=== PATIENT | male | born 1980 | race Caucasian/White ===

== ENCOUNTER 2018-12-10 11:42 | Inpatient (IN) | payer BC ==
--- NOTE | 2018-12-10 12:47 | EDM.PDOC ---
ED HPI GENERAL MEDICAL PROBLEM - General Chief Complaint: Respiratory Problem Stated Complaint: LOW OXYGEN LEVELS SENT BY HUNTER Time Seen by Provider: 12/10/18 12:10 Source of Information: Reports: Patient, RN Notes Reviewed, Other (long term care provider) History Limitations: Reports: No Limitations - History of Present Illness INITIAL COMMENTS - FREE TEXT/NARRATIVE: Patient is a 38-year-old male who presents to the ED with a inspector hairspring truing for the evaluation of low oxygen levels. The patient does reside in a long term, and does have assisted care living at that facility. This inspector hairspring truing states that when she went to go see the patient at around 7 AM this morning, he felt hot to touch, and she was told by other staff that his lips were blue. She did get a thermometer and check his temperature was found to be 101.5. She did give 500 mg of Tylenol, and his fever did decrease to 99.5F the patient's O2 level at roughly 8:30, was found to be 65% on room air, they did take him to the walk-in clinic for evaluation, but they started him on oxygen and sent him to the ED for evaluation. The inspector hairspring truing notes that the patient does have a CPAP at home, for which they can run oxygen in. The patient states that he has had a mild cough recently, but the staff state that the patient has not been complaining of much, although he is not much of a complainer at all. The patient does have a history of a broken finger, for which he did not complain about pain, which resulted in a pin in his finger for management. The patient's oxygen level on 2 L at time of initial evaluation was 94%. The patient appears to be in good spirits and is talkative at this time. Treatments DOOR TRIMMER: Reports: Other (see below) Other Treatments DOOR TRIMMER: tylenol and oxygen - Related Data Allergies Allergy/AdvReac Type Severity Reaction Status Date / Time dog dander Allergy Cannot Verified 12/10/18 12:05 Remember oats Allergy Cannot Verified 12/10/18 12:05 Remember risperidone [From Risperdal] Allergy Cannot Verified 12/10/18 12:05 Remember Home Meds: Home Meds ARIPiprazole [Abilify] 5 mg PO QID 12/10/18 [History] Allopurinol [Zyloprim] 300 mg PO BEDTIME 12/10/18 [History] Desmopressin 0.5 mg PO BEDTIME 12/10/18 [History] Divalproex Sodium [Depakote] 500 mg PO BID 12/10/18 [History] Levothyroxine 75 mcg PO SUSA 12/10/18 [History] Levothyroxine [Synthroid] 50 mg PO MOTUWETHFR 12/10/18 [History] Melatonin 10 mg PO BEDTIME 12/10/18 [History] Methylcellulose [Fiber] 625 mg PO BEDTIME 12/10/18 [History] PARoxetine HCl [Paxil] 30 mg PO DAILY 12/10/18 [History] cloNIDine [Catapres TTS-2] 0.2 mg TOP ASDIRECTED 12/10/18 [History] Past Medical History Musculoskeletal History: Reports: Other (See Below) Other Musculoskeletal History: scolosis Neurological History: Reports: Seizure Psychiatric History: 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, Anxiety, Depression Endocrine/Metabolic History: Reports: Hypothyroidism Social & Family History - Tobacco Use Smoking Status *Q: Never Smoker - Caffeine Use Caffeine Use: Reports: Soda - Recreational Drug Use Recreational Drug Use: No ED ROS GENERAL - Review of Systems Review Of Systems: See Below Constitutional: Reports: Fever HEENT: Reports: No Symptoms Respiratory: Reports: Cough Cardiovascular: Reports: No Symptoms Endocrine: Reports: No Symptoms GI/Abdominal: Reports: No Symptoms : Reports: No Symptoms Musculoskeletal: Reports: No Symptoms Skin: Reports: No Symptoms Neurological: Reports: No Symptoms Psychiatric: Reports: No Symptoms Hematologic/Lymphatic: Reports: No Symptoms Immunologic: Reports: No Symptoms ED EXAM, GENERAL - Physical Exam Exam: See Below Exam Limited By: No Limitations General Appearance: Alert, WD/WN, No Apparent Distress Eye Exam: Bilateral Eye: EOMI, Normal Inspection, PERRL Ears: Normal External Exam, Normal Canal, Hearing Grossly Normal, Normal TMs Nose: Normal Inspection, Normal Mucosa Throat/Mouth: Normal Inspection, Normal Lips, Normal Teeth, Normal Gums, Normal Oropharynx, Normal Voice, No Airway Compromise Head: Atraumatic, Normocephalic Neck: Normal Inspection Respiratory/Chest: No Respiratory Distress, Lungs Clear, No Accessory Muscle Use , Chest Non-Tender, Decreased Breath Sounds (diffuse bilaterally) Cardiovascular: Normal Peripheral Pulses, Regular Rate, Rhythm, No Edema, No Murmur GI/Abdominal: Normal Bowel Sounds, Soft, Non-Tender, No Distention, No Mass Extremities: Normal Inspection, Normal Capillary Refill Neurological: Alert, Oriented, Normal Cognition, No Motor/Sensory Deficits Psychiatric: Normal Affect, Normal Mood Skin Exam: Warm, Dry, Intact, Normal Color, No Rash Course - Vital Signs Last Recorded V/S: Last Vital Signs Temp 97.3 F 12/10/18 11:57 Pulse 85 12/10/18 11:57 Resp 19 12/10/18 11:57 BP 119/88 12/10/18 11:57 Pulse Ox 81 L 12/10/18 11:57 - Orders/Labs/Meds Orders: Active Orders 24 hr Category Date Time Status Admission Status [Patient Status] [ADT] Routine ADT 12/10/18 15:05 Ordered Oxygen Therapy Adult [Oxygen Therapy, ED] [RC] Care 12/10/18 12:35 Ordered ASDIRECTED Peripheral IV Care [RC] . DIRECTED Care 12/10/18 14:21 Ordered Chest 2V [CR] Stat Exams 12/10/18 12:35 Ordered LACTATE SEPSIS W/ REFLEX [CHEM] Stat Lab 12/10/18 15:02 Ordered Lactated Ringers [Ringers, Lactated] 1,000 ml Med 12/10/18 15:01 Ordered IV .BOLUS Sodium Chloride 0.9% [Saline Flush] Med 12/10/18 14:21 Ordered 10 ml FLUSH ASDIRECTED PRN Peripheral IV Insertion Adult [OM.PC] Routine Oth 12/10/18 14:20 Ordered Medication Orders Lactated Ringer's (Ringers, Lactated) 1,000 mls @ 999 mls/hr IV .BOLUS ONE Stop: 12/10/18 16:01 Sodium Chloride (Saline Flush) 10 ml FLUSH ASDIRECTED PRN PRN Reason: Keep Vein Open Last Admin: 12/10/18 14:49 Dose: 10 ml Labs: Laboratory Tests 12/10/18 12/10/18 Range/Units 13:15 13:15 WBC 15.82 H (4.23-9.07) K/mm3 RBC 6.07 (4.63-6.08) M/mm3 Hgb 14.9 (13.7-17.5) gm/L Hct 50.0 (40.1-51.0) % MCV 82.4 (79.0-92.2) fl MCH 24.5 L (25.7-32.2) pg MCHC 29.8 L (32.2-35.5) g/dl RDW Std Deviation 61.8 H (35.1-43.9) fL Plt Count 221 (163-337) K/mm3 Neutrophils % (Manual) 65 H (40-60) % Band Neutrophils % 8 (0-10) % Lymphocytes % (Manual) 13 L (20-40) % Atypical Lymphs % 0 % Monocytes % (Manual) 13 H (2-10) % Eosinophils % (Manual) 1 (0.8-7.0) % Basophils % (Manual) 0 L (0.2-1.2) Platelet Estimate Adequate Plt Morphology Comment See note Hypochromasia 2+ moderate Anisocytosis 3+ marked Microcytosis 2+ moderate Macrocytosis 2+ moderate RBC Morph Comment Not Reportable Sodium 139 (136-145) mEq/L Potassium 5.1 (3.5-5.1) mEq/L Chloride 103 (98-107) mEq/L Carbon Dioxide 34 H (21-32) mEq/L Anion Gap 7.1 (5-15) BUN 19 H (7-18) mg/dL Creatinine 1.0 (0.7-1.3) mg/dL Est Cr Clr Drug Dosing 103.82 mL/min Estimated GFR (MDRD) > 60 (>60) mL/min BUN/Creatinine Ratio 19.0 H (14-18) Glucose 89 (74-106) mg/dL Calcium 9.1 (8.5-10.1) mg/dL Total Bilirubin 0.6 (0.2-1.0) mg/dL AST 20 (15-37) U/L ALT 23 (16-63) U/L Alkaline Phosphatase 81 (46-116) U/L Total Protein 6.6 (6.4-8.2) g/dl Albumin 2.9 L (3.4-5.0) g/dl Globulin 3.7 gm/dL Albumin/Globulin Ratio 0.8 L (1-2) Meds: Medications Generic Name Dose Route Start Last Admin Trade Name Freq PRN Reason Stop Dose Admin Lactated Ringer's 1,000 mls @ 999 mls/hr 12/10/18 15:01 Ringers, Lactated IV 12/10/18 16:01 .BOLUS ONE Sodium Chloride 10 ml 12/10/18 14:21 12/10/18 14:49 Saline Flush FLUSH 10 ml ASDIRECTED PRN Administration Keep Vein Open Discontinued Medications Generic Name Dose Route Start Last Admin Trade Name Freq PRN Reason Stop Dose Admin Aripiprazole 5 mg 12/10/18 14:57 Abilify PO 12/10/18 14:58 ONETIME ONE Ceftriaxone Sodium 2 gm/ 100 mls @ 200 mls/hr 12/10/18 14:24 12/10/18 14:50 Sodium Chloride IV 12/10/18 14:53 200 mls/hr ONETIME ONE Administration Paroxetine HCl 30 mg 12/10/18 14:57 Paxil PO 12/10/18 14:58 ONETIME ONE - Re-Assessments/Exams Free Text/Narrative Re-Assessment/Exam: 12/10/18 12:46 Patient presents to the ED for the evaluation of low O2 sats. His oxygen level at time of triage was in the mid 80s, oxygen at 2 L was applied and he has been roughly 94-95 on the 2 L. I have ordered a chest x-ray, CBC, CMP for initial management. 12/10/18 13:38 Patient's chest x-ray is done, and reviewed by myself and Dr. Eldridge, there is scoliosis present, and there are 2 areas suspicious for pneumonia one of the right lung and one in the left lung. The patient has a left elevated hemidiaphragm. The patient's white blood cell count is back at over 15,000 as well. 12/10/18 14:08 Patient's differential is done, and does demonstrate 8% bands. This is more suggestive for pneumonia at this time. Departure - Departure Time of Disposition: 15:11 Disposition: Admitted As Inpatient 67 Condition: Fair Clinical Impression: Hypoxemia Pneumonia Qualifiers: Pneumonia type: due to unspecified organism Laterality: unspecified laterality Lung location: unspecified part of lung Qualified Code(s): J18.9 - Pneumonia, unspecified organism - Discharge Information *PRESCRIPTION DRUG MONITORING PROGRAM REVIEWED*: No *COPY OF PRESCRIPTION DRUG MONITORING REPORT IN PATIENT HUMBERTO: No Referrals: Michaela Sanchez NP [Primary Care Provider] - Forms: ED Department Discharge - My Orders Last 24 Hours: My Active Orders 12/10/18 12:35 Oxygen Therapy Adult [Oxygen Therapy, ED] [RC] ASDIRECTED Chest 2V [CR] Stat 12/10/18 14:20 Peripheral IV Insertion Adult [OM.PC] Routine 12/10/18 14:21 Peripheral IV Care [RC] . DIRECTED Sodium Chloride 0.9% [Saline Flush] 10 ml FLUSH ASDIRECTED PRN 12/10/18 15:01 Lactated Ringers [Ringers, Lactated] 1,000 ml IV .BOLUS 12/10/18 15:02 LACTATE SEPSIS W/ REFLEX [CHEM] Stat 12/10/18 15:05 Admission Status [Patient Status] [ADT] Routine - Assessment/Plan Last 24 Hours: My Active Orders 12/10/18 12:35 Oxygen Therapy Adult [Oxygen Therapy, ED] [RC] ASDIRECTED Chest 2V [CR] Stat 12/10/18 14:20 Peripheral IV Insertion Adult [OM.PC] Routine 12/10/18 14:21 Peripheral IV Care [RC] . DIRECTED Sodium Chloride 0.9% [Saline Flush] 10 ml FLUSH ASDIRECTED PRN 12/10/18 15:01 Lactated Ringers [Ringers, Lactated] 1,000 ml IV .BOLUS 12/10/18 15:02 LACTATE SEPSIS W/ REFLEX [CHEM] Stat 12/10/18 15:05 Admission Status [Patient Status] [ADT] Routine
[2018-12-10] MEDS ORDERED: Sodium Chloride 0.9% 10 ML Syringe FLUSH PRN ×2 (14:21→17:16)
[2018-12-10] MEDS ORDERED: cefTRIAXone 2 GM in Sodium Chloride 0.9% 100 ML IV ONE (14:24)
[2018-12-10] MEDS ORDERED: PARoxetine 20 MG Tab PO ONE (14:57)
[2018-12-10] MEDS ORDERED: Lactated Ringers 1,000 ML IV ONE (15:01)
--- NOTE | 2018-12-10 15:11 | CR ---
Chest: PA and lateral views of the chest were obtained. Comparison: No previous chest x-ray. Hiatal hernia is noted. Heart size appears within normal limits. Tortuous thoracic aorta is seen. Mild increased central lung markings are seen. Lungs otherwise are clear. Severe scoliosis is noted within the spine. Impression: 1. Possible bronchitis. 2. Other incidental findings. Diagnostic code #3
[2018-12-10] MEDS ORDERED: ARIPiprazole 10 MG Tab PO ONE (15:15)
[2018-12-10] MEDS ORDERED: Azithromycin 500 MG in Sodium Chloride 0.9% 250 ML IV ONE (16:03)
[2018-12-10] MEDS ORDERED: Acetaminophen 325 MG Tab PO PRN (17:16)
--- NOTE | 2018-12-10 17:43 | PCM.HP ---
H&P History of Present Illness - General Date of Service: 12/10/18 Admit Problem/Dx: Admission Diagnosis/Problem Admission Diagnosis/Problem Hypoxemia - History of Present Illness Initial Comments - Free Text/Narative: This 38-year-old male is admitted through the emergency room after being found to have low oxygen levels at his senior care. Patient was found to be irritable last couple of days and when he woke up this morning he was sweaty. He also started trazodone last night in his mother is not sure if that is not part of the reason he woke up sweaty. His temperature was found to be honored and 1.5 and reportedly his lips were blue. He was given Tylenol and his O2 around 8:30 was found to be 65% on room air. Patient was brought to the walk-in clinic and sent to the emergency room for evaluation. Patient uses a BiPAP at home, but often takes it off. He does have oxygen for his BiPAP. She also states that he often has a chronically low O2 that on a good day it is around 89%. Patient has severe scoliosis which apparently causes some restrictive lung disease. His BiPAP settings are 12/7. He has had these worsening conditions over the last 12 years. Also of note he has lower extremity swelling. This is also been going on for years with no workup performed. Patient is a poor historian secondary to his mental disability. In the emergency room patient was placed on oxygen and 2 L nasal cannula increase his oxygen level approximately to 94-95%. Chest x-ray showed changes consistent with bronchitis. White count was elevated at over 15,000. There were 8% bands on differential. - Related Data Allergies/Adverse Reactions: Allergies Allergy/AdvReac Type Severity Reaction Status Date / Time dog dander Allergy Cannot Verified 12/10/18 12:05 Remember risperidone [From Risperdal] Allergy Cannot Verified 12/10/18 12:05 Remember Home Medications: Home Meds ARIPiprazole [Abilify] 5 mg PO QID 12/10/18 [History] Allopurinol [Zyloprim] 300 mg PO BEDTIME 12/10/18 [History] Desmopressin 0.5 mg PO BEDTIME 12/10/18 [History] Divalproex Sodium [Depakote] 500 mg PO BID 12/10/18 [History] Levothyroxine 75 mcg PO SUSA 12/10/18 [History] Levothyroxine [Synthroid] 50 mg PO MOTUWETHFR 12/10/18 [History] Melatonin 10 mg PO BEDTIME 12/10/18 [History] Methylcellulose [Fiber] 625 mg PO BEDTIME 12/10/18 [History] PARoxetine HCl [Paxil] 30 mg PO DAILY 12/10/18 [History] cloNIDine [Catapres TTS-2] 0.2 mg TOP ASDIRECTED 12/10/18 [History] Past Medical History Respiratory History: Reports: Asthma, Sleep Apnea Other Respiratory History: wears bipap at night-1L O2--not always compliant. 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 General: Reports: Fever, Chills, Malaise Exam - Exam Exam: See Below - Vital Signs Vital Signs: Last Vital Signs Temp 97.3 F 12/10/18 11:57 Pulse 85 12/10/18 11:57 Resp 19 12/10/18 11:57 BP 119/88 12/10/18 11:57 Pulse Ox 81 L 12/10/18 11:57 Weight: 163 lb 8 oz - Exam Quality Assessment: Supplemental Oxygen General: Alert HEENT: Conjunctiva Clear, Mucosa Moist & [place], Posterior Pharynx Clear Neck: Supple, Trachea Midline Lungs: Clear to Auscultation, Normal Respiratory Effort Cardiovascular: Regular Rate, Regular Rhythm GI/Abdominal Exam: Normal Bowel Sounds, Soft, No Distention Extremities: Normal Inspection, Normal Range of Motion, Normal Capillary Refill , Pedal Edema Skin: Warm, Dry, Intact Neuro Extensive - Mental Status: Alert, Normal Mood/Affect Psychiatric: Alert, Normal Affect, Normal Mood - Patient Data Lab Results Last 24 hrs: Laboratory Results - last 24 hr 12/10/18 12/10/18 12/10/18 Range/Units 13:15 13:15 15:34 WBC 15.82 H (4.23-9.07) K/mm3 RBC 6.07 (4.63-6.08) M/mm3 Hgb 14.9 (13.7-17.5) gm/L Hct 50.0 (40.1-51.0) % MCV 82.4 (79.0-92.2) fl MCH 24.5 L (25.7-32.2) pg MCHC 29.8 L (32.2-35.5) g/dl RDW Std Deviation 61.8 H (35.1-43.9) fL Plt Count 221 (163-337) K/mm3 Neutrophils % (Manual) 65 H (40-60) % Band Neutrophils % 8 (0-10) % Lymphocytes % (Manual) 13 L (20-40) % Atypical Lymphs % 0 % Monocytes % (Manual) 13 H (2-10) % Eosinophils % (Manual) 1 (0.8-7.0) % Basophils % (Manual) 0 L (0.2-1.2) Platelet Estimate Adequate Plt Morphology Comment See note Hypochromasia 2+ moderate Anisocytosis 3+ marked Microcytosis 2+ moderate Macrocytosis 2+ moderate RBC Morph Comment Not Reportable Sodium 139 (136-145) mEq/L Potassium 5.1 (3.5-5.1) mEq/L Chloride 103 (98-107) mEq/L Carbon Dioxide 34 H (21-32) mEq/L Anion Gap 7.1 (5-15) BUN 19 H (7-18) mg/dL Creatinine 1.0 (0.7-1.3) mg/dL Est Cr Clr Drug Dosing 103.82 mL/min Estimated GFR (MDRD) > 60 (>60) mL/min BUN/Creatinine Ratio 19.0 H (14-18) Glucose 89 (74-106) mg/dL Lactic Acid 1.9 (0.4-2.0) mmol/L Calcium 9.1 (8.5-10.1) mg/dL Total Bilirubin 0.6 (0.2-1.0) mg/dL AST 20 (15-37) U/L ALT 23 (16-63) U/L Alkaline Phosphatase 81 (46-116) U/L Total Protein 6.6 (6.4-8.2) g/dl Albumin 2.9 L (3.4-5.0) g/dl Globulin 3.7 gm/dL Albumin/Globulin Ratio 0.8 L (1-2) Result Diagrams: 12/10/18 13:15 12/10/18 13:15 - Problem List (1) Central sleep apnea Status: Acute Current Visit: Yes (2) Hypoxemia SNOMED Code(s): 072260974 ICD Code: R09.02 - HYPOXEMIA Status: Acute Current Visit: Yes (3) Pneumonia SNOMED Code(s): 712337934 ICD Code: J18.9 - PNEUMONIA, UNSPECIFIED ORGANISM Status: Acute Current Visit: Yes Qualifiers: Pneumonia type: due to unspecified organism Laterality: unspecified laterality Lung location: unspecified part of lung Qualified Code(s): J18.9 - Pneumonia, unspecified organism Problem List Initiated/Reviewed/Updated: Yes Orders Last 24hrs: Active Orders 24 hr Category Date Time Status Admission Status [Patient Status] [ADT] Routine ADT 12/10/18 15:05 Active Antiembolic Devices [RC] PER UNIT ROUTINE Care 12/10/18 17:18 Active Oxygen Therapy [RC] PRN Care 12/10/18 17:16 Active Peripheral IV Care [RC] Q2HR Care 12/10/18 14:21 Active Up ad Madonna [RC] ASDIRECTED Care 12/10/18 17:16 Active VTE/DVT Education [RC] PER UNIT ROUTINE Care 12/10/18 17:16 Active Vital Signs [RC] Q4H Care 12/10/18 17:16 Active Respiratory Care Assess and Treatment [CONS] Routine Cons 12/10/18 17:16 Active Regular Diet [DIET] Diet 12/10/18 Dinner Active Chest 1V Frontal [CR] AM Exams 12/11/18 05:11 Ordered Echo Comp wo Cont [US] Routine Exams 12/10/18 17:19 Ordered C-REACTIVE PROTEIN [CHEM] AM Lab 12/11/18 05:11 Ordered CBC WITH AUTO DIFF [HEME] AM Lab 12/11/18 05:11 Ordered CMP [COMPREHENSIVE METABOLIC PN,CMP] [CHEM] AM Lab 12/11/18 05:11 Ordered INFLUENZA A+B AG SCREEN [RM] Stat Lab 12/10/18 16:02 Ordered LEGIONELLA ANTIGEN [MREF] Routine Lab 12/10/18 16:01 Ordered MAGNESIUM [CHEM] AM Lab 12/11/18 05:11 Ordered RESPIRATORY PANEL Routine Lab 12/10/18 16:01 Ordered STREP PNEUMONIAE ANTIGEN [MREF] Routine Lab 12/10/18 16:01 Ordered ARIPiprazole Med 12/10/18 21:00 Ordered 5 mg PO QID Acetaminophen [Tylenol] Med 12/10/18 17:16 Active 650 mg PO Q4H PRN Allopurinol [Zyloprim] Med 12/10/18 21:00 Ordered 300 mg PO BEDTIME Azithromycin [Zithromax] 250 mg Med 12/11/18 16:15 Active Sodium Chloride 0.9% [Normal Saline] 250 ml IV Q24H Desmopressin Med 12/10/18 21:00 Ordered 0.5 mg PO BEDTIME Divalproex Sodium [Depakote] Med 12/10/18 21:00 Ordered 500 mg PO BID Levothyroxine Med 12/13/18 17:35 Ordered 75 mcg PO SUSA Levothyroxine [Synthroid] Med 12/10/18 17:45 Ordered 50,000 mcg PO MOTUWETHFR PARoxetine HCl [Paxil] Med 12/11/18 09:00 Ordered 30 mg PO DAILY Sodium Chloride 0.9% [Saline Flush] Med 12/10/18 14:21 Active 10 ml FLUSH ASDIRECTED PRN Sodium Chloride 0.9% [Saline Flush] Med 12/10/18 17:16 Active 10 ml FLUSH ASDIRECTED PRN cefTRIAXone [Rocephin] 2 gm Med 12/11/18 15:00 Active Sodium Chloride 0.9% [Normal Saline] 100 ml IV Q24H cloNIDine [Catapres TTS-2] Med 12/10/18 17:45 Ordered 0.2 mg TOP ASDIRECTED Antiembolic Hose [OM.PC] Per Unit Routine Oth 12/10/18 17:16 Ordered Peripheral IV Insertion Adult [OM.PC] Routine Oth 12/10/18 14:20 Ordered Saline Lock Insert [OM.PC] Routine Oth 12/10/18 17:16 Ordered Resuscitation Status Routine Resus Stat 12/10/18 16:53 Ordered Medication Orders Acetaminophen (Tylenol) 650 mg PO Q4H PRN PRN Reason: Pain (Mild 1-3)/fever Allopurinol (Zyloprim) 300 mg PO BEDTIME [place] Clonidine HCl (Catapres Tts-2) 0.2 mg TOP ASDIRECTED [place] Desmopressin Acetate (Desmopressin) 0.5 mg PO BEDTIME [place] Divalproex Sodium (Depakote) 500 mg PO BID [place] Azithromycin 250 mg/ Sodium (Chloride) 250 mls @ 250 mls/hr IV Q24H [place] Stop: 12/14/18 17:14 Ceftriaxone Sodium 2 gm/ (Sodium Chloride) 100 mls @ 200 mls/hr IV Q24H [place] Levothyroxine Sodium (Levothyroxine) 75 mcg PO SUSA [place] Levothyroxine Sodium (Synthroid) 50,000 mcg PO MOTUWETHFR [facility] Non-Formulary Medication (Aripiprazole) 5 mg PO QID [facility] Non-Formulary Medication (Paroxetine Hcl [Paxil]) 30 mg PO DAILY [facility] Sodium Chloride (Saline Flush) 10 ml FLUSH ASDIRECTED PRN PRN Reason: Keep Vein Open Last Admin: 12/10/18 14:49 Dose: 10 ml Sodium Chloride (Saline Flush) 10 ml FLUSH ASDIRECTED PRN PRN Reason: Keep Vein Open Assessment/Plan Comment:: Pneumonia with hypoxemia * Rocephin and azithromycin * CBC in the morning with CMP and C-reactive protein * O2 to keep pulse ox above 92%. * Duonebs every 4 hours when necessary as needed Central sleep apnea * Patient's mother will bring his home BiPAP unit. Extremity edema * TSH and echocardiogram ordered CODE STATUS: Full code Anticipated length of stay 2 days
[2018-12-10] MEDS ORDERED: cloNIDine 0.2 MG/Day Transdermal Patch TOP SCH (17:45)
[2018-12-10] MEDS ORDERED: cloNIDine 0.2 MG/Day Transdermal Patch TRDERM SCH ×2 (18:30→22:00)
[2018-12-10] MEDS ORDERED: Desmopressin 0.2 MG Tab PO SCH (21:00)
[2018-12-10] MEDS: Divalproex Sodium Delayed-Release 500 MG Tab.CR PO SCH (21:39)
[2018-12-10] MEDS: Allopurinol 300 MG Tab PO SCH (21:39)
[2018-12-10] MEDS: ARIPiprazole 10 MG Tab PO SCH (21:39)
--- NOTE | 2018-12-11 07:27 | PCM.PN ---
- General Info Date of Service: 12/11/18 Admission Dx/Problem (Free Text): Admission Diagnosis/Problem Admission Diagnosis/Problem Hypoxemia Subjective Update: 12/11/18: In to see Yaakov. His mother is at bedside. We discussed progress so far and possible need for oxygen at discharge. Mother reports he will likely not be able to return to his [place] [facility] if he needs oxygen therapy on discharge but she is willing to bring him home if needed. Will extend vital signs to Q6Hr. Added acapella as he will not be able to participate in IS. Will add a BNP due to leg swelling. Echo has been obtained and is pending. He is not coughing and does not sound congested so no need for Robitussin DM. This will also not produce a sputum culture. He remains on 2L O2. Mother would like to see pulmonology at discharge as she did not have a good experience last time but reports he has not been compliant with wearing his BiPAP. She is hopeful they will have a better idea of options for him. She reports his scoliosis is worsening and we discussed how this will likely lead to worsening respiratory symptoms and difficulty clearing infections. His labs today are improved and his mother reports significant improvement with symptoms. Functional Status: Reports: Pain Controlled, Tolerating Diet, Ambulating, Urinating, Other (acapella ). Denies: New Symptoms - Review of Systems General: Reports: No Symptoms. Denies: Fever, Weakness, Chills HEENT: Reports: No Symptoms. Denies: Headaches Pulmonary: Reports: No Symptoms. Denies: Shortness of Breath, Cough, Sputum, Wheezing Cardiovascular: Reports: Dyspnea on Exertion, Edema (improved ). Denies: Chest Pain Gastrointestinal: Reports: No Symptoms. Denies: Abdominal Pain, Constipation, Diarrhea, Vomiting Genitourinary: Reports: No Symptoms. Denies: Pain Musculoskeletal: Reports: No Symptoms Skin: Reports: No Symptoms. Denies: Cyanosis Neurological: Reports: No Symptoms. Denies: Confusion, Tremors, Trouble Speaking, Difficulty Walking, Change in Speech, Gait Disturbance Psychiatric: Reports: No Symptoms Systems Review Comment:: Patient has developmental delays. ROS obtained from patient and his mother. - Patient Data Vitals - Most Recent: Last Vital Signs Temp 98.1 F 12/11/18 00:11 Pulse 66 12/11/18 00:11 Resp 18 12/11/18 00:11 BP 122/92 H 12/11/18 00:11 Pulse Ox 91 L 12/11/18 00:11 Weight - Most Recent: 163 lb 8 oz I&O - Last 24 Hours: Intake & Output 12/10/18 12/11/18 12/11/18 22:59 06:59 14:59 Intake Total 240 450 Output Total 600 650 Balance -360 -200 Lab Results Last 24 Hours: Laboratory Results - last 24 hr 12/10/18 12/10/18 12/10/18 Range/Units 13:15 13:15 15:34 WBC 15.82 H (4.23-9.07) K/mm3 RBC 6.07 (4.63-6.08) M/mm3 Hgb 14.9 (13.7-17.5) gm/L Hct 50.0 (40.1-51.0) % MCV 82.4 (79.0-92.2) fl MCH 24.5 L (25.7-32.2) pg MCHC 29.8 L (32.2-35.5) g/dl RDW Std Deviation 61.8 H (35.1-43.9) fL Plt Count 221 (163-337) K/mm3 Neut % (Auto) (34.0-67.9) % Lymph % (Auto) (21.8-53.1) % [place] % (Auto) (5.3-12.2) % Eos % (Auto) (0.8-7.0) Baso % (Auto) (0.1-1.2) % Neut # (Auto) (1.78-5.38) K/mm3 Lymph # (Auto) (1.32-3.57) K/mm3 [place] # (Auto) (0.30-0.82) K/mm3 Eos # (Auto) (0.04-0.54) K/mm3 Baso # (Auto) (0.01-0.08) K/mm3 Neutrophils % (Manual) 65 H (40-60) % Band Neutrophils % 8 (0-10) % Lymphocytes % (Manual) 13 L (20-40) % Atypical Lymphs % 0 % Monocytes % (Manual) 13 H (2-10) % Eosinophils % (Manual) 1 (0.8-7.0) % Basophils % (Manual) 0 L (0.2-1.2) Manual Slide Review Platelet Estimate Adequate Plt Morphology Comment See note Hypochromasia 2+ moderate Anisocytosis 3+ marked Microcytosis 2+ moderate Macrocytosis 2+ moderate RBC Morph Comment Not Reportable Sodium 139 (136-145) mEq/L Potassium 5.1 (3.5-5.1) mEq/L Chloride 103 (98-107) mEq/L Carbon Dioxide 34 H (21-32) mEq/L Anion Gap 7.1 (5-15) BUN 19 H (7-18) mg/dL Creatinine 1.0 (0.7-1.3) mg/dL Est Cr Clr Drug Dosing 103.82 mL/min Estimated GFR (MDRD) > 60 (>60) mL/min BUN/Creatinine Ratio 19.0 H (14-18) Glucose 89 (74-106) mg/dL Lactic Acid 1.9 (0.4-2.0) mmol/L Calcium 9.1 (8.5-10.1) mg/dL Magnesium (1.8-2.4) mg/dl Total Bilirubin 0.6 (0.2-1.0) mg/dL AST 20 (15-37) U/L ALT 23 (16-63) U/L Alkaline Phosphatase 81 (46-116) U/L C-Reactive Protein (<1.0) mg/dL Total Protein 6.6 (6.4-8.2) g/dl Albumin 2.9 L (3.4-5.0) g/dl Globulin 3.7 gm/dL Albumin/Globulin Ratio 0.8 L (1-2) TSH 3rd Generation (0.358-3.74) uIU/mL MRSA (PCR) 12/10/18 12/11/18 12/11/18 Range/Units 19:30 05:17 05:17 WBC 13.18 H (4.23-9.07) K/mm3 RBC 5.40 (4.63-6.08) M/mm3 Hgb 13.6 L (13.7-17.5) gm/L Hct 45.3 (40.1-51.0) % MCV 83.9 (79.0-92.2) fl MCH 25.2 L (25.7-32.2) pg MCHC 30.0 L (32.2-35.5) g/dl RDW Std Deviation 61.9 H (35.1-43.9) fL Plt Count 177 (163-337) K/mm3 Neut % (Auto) 64.3 (34.0-67.9) % Lymph % (Auto) 22.2 (21.8-53.1) % [place] % (Auto) 10.6 (5.3-12.2) % Eos % (Auto) 2.5 (0.8-7.0) Baso % (Auto) 0.2 (0.1-1.2) % Neut # (Auto) 8.47 H (1.78-5.38) K/mm3 Lymph # (Auto) 2.93 (1.32-3.57) K/mm3 [place] # (Auto) 1.40 H (0.30-0.82) K/mm3 Eos # (Auto) 0.33 (0.04-0.54) K/mm3 Baso # (Auto) 0.03 (0.01-0.08) K/mm3 Neutrophils % (Manual) (40-60) % Band Neutrophils % (0-10) % Lymphocytes % (Manual) (20-40) % Atypical Lymphs % % Monocytes % (Manual) (2-10) % Eosinophils % (Manual) (0.8-7.0) % Basophils % (Manual) (0.2-1.2) Manual Slide Review Abnormal smear Platelet Estimate Plt Morphology Comment Hypochromasia Anisocytosis Microcytosis Macrocytosis RBC Morph Comment Sodium 140 (136-145) mEq/L Potassium 4.7 (3.5-5.1) mEq/L Chloride 102 (98-107) mEq/L Carbon Dioxide 34 H (21-32) mEq/L Anion Gap 8.7 (5-15) BUN 17 (7-18) mg/dL Creatinine 0.8 (0.7-1.3) mg/dL Est Cr Clr Drug Dosing 130.54 mL/min Estimated GFR (MDRD) > 60 (>60) mL/min BUN/Creatinine Ratio 21.3 H (14-18) Glucose 92 (74-106) mg/dL Lactic Acid (0.4-2.0) mmol/L Calcium 8.9 (8.5-10.1) mg/dL Magnesium 1.8 (1.8-2.4) mg/dl Total Bilirubin 0.4 (0.2-1.0) mg/dL AST 17 (15-37) U/L ALT 18 (16-63) U/L Alkaline Phosphatase 72 (46-116) U/L C-Reactive Protein 4.2 H* (<1.0) mg/dL Total Protein 6.1 L (6.4-8.2) g/dl Albumin 2.6 L (3.4-5.0) g/dl Globulin 3.5 gm/dL Albumin/Globulin Ratio 0.7 L (1-2) TSH 3rd Generation 0.380 (0.358-3.74) uIU/mL MRSA (PCR) Negative Solomon Results Last 24 Hours: Microbiology 12/10/18 18:30 Influenza Type A Antigen Screen - Final Nasopharyngeal Swab NEGATIVE INFLUENZA A VIRUS AG REFERENCE RANGE: NEGATIVE Influenza Type B Antigen Screen - Final NEGATIVE INFLUENZA B VIRUS AG REFERENCE RANGE: NEGATIVE Med Orders - Current: Current Medications Acetaminophen (Tylenol) 650 mg PO Q4H PRN PRN Reason: Pain (Mild 1-3)/fever Allopurinol (Zyloprim) 300 mg PO BEDTIME [facility] Last Admin: 12/10/18 21:39 Dose: 300 mg Aripiprazole (Abilify) 5 mg PO QID [facility] Last Admin: 12/10/18 21:39 Dose: 5 mg Aripiprazole (Abilify) 2 mg PO BID PRN PRN Reason: Agitation Clonidine HCl (Catapres Tts-2) 0.2 mg TRDERM Q3D [facility] Last Admin: 12/10/18 22:08 Dose: 0.2 mg Desmopressin Acetate (Desmopressin) 0.5 mg PO BEDTIME [facility] Last Admin: 12/10/18 22:37 Dose: 0.5 mg Divalproex Sodium (Depakote) 500 mg PO BID [facility] Last Admin: 12/10/18 21:39 Dose: 500 mg Azithromycin 250 mg/ Sodium (Chloride) 250 mls @ 250 mls/hr IV Q24H [facility] Stop: 12/14/18 17:14 Ceftriaxone Sodium 2 gm/ (Sodium Chloride) 100 mls @ 200 mls/hr IV Q24H [facility] Levothyroxine Sodium (Levothyroxine) 75 mcg PO SuSa@0600 [facility] Levothyroxine Sodium (Synthroid) 50 mcg PO MoTuWeThFr@0600 [facility] Miscellaneous Information (Remove Patch) 1 ea TRDERM Q3D [place] Paroxetine HCl (Paxil) 30 mg PO DAILY [place] Sodium Chloride (Saline Flush) 10 ml FLUSH ASDIRECTED PRN PRN Reason: Keep Vein Open Last Admin: 12/10/18 14:49 Dose: 10 ml Sodium Chloride (Saline Flush) 10 ml FLUSH ASDIRECTED PRN PRN Reason: Keep Vein Open Discontinued Medications Aripiprazole (Abilify) 5 mg PO ONETIME ONE Stop: 12/10/18 14:58 Last Admin: 12/10/18 15:20 Dose: Not Given Aripiprazole (Abilify) 5 mg PO ONETIME ONE Stop: 12/10/18 15:16 Last Admin: 12/10/18 15:23 Dose: 5 mg Clonidine HCl (Catapres Tts-2) 0.2 mg TOP ASDIRECTED [place] Clonidine HCl (Catapres Tts-2) 0.2 mg TRDERM Q3D [place] Last Admin: 12/10/18 21:47 Dose: Not Given Ceftriaxone Sodium 2 gm/ (Sodium Chloride) 100 mls @ 200 mls/hr IV ONETIME ONE Stop: 12/10/18 14:53 Last Admin: 12/10/18 14:50 Dose: 200 mls/hr Lactated Ringer's (Ringers, Lactated) 1,000 mls @ 999 mls/hr IV .BOLUS ONE Stop: 12/10/18 16:01 Last Admin: 12/10/18 18:02 Dose: Not Given Azithromycin 500 mg/ Sodium (Chloride) 250 mls @ 250 mls/hr IV ONETIME ONE Stop: 12/10/18 17:02 Last Admin: 12/10/18 18:19 Dose: 250 mls/hr Miscellaneous Information (Remove Patch) 1 ea TRDERM Q3D [place] Paroxetine HCl (Paxil) 30 mg PO ONETIME ONE Stop: 12/10/18 14:58 Last Admin: 12/10/18 15:24 Dose: 30 mg - Exam Quality Assessment: DVT Prophylaxis General: Alert, Oriented, Cooperative, No Acute Distress HEENT: Pupils Equal, Pupils Reactive, EOMI, Mucous Membr. Moist/[place] Neck: Supple, Trachea Midline, No JVD Lungs: Normal Respiratory Effort, Decreased Breath Sounds. No: Rhonchi, Wheezing Cardiovascular: Regular Rate, Regular Rhythm GI/Abdominal Exam: Normal Bowel Sounds, Soft, Non-Tender, No Organomegaly, No Distention (Male) Exam: Deferred Back Exam: Normal Inspection, Full Range of Motion Extremities: Normal Inspection, Normal Range of Motion, Non-Tender, Pedal Edema (trace to resolved ) Peripheral Pulses: 2+: Radial (L), Radial (R), Dorsalis Pedis (L), Dorsalis Pedis (R) Skin: Warm, Dry, Intact Neurological: No New Focal Deficit Psy/Mental Status: Alert - Problem List & Annotations (1) Hypoxemia SNOMED Code(s): 737273065 Code(s): R09.02 - HYPOXEMIA Status: Acute Priority: High Current Visit : Yes (2) Central sleep apnea Status: Acute Priority: High Current Visit: Yes (3) Pneumonia SNOMED Code(s): 798165182 Code(s): J18.9 - PNEUMONIA, UNSPECIFIED ORGANISM Status: Acute Priority: High Current Visit: Yes Qualifiers: Pneumonia type: due to unspecified organism Laterality: unspecified laterality Lung location: unspecified part of lung Qualified Code(s): J18.9 - Pneumonia, unspecified organism (4) Scoliosis SNOMED Code(s): 450393846 Code(s): M41.9 - SCOLIOSIS, UNSPECIFIED Status: Chronic Priority: High Current Visit: Yes Qualifiers: Scoliosis type: unspecified scoliosis Spinal region: unspecified Qualified Code(s): M41.9 - Scoliosis, unspecified - Problem List Review Problem List Initiated/Reviewed/Updated: Yes - Plan Plan:: Pneumonia with hypoxemia * Rocephin and azithromycin * O2 as needed to keep pulse ox above 92%. * Duonebs every 4 hours when necessary as needed * WBC 15.82-->13.18 * CRP 4.2 * Consult RT * Legionella, Strep pneumo, VRP all pending * Negative influenza * No cough so unable to produce sputum culture * Significant scoliosis * Ambulate * Droplet precautions Central sleep apnea * Patient's mother brought home BiPAP unit. * Mother reports poor compliance with BiPAP * Mother would like referral to pulmonology after discharge Extremity edema * TSH 0.380 (WNL) * Echocardiogram obtained and pending * BNP pending * ALESSIA Joel Chronic: Significant scoliosis Seizures Aggressive/Hostile behaviors - mother reports this is secondary to attempt to apply BiPAP Anxiety Depression Hypothyroidism Plan: Admit to medical floor Other orders as above Home medications as ordered Routine AM labs He is ambulatory so will hold off PT/OT for now DVT prophylaxis: ALESSIA Joel CODE STATUS: Full code; PCP: Michaela Sanchez NP Anticipated length of stay 2-3 days total
[2018-12-11] MEDS: Levothyroxine 50 MCG Tab PO SCH (08:03)
[2018-12-11] MEDS: PARoxetine 20 MG Tab PO SCH (08:48)
[2018-12-11] MEDS: Divalproex Sodium Delayed-Release 500 MG Tab.CR PO SCH ×2 (08:49→20:26)
[2018-12-11] MEDS: ARIPiprazole 10 MG Tab PO SCH ×3 (08:49→20:26)
--- NOTE | 2018-12-11 09:43 | CR ---
Chest: Portable view of the chest was obtained. Comparison: Previous chest x-ray of 12/10/18. Increasing lung markings are noted on the right side from prior study. Some of this may be accentuated due to layer out plate glass technique but difficult to exclude worsening bronchitis. Heart size is stable. Tortuous thoracic aorta is noted. Scoliosis is noted within the spine. Impression: 1. Increasing right-sided lung markings on prior study as described above. 2. Other stable findings. Diagnostic code #3
[2018-12-11] MEDS ORDERED: Albuterol/Ipratropium 3.0-0.5 MG/3 ML Neb Soln NEB PRN (12:20)
[2018-12-11] MEDS: cefTRIAXone 2 GM in Sodium Chloride 0.9% 100 ML IV SCH (15:31)
[2018-12-11] MEDS ORDERED: Azithromycin 250 MG in Sodium Chloride 0.9% 250 ML IV SCH (16:15)
[2018-12-11] MEDS: Calcium Polycarbophil 625 MG Tab PO SCH (20:27)
[2018-12-11] MEDS: Allopurinol 300 MG Tab PO SCH (20:27)
[2018-12-11] MEDS ORDERED: DESMOPRESSIN 0.1 MG PO SCH (21:00)
[2018-12-12] MEDS: ARIPiprazole 10 MG Tab PO SCH ×4 (02:10→20:41)
[2018-12-12] MEDS: Levothyroxine 50 MCG Tab PO SCH (05:27)
--- NOTE | 2018-12-12 08:48 | PCM.PN ---
- General Info Date of Service: 12/12/18 Admission Dx/Problem (Free Text): Admission Diagnosis/Problem Admission Diagnosis/Problem Hypoxemia Subjective Update: In to see Yaakov. His mother is at bedside. He is sitting up in bed watching TV. He reports he feels very good. He has been weaned off of oxygen. No nursing concerns. Will change azithromycin to PO today and switch from IV rocephin to PO Cefdinir tomorrow. Pending continued improvement we are hopeful for discharge tomorrow. Mother was updated on abnormalities found on echo. He will likely need cardiology follow-up. Labs continue to improve. He continues to work with PT/OT and is showing improvement. Functional Status: Reports: Pain Controlled, Tolerating Diet, Ambulating, Urinating, Other (acapella ). Denies: New Symptoms - Review of Systems General: Reports: No Symptoms. Denies: Fever, Weakness, Fatigue, Malaise HEENT: Reports: No Symptoms. Denies: Headaches, Sore Throat Pulmonary: Reports: No Symptoms. Denies: Shortness of Breath, Cough, Sputum, Wheezing Cardiovascular: Reports: No Symptoms. Denies: Chest Pain, Edema Gastrointestinal: Reports: No Symptoms. Denies: Abdominal Pain, Constipation, Diarrhea, Nausea, Vomiting Genitourinary: Reports: No Symptoms Musculoskeletal: Reports: No Symptoms Skin: Reports: No Symptoms Neurological: Reports: No Symptoms Psychiatric: Reports: No Symptoms - Patient Data Vitals - Most Recent: Last Vital Signs Temp 97.9 F 12/11/18 19:30 Pulse 83 12/12/18 02:13 Resp 16 12/12/18 02:13 BP 123/81 12/12/18 02:13 Pulse Ox 92 L 12/12/18 02:13 Weight - Most Recent: 161 lb 1.6 oz I&O - Last 24 Hours: Intake & Output 12/11/18 12/12/18 12/12/18 22:59 06:59 14:59 Intake Total 588 400 Output Total 450 500 Balance 138 -100 Lab Results Last 24 Hours: Laboratory Results - last 24 hr 12/10/18 12/11/18 12/12/18 Range/Units 18:30 12:40 04:55 WBC 9.64 H (4.23-9.07) K/mm3 RBC 5.56 (4.63-6.08) M/mm3 Hgb 14.1 (13.7-17.5) gm/L Hct 46.7 (40.1-51.0) % MCV 84.0 (79.0-92.2) fl MCH 25.4 L (25.7-32.2) pg MCHC 30.2 L (32.2-35.5) g/dl RDW Std Deviation 61.4 H (35.1-43.9) fL Plt Count 187 (163-337) K/mm3 Neut % (Auto) 47.5 (34.0-67.9) % Lymph % (Auto) 38.8 (21.8-53.1) % [place] % (Auto) 8.9 (5.3-12.2) % Eos % (Auto) 4.4 (0.8-7.0) Baso % (Auto) 0.3 (0.1-1.2) % Neut # (Auto) 4.58 (1.78-5.38) K/mm3 Lymph # (Auto) 3.74 H (1.32-3.57) K/mm3 [place] # (Auto) 0.86 H (0.30-0.82) K/mm3 Eos # (Auto) 0.42 (0.04-0.54) K/mm3 Baso # (Auto) 0.03 (0.01-0.08) K/mm3 Manual Slide Review Abnormal smear Sodium (136-145) mEq/L Potassium (3.5-5.1) mEq/L Chloride (98-107) mEq/L Carbon Dioxide (21-32) mEq/L Anion Gap (5-15) BUN (7-18) mg/dL Creatinine (0.7-1.3) mg/dL Est Cr Clr Drug Dosing mL/min Estimated GFR (MDRD) (>60) mL/min BUN/Creatinine Ratio (14-18) Glucose (74-106) mg/dL Calcium (8.5-10.1) mg/dL Magnesium (1.8-2.4) mg/dl NT-Pro-B Natriuret Pep 153 H (0-125) pg/mL Adenovirus (PCR) Not detected (Not Detected) B. pertussis DNA (PCR) Not detected (Not Detected) B.parapertussis DNA PCR Not detected (Not Detected) C. pneumoniae DNA (PCR) Not detected (Not Detected) Coronavirus (PCR) Not detected (Not Detected) Human Metapneumovir PCR Not detected (Not Detected) Influenza A (RT-PCR) Not detected (Not Detected) Influenza B (RT-PCR) Not detected (Not Detected) M. pneumoniae (PCR) Not detected (Not Detected) Parainfluen 1,2,3,4 PCR Not detected (Not Detected) RSV (PCR) Not detected (Not Detected) Entero/Rhino (PCR) Not detected (Not Detected) 12/12/18 Range/Units 04:55 WBC (4.23-9.07) K/mm3 RBC (4.63-6.08) M/mm3 Hgb (13.7-17.5) gm/L Hct (40.1-51.0) % MCV (79.0-92.2) fl MCH (25.7-32.2) pg MCHC (32.2-35.5) g/dl RDW Std Deviation (35.1-43.9) fL Plt Count (163-337) K/mm3 Neut % (Auto) (34.0-67.9) % Lymph % (Auto) (21.8-53.1) % [place] % (Auto) (5.3-12.2) % Eos % (Auto) (0.8-7.0) Baso % (Auto) (0.1-1.2) % Neut # (Auto) (1.78-5.38) K/mm3 Lymph # (Auto) (1.32-3.57) K/mm3 [place] # (Auto) (0.30-0.82) K/mm3 Eos # (Auto) (0.04-0.54) K/mm3 Baso # (Auto) (0.01-0.08) K/mm3 Manual Slide Review Sodium 135 L (136-145) mEq/L Potassium 4.3 (3.5-5.1) mEq/L Chloride 97 L (98-107) mEq/L Carbon Dioxide 32 (21-32) mEq/L Anion Gap 10.3 (5-15) BUN 19 H (7-18) mg/dL Creatinine 0.9 (0.7-1.3) mg/dL Est Cr Clr Drug Dosing 116.03 mL/min Estimated GFR (MDRD) > 60 (>60) mL/min BUN/Creatinine Ratio 21.1 H (14-18) Glucose 117 H (74-106) mg/dL Calcium 9.3 (8.5-10.1) mg/dL Magnesium 1.7 L (1.8-2.4) mg/dl NT-Pro-B Natriuret Pep (0-125) pg/mL Adenovirus (PCR) (Not Detected) B. pertussis DNA (PCR) (Not Detected) B.parapertussis DNA PCR (Not Detected) C. pneumoniae DNA (PCR) (Not Detected) Coronavirus (PCR) (Not Detected) Human Metapneumovir PCR (Not Detected) Influenza A (RT-PCR) (Not Detected) Influenza B (RT-PCR) (Not Detected) M. pneumoniae (PCR) (Not Detected) Parainfluen 1,2,3,4 PCR (Not Detected) RSV (PCR) (Not Detected) Entero/Rhino (PCR) (Not Detected) Solomon Results Last 24 Hours: Microbiology 12/10/18 19:25 Legionella Urinary Antigen - Final Urine Med Orders - Current: Current Medications Acetaminophen (Tylenol) 650 mg PO Q4H PRN PRN Reason: Pain (Mild 1-3)/fever Albuterol/Ipratropium (Duoneb 3.0-0.5 Mg/3 Ml) 3 ml NEB QIDRT PRN PRN Reason: wheezing/SOB/cough Allopurinol (Zyloprim) 300 mg PO BEDTIME [facility] Last Admin: 12/11/18 20:27 Dose: 300 mg Aripiprazole (Abilify) 2 mg PO BID PRN PRN Reason: Agitation Aripiprazole (Abilify) 5 mg PO Q6H [facility] Last Admin: 12/12/18 02:10 Dose: 5 mg Calcium Polycarbophil (Fibercon) 625 mg PO BEDTIME [facility] Last Admin: 12/11/18 20:27 Dose: 625 mg Clonidine HCl (Catapres Tts-2) 0.2 mg TRDERM Q3D [facility] Last Admin: 12/10/18 22:08 Dose: 0.2 mg Divalproex Sodium (Depakote) 500 mg PO BID [facility] Last Admin: 12/11/18 20:26 Dose: 500 mg Azithromycin 250 mg/ Sodium (Chloride) 250 mls @ 250 mls/hr IV Q24H [facility] Stop: 12/14/18 17:14 Last Admin: 12/11/18 16:02 Dose: 250 mls/hr Ceftriaxone Sodium 2 gm/ (Sodium Chloride) 100 mls @ 200 mls/hr IV Q24H [facility] Last Admin: 12/11/18 15:31 Dose: 200 mls/hr Levothyroxine Sodium (Levothyroxine) 75 mcg PO SuSa@0600 [place] Levothyroxine Sodium (Synthroid) 50 mcg PO MoTuWeThFr@0600 [facility] Last Admin: 12/12/18 05:27 Dose: 50 mcg Miscellaneous Information (Remove Patch) 1 ea TRDERM Q3D [facility] Paroxetine HCl (Paxil) 30 mg PO DAILY [facility] Last Admin: 12/11/18 08:48 Dose: 30 mg Desmopressin 0.1 Mg (Tab Ptom) 0 each PO BEDTIME [facility] Last Admin: 12/11/18 22:20 Dose: Not Given Sodium Chloride (Saline Flush) 10 ml FLUSH ASDIRECTED PRN PRN Reason: Keep Vein Open Discontinued Medications Aripiprazole (Abilify) 5 mg PO ONETIME ONE Stop: 12/10/18 14:58 Last Admin: 12/10/18 15:20 Dose: Not Given Aripiprazole (Abilify) 5 mg PO ONETIME ONE Stop: 12/10/18 15:16 Last Admin: 12/10/18 15:23 Dose: 5 mg Aripiprazole (Abilify) 5 mg PO QID [facility] Last Admin: 12/11/18 13:00 Dose: 5 mg Clonidine HCl (Catapres Tts-2) 0.2 mg TOP ASDIRECTED [place] Clonidine HCl (Catapres Tts-2) 0.2 mg TRDERM Q3D [facility] Last Admin: 12/10/18 21:47 Dose: Not Given Desmopressin Acetate (Desmopressin) 0.5 mg PO BEDTIME [facility] Last Admin: 12/10/18 22:37 Dose: 0.5 mg Ceftriaxone Sodium 2 gm/ (Sodium Chloride) 100 mls @ 200 mls/hr IV ONETIME ONE Stop: 12/10/18 14:53 Last Admin: 12/10/18 14:50 Dose: 200 mls/hr Lactated Ringer's (Ringers, Lactated) 1,000 mls @ 999 mls/hr IV .BOLUS ONE Stop: 12/10/18 16:01 Last Admin: 12/10/18 18:02 Dose: Not Given Azithromycin 500 mg/ Sodium (Chloride) 250 mls @ 250 mls/hr IV ONETIME ONE Stop: 12/10/18 17:02 Last Admin: 12/10/18 18:19 Dose: 250 mls/hr Miscellaneous Information (Remove Patch) 1 ea TRDERM Q3D [place] Paroxetine HCl (Paxil) 30 mg PO ONETIME ONE Stop: 12/10/18 14:58 Last Admin: 12/10/18 15:24 Dose: 30 mg Sodium Chloride (Saline Flush) 10 ml FLUSH ASDIRECTED PRN PRN Reason: Keep Vein Open Last Admin: 12/10/18 14:49 Dose: 10 ml - Exam Quality Assessment: DVT Prophylaxis. No: Supplemental Oxygen General: Alert, Cooperative HEENT: Pupils Equal, Pupils Reactive, EOMI, Mucous Membr. Moist/[place] Neck: Supple, Trachea Midline Lungs: Clear to Auscultation, Normal Respiratory Effort Cardiovascular: Regular Rate, Regular Rhythm GI/Abdominal Exam: Normal Bowel Sounds, Soft, Non-Tender, No Distention, No Abnormal Bruit, Pelvis Stable (Male) Exam: Deferred Back Exam: Decreased Range of Motion, Other Extremities: Normal Inspection, Normal Range of Motion, Non-Tender, No Pedal Edema, Normal Capillary Refill, Redness (severe scoliosis) Peripheral Pulses: 2+: Radial (L), Radial (R), Dorsalis Pedis (L), Dorsalis Pedis (R) Skin: Warm, Dry, Intact Neurological: No New Focal Deficit Psy/Mental Status: Alert - Problem List & Annotations (1) Hypoxemia SNOMED Code(s): 306247107 Code(s): R09.02 - HYPOXEMIA Status: Acute Priority: High Current Visit : Yes (2) Central sleep apnea Status: Acute Priority: High Current Visit: Yes (3) Pneumonia SNOMED Code(s): 550033961 Code(s): J18.9 - PNEUMONIA, UNSPECIFIED ORGANISM Status: Acute Priority: High Current Visit: Yes Qualifiers: Pneumonia type: due to unspecified organism Laterality: unspecified laterality Lung location: unspecified part of lung Qualified Code(s): J18.9 - Pneumonia, unspecified organism (4) Scoliosis SNOMED Code(s): 221743864 Code(s): M41.9 - SCOLIOSIS, UNSPECIFIED Status: Chronic Priority: High Current Visit: Yes Qualifiers: Scoliosis type: unspecified scoliosis Spinal region: unspecified Qualified Code(s): M41.9 - Scoliosis, unspecified - Problem List Review Problem List Initiated/Reviewed/Updated: Yes - My Orders Last 24 Hours: My Active Orders 12/11/18 10:56 Acapella [RT Chest Physiotherapy] [RC] ASDIRECTED 12/11/18 12:20 RT Aerosol Therapy [RC] ASDIRECTED Turn, Cough, Deep Breathe [RC] ASDIRECTED Albuterol/Ipratropium [DuoNeb 3.0-0.5 MG/3 ML] 3 ml NEB QIDRT PRN 12/11/18 12:22 Ambulate [RC] ASDIRECTED 12/11/18 12:29 BIPAP Noctural Home [RT BiPAP/CPAP] [RC] ASDIRECTED 12/11/18 13:58 Consult to Physical Therapy [PT Evaluation and Treatment] [CONS] Routine OT Evaluation and Treatment [CONS] Routine 12/11/18 14:10 Communication Order [RC] ASDIRECTED 12/11/18 20:00 ARIPiprazole [Abilify] 5 mg PO Q6H 12/13/18 05:11 BASIC METABOLIC PANEL,BMP [CHEM] AM CBC WITH AUTO DIFF [HEME] AM MAGNESIUM [CHEM] AM 12/13/18 08:00 CXR [Chest 2V] [CR] Routine 12/14/18 05:11 BASIC METABOLIC PANEL,BMP [CHEM] AM CBC WITH AUTO DIFF [HEME] AM MAGNESIUM [CHEM] AM 12/15/18 05:11 BASIC METABOLIC PANEL,BMP [CHEM] AM CBC WITH AUTO DIFF [HEME] AM MAGNESIUM [CHEM] AM - Plan Plan:: Pneumonia with hypoxemia * Rocephin and azithromycin * O2 as needed to keep pulse ox above 92%. * Duonebs every 4 hours when necessary as needed * WBC 15.82-->13.18-->9.64 * CRP 4.2 * Consult RT * Legionella, Strep pneumo, VRP all negative * Negative influenza * No cough so unable to produce sputum culture * Significant scoliosis * Ambulate * Droplet precautions Central sleep apnea * Patient's mother brought home BiPAP unit. * Mother reports poor compliance with BiPAP * Mother would like referral to pulmonology after discharge Extremity edema * TSH 0.380 (WNL) * Echocardiogram obtained 12/11/18 (image quality noted to suboptimal and non- diagnostic) * 1. LVEF, by visual estimation, is 60-65% * 2. Moderate to severe hypokinesis of the septal left ventricular almazan. * 3. Impaired relaxation (Grade 1) pattern of LV diastolic filling. * 4. Right ventricular size is mildly enlarged * 5. Mildly dilated right atrium. * 6. The tricuspid valve is not well-visualized and Doppler assessment of the tricuspid valve is technically limited. * BNP 153 * ALESSIA Joel Chronic: Significant scoliosis Seizures Aggressive/Hostile behaviors - mother reports this is secondary to attempt to apply BiPAP Anxiety Depression Hypothyroidism Plan: Admit to medical floor Other orders as above Home medications as ordered Routine AM labs He is ambulatory so will hold off PT/OT for now DVT prophylaxis: ALESSIA Joel CODE STATUS: Full code; PCP: Michaela Sanchez NP
[2018-12-12] MEDS: Divalproex Sodium Delayed-Release 500 MG Tab.CR PO SCH ×2 (08:57→20:42)
[2018-12-12] MEDS: PARoxetine 20 MG Tab PO SCH (08:58)
[2018-12-12] MEDS ORDERED: Desmopressin 0.2 MG Tab PO SCH ×2 (09:08→21:00)
[2018-12-12] MEDS ORDERED: Potassium Chloride 20 MEQ Tab.ER PO ONE (12:05)
[2018-12-12] MEDS ORDERED: Magnesium Sulfate/Water 2 GM in Premix Bag 1 BAG IV ONE (14:07)
[2018-12-12] MEDS: cefTRIAXone 2 GM in Sodium Chloride 0.9% 100 ML IV SCH (15:13)
[2018-12-12] MEDS ORDERED: Azithromycin 250 MG Tab PO SCH (16:00)
[2018-12-12] MEDS: Allopurinol 300 MG Tab PO SCH (20:42)
[2018-12-12] MEDS: Calcium Polycarbophil 625 MG Tab PO SCH (20:42)
[2018-12-13] MEDS: ARIPiprazole 10 MG Tab PO SCH ×2 (02:41→09:20)
[2018-12-13] MEDS ORDERED: Levothyroxine 75 MCG Tab PO SCH (06:00)
[2018-12-13] MEDS: Divalproex Sodium Delayed-Release 500 MG Tab.CR PO SCH (09:19)
[2018-12-13] MEDS: PARoxetine 20 MG Tab PO SCH (09:20)
--- NOTE | 2018-12-13 09:49 | PCM.DCSUM1 ---
Discharge Summary - Hospital Course HPI Initial Comments: This 38-year-old male is admitted through the emergency room after being found to have low oxygen levels at his [facility]. Patient was found to be irritable last couple of days and when he woke up this morning he was sweaty. He also started trazodone last night in his mother is not sure if that is not part of the reason he woke up sweaty. His temperature was found to be honored and 1.5 and reportedly his lips were blue. He was given Tylenol and his O2 around 8:30 was found to be 65% on room air. Patient was brought to the walk-in clinic and sent to the emergency room for evaluation. Patient uses a BiPAP at home, but often takes it off. He does have oxygen for his BiPAP. She also states that he often has a chronically low O2 that on a good day it is around 89%. Patient has severe scoliosis which apparently causes some restrictive lung disease. His BiPAP settings are 12/7. He has had these worsening conditions over the last 12 years. Also of note he has lower extremity swelling. This is also been going on for years with no workup performed. Patient is a poor historian secondary to his mental disability. In the emergency room patient was placed on oxygen and 2 L nasal cannula increase his oxygen level approximately to 94-95%. Chest x-ray showed changes consistent with bronchitis. White count was elevated at over 15,000. There were 8% bands on differential. Diagnosis: Stroke: No - Discharge Data Discharge Date: 12/13/18 Discharge Disposition: Home, Self-Care 01 Condition: Good - Discharge Diagnosis/Problem(s) (1) Central sleep apnea Status: Acute Priority: High Current Visit: Yes (2) Hypoxemia SNOMED Code(s): 601562035 ICD Code: R09.02 - HYPOXEMIA Status: Acute Priority: High Current Visit : Yes (3) Pneumonia SNOMED Code(s): 083151400 ICD Code: J18.9 - PNEUMONIA, UNSPECIFIED ORGANISM Status: Acute Priority : High Current Visit: Yes Qualifiers: Pneumonia type: due to unspecified organism Laterality: unspecified laterality Lung location: unspecified part of lung Qualified Code(s): J18.9 - Pneumonia, unspecified organism - Patient Summary/Data Consults: Consultations 12/10/18 17:16 Respiratory Care Assess and Treatment [CONS] Routine 12/11/18 13:58 Consult to Physical Therapy [PT Evaluation and Treatment] [CONS] Routine OT Evaluation and Treatment [CONS] Routine - Patient Instructions Diet: Regular Diet as Tolerated Activity: As Tolerated Driving: Do Not Drive Showering/Bathing: May Shower - Discharge Plan *PRESCRIPTION DRUG MONITORING PROGRAM REVIEWED*: No *COPY OF PRESCRIPTION DRUG MONITORING REPORT IN PATIENT HUMBERTO: No Prescriptions/Med Rec: Azithromycin [Zithromax] 250 mg PO Q24H #2 tablet Cefdinir [Omnicef] 300 mg PO Q12H #8 cap Home Medications: Home Meds ARIPiprazole [Abilify] 2 mg PO BID PRN 12/10/18 [History] ARIPiprazole [Abilify] 5 mg PO QID 12/10/18 [History] Acetaminophen 650 mg PO Q4HR PRN 12/10/18 [History] Allopurinol [Zyloprim] 300 mg PO BEDTIME 12/10/18 [History] Desmopressin 0.05 mg PO BEDTIME 12/10/18 [History] Divalproex Sodium [Depakote] 500 mg PO BID 12/10/18 [History] Fexofenadine [Gris] 1 tab PO DAILY PRN 12/10/18 [History] Levothyroxine 75 mcg PO ASDIRECTED 12/10/18 [History] Levothyroxine [Synthroid] 50 mcg PO ASDIRECTED 12/10/18 [History] Loperamide [Imodium] 2 mg PO ASDIRECTED PRN 12/10/18 [History] Melatonin 10 mg PO BEDTIME 12/10/18 [History] Methylcellulose [Fiber] 625 mg PO BEDTIME 12/10/18 [History] PARoxetine HCl [Paxil] 30 mg PO BID 12/10/18 [History] cloNIDine [Catapres TTS-2] 0.2 mg TOP ASDIRECTED 12/10/18 [History] traZODone HCl [Trazodone HCl] 25 mg PO BEDTIME PRN 12/10/18 [History] Calcium Polycarbophil [Fibercon] 625 mg PO BEDTIME 12/11/18 [History] Azithromycin [Zithromax] 250 mg PO Q24H #2 tablet 12/13/18 [Rx] Cefdinir [Omnicef] 300 mg PO Q12H #8 cap 12/13/18 [Rx] Oxygen Therapy Mode: Room Air Patient Handouts: Acute Bronchitis, Adult Referrals: Michaela Sanchez, [employer] [Primary Care Provider] - (Please call clinic on Saturday to schedule an appointment with Primary care provider within the next week. ) - Discharge Summary/Plan Comment DC Time >30 min.: Yes Discharge Summary/Plan Comment: Pneumonia with hypoxemia * Discharge on Cefdinir and azithromycin * Legionella, Strep pneumo, VRP all negative * Negative influenza * No cough so unable to produce sputum culture * Significant scoliosis Central sleep apnea * Patient's mother brought home BiPAP unit. * Mother reports poor compliance with BiPAP * Needs referral to pulmonology as outpatient Extremity edema * TSH 0.380 (WNL) * Echocardiogram obtained 12/11/18 (image quality noted to suboptimal and non- diagnostic) * 1. LVEF, by visual estimation, is 60-65% * 2. Moderate to severe hypokinesis of the septal left ventricular almazan. * 3. Impaired relaxation (Grade 1) pattern of LV diastolic filling. * 4. Right ventricular size is mildly enlarged * 5. Mildly dilated right atrium. * 6. The tricuspid valve is not well-visualized and Doppler assessment of the tricuspid valve is technically limited. * BNP 153 * ALESSIA Joel - General Info Date of Service: 12/13/18 Admission Dx/Problem (Free Text: Admission Diagnosis/Problem Admission Diagnosis/Problem Hypoxemia Subjective Update: December 12, 2018 In to see Yaakov. His mother is at bedside. He is sitting up in bed watching TV. He reports he feels very good. He has been weaned off of oxygen. No nursing concerns. Will change azithromycin to PO today and switch from IV rocephin to PO Cefdinir tomorrow. Pending continued improvement we are hopeful for discharge tomorrow. Mother was updated on abnormalities found on echo. He will likely need cardiology follow-up. Labs continue to improve. He continues to work with PT/OT and is showing improvement. December 13, 2018 Patient continues to do well. He is off of his O2 and his white count is now normal. He had a good evening and is ready for discharge. Functional Status: Reports: Pain Controlled - Review of Systems General: Reports: No Symptoms. Denies: Fever HEENT: Reports: No Symptoms Pulmonary: Reports: No Symptoms. Denies: Shortness of Breath, Cough Cardiovascular: Reports: No Symptoms. Denies: Chest Pain, Dyspnea on Exertion Gastrointestinal: Reports: No Symptoms Genitourinary: Reports: No Symptoms Musculoskeletal: Reports: No Symptoms - Patient Data Vitals - Most Recent: Last Vital Signs Temp 98.1 F 12/13/18 07:49 Pulse 80 12/13/18 07:49 Resp 20 12/13/18 07:49 BP 134/85 12/13/18 07:49 Pulse Ox 98 12/13/18 07:49 Weight - Most Recent: 158 lb 4.8 oz I&O - Last 24 hours: Intake & Output 12/12/18 12/13/18 12/13/18 22:59 06:59 14:59 Intake Total 1270 1200 Output Total 1000 900 Balance 270 300 Lab Results - Last 24 hrs: Laboratory Results - last 24 hr 12/13/18 12/13/18 Range/Units 06:02 06:02 WBC 8.88 (4.23-9.07) K/mm3 RBC 6.03 (4.63-6.08) M/mm3 Hgb 15.0 (13.7-17.5) gm/L Hct 50.2 (40.1-51.0) % MCV 83.3 (79.0-92.2) fl MCH 24.9 L (25.7-32.2) pg MCHC 29.9 L (32.2-35.5) g/dl RDW Std Deviation 61.9 H (35.1-43.9) fL Plt Count 192 (163-337) K/mm3 Neut % (Auto) 50.1 (34.0-67.9) % Lymph % (Auto) 36.1 (21.8-53.1) % [place] % (Auto) 10.0 (5.3-12.2) % Eos % (Auto) 3.5 (0.8-7.0) Baso % (Auto) 0.2 (0.1-1.2) % Neut # (Auto) 4.44 (1.78-5.38) K/mm3 Lymph # (Auto) 3.21 (1.32-3.57) K/mm3 [place] # (Auto) 0.89 H (0.30-0.82) K/mm3 Eos # (Auto) 0.31 (0.04-0.54) K/mm3 Baso # (Auto) 0.02 (0.01-0.08) K/mm3 Manual Slide Review Abnormal smear Sodium 136 (136-145) mEq/L Potassium 4.3 (3.5-5.1) mEq/L Chloride 97 L (98-107) mEq/L Carbon Dioxide 36 H (21-32) mEq/L Anion Gap 7.3 (5-15) BUN 25 H (7-18) mg/dL Creatinine 0.8 (0.7-1.3) mg/dL Est Cr Clr Drug Dosing 128.40 mL/min Estimated GFR (MDRD) > 60 (>60) mL/min BUN/Creatinine Ratio 31.3 H (14-18) Glucose 80 (74-106) mg/dL Calcium 9.2 (8.5-10.1) mg/dL Magnesium 2.1 (1.8-2.4) mg/dl C-Reactive Protein 1.2 H* (<1.0) mg/dL KELVIN Results - Last 24 hrs: Microbiology 12/10/18 19:25 Streptococcus pneumoniae Antigen (M - Final Urine Med Orders - Current: Current Medications Acetaminophen (Tylenol) 650 mg PO Q4H PRN PRN Reason: Pain (Mild 1-3)/fever Albuterol/Ipratropium (Duoneb 3.0-0.5 Mg/3 Ml) 3 ml NEB QIDRT PRN PRN Reason: wheezing/SOB/cough Allopurinol (Zyloprim) 300 mg PO BEDTIME [facility] Last Admin: 12/12/18 20:42 Dose: 300 mg Aripiprazole (Abilify) 2 mg PO BID PRN PRN Reason: Agitation Aripiprazole (Abilify) 5 mg PO Q6H [facility] Last Admin: 12/13/18 09:20 Dose: 5 mg Azithromycin (Zithromax) 250 mg PO Q24H [facility] Last Admin: 12/12/18 15:12 Dose: 250 mg Calcium Polycarbophil (Fibercon) 625 mg PO BEDTIME [facility] Last Admin: 12/12/18 20:42 Dose: 625 mg Cefdinir (Omnicef) 300 mg PO Q12H [facility] Clonidine HCl (Catapres Tts-2) 0.2 mg TRDERM Q3D [facility] Last Admin: 12/10/18 22:08 Dose: 0.2 mg Desmopressin Acetate (Desmopressin) 0 mg PO BEDTIME [facility] Last Admin: 12/12/18 20:43 Dose: 0.2 mg Divalproex Sodium (Depakote) 500 mg PO BID [facility] Last Admin: 12/13/18 09:19 Dose: 500 mg Levothyroxine Sodium (Levothyroxine) 75 mcg PO SuSa@0600 [facility] Last Admin: 12/13/18 06:16 Dose: 75 mcg Levothyroxine Sodium (Synthroid) 50 mcg PO MoTuWeThFr@0600 [facility] Last Admin: 12/12/18 05:27 Dose: 50 mcg Miscellaneous Information (Remove Patch) 1 ea TRDERM Q3D [facility] Paroxetine HCl (Paxil) 30 mg PO DAILY [facility] Last Admin: 12/13/18 09:20 Dose: 30 mg Sodium Chloride (Saline Flush) 10 ml FLUSH ASDIRECTED PRN PRN Reason: Keep Vein Open Discontinued Medications Aripiprazole (Abilify) 5 mg PO ONETIME ONE Stop: 12/10/18 14:58 Last Admin: 12/10/18 15:20 Dose: Not Given Aripiprazole (Abilify) 5 mg PO ONETIME ONE Stop: 12/10/18 15:16 Last Admin: 12/10/18 15:23 Dose: 5 mg Aripiprazole (Abilify) 5 mg PO QID [facility] Last Admin: 12/11/18 13:00 Dose: 5 mg Clonidine HCl (Catapres Tts-2) 0.2 mg TOP ASDIRECTED [place] Clonidine HCl (Catapres Tts-2) 0.2 mg TRDERM Q3D [facility] Last Admin: 12/10/18 21:47 Dose: Not Given Desmopressin Acetate (Desmopressin) 0.5 mg PO BEDTIME [facility] Last Admin: 12/10/18 22:37 Dose: 0.5 mg Ceftriaxone Sodium 2 gm/ (Sodium Chloride) 100 mls @ 200 mls/hr IV ONETIME ONE Stop: 12/10/18 14:53 Last Admin: 12/10/18 14:50 Dose: 200 mls/hr Lactated Ringer's (Ringers, Lactated) 1,000 mls @ 999 mls/hr IV .BOLUS ONE Stop: 12/10/18 16:01 Last Admin: 12/10/18 18:02 Dose: Not Given Azithromycin 500 mg/ Sodium (Chloride) 250 mls @ 250 mls/hr IV ONETIME ONE Stop: 12/10/18 17:02 Last Admin: 12/10/18 18:19 Dose: 250 mls/hr Azithromycin 250 mg/ Sodium (Chloride) 250 mls @ 250 mls/hr IV Q24H [facility] Stop: 12/14/18 17:14 Last Admin: 12/11/18 16:02 Dose: 250 mls/hr Ceftriaxone Sodium 2 gm/ (Sodium Chloride) 100 mls @ 200 mls/hr IV Q24H [facility] Stop: 12/12/18 18:00 Last Admin: 12/12/18 15:13 Dose: 200 mls/hr Magnesium Sulfate 2 gm/ Premix 50 mls @ 25 mls/hr IV ONETIME ONE Stop: 12/12/18 16:06 Last Admin: 12/12/18 15:50 Dose: 25 mls/hr Miscellaneous Information (Remove Patch) 1 ea TRDERM Q3D [facility] Paroxetine HCl (Paxil) 30 mg PO ONETIME ONE Stop: 12/10/18 14:58 Last Admin: 12/10/18 15:24 Dose: 30 mg Desmopressin 0.1 Mg (Tab Ptom) 0 each PO BEDTIME [facility] Last Admin: 12/11/18 22:20 Dose: Not Given Potassium Chloride (Klor-Con M20) 20 meq PO ONETIME ONE Stop: 12/12/18 12:06 Last Admin: 12/12/18 12:28 Dose: Not Given Sodium Chloride (Saline Flush) 10 ml FLUSH ASDIRECTED PRN PRN Reason: Keep Vein Open Last Admin: 12/10/18 14:49 Dose: 10 ml - Exam Quality Assessment: Denies: Supplemental Oxygen General: Reports: Alert, Oriented HEENT: Reports: Pupils Equal Neck: Reports: Supple Lungs: Reports: Clear to Auscultation, Normal Respiratory Effort Cardiovascular: Reports: Regular Rate, Regular Rhythm Back Exam: Reports: Normal Inspection, Full Range of Motion Extremities: Normal Inspection, Non-Tender, Pedal Edema Skin: Reports: Warm, Dry, Intact Neurological: Reports: No New Focal Deficit Psy/Mental Status: Reports: Alert
[2018-12-13] MEDS ORDERED: Cefdinir 300 MG Cap PO SCH (18:00)
--- NOTE | 2018-12-16 08:09 | CR ---
Chest: Two views of the chest were obtained. Comparison: Prior chest x-ray of 12/11/18. Increasing density noted within the left base from prior exam. Slight perihilar change is noted on both sides which appears stable. Hiatal hernia is noted. Heart size grossly unremarkable. Scoliosis is noted within the spine. Impression: 1. Findings suspicious for left lower lobe pneumonia. This is an interval change from prior exam. 2. Other findings within the chest are stable. Diagnostic code #3 Mostly agree with preliminary report from [facility], with additional note of new area of parenchymal density within the left base presumably due to pneumonia, finalized on 12/13/18, 10:16 AM Central Time, code #2
== END 2018-12-13 10:00 | disposition home or self-care (01) | DRG 139 ==
LOC: JD.ED 11:42 → JD.MS 15:05
PROVIDERS: ADMIT Family Medicine; ATTEND Family Medicine
DX: J18.9 Pneumonia, unspecified organism (principal); R09.02 Hypoxemia; G47.31 Primary central sleep apnea; R32 Unspecified urinary incontinence; G40.909 Epilepsy, unspecified, not intractable, without status epilepticus; M41.9 Scoliosis, unspecified; E03.9 Hypothyroidism, unspecified; R62.50 Unspecified lack of expected normal physiological development in childhood; F32.9 Major depressive disorder, single episode, unspecified; F41.9 Anxiety disorder, unspecified; Z79.890 Hormone replacement therapy; Z79.899 Other long term (current) drug therapy; Z91.048 Other nonmedicinal substance allergy status; Z88.8 Allergy status to other drugs, medicaments and biological substances
CPT/HCPCS: 36415; 71045; 71045-26; 71046; 71046-26; 80048; 80053; 83605; 83735; 83880; 84443; 85007; 85025; 85027; 86140; 87486; 87581; 87632; 87641; 87798; 87804; 87899; 93306; 94667; 94760; 94761; 96365; 97110-GO; 97110-GP; 97116-GP; 97162-GP; 97166-GO; 97530-GO; 99284; 99285-25; A9270-GY; J0456; J0696; J3475; J7030; J7050

== ENCOUNTER 2019-03-10 03:28 | Inpatient (IN) | payer BC ==
--- NOTE | 2019-03-10 03:57 | EDM.PDOC ---
ED HPI GENERAL MEDICAL PROBLEM - General Chief Complaint: Fever Stated Complaint: FEVER Time Seen by Provider: 03/10/19 03:45 Source of Information: Reports: Patient, Other (Staff member at the patient's home) History Limitations: Reports: Physical Impairment - History of Present Illness INITIAL COMMENTS - FREE TEXT/NARRATIVE: According to a staff member who works at the patient's home, the patient had a temperature of 103, as measured by an electronic ear thermometer around 02:30 this morning. She states that he has been clammy, and he complained of a stomachache and nausea. She states that he developed a wet sounding cough last night, 03/09/2019. The patient has had similar symptoms in the past, including around November of this year, when he was diagnosed with pneumonia. Here in the ED, the patient is found to be afebrile but tachycardic, with an oxygen saturation of 90% on room air. He coughs frequently. The patient's PCP is Michaela Sanchez NP. 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 - Related Data Allergies Allergy/AdvReac Type Severity Reaction Status Date / Time dog dander Allergy Cannot Verified 03/10/19 03:46 Remember risperidone [From Risperdal] Allergy Cannot Verified 03/10/19 03:46 Remember Home Meds: Home Meds ARIPiprazole [Abilify] 2 mg PO BID PRN 12/10/18 [History] ARIPiprazole [Abilify] 5 mg PO QID 12/10/18 [History] Acetaminophen 650 mg PO Q4HR PRN 12/10/18 [History] Allopurinol [Zyloprim] 300 mg PO BEDTIME 12/10/18 [History] Desmopressin 0.05 mg PO BEDTIME 12/10/18 [History] Divalproex Sodium [Depakote] 500 mg PO BID 12/10/18 [History] Fexofenadine [Gris] 1 tab PO DAILY PRN 12/10/18 [History] Levothyroxine 75 mcg PO ASDIRECTED 12/10/18 [History] Levothyroxine [Synthroid] 50 mcg PO ASDIRECTED 12/10/18 [History] Loperamide [Imodium] 2 mg PO ASDIRECTED PRN 12/10/18 [History] Melatonin 10 mg PO BEDTIME 12/10/18 [History] Methylcellulose [Fiber] 625 mg PO BEDTIME 12/10/18 [History] PARoxetine HCl [Paxil] 30 mg PO BID 12/10/18 [History] cloNIDine [Catapres TTS-2] 0.2 mg TOP ASDIRECTED 12/10/18 [History] traZODone HCl [Trazodone HCl] 25 mg PO BEDTIME PRN 12/10/18 [History] Calcium Polycarbophil [Fibercon] 625 mg PO BEDTIME 12/11/18 [History] Azithromycin [Zithromax] 250 mg PO Q24H #2 tablet 12/13/18 [Rx] Cefdinir [Omnicef] 300 mg PO Q12H #8 cap 12/13/18 [Rx] Past Medical History Respiratory History: Reports: Asthma (as a child), Sleep Apnea (partially compliant with BiPAP and O2 1L) Genitourinary History: Reports: Urinary Incontinence Musculoskeletal History: Reports: Other (See Below) (Scoliosis) Neurological History: Reports: Seizure, Other (See Below) (Developmentally delayed) Psychiatric History: 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, Anxiety, Depression , OCD Endocrine/Metabolic History: Reports: Hypothyroidism - Past Surgical History Musculoskeletal Surgical History: Reports: Other (See Below) (Finger surgery) Social & Family History - Family History Family Medical History: Noncontributory - Tobacco Use Smoking Status *Q: Never Smoker Second Hand Smoke Exposure: No - Caffeine Use Caffeine Use: Reports: Soda - Alcohol Use Alcohol Use History: No - Recreational Drug Use Recreational Drug Use: No - Living Situation & Occupation Living situation: Reports: Single, with Family (Sister) Occupation: Disabled ED ROS GENERAL - Review of Systems Review Of Systems: ROS reveals no pertinent complaints other than HPI. ED EXAM, GENERAL - Physical Exam Exam: See Below Exam Limited By: No Limitations General Appearance: Alert, No Apparent Distress, Other (Coughs frequently) Eye Exam: Bilateral Eye: EOMI, Normal Inspection Ears: Normal External Exam, Hearing Grossly Normal Nose: Normal Inspection Throat/Mouth: Normal Inspection, Normal Lips, Normal Voice, No Airway Compromise Head: Atraumatic, Normocephalic Neck: Normal Inspection, Full Range of Motion Respiratory/Chest: No Respiratory Distress, No Accessory Muscle Use, Rhonchi ( both lungfields). No: Decreased Breath Sounds, Wheezing, Prolonged Expiration Cardiovascular: Normal Peripheral Pulses, No Gallop, No JVD, No Murmur, No Rub, Tachycardia (regular) Peripheral Pulses: 4+: Radial (L), Radial (R) GI/Abdominal: Normal Bowel Sounds, Soft, Non-Tender, No Organomegaly, No Distention, No Abnormal Bruit, No Mass (Male) Exam: Deferred Rectal (Males) Exam: Deferred Extremities: Normal Inspection, Normal Range of Motion, No Pedal Edema, Normal Capillary Refill Neurological: Alert, No Motor/Sensory Deficits Psychiatric: Normal Affect Skin Exam: Warm, Dry, Intact, Normal Color, No Rash Course - Vital Signs Last Recorded V/S: Last Vital Signs Temp 37.4 C 03/10/19 03:42 Pulse 115 H 03/10/19 03:42 Resp 20 03/10/19 03:42 BP 122/73 03/10/19 03:42 Pulse Ox 90 L 03/10/19 03:42 - Orders/Labs/Meds Orders: Active Orders 24 hr Category Date Time Status Chest 2V [CR] Stat Exams 03/10/19 03:55 Taken CULTURE BLOOD [BC] Stat Lab 03/10/19 04:15 Received CULTURE BLOOD [BC] Stat Lab 03/10/19 04:30 Received Azithromycin [Zithromax] 500 mg Med 03/10/19 05:04 Active Sodium Chloride 0.9% [Normal Saline] 250 ml IV ONETIME Sodium Chloride 0.9% [Normal Saline] 1,000 ml Med 03/10/19 05:45 Active IV ASDIRECTED cefTRIAXone [Rocephin] 2 gm Med 03/10/19 05:32 Active Sodium Chloride 0.9% [Normal Saline] 100 ml IV ONETIME Blood Culture x2 Reflex Set [OM.PC] Stat Oth 03/10/19 03:55 Ordered Medication Orders Azithromycin 500 mg/ Sodium (Chloride) 250 mls @ 250 mls/hr IV ONETIME STA Stop: 03/10/19 06:03 Ceftriaxone Sodium 2 gm/ (Sodium Chloride) 100 mls @ 200 mls/hr IV ONETIME ONE Stop: 03/10/19 06:01 Sodium Chloride (Normal Saline) 1,000 mls @ 250 mls/hr IV ASDIRECTED [facility] Labs: Laboratory Tests 03/10/19 03/10/1919 Range/Units 04:15 04:15 04:15 WBC 18.67 H (4.23-9.07) K/mm3 RBC 5.98 (4.63-6.08) M/mm3 Hgb 14.8 (13.7-17.5) gm/L Hct 50.0 (40.1-51.0) % MCV 83.6 (79.0-92.2) fl MCH 24.7 L (25.7-32.2) pg MCHC 29.6 L (32.2-35.5) g/dl RDW Std Deviation 65.5 H (35.1-43.9) fL Plt Count 228 (163-337) K/mm3 Neutrophils % (Manual) 67 H (40-60) % Band Neutrophils % 11 H (0-10) % Lymphocytes % (Manual) 12 L (20-40) % Atypical Lymphs % 0 % Monocytes % (Manual) 10 (2-10) % Eosinophils % (Manual) 0 L (0.8-7.0) % Basophils % (Manual) 0 L (0.2-1.2) Platelet Estimate Adequate Plt Morphology Comment See note Hypochromasia 2+ moderate Anisocytosis 2+ moderate Target Cells 1+ slight Ovalocytes 2+ moderate RBC Morph Comment Not Reportable Sodium 141 (136-145) mEq/L Potassium 4.8 (3.5-5.1) mEq/L Chloride 102 (98-107) mEq/L Carbon Dioxide 33 H (21-32) mEq/L Anion Gap 10.8 (5-15) BUN 30 H (7-18) mg/dL Creatinine 1.1 (0.7-1.3) mg/dL Est Cr Clr Drug Dosing TNP Estimated GFR (MDRD) > 60 (>60) mL/min BUN/Creatinine Ratio 27.3 H (14-18) Glucose 102 (74-106) mg/dL Lactic Acid 1.3 (0.4-2.0) mmol/L Calcium 8.7 (8.5-10.1) mg/dL Total Bilirubin 0.5 (0.2-1.0) mg/dL AST 18 (15-37) U/L ALT 14 L (16-63) U/L Alkaline Phosphatase 70 (46-116) U/L Total Protein 6.9 (6.4-8.2) g/dl Albumin 3.0 L (3.4-5.0) g/dl Globulin 3.9 gm/dL Albumin/Globulin Ratio 0.8 L (1-2) Meds: Medications Generic Name Dose Route Start Last Admin Trade Name Freq PRN Reason Stop Dose Admin Azithromycin 500 mg/ Sodium 250 mls @ 250 mls/hr 03/10/19 05:04 Chloride IV 03/10/19 06:03 ONETIME STA Ceftriaxone Sodium 2 gm/ 100 mls @ 200 mls/hr 03/10/19 05:32 Sodium Chloride IV 03/10/19 06:01 ONETIME ONE Sodium Chloride 1,000 mls @ 250 mls/hr 03/10/19 05:45 Normal Saline IV ASDIRECTED [place] Discontinued Medications Generic Name Dose Route Start Last Admin Trade Name Freq PRN Reason Stop Dose Admin Ceftriaxone Sodium 2 gm/ 100 mls @ 200 mls/hr 03/10/19 05:03 Sodium Chloride IV 03/10/19 05:32 ONETIME STA - Re-Assessments/Exams Free Text/Narrative Re-Assessment/Exam: 03/10/19 03:56 While the patient is afebrile here, he likely does have pneumonia. He had a fever at home, is coughing, is rhonchorous to auscultation, and his oxygen saturation is 90% on room air. I have ordered a chest x-ray, bloodwork, and 2 sets of blood cultures. 03/10/19 05:00 2-view chest radiograph reviewed. The cardiac silhouette is within normal limits. No pulmonary vascular congestion. No pleural effusions seen. There is likely a right lower lobe infiltrate, and a left lower lobe infiltrate cannot be excluded. No pneumothorax. Hiatal hernia noted. Severe thoracolumbar scoliosis noted. Formal read per the Radiologist pending. The patient's WBC count is elevated at 18.67. I do not have the manual differentiation yet, but based on these findings, a diagnosis of pneumonia can be made. I will start the patient on IV Rocephin and IV azithromycin. 03/10/19 05:32 The patient's CBC is remarkable for a WBC count elevated at 18.67, with 11% bandemia. The remainder of his CBC is unremarkable. His CMP is remarkable for a bicarbonate elevated at 33, and a BUN elevated at 30. The remainder of his CMP is unremarkable. His lactic acid level is within normal limits at 1.3. As above, the patient's WBC count is elevated with a left shift, consistent with a bacterial infection. Additionally, his CMP indicates intravascular depletion with a metabolic alkalosis.i'm going to recommend admission to the hospital for IV antibiotics and IV hydration. I will start him on NS at 250 ml/ hr. The above test results and my recommendation for admission were discussed with the patient's staff member, who agreed. 03/10/19 05:[address] Vee at 05:37. He agreed to admit the patient. Departure - Departure Time of Disposition: 05:39 Disposition: Admitted As Inpatient 67 Condition: Fair Clinical Impression: CAP (community acquired pneumonia), Intravascular volume depletion - Discharge Information *PRESCRIPTION DRUG MONITORING PROGRAM REVIEWED*: Not Applicable *COPY OF PRESCRIPTION DRUG MONITORING REPORT IN PATIENT HUMBERTO: Not Applicable Referrals: Michaela Sanchez, [employer] [Primary Care Provider] - - My Orders Last 24 Hours: My Active Orders 03/10/19 03:55 Chest 2V [CR] Stat Blood Culture x2 Reflex Set [OM.PC] Stat 03/10/19 04:15 CULTURE BLOOD [BC] Stat 03/10/19 04:30 CULTURE BLOOD [BC] Stat 03/10/19 05:04 Azithromycin [Zithromax] 500 mg Sodium Chloride 0.9% [Normal Saline] 250 ml IV ONETIME 03/10/19 05:32 cefTRIAXone [Rocephin] 2 gm Sodium Chloride 0.9% [Normal Saline] 100 ml IV ONETIME 03/10/19 05:45 Sodium Chloride 0.9% [Normal Saline] 1,000 ml IV ASDIRECTED - Assessment/Plan Last 24 Hours: My Active Orders 03/10/19 03:55 Chest 2V [CR] Stat Blood Culture x2 Reflex Set [OM.PC] Stat 03/10/19 04:15 CULTURE BLOOD [BC] Stat 03/10/19 04:30 CULTURE BLOOD [BC] Stat 03/10/19 05:04 Azithromycin [Zithromax] 500 mg Sodium Chloride 0.9% [Normal Saline] 250 ml IV ONETIME 03/10/19 05:32 cefTRIAXone [Rocephin] 2 gm Sodium Chloride 0.9% [Normal Saline] 100 ml IV ONETIME 03/10/19 05:45 Sodium Chloride 0.9% [Normal Saline] 1,000 ml IV ASDIRECTED
[2019-03-10] MEDS ORDERED: cefTRIAXone 2 GM in Sodium Chloride 0.9% 100 ML IV STA (05:03)
[2019-03-10] MEDS ORDERED: Azithromycin 500 MG in Sodium Chloride 0.9% 250 ML IV STA (05:04)
[2019-03-10] MEDS ORDERED: cefTRIAXone 2 GM in Sodium Chloride 0.9% 100 ML IV ONE (05:32)
[2019-03-10] MEDS ORDERED: Sodium Chloride 0.9% 1,000 ML IV SCH (05:45)
--- NOTE | 2019-03-10 06:38 | PCM.HP.2 ---
H&P History of Present Illness - General Date of Service: 03/10/19 Admit Problem/Dx: Admission Diagnosis/Problem Admission Diagnosis/Problem Community acquired pneumonia Source of Information: Patient, Old Records, Provider, RN, RN Notes Reviewed History Limitations: Reports: No Limitations - History of Present Illness Initial Comments - Free Text/Narative: Yaakov Mattsno is a 38 jean who presents to our ED with a fever. Family reports patient had a temperature of 103 around 0 2:30 this morning. He reportedly been clammy and complained of stomachache and nausea. He also had abrupt onset of a wet sounding cough which started on 03/09/2019. He was hospitalized this past November with pneumonia. In the ED he is tachycardic with a heart rate of 1:15 but is afebrile. Oxygen saturations are noted be 90% and he does cough frequently. He does see neurology and pulmonology in [place]. Per the patient's mother he had just had a pulmonology appointment recently. The utility pipe layer did not have any suggestions however he said that the patient's lungs are likely still healing from the prior pneumonia and he would like to see them back in 6 months. They had reportedly been talking about obtaining another sleep study as the patient's home BiPAP is quite old. Family reports he looked quite sick before they brought him in. in the ED temperature 37.4 Celsius. Pulse 1:15. Respirations 20. Blood pressure 122/73. Pulse ox 90%. Labs are obtained: WBC is elevated at 18.67. Hemoglobin 14.8. Hematocrit 50.0. He is normocytic. Pulses are good at 228, 000. Neutrophils are elevated at 67%. There is 11% bandemia. Sodium is 141. Potassium 4.8. Chloride 102. Carbon dioxide 33. Anion gap 10.8. Creatinine is 1.1. EGFR greater than 60. Glucose 102. Lactic acid is 1.3. Calcium 8.7. Bilirubin 0.5. AST is 18, ALT 14, alkaline phosphatase 70. Protein is 6.9. Albumin is low at 3.0. He started on 500 mg azithromycin and 2 g Rocephin along with an acid 250 mils an hour. Blood cultures are obtained. 2 view chest x-rays obtained and interpreted by Dr. Campo as "1. Increasing densities within the right upper and right lower lung, differential includes atelectasis, pneumonia, as well as change from aspiration." He carries a history of: asthma as a child, sleep apnea which she is partially compliant with his BiPAP and oxygen at 1 L, urinary incontinence, seizures, developmental delay, aggressive/hostile behaviors, anxiety, depression, OCD, hypothyroidism. His mother does provide care along with a service called "[employer]." he is subsequently admitted to the medical floor for treatment of his pneumonia. He is a full code. His PCP is Michaela Sanchez NP. - Related Data Allergies/Adverse Reactions: Allergies Allergy/AdvReac Type Severity Reaction Status Date / Time dog dander Allergy Cannot Verified 03/10/19 08:37 Remember oats Allergy Cannot Verified 03/10/19 08:37 Remember risperidone [From Risperdal] Allergy Cannot Verified 03/10/19 08:37 Remember Home Medications: Home Meds ARIPiprazole [Abilify] 2 mg PO BID PRN 12/10/18 [History] ARIPiprazole [Abilify] 5 mg PO TID 12/10/18 [History] Acetaminophen 650 mg PO Q4HR PRN 12/10/18 [History] Allopurinol [Zyloprim] 300 mg PO BEDTIME 12/10/18 [History] Divalproex Sodium [Depakote] 500 mg PO BID 12/10/18 [History] Levothyroxine 75 mcg PO MOTUWETHFR 12/10/18 [History] Levothyroxine [Synthroid] 50 mcg PO SUSA 12/10/18 [History] Loperamide [Imodium] 2 mg PO ASDIRECTED PRN 12/10/18 [History] Melatonin 10 mg PO BEDTIME 12/10/18 [History] PARoxetine HCl [Paxil] 30 mg PO BID 12/10/18 [History] cloNIDine [Catapres TTS-2] 0.2 mg TOP ASDIRECTED 12/10/18 [History] traZODone HCl [Trazodone HCl] 25 mg PO BEDTIME PRN 12/10/18 [History] Anti-Acid 2 - 4 tsp PO Q4H PRN 03/10/19 [History] Calcium Polycarbophil [Fiber Tabs] 625 mg PO BEDTIME 03/10/19 [History] Desmopressin 0.05 mg PO BEDTIME 03/10/19 [History] Desmopressin 0.05 mg PO BEDTIME PRN 03/10/19 [History] Fexofenadine/Pseudoephedrine [Gris-D 24 Hour Tablet] 1 tab PO DAILY PRN 03/10 [History] Past Medical History Respiratory History: Reports: Asthma (as a child), Sleep Apnea (partially compliant with BiPAP and O2 1L) Other Respiratory History: wears bipap at night-1L O2--not always compliant. mom states "outgrew asthma" Gastrointestinal History: Reports: Chronic Diarrhea Genitourinary History: Reports: Urinary Incontinence Musculoskeletal History: Reports: Other (See Below) (Scoliosis) Other Musculoskeletal History: scoliosis Neurological History: Reports: Seizure, Other (See Below) (Developmentally delayed) Other Neuro History: patient is developmentally delayed Psychiatric History: 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, Anxiety, Depression , OCD Endocrine/Metabolic History: Reports: Hypothyroidism - Past Surgical History Musculoskeletal Surgical History: Reports: Other (See Below) (Finger surgery) Social & Family History - Family History Family Medical History: Noncontributory - Tobacco Use Smoking Status *Q: Never Smoker Second Hand Smoke Exposure: No - Caffeine Use Caffeine Use: Reports: Soda - Recreational Drug Use Recreational Drug Use: No - Living Situation & Occupation Living situation: Reports: Single, with Family (Sister) Occupation: Disabled H&P Review of Systems - Review of Systems: Review Of Systems: See Below General: Reports: No Symptoms. Denies: Fever (Had fever at home but none in ED or on floor ), Chills, Malaise, Weakness, Fatigue HEENT: Reports: No Symptoms. Denies: Headaches, Sore Throat Pulmonary: Reports: No Symptoms, Shortness of Breath, Cough. Denies: Wheezing, Pleuritic Chest Pain, Sputum Cardiovascular: Reports: No Symptoms. Denies: Chest Pain, Palpitations, Edema Gastrointestinal: Reports: No Symptoms. Denies: Abdominal Pain, Constipation, Diarrhea, Nausea, Vomiting Genitourinary: Reports: Incontinence (Chronic baseline ). Denies: Frequency, Pain Musculoskeletal: Reports: No Symptoms Skin: Reports: No Symptoms. Denies: Cyanosis Psychiatric: Reports: No Symptoms. Denies: Confusion Neurological: Reports: No Symptoms Hematologic/Lymphatic: Reports: No Symptoms Immunologic: Reports: No Symptoms Exam - Exam Exam: See Below - Vital Signs Vital Signs: Last Vital Signs Temp 99.4 F 03/10/19 03:42 Pulse 115 H 03/10/19 03:42 Resp 20 03/10/19 03:42 BP 122/73 03/10/19 03:42 Pulse Ox 90 L 03/10/19 03:42 Weight: 166 lb 14.4 oz - Exam Quality Assessment: Supplemental Oxygen (2L) General: Alert, Cooperative. No: Mild Distress HEENT: Conjunctiva Clear, EACs Clear, EOMI, Hearing Intact, Mucosa Moist & [place] , Posterior Pharynx Clear, PERRLA Neck: Supple, Trachea Midline Lungs: Normal Respiratory Effort, Rhonchi (Bilateral). No: Wheezing Cardiovascular: Regular Rate, Regular Rhythm. No: Tachycardia (HR 115 in ED but normal on floor ) GI/Abdominal Exam: Normal Bowel Sounds, Soft, Non-Tender, No Organomegaly (Male) Exam: Deferred Rectal (Males) Exam: Deferred Back Exam: Full Range of Motion, Other (Significant scoliosis ) Extremities: Normal Inspection, Normal Range of Motion, Non-Tender, No Pedal Edema, Normal Capillary Refill Peripheral Pulses: 4+: Radial (L), Radial (R), Dorsalis Pedis (L), Dorsalis Pedis (R) Skin: Warm, Dry, Intact Neurological: Cranial Nerves Intact (Grossly ) Neuro Extensive - Mental Status: Alert, Normal Mood/Affect - Patient Data Lab Results Last 24 hrs: Laboratory Results - last 24 hr 03/10/19 03/10/19 03/10/19 Range/Units 04:15 04:15 04:15 WBC 18.67 H (4.23-9.07) K/mm3 RBC 5.98 (4.63-6.08) M/mm3 Hgb 14.8 (13.7-17.5) gm/L Hct 50.0 (40.1-51.0) % MCV 83.6 (79.0-92.2) fl MCH 24.7 L (25.7-32.2) pg MCHC 29.6 L (32.2-35.5) g/dl RDW Std Deviation 65.5 H (35.1-43.9) fL Plt Count 228 (163-337) K/mm3 Neutrophils % (Manual) 67 H (40-60) % Band Neutrophils % 11 H (0-10) % Lymphocytes % (Manual) 12 L (20-40) % Atypical Lymphs % 0 % Monocytes % (Manual) 10 (2-10) % Eosinophils % (Manual) 0 L (0.8-7.0) % Basophils % (Manual) 0 L (0.2-1.2) Platelet Estimate Adequate Plt Morphology Comment See note Hypochromasia 2+ moderate Anisocytosis 2+ moderate Target Cells 1+ slight Ovalocytes 2+ moderate RBC Morph Comment Not Reportable Sodium 141 (136-145) mEq/L Potassium 4.8 (3.5-5.1) mEq/L Chloride 102 (98-107) mEq/L Carbon Dioxide 33 H (21-32) mEq/L Anion Gap 10.8 (5-15) BUN 30 H (7-18) mg/dL Creatinine 1.1 (0.7-1.3) mg/dL Est Cr Clr Drug Dosing TNP Estimated GFR (MDRD) > 60 (>60) mL/min BUN/Creatinine Ratio 27.3 H (14-18) Glucose 102 (74-106) mg/dL Lactic Acid 1.3 (0.4-2.0) mmol/L Calcium 8.7 (8.5-10.1) mg/dL Total Bilirubin 0.5 (0.2-1.0) mg/dL AST 18 (15-37) U/L ALT 14 L (16-63) U/L Alkaline Phosphatase 70 (46-116) U/L Total Protein 6.9 (6.4-8.2) g/dl Albumin 3.0 L (3.4-5.0) g/dl Globulin 3.9 gm/dL Albumin/Globulin Ratio 0.8 L (1-2) Result Diagrams: 03/10/19 04:15 03/10/19 04:15 - Problem List (1) Central sleep apnea Status: Chronic Priority: Medium Current Visit: Yes (2) Pneumonia SNOMED Code(s): 783661699 ICD Code: J18.9 - PNEUMONIA, UNSPECIFIED ORGANISM Status: Acute Priority : High Current Visit: Yes Qualifiers: Pneumonia type: due to unspecified organism Laterality: unspecified laterality Lung location: unspecified part of lung Qualified Code(s): J18.9 - Pneumonia, unspecified organism (3) Scoliosis SNOMED Code(s): 399033057 ICD Code: M41.9 - SCOLIOSIS, UNSPECIFIED Status: Chronic Priority: Medium Current Visit: No Qualifiers: Scoliosis type: unspecified scoliosis Spinal region: unspecified Qualified Code(s): M41.9 - Scoliosis, unspecified Problem List Initiated/Reviewed/Updated: Yes Orders Last 24hrs: Active Orders 24 hr Category Date Time Status Admission Status [Patient Status] [ADT] Routine ADT 03/10/19 06:02 Active Chest 2V [CR] Stat Exams 03/10/19 03:55 Taken CULTURE BLOOD [BC] Stat Lab 03/10/19 04:15 Received CULTURE BLOOD [BC] Stat Lab 03/10/19 04:30 Received Sodium Chloride 0.9% [Normal Saline] 1,000 ml Med 03/10/19 05:45 Active IV ASDIRECTED Blood Culture x2 Reflex Set [OM.PC] Stat Oth 03/10/19 03:55 Ordered Medication Orders Sodium Chloride (Normal Saline) 1,000 mls @ 250 mls/hr IV ASDIRECTED [place] Assessment/Plan Comment:: I/P: Acute PNA -Family reports 103 fever, non- productive cough, SOB, starting Saturday () night -Hospitalized November of this year for PNA -Recently saw Pulmonology in [place] - recommending repeat sleep study -CXR in ED: Increasing densities within right upper and right lower lung. Differential includes atelectasis, PNA, as well as change from aspiration -Risk factor: Significant scoliosis -WBC 18.67 -Lactic acid 1.3 -CRP 0.5 -Meets sepsis criteria -Tachycardia, Fever at home, Leukocytosis of 18K, Suspected PNA on CXR, -Rocephin and Azithromycin started in ED - stop -Dr. Vee requests Zosyn and Levaquin 750mg -Normotensive so will hold off aggressive fluid hydration -Telemetry -IV fluids as ordered -Acapella/IS/RT -Duonebs as ordered -Repeat CXR in 24-48 hours -Ambulate -Robitussin DM for caugh -Sputum culture if cough becomes productive -Home BiPAP at night -Tylenol for fever -Strep pneumo, VRP pending -Negative Mycoplasma, MRSA screen -Blood cultures pending -Procalcitonin pending Chronic: asthma as a child sleep apnea which she is partially compliant with his BiPAP and oxygen at 1 L urinary incontinence seizures developmental delay aggressive/hostile behaviors anxiety depression OCD hypothyroidism Plan: Admit to medical floor with telemetry Routine AM labs Home medications as ordered CM/SW for discharge planning PT/OT Obtain UA DVT Prophylaxis: ALESSIA busby; ambulate Code status: Full Code; PCP: Michaela Sanchez NP
[2019-03-10] MEDS ORDERED: Docusate Sodium 100 MG Cap PO PRN (06:42)
[2019-03-10] MEDS ORDERED: Acetaminophen 325 MG Tab PO PRN (06:42)
[2019-03-10] MEDS ORDERED: Ondansetron 4 MG/2 ML SDV IV PRN (06:42)
[2019-03-10] MEDS ORDERED: Bisacodyl 5 MG Tab PO PRN (06:42)
[2019-03-10] MEDS ORDERED: Ondansetron 4 MG Tab.DIS PO PRN (06:42)
[2019-03-10] MEDS ORDERED: Albuterol/Ipratropium 3.0-0.5 MG/3 ML Neb Soln NEB PRN (06:42)
--- NOTE | 2019-03-10 07:00 | CR ---
Chest: Two views of the chest were obtained. Comparison: Prior chest x-ray of 12/13/18. Severe scoliosis is noted. Heart size is slightly enlarged. Hiatal hernia is noted. Increased density is noted within the right upper and right lower lung as an interval change from prior exam. Left lung shows slight increased lung markings which appears stable. Bony structures are otherwise unremarkable without acute findings. Impression: 1. Increasing densities within the right upper and right lower lung, differential includes atelectasis, pneumonia as well as change from aspiration. Diagnostic code #3
[2019-03-10] MEDS: Sodium Chloride 0.9% 1,000 ML IV SCH ×2 (08:47→16:05)
[2019-03-10] MEDS: Piperacillin/Tazobactam 4.5 GM in Sodium Chloride 0.9% 100 ML IV SCH ×3 (08:51→22:44)
[2019-03-10] MEDS ORDERED: FEXOFENADINE PO PRN (09:05)
[2019-03-10] MEDS ORDERED: ANTI ACID PO PRN (09:05)
[2019-03-10] MEDS ORDERED: PSEUDOEPHEDRINE PO PRN (09:05)
[2019-03-10] MEDS ORDERED: traZODone 50 MG Tab PO PRN (09:05)
[2019-03-10] MEDS ORDERED: DESMOPRESSIN PO PRN ×2 (09:05→17:30)
[2019-03-10] MEDS ORDERED: Levothyroxine 75 MCG Tab PO SCH (09:15)
[2019-03-10] MEDS ORDERED: Divalproex Sodium Delayed-Release 500 MG Tab.CR PO SCH (09:15)
[2019-03-10] MEDS: Levofloxacin/Dextrose 5%-Water 750 MG in Premix Bag 1 BAG IV SCH (10:17)
[2019-03-10] MEDS ORDERED: guaiFENesin/Dextromethorphan 100-10 MG/5 ML Soln 5 ML Cup PO PRN (14:00)
[2019-03-10] MEDS ORDERED: PARoxetine 20 MG Tab PO SCH (14:00)
[2019-03-10] MEDS ORDERED: ARIPiprazole 5 MG Tab PO SCH (15:00)
[2019-03-10] MEDS ORDERED: Melatonin [Melatonin] 10 MG PO SCH (20:00)
[2019-03-10] MEDS ORDERED: cloNIDine 0.2 MG/Day Transdermal Patch TOP SCH (20:15)
[2019-03-10] MEDS: Allopurinol 300 MG Tab PO SCH (20:59)
[2019-03-10] MEDS: Calcium Polycarbophil 625 MG Tab PO SCH (20:59)
[2019-03-10] MEDS: ARIPiprazole 5 MG Tab PO SCH (20:59)
[2019-03-10] MEDS: Divalproex Sodium Delayed-Release 500 MG Tab.CR PO SCH (20:59)
[2019-03-10] MEDS: Melatonin 3 MG Tab PO SCH (22:15)
[2019-03-10] MEDS: DESMOPRESSIN 0.1 MG PO SCH (22:17)
[2019-03-11] MEDS: Sodium Chloride 0.9% 1,000 ML IV SCH ×2 (01:02→09:22)
[2019-03-11] MEDS: Piperacillin/Tazobactam 4.5 GM in Sodium Chloride 0.9% 100 ML IV SCH (06:57)
--- NOTE | 2019-03-11 08:01 | PCM.PN ---
- General Info Date of Service: 03/11/19 Admission Dx/Problem (Free Text): Admission Diagnosis/Problem Admission Diagnosis/Problem Community acquired pneumonia Subjective Update: In to see Yaakov. His mother is at bedside. She reports he is much more back to baseline. He has been much more active and reports he feels good. He has not been coughing. Lung sounds have resolved. We will stop zosyn today and discontinue IV fluids. He has been eating well. He has been utilizing his IS and acapella sporadically. No nursing concerns. His WBC is trending down. Functional Status: Reports: Pain Controlled, Tolerating Diet, Ambulating, Urinating, Incentive Spirometry, Other (Acapella ). Denies: New Symptoms - Review of Systems General: Reports: No Symptoms. Denies: Fever, Weakness, Fatigue, Malaise, Chills HEENT: Reports: No Symptoms. Denies: Headaches Pulmonary: Reports: No Symptoms. Denies: Shortness of Breath, Pleuritic Chest Pain, Cough, Sputum, Wheezing Cardiovascular: Reports: Edema (chronic ). Denies: Chest Pain Gastrointestinal: Reports: No Symptoms. Denies: Abdominal Pain, Constipation, Diarrhea, Nausea, Vomiting Genitourinary: Reports: No Symptoms Musculoskeletal: Reports: No Symptoms Skin: Reports: No Symptoms. Denies: Cyanosis Neurological: Reports: No Symptoms. Denies: Confusion Psychiatric: Reports: No Symptoms - Patient Data Vitals - Most Recent: Last Vital Signs Temp 97.3 F 03/11/19 07:00 Pulse 67 03/11/19 07:00 Resp 16 03/11/19 07:00 BP 108/72 03/11/19 07:00 Pulse Ox 95 03/11/19 07:00 Weight - Most Recent: 170 lb 8 oz I&O - Last 24 Hours: Intake & Output 03/10/19 03/11/19 03/11/19 22:59 06:59 14:59 Intake Total 1800 2400 Output Total 1150 Balance 1800 1250 Lab Results Last 24 Hours: Laboratory Results - last 24 hr 03/10/19 03/10/19 03/10/19 Range/Units 04:30 07:00 07:06 WBC (4.23-9.07) K/mm3 RBC (4.63-6.08) M/mm3 Hgb (13.7-17.5) gm/L Hct (40.1-51.0) % MCV (79.0-92.2) fl MCH (25.7-32.2) pg MCHC (32.2-35.5) g/dl RDW Std Deviation (35.1-43.9) fL Plt Count (163-337) K/mm3 Neut % (Auto) (34.0-67.9) % Lymph % (Auto) (21.8-53.1) % B[place] % (Auto) (5.3-12.2) % Eos % (Auto) (0.8-7.0) Baso % (Auto) (0.1-1.2) % Neut # (Auto) (1.78-5.38) K/mm3 Lymph # (Auto) (1.32-3.57) K/mm3 [place]e # (Auto) (0.30-0.82) K/mm3 Eos # (Auto) (0.04-0.54) K/mm3 Baso # (Auto) (0.01-0.08) K/mm3 Sodium (136-145) mEq/L Potassium (3.5-5.1) mEq/L Chloride (98-107) mEq/L Carbon Dioxide (21-32) mEq/L Anion Gap (5-15) BUN (7-18) mg/dL Creatinine (0.7-1.3) mg/dL Est Cr Clr Drug Dosing mL/min Estimated GFR (MDRD) (>60) mL/min BUN/Creatinine Ratio (14-18) Glucose (74-106) mg/dL Lactic Acid (0.4-2.0) mmol/L Calcium (8.5-10.1) mg/dL Magnesium (1.8-2.4) mg/dl C-Reactive Protein (<1.0) mg/dL Procalcitonin 0.19 H (<0.10) ng/mL Urine Color (Yellow) Urine Appearance (Clear) Urine pH (5.0-8.0) Ur Specific [place] (1.005-1.030) Urine Protein (Negative) Urine Glucose (UA) (Negative) Urine Ketones (Negative) Urine Occult Blood (Negative) Urine Nitrite (Negative) Urine Bilirubin (Negative) Urine Urobilinogen (0.2-1.0) Ur Leukocyte Esterase (Negative) Urine RBC (0-5) /hpf Urine WBC (0-5) /hpf Ur Squamous Epith Cells (0-5) /hpf Urine Bacteria (FEW) /hpf Urine Mucus (FEW) /hpf Mycoplasma pneumon IgM Negative (NEGATIVE) MRSA (PCR) Negative 03/10/19 03/11/19 03/11/19 Range/Units 20:49 06:58 06:58 WBC 10.61 H (4.23-9.07) K/mm3 RBC 5.31 (4.63-6.08) M/mm3 Hgb 13.1 L D (13.7-17.5) gm/L Hct 44.7 (40.1-51.0) % MCV 84.2 (79.0-92.2) fl MCH 24.7 L (25.7-32.2) pg MCHC 29.3 L (32.2-35.5) g/dl RDW Std Deviation 66.1 H (35.1-43.9) fL Plt Count 236 (163-337) K/mm3 Neut % (Auto) 59.6 (34.0-67.9) % Lymph % (Auto) 26.1 (21.8-53.1) % Bledsoe % (Auto) 11.0 (5.3-12.2) % Eos % (Auto) 2.5 (0.8-7.0) Baso % (Auto) 0.4 (0.1-1.2) % Neut # (Auto) 6.32 H (1.78-5.38) K/mm3 Lymph # (Auto) 2.77 (1.32-3.57) K/mm3 [place] # (Auto) 1.17 H (0.30-0.82) K/mm3 Eos # (Auto) 0.27 (0.04-0.54) K/mm3 Baso # (Auto) 0.04 (0.01-0.08) K/mm3 Sodium 146 H (136-145) mEq/L Potassium 4.3 (3.5-5.1) mEq/L Chloride 107 (98-107) mEq/L Carbon Dioxide 36 H (21-32) mEq/L Anion Gap 7.3 (5-15) BUN 20 H (7-18) mg/dL Creatinine 1.0 (0.7-1.3) mg/dL Est Cr Clr Drug Dosing 110.64 mL/min Estimated GFR (MDRD) > 60 (>60) mL/min BUN/Creatinine Ratio 20.0 H (14-18) Glucose 86 (74-106) mg/dL Lactic Acid (0.4-2.0) mmol/L Calcium 8.0 L (8.5-10.1) mg/dL Magnesium 1.9 (1.8-2.4) mg/dl C-Reactive Protein 5.3 H* (<1.0) mg/dL Procalcitonin (<0.10) ng/mL Urine Color Yellow (Yellow) Urine Appearance Clear (Clear) Urine pH 6.0 (5.0-8.0) Ur Specific [place] 1.020 (1.005-1.030) Urine Protein Negative (Negative) Urine Glucose (UA) Negative (Negative) Urine Ketones Negative (Negative) Urine Occult Blood Negative (Negative) Urine Nitrite Negative (Negative) Urine Bilirubin Negative (Negative) Urine Urobilinogen 0.2 (0.2-1.0) Ur Leukocyte Esterase Negative (Negative) Urine RBC 0-5 (0-5) /hpf Urine WBC 0-5 (0-5) /hpf Ur Squamous Epith Cells 0-5 (0-5) /hpf Urine Bacteria Few (FEW) /hpf Urine Mucus Few (FEW) /hpf Mycoplasma pneumon IgM (NEGATIVE) MRSA (PCR) 03/11/19 Range/Units 06:58 WBC (4.23-9.07) K/mm3 RBC (4.63-6.08) M/mm3 Hgb (13.7-17.5) gm/L Hct (40.1-51.0) % MCV (79.0-92.2) fl MCH (25.7-32.2) pg MCHC (32.2-35.5) g/dl RDW Std Deviation (35.1-43.9) fL Plt Count (163-337) K/mm3 Neut % (Auto) (34.0-67.9) % Lymph % (Auto) (21.8-53.1) % [place] % (Auto) (5.3-12.2) % Eos % (Auto) (0.8-7.0) Baso % (Auto) (0.1-1.2) % Neut # (Auto) (1.78-5.38) K/mm3 Lymph # (Auto) (1.32-3.57) K/mm3 [place] # (Auto) (0.30-0.82) K/mm3 Eos # (Auto) (0.04-0.54) K/mm3 Baso # (Auto) (0.01-0.08) K/mm3 Sodium (136-145) mEq/L Potassium (3.5-5.1) mEq/L Chloride (98-107) mEq/L Carbon Dioxide (21-32) mEq/L Anion Gap (5-15) BUN (7-18) mg/dL Creatinine (0.7-1.3) mg/dL Est Cr Clr Drug Dosing mL/min Estimated GFR (MDRD) (>60) mL/min BUN/Creatinine Ratio (14-18) Glucose (74-106) mg/dL Lactic Acid 0.5 (0.4-2.0) mmol/L Calcium (8.5-10.1) mg/dL Magnesium (1.8-2.4) mg/dl C-Reactive Protein (<1.0) mg/dL Procalcitonin (<0.10) ng/mL Urine Color (Yellow) Urine Appearance (Clear) Urine pH (5.0-8.0) Ur Specific [place] (1.005-1.030) Urine Protein (Negative) Urine Glucose (UA) (Negative) Urine Ketones (Negative) Urine Occult Blood (Negative) Urine Nitrite (Negative) Urine Bilirubin (Negative) Urine Urobilinogen (0.2-1.0) Ur Leukocyte Esterase (Negative) Urine RBC (0-5) /hpf Urine WBC (0-5) /hpf Ur Squamous Epith Cells (0-5) /hpf Urine Bacteria (FEW) /hpf Urine Mucus (FEW) /hpf Mycoplasma pneumon IgM (NEGATIVE) MRSA (PCR) Solomon Results Last 24 Hours: Microbiology 03/10/19 04:15 Aerobic Blood Culture - Preliminary Blood - Venous - Lab Draw NO GROWTH AFTER 1 DAY Anaerobic Blood Culture - Preliminary NO GROWTH AFTER 1 DAY 03/10/19 04:30 Aerobic Blood Culture - Preliminary Blood - Venous NO GROWTH AFTER 1 DAY Anaerobic Blood Culture - Preliminary NO GROWTH AFTER 1 DAY Med Orders - Current: Current Medications Acetaminophen (Tylenol) 650 mg PO Q4H PRN PRN Reason: Pain (Mild 1-3)/fever Albuterol/Ipratropium (Duoneb 3.0-0.5 Mg/3 Ml) 3 ml NEB Q4H PRN PRN Reason: Shortness Of Breath/wheezing Allopurinol (Zyloprim) 300 mg PO DAILY@1999 [facility] Last Admin: 03/10/19 20:59 Dose: 300 mg Aripiprazole (Abilify) 2 mg PO BID PRN PRN Reason: Agitation Last Admin: 03/10/19 09:59 Dose: 2 mg Aripiprazole (Abilify) 5 mg PO TID@0800,1400,1999 [facility] Last Admin: 03/10/19 20:59 Dose: 5 mg Bisacodyl (Dulcolax) 5 mg PO DAILY PRN PRN Reason: Constipation Calcium Polycarbophil (Fibercon) 625 mg PO DAILY@1999 [facility] Last Admin: 03/10/19 20:59 Dose: 625 mg Clonidine HCl (Catapres Tts-2) 0.2 mg TOP Q3D [facility] Last Admin: 03/10/19 20:59 Dose: 0.2 mg Divalproex Sodium (Depakote) 500 mg PO BID@0800,1999 [facility] Last Admin: 03/10/19 20:59 Dose: 500 mg Docusate Sodium (Colace) 100 mg PO BID PRN PRN Reason: Constipation Guaifenesin/Phenylephrine HCl (Robitussin Dm) 10 ml PO TID@0700,1400,2100 PRN PRN Reason: Cough Piperacillin Sod/Tazobactam (Sod 4.5 gm/ Sodium Chloride) 100 mls @ 25 mls/hr IV Q8H [facility] Last Admin: 03/11/19 06:57 Dose: 25 mls/hr Levofloxacin/Dextrose 750 mg/ (Premix) 150 mls @ 100 mls/hr IV Q24H [facility] Last Admin: 03/10/19 10:17 Dose: 100 mls/hr Sodium Chloride (Normal Saline) 1,000 mls @ 125 mls/hr IV ASDIRECTED [facility] Last Admin: 03/11/19 01:02 Dose: 125 mls/hr Levothyroxine Sodium (Synthroid) 50 mcg PO SuSa@0800 [facility] Levothyroxine Sodium (Levothyroxine) 75 mcg PO MoTuWeThFr@0800 [facility] Melatonin (Melatonin) 9 mg PO DAILY@1999 [facility] Last Admin: 03/10/19 22:15 Dose: 9 mg Miscellaneous Information (Remove Patch) 1 ea TRDERM Q72H [facility] Ondansetron HCl (Zofran Odt) 4 mg PO Q6H PRN PRN Reason: nausea, able to take PO Ondansetron HCl (Zofran) 4 mg IV Q6H PRN PRN Reason: Nausea/Vomiting Paroxetine HCl (Paxil) 30 mg PO BID@0800,1400 [facility] Anti-Acid 0 Tsp 0 each PO Q4H PRN PRN Reason: upset stomach Desmopressin 0.05 Mg 0 each PO DAILY@1999 [facility] Last Admin: 03/10/19 22:17 Dose: Not Given Fexofenadine/Pseudoephedrine [ Gris-D 24 Hour Tablet] 1 0 each PO DAILY PRN PRN Reason: runny nose Desmopressin 0.05 Mg 0 each PO DAILY@1999 PRN PRN Reason: bladder control Senna/Docusate Sodium (Senna Plus) 1 tab PO BID PRN PRN Reason: Constipation Trazodone HCl (Trazodone) 25 mg PO BEDTIME PRN PRN Reason: Sleep Last Admin: 03/11/19 00:28 Dose: 25 mg Discontinued Medications Aripiprazole (Abilify) 5 mg PO TID [facility] Last Admin: 03/10/19 16:04 Dose: 5 mg Divalproex Sodium (Depakote) 500 mg PO BID [facility] Last Admin: 03/10/19 09:59 Dose: 500 mg Azithromycin 500 mg/ Sodium (Chloride) 250 mls @ 250 mls/hr IV ONETIME STA Stop: 03/10/19 06:03 Last Admin: 03/10/19 06:19 Dose: 250 mls/hr Ceftriaxone Sodium 2 gm/ (Sodium Chloride) 100 mls @ 200 mls/hr IV ONETIME STA Stop: 03/10/19 05:32 Last Admin: 03/10/19 05:43 Dose: Not Given Ceftriaxone Sodium 2 gm/ (Sodium Chloride) 100 mls @ 200 mls/hr IV ONETIME ONE Stop: 03/10/19 06:01 Last Admin: 03/10/19 05:42 Dose: 200 mls/hr Sodium Chloride (Normal Saline) 1,000 mls @ 250 mls/hr IV ASDIRECTED [facility] Levothyroxine Sodium (Levothyroxine) 75 mcg PO MOTUWETHFR [facility] Last Admin: 03/10/19 10:02 Dose: 75 mcg Paroxetine HCl (Paxil) 30 mg PO 0600,1400 [facility] Last Admin: 03/10/19 16:04 Dose: 30 mg Desmopressin 0.05 Mg 0 each PO BEDTIME PRN PRN Reason: bladder control Melatonin [Melatonin (] 10 Mg) 10 each PO DAILY@1999 [facility] Last Admin: 03/10/19 22:22 Dose: Not Given - Exam Quality Assessment: DVT Prophylaxis General: Alert, Cooperative, No Acute Distress HEENT: Pupils Equal, Pupils Reactive, EOMI, Mucous Membr. Moist/[place] Neck: Supple, Trachea Midline, No JVD Lungs: Normal Respiratory Effort, Decreased Breath Sounds. No: Rhonchi, Wheezing Cardiovascular: Regular Rate, Regular Rhythm GI/Abdominal Exam: Normal Bowel Sounds, Soft, Non-Tender, No Organomegaly, No Distention (Male) Exam: Deferred Back Exam: Full Range of Motion, Other (Sclerosis ) Extremities: Normal Inspection, Normal Range of Motion, Non-Tender, Normal Capillary Refill, Pedal Edema (trace ) Peripheral Pulses: 2+: Radial (L), Radial (R), Dorsalis Pedis (L), Dorsalis Pedis (R) Skin: Warm, Dry, Intact Neurological: No New Focal Deficit Psy/Mental Status: Alert, Normal Affect, Normal Mood - Problem List & Annotations (1) Central sleep apnea Status: Chronic Priority: Medium Current Visit: Yes (2) Pneumonia SNOMED Code(s): 652466137 Code(s): J18.9 - PNEUMONIA, UNSPECIFIED ORGANISM Status: Acute Priority: High Current Visit: Yes Qualifiers: Pneumonia type: due to unspecified organism Laterality: unspecified laterality Lung location: unspecified part of lung Qualified Code(s): J18.9 - Pneumonia, unspecified organism (3) Scoliosis SNOMED Code(s): 747438456 Code(s): M41.9 - SCOLIOSIS, UNSPECIFIED Status: Chronic Priority: Medium Current Visit: No Qualifiers: Scoliosis type: unspecified scoliosis Spinal region: unspecified Qualified Code(s): M41.9 - Scoliosis, unspecified - Problem List Review Problem List Initiated/Reviewed/Updated: Yes - My Orders Last 24 Hours: My Active Orders 03/10/19 07:02 Isolation [COMM] Routine 03/10/19 07:12 RT Chest Physiotherapy [RC] ASDIRECTED RT Incentive Spirometry [RC] Q1HWA 03/10/19 07:45 Piperacillin/Tazobactam [Piperacil-Tazobact] 4.5 gm Sodium Chloride 0.9% [ Normal Saline] 100 ml IV Q8H 03/10/19 08:37 CPAP Noctural Home [RT BiPAP/CPAP] [RC] ASDIRECTED 03/10/19 09:00 Levofloxacin/Dextrose 5%-Water [Levaquin in D5W 750 MG/150 ML] 750 mg Premix Bag 1 bag IV Q24H 03/10/19 09:05 ARIPiprazole [Abilify] 2 mg PO BID PRN Patient's Own Medication [Ptom] 0 each PO DAILY PRN Patient's Own Medication [Ptom] 0 each PO Q4H PRN traZODone 25 mg PO BEDTIME PRN 03/10/19 09:08 Antiembolic Devices [RC] BID ALESSIA Hose [Antiembolic Hose] [OM.PC] Routine 03/10/19 09:27 Aspiration Precautions [RC] ASDIRECTED 03/10/19 14:00 Dextromethorphan/guaiFENesin [Robitussin DM] 10 ml PO TID@0700,1400,2100 PRN 03/10/19 17:30 Patient's Own Medication [Ptom] 0 each PO DAILY@1999 PRN 03/10/19 18:10 RESPIRATORY PANEL Routine 03/10/19 20:00 ARIPiprazole [Abilify] 5 mg PO TID@0800,1400,1999 Allopurinol [Zyloprim] 300 mg PO DAILY@1999 Calcium Polycarbophil [Fibercon] 625 mg PO DAILY@1999 Divalproex Sodium [Depakote] 500 mg PO BID@00,1999 Patient's Own Medication [Ptom] 0 each PO DAILY@199903/10/19 20:15 cloNIDine [Catapres TTS-2] 0.2 mg TOP Q3D 03/10/19 20:49 STREP PNEUMONIAE ANTIGEN [MREF] Routine 03/11/19 06:58 CBC WITH AUTO DIFF [HEME] AM 03/11/19 08:00 Levothyroxine 75 mcg PO MoTuWeThFr@0800 PARoxetine [Paxil] 30 mg PO BID@0800,1400 03/12/19 05:11 BASIC METABOLIC PANEL,BMP [CHEM] AM CBC WITH AUTO DIFF [HEME] AM CRP [C-REACTIVE PROTEIN] [CHEM] AM MAGNESIUM [CHEM] AM 03/12/19 08:00 CXR [Chest 2V] [CR] Routine 03/13/19 05:11 BASIC METABOLIC PANEL,BMP [CHEM] AM CBC WITH AUTO DIFF [HEME] AM CRP [C-REACTIVE PROTEIN] [CHEM] AM MAGNESIUM [CHEM] AM 03/14/19 05:11 BASIC METABOLIC PANEL,BMP [CHEM] AM CBC WITH AUTO DIFF [HEME] AM CRP [C-REACTIVE PROTEIN] [CHEM] AM MAGNESIUM [CHEM] AM 03/14/19 08:00 Levothyroxine [Synthroid] 50 mcg PO SuSa@0800 - Plan Plan:: I/P: Acute PNA -Family reports 103 fever, non- productive cough, SOB, starting Saturday () night -Hospitalized November of this year for PNA -Recently saw Pulmonology in [place] - recommending repeat sleep study -CXR in ED: Increasing densities within right upper and right lower lung. Differential includes atelectasis, PNA, as well as change from aspiration -Risk factor: Significant scoliosis -WBC 18.67-->10.61 -Lactic acid 1.3-->0.5 -CRP 0.5-->5.3 -Meets sepsis criteria -Tachycardia, Fever at home, Leukocytosis of 18K, Suspected PNA on CXR, -Rocephin and Azithromycin started in ED - stop -Dr. Vee requests Zosyn and Levaquin 750mg -> discontinue zosyn -Normotensive so will hold off aggressive fluid hydration -Telemetry -IV fluids as ordered -> discontinue -Acapella/IS/RT -Duonebs as ordered -Repeat CXR in 24-48 hours -Ambulate -Robitussin DM for cough PRN -Home BiPAP at night -Tylenol for fever -Strep pneumo, VRP pending -Negative Mycoplasma, MRSA screen -Blood cultures negative -Procalcitonin 0.19 (sepsis should be considered) Chronic: asthma as a child sleep apnea which she is partially compliant with his BiPAP and oxygen at 1 L urinary incontinence seizures developmental delay aggressive/hostile behaviors anxiety depression OCD hypothyroidism Plan: Admit to medical floor with telemetry Routine AM labs Home medications as ordered CM/SW for discharge planning PT/OT Obtain UA DVT Prophylaxis: ALESSIA busby; ambulate Code status: Full Code; PCP: Michaela Sanchez NP
[2019-03-11] MEDS: Levothyroxine 75 MCG Tab PO SCH (08:26)
[2019-03-11] MEDS: ARIPiprazole 5 MG Tab PO SCH ×3 (08:26→20:53)
[2019-03-11] MEDS: PARoxetine 20 MG Tab PO SCH ×2 (08:27→13:59)
[2019-03-11] MEDS: Divalproex Sodium Delayed-Release 500 MG Tab.CR PO SCH ×2 (08:29→20:53)
[2019-03-11] MEDS: Levofloxacin/Dextrose 5%-Water 750 MG in Premix Bag 1 BAG IV SCH (08:30)
[2019-03-11] MEDS: Calcium Polycarbophil 625 MG Tab PO SCH (20:53)
[2019-03-11] MEDS: Allopurinol 300 MG Tab PO SCH (20:53)
[2019-03-11] MEDS: Melatonin 3 MG Tab PO SCH (20:54)
[2019-03-11] MEDS: DESMOPRESSIN 0.1 MG PO SCH (20:54)
[2019-03-12] MEDS: Levothyroxine 75 MCG Tab PO SCH (09:26)
[2019-03-12] MEDS: Divalproex Sodium Delayed-Release 500 MG Tab.CR PO SCH (09:26)
[2019-03-12] MEDS: PARoxetine 20 MG Tab PO SCH ×2 (09:27→14:13)
[2019-03-12] MEDS: ARIPiprazole 5 MG Tab PO SCH ×2 (09:27→14:13)
[2019-03-12] MEDS: Levofloxacin/Dextrose 5%-Water 750 MG in Premix Bag 1 BAG IV SCH (09:28)
--- NOTE | 2019-03-12 11:11 | CR ---
Chest: Two views of the chest were obtained. Comparison: Prior chest x-ray of 03/10/19. Increased density seen within the right mid lower lung which appears fairly stable from previous exam. Area of increased density is seen along the left heart margin within the left lung base. Severe scoliosis is noted. Heart size and mediastinum are stable. Impression: 1. Unchanged parenchymal density within the right mid and lower lung from prior chest x-ray. 2. New area of parenchymal density within the left lung base. Differential as noted previously on the right side of atelectasis, pneumonia and change from aspiration. Diagnostic code #3
--- NOTE | 2019-03-12 14:31 | PCM.DCSUM1 ---
Discharge Summary - Hospital Course Brief History: Yaakov Mattson is a 38 jean who presents to our ED with a fever. Family reports patient had a temperature of 103 around 0 2:30 this morning. He reportedly been clammy and complained of stomachache and nausea. He also had abrupt onset of a wet sounding cough which started on 03/09/2019. He was hospitalized this past November with pneumonia. In the ED he is tachycardic with a heart rate of 1:15 but is afebrile. Oxygen saturations are noted be 90% and he does cough frequently. He does see neurology and pulmonology in [place]. Per the patient's mother he had just had a pulmonology appointment recently. The global project manager did not have any suggestions however he said that the patient's lungs are likely still healing from the prior pneumonia and he would like to see them back in 6 months. They had reportedly been talking about obtaining another sleep study as the patient's home BiPAP is quite old. Family reports he looked quite sick before they brought him in. in the ED temperature 37.4 Celsius. Pulse 1:15. Respirations 20. Blood pressure 122/73. Pulse ox 90%. Labs are obtained: WBC is elevated at 18.67. Hemoglobin 14.8. Hematocrit 50.0. He is normocytic. Pulses are good at 228,000. Neutrophils are elevated at 67%. There is 11% bandemia. Sodium is 141. Potassium 4.8. Chloride 102. Carbon dioxide 33. Anion gap 10.8. Creatinine is 1.1. EGFR greater than 60. Glucose 102. Lactic acid is 1.3. Calcium 8.7. Bilirubin 0.5. AST is 18, ALT 14, alkaline phosphatase 70. Protein is 6.9. Albumin is low at 3.0. He started on 500 mg azithromycin and 2 g Rocephin along with an acid 250 mils an hour. Blood cultures are obtained. 2 view chest x-rays obtained and interpreted by Dr. Campo as "1. Increasing densities within the right upper and right lower lung, differential includes atelectasis, pneumonia, as well as change from aspiration.". He carries a history of: asthma as a child , sleep apnea which she is partially compliant with his BiPAP and oxygen at 1 L , urinary incontinence, seizures, developmental delay, aggressive/hostile behaviors, anxiety, depression, OCD, hypothyroidism. His mother does provide care along with a service called "[employer]." he is subsequently admitted to the medical floor for treatment of his pneumonia. He is a full code. His PCP is Michaela Sanchez NP. Diagnosis: Stroke: No Modified [place] Scale: No Symptoms at All Modified [place] Scale Score: 0 - Discharge Data Discharge Date: 03/12/19 Discharge Disposition: Home, Self-Care 01 Condition: Good - Discharge Diagnosis/Problem(s) (1) CAP (community acquired pneumonia) SNOMED Code(s): 150359689 ICD Code: J18.9 - PNEUMONIA, UNSPECIFIED ORGANISM Status: Acute (2) Hypoxemia SNOMED Code(s): 823533560 ICD Code: R09.02 - HYPOXEMIA Status: Acute Priority: High (3) Scoliosis SNOMED Code(s): 344270460 ICD Code: M41.9 - SCOLIOSIS, UNSPECIFIED Status: Chronic Priority: Medium Qualifiers: Scoliosis type: unspecified scoliosis Spinal region: unspecified Qualified Code(s): M41.9 - Scoliosis, unspecified - Patient Summary/Data Operative Procedure(s) Performed: None Complications: None Consults: Consultations 03/10/19 06:42 Consult to Case Management/Viscose Department Worker [CONS] Routine Consult to Spiritual Care [CONS] Routine OT Evaluation and Treatment [CONS] Routine PT Evaluation and Treatment [CONS] Routine Respiratory Care Assess and Treatment [CONS] Routine Labs Pending at D/C: None Recommended Follow-up Testing/Procedures: None Planned Operative Procedure(s) after DC: None Hospital Course: Patient was primarily admitted for treatment of community acquired pneumonia. His chest x-ray showed right sided pulmonary infiltrate. His blood cultures were negative but no sputum sample was collected for microbiology. However he received breathing treatments, bronchodilators, expectorant/decongestant as well as intravenous antibiotics. The patient slowly improved on this regimen. His hospital course was uncomplicated. Once clinically stable, he was then discharge back home with additional course of oral antibiotic to take. His mom was advised to follow up with his family doctor after discharge and was further advised to come back or seek immediate care should his symptoms persist or get worse. His mom expressed understanding and in agreement with the plans as discussed above. All questions or concerns answered. - Patient Instructions Diet: Usual Diet as Tolerated Activity: As Tolerated Driving: Do Not Drive Showering/Bathing: May Shower Notify Provider of: Fever, Increased Pain, Swelling and Redness, Drainage, Nausea and/or Vomiting Other/Special Instructions: - Please take all new medications as directed. - Resume routine home medications and activity as tolerated. - Continue Incentive Spirometry or Flutter Valve as directed. - Call or follow up with your doctor for any concerns or issues after discharge. - Follow up with your doctor in 1 week. - Come back or seek immediate care should your symptoms persist or get worse - Discharge Plan *PRESCRIPTION DRUG MONITORING PROGRAM REVIEWED*: Not Applicable *COPY OF PRESCRIPTION DRUG MONITORING REPORT IN PATIENT HUMBERTO: Not Applicable Prescriptions/Med Rec: Levofloxacin [Levaquin] 750 mg PO DAILY #5 tablet Saccharomyces Boulardii [Florastor] 250 mg PO DAILY #10 capsule Home Medications: Home Meds ARIPiprazole [Abilify] 2 mg PO BID PRN 12/10/18 [History] ARIPiprazole [Abilify] 5 mg PO TID 12/10/18 [History] Acetaminophen 650 mg PO Q4HR PRN 12/10/18 [History] Allopurinol [Zyloprim] 300 mg PO BEDTIME 12/10/18 [History] Divalproex Sodium [Depakote] 500 mg PO BID 12/10/18 [History] Levothyroxine 75 mcg PO MOTUWETHFR 12/10/18 [History] Levothyroxine [Synthroid] 50 mcg PO SUSA 12/10/18 [History] Loperamide [Imodium] 2 mg PO ASDIRECTED PRN 12/10/18 [History] Melatonin 10 mg PO BEDTIME 12/10/18 [History] PARoxetine HCl [Paxil] 30 mg PO BID 12/10/18 [History] cloNIDine [Catapres TTS-2] 0.2 mg TOP ASDIRECTED 12/10/18 [History] traZODone HCl [Trazodone HCl] 25 mg PO BEDTIME PRN 12/10/18 [History] Anti-Acid 2 - 4 tsp PO Q4H PRN 03/10/19 [History] Calcium Polycarbophil [Fiber Tabs] 625 mg PO BEDTIME 03/10/19 [History] Desmopressin 0.05 mg PO BEDTIME 03/10/19 [History] Desmopressin 0.05 mg PO BEDTIME PRN 03/10/19 [History] Fexofenadine/Pseudoephedrine [Gris-D 24 Hour Tablet] 1 tab PO DAILY PRN 03/10 [History] Levofloxacin [Levaquin] 750 mg PO DAILY #5 tablet 03/12/19 [Rx] Saccharomyces Boulardii [Florastor] 250 mg PO DAILY #10 capsule 03/12/19 [Rx] Oxygen Therapy Mode: Nasal Cannula Patient Handouts: Hypoxemia, Scoliosis, Community-Acquired Pneumonia, Adult, [id number] Referrals: Michaela Sanchez, RESIZER OPERATOR [Primary Care Provider] - 03/19/19 1:30 pm - Discharge Summary/Plan Comment DC Time >30 min.: No Discharge Summary/Plan Comment: Discharge to Home - General Info Date of Service: 03/12/19 Admission Dx/Problem (Free Text: Admission Diagnosis/Problem Admission Diagnosis/Problem Community acquired pneumonia Subjective Update: In to see Yaakov. His mother is at bedside. She reports he is much more back to baseline. He has been much more active and reports he feels good. He has not been coughing. Lung sounds have resolved. We will stop zosyn today and discontinue IV fluids. He has been eating well. He has been utilizing his IS and acapella sporadically. No nursing concerns. His WBC is trending down. Functional Status: Reports: Pain Controlled, Tolerating Diet, Ambulating, Urinating. Denies: New Symptoms - Review of Systems General: Denies: Fever, Chills HEENT: Reports: No Symptoms Pulmonary: Reports: Shortness of Breath Cardiovascular: Reports: Edema. Denies: Chest Pain, Dyspnea on Exertion, Lightheadedness Gastrointestinal: Denies: Abdominal Pain, Nausea, Vomiting Genitourinary: Reports: No Symptoms Musculoskeletal: Reports: No Symptoms Skin: Denies: Cyanosis Neurological: Reports: Difficulty Walking, Gait Disturbance. Denies: Confusion , Weakness Psychiatric: Denies: Depression, Anxiety, Agitation, Hallucinations - Patient Data Vitals - Most Recent: Last Vital Signs Temp 36.4 C 03/12/19 12:18 Pulse 57 L 03/12/19 12:18 Resp 20 03/12/19 12:18 BP 107/74 03/12/19 12:18 Pulse Ox 97 03/12/19 12:18 Weight - Most Recent: 78.018 kg I&O - Last 24 hours: Intake & Output 03/11/19 03/12/19 03/12/19 22:59 06:59 14:59 Intake Total 1464 550 120 Output Total 300 Balance 1164 550 120 Lab Results - Last 24 hrs: Laboratory Results - last 24 hr 03/10/19 03/12/19 03/12/19 Range/Units 18:10 06:05 06:05 WBC 8.35 (4.23-9.07) K/mm3 RBC 5.45 (4.63-6.08) M/mm3 Hgb 13.5 L (13.7-17.5) gm/L Hct 46.2 (40.1-51.0) % MCV 84.8 (79.0-92.2) fl MCH 24.8 L (25.7-32.2) pg MCHC 29.2 L (32.2-35.5) g/dl RDW Std Deviation 66.7 H (35.1-43.9) fL Plt Count 228 (163-337) K/mm3 Neut % (Auto) 52.3 (34.0-67.9) % Lymph % (Auto) 33.4 (21.8-53.1) % [place] % (Auto) 9.8 (5.3-12.2) % Eos % (Auto) 4.2 (0.8-7.0) Baso % (Auto) 0.2 (0.1-1.2) % Neut # (Auto) 4.36 (1.78-5.38) K/mm3 Lymph # (Auto) 2.79 (1.32-3.57) K/mm3 [place] # (Auto) 0.82 (0.30-0.82) K/mm3 Eos # (Auto) 0.35 (0.04-0.54) K/mm3 Baso # (Auto) 0.02 (0.01-0.08) K/mm3 Manual Slide Review Abnormal smear Sodium 142 (136-145) mEq/L Potassium 4.6 (3.5-5.1) mEq/L Chloride 104 (98-107) mEq/L Carbon Dioxide 32 (21-32) mEq/L Anion Gap 10.6 (5-15) BUN 19 H (7-18) mg/dL Creatinine 0.9 (0.7-1.3) mg/dL Est Cr Clr Drug Dosing 123.35 mL/min Estimated GFR (MDRD) > 60 (>60) mL/min BUN/Creatinine Ratio 21.1 H (14-18) Glucose 76 (74-106) mg/dL Calcium 9.1 (8.5-10.1) mg/dL Magnesium 2.0 (1.8-2.4) mg/dl C-Reactive Protein 3.0 H* (<1.0) mg/dL Adenovirus (PCR) Not detected (Not Detected) B. pertussis DNA (PCR) Not detected (Not Detected) B.parapertussis DNA PCR Not detected (Not Detected) C. pneumoniae DNA (PCR) Not detected (Not Detected) Coronavirus (PCR) Not detected (Not Detected) Human Metapneumovir PCR Not detected (Not Detected) Influenza A (RT-PCR) Not detected (Not Detected) Influenza B (RT-PCR) Not detected (Not Detected) M. pneumoniae (PCR) Not detected (Not Detected) Parainfluen 1,2,3,4 PCR Not detected (Not Detected) RSV (PCR) Not detected (Not Detected) Entero/Rhino (PCR) Not detected (Not Detected) KELVIN Results - Last 24 hrs: Microbiology 03/10/19 04:15 Aerobic Blood Culture - Preliminary Blood - Venous - Lab Draw NO GROWTH AFTER 2 DAYS Anaerobic Blood Culture - Preliminary NO GROWTH AFTER 2 DAYS 03/10/19 04:30 Aerobic Blood Culture - Preliminary Blood - Venous NO GROWTH AFTER 2 DAYS Anaerobic Blood Culture - Preliminary NO GROWTH AFTER 2 DAYS Med Orders - Current: Current Medications Acetaminophen (Tylenol) 650 mg PO Q4H PRN PRN Reason: Pain (Mild 1-3)/fever Albuterol/Ipratropium (Duoneb 3.0-0.5 Mg/3 Ml) 3 ml NEB Q4H PRN PRN Reason: Shortness Of Breath/wheezing Allopurinol (Zyloprim) 300 mg PO DAILY@1999 [facility] Last Admin: 03/11/19 20:53 Dose: 300 mg Aripiprazole (Abilify) 2 mg PO BID PRN PRN Reason: Agitation Last Admin: 03/10/19 09:59 Dose: 2 mg Aripiprazole (Abilify) 5 mg PO TID@0800,1400,1999 [facility] Last Admin: 03/12/19 14:13 Dose: 5 mg Bisacodyl (Dulcolax) 5 mg PO DAILY PRN PRN Reason: Constipation Calcium Polycarbophil (Fibercon) 625 mg PO DAILY@1999 [facility] Last Admin: 03/11/19 20:53 Dose: 625 mg Clonidine HCl (Catapres Tts-2) 0.2 mg TOP Q3D [facility] Last Admin: 03/10/19 20:59 Dose: 0.2 mg Divalproex Sodium (Depakote) 500 mg PO BID@ [facility] Last Admin: 03/12/19 09:26 Dose: 500 mg Docusate Sodium (Colace) 100 mg PO BID PRN PRN Reason: Constipation Guaifenesin/Phenylephrine HCl (Robitussin Dm) 10 ml PO TID@0700,1400,2100 PRN PRN Reason: Cough Levofloxacin/Dextrose 750 mg/ (Premix) 150 mls @ 100 mls/hr IV Q24H [facility] Last Admin: 03/12/19 09:28 Dose: 100 mls/hr Levothyroxine Sodium (Synthroid) 50 mcg PO SuSa@08 [facility] Levothyroxine Sodium (Levothyroxine) 75 mcg PO MoTuWeThFr@0800 [facility] Last Admin: 03/12/19 09:26 Dose: 75 mcg Melatonin (Melatonin) 9 mg PO DAILY@1999 [facility] Last Admin: 03/11/19 20:54 Dose: 9 mg Miscellaneous Information (Remove Patch) 1 ea TRDERM Q72H [facility] Ondansetron HCl (Zofran Odt) 4 mg PO Q6H PRN PRN Reason: nausea, able to take PO Ondansetron HCl (Zofran) 4 mg IV Q6H PRN PRN Reason: Nausea/Vomiting Paroxetine HCl (Paxil) 30 mg PO BID@0800,1400 [facility] Last Admin: 03/12/19 14:13 Dose: 30 mg Anti-Acid 0 Tsp 0 each PO Q4H PRN PRN Reason: upset stomach Desmopressin 0.1 Mg (Tabs Own Med) 0 each PO DAILY@1999 [facility] Last Admin: 03/11/19 20:54 Dose: 0.05 each Fexofenadine/Pseudoephedrine [ Gris-D 24 Hour Tablet] 1 0 each PO DAILY PRN PRN Reason: runny nose Desmopressin 0.05 Mg 0 each PO DAILY@1999 PRN PRN Reason: bladder control Senna/Docusate Sodium (Senna Plus) 1 tab PO BID PRN PRN Reason: Constipation Trazodone HCl (Trazodone) 25 mg PO BEDTIME PRN PRN Reason: Sleep Last Admin: 03/11/19 00:28 Dose: 25 mg Discontinued Medications Aripiprazole (Abilify) 5 mg PO TID [facility] Last Admin: 03/10/19 16:04 Dose: 5 mg Divalproex Sodium (Depakote) 500 mg PO BID [facility] Last Admin: 03/10/19 09:59 Dose: 500 mg Azithromycin 500 mg/ Sodium (Chloride) 250 mls @ 250 mls/hr IV ONETIME STA Stop: 03/10/19 06:03 Last Admin: 03/10/19 06:19 Dose: 250 mls/hr Ceftriaxone Sodium 2 gm/ (Sodium Chloride) 100 mls @ 200 mls/hr IV ONETIME STA Stop: 03/10/19 05:32 Last Admin: 03/10/19 05:43 Dose: Not Given Ceftriaxone Sodium 2 gm/ (Sodium Chloride) 100 mls @ 200 mls/hr IV ONETIME ONE Stop: 03/10/19 06:01 Last Admin: 03/10/19 05:42 Dose: 200 mls/hr Sodium Chloride (Normal Saline) 1,000 mls @ 250 mls/hr IV ASDIRECTED [facility] Piperacillin Sod/Tazobactam (Sod 4.5 gm/ Sodium Chloride) 100 mls @ 25 mls/hr IV Q8H [facility] Last Admin: 03/11/19 06:57 Dose: 25 mls/hr Sodium Chloride (Normal Saline) 1,000 mls @ 125 mls/hr IV ASDIRECTED [facility] Last Admin: 03/11/19 09:22 Dose: 125 mls/hr Levothyroxine Sodium (Levothyroxine) 75 mcg PO MOTUWETHFR [facility] Last Admin: 03/10/19 10:02 Dose: 75 mcg Paroxetine HCl (Paxil) 30 mg PO 0600,1400 [facility] Last Admin: 03/10/19 16:04 Dose: 30 mg Desmopressin 0.05 Mg 0 each PO BEDTIME PRN PRN Reason: bladder control Melatonin [Melatonin (] 10 Mg) 10 each PO DAILY@1999 [facility] Last Admin: 03/10/19 22:22 Dose: Not Given - Exam Quality Assessment: Reports: Supplemental Oxygen General: Reports: Alert, Cooperative, No Acute Distress HEENT: Reports: Pupils Equal, Pupils Reactive, Mucous Membr. Moist/[place] Neck: Reports: Supple Lungs: Reports: Decreased Breath Sounds, Crackles, Rhonchi Cardiovascular: Reports: Regular Rate, Regular Rhythm GI/Abdominal Exam: Normal Bowel Sounds, Soft, Non-Tender, No Organomegaly, No Distention, No Abnormal Bruit (Male) Exam: Deferred Rectal (Males) Exam: Deferred Back Exam: Reports: Normal Inspection, Decreased Range of Motion Extremities: Normal Inspection, Normal Range of Motion, Non-Tender, No Pedal Edema, Normal Capillary Refill Skin: Reports: Warm, Dry, Intact Neurological: Reports: No New Focal Deficit. Denies: Normal Gait Psy/Mental Status: Reports: Alert, Normal Affect, Normal Mood
[2019-03-14] MEDS ORDERED: Levothyroxine 50 MCG Tab PO SCH (08:00)
== END 2019-03-12 17:05 | disposition home or self-care (01) | DRG 720 ==
LOC: JD.ED 03:28 → JD.MS 06:02
PROVIDERS: ADMIT Internal Medicine; ATTEND Internal Medicine
DX: A41.9 Sepsis, unspecified organism (principal); J18.9 Pneumonia, unspecified organism; J45.909 Unspecified asthma, uncomplicated; F32.9 Major depressive disorder, single episode, unspecified; F41.9 Anxiety disorder, unspecified; E03.9 Hypothyroidism, unspecified; F42.9 Obsessive-compulsive disorder, unspecified; G47.31 Primary central sleep apnea; E87.3 Alkalosis; M41.9 Scoliosis, unspecified; R62.50 Unspecified lack of expected normal physiological development in childhood; K44.9 Diaphragmatic hernia without obstruction or gangrene; E86.9 Volume depletion, unspecified; Z88.8 Allergy status to other drugs, medicaments and biological substances; Z91.018 Allergy to other foods; Z79.899 Other long term (current) drug therapy; Z98.890 Other specified postprocedural states
CPT/HCPCS: 36415; 71046; 71046-26; 80048; 80053; 81001; 83605; 83735; 84145; 85007; 85025; 85027; 86140; 86738; 87040; 87486; 87581; 87632; 87641; 87798; 87899; 94760; 94761; 96365; 96375; 97110-GP; 97116-GP; 97162-GP; 97165-GO; 97530-GO; 99283; 99284-25; A9270-GY; J0456; J0696; J1956; J2543; J7030; J7040; J7050

== ENCOUNTER 2019-08-26 08:13 | Inpatient (IN) | payer BC ==
[2019-08-26] MEDS ORDERED: Sodium Chloride 0.9% 10 ML Syringe FLUSH PRN (08:58)
[2019-08-26] MEDS ORDERED: Albuterol/Ipratropium 3.0-0.5 MG/3 ML Neb Soln NEB ONE (09:08)
--- NOTE | 2019-08-26 09:09 | EDM.PDOC ---
ED HPI GENERAL MEDICAL PROBLEM - General Chief Complaint: Respiratory Problem Stated Complaint: FEVER/COUGH Time Seen by Provider: 08/26/19 08:51 Source of Information: Reports: Patient, Provider History Limitations: Reports: No Limitations - History of Present Illness INITIAL COMMENTS - FREE TEXT/NARRATIVE: The patient presents with low oxygen saturations and a cough. This all started about 1am. He has a history of asthma and sleep apnea. He is oxygen dependant. He was requiring more oxygen this morning and would not use his bipap. He is developmentally delayed and he is a resident of [facility]. Staff member is here and said he felt warm but their thermometer was not working. He has been here 3 other times for the same and he was admitted each time for pneumonia. He did vomit this morning. He has a seizure disorder and he was supposed to get a depakote level this morning. Onset: Gradual Duration: Hour(s): Severity: Moderate Improves with: Reports: None Worsens with: Reports: None Associated Symptoms: Reports: Cough, Fever/Chills, Shortness of Breath. Denies : Chest Pain, Headaches, Nausea/Vomiting - Related Data Allergies Allergy/AdvReac Type Severity Reaction Status Date / Time dog dander Allergy Cannot Verified 06/04/19 07:04 Remember grass pollen Allergy Difficulty Verified 06/04/19 15:53 Breathing risperidone [From Risperdal] Allergy Cannot Verified 06/04/19 07:04 Remember ziprasidone [From Geodon] Allergy Edema Verified 06/04/19 15:53 cats Allergy Difficulty Uncoded 06/04/19 15:53 Breathing Home Meds: Home Meds Acetaminophen 650 mg PO Q4HR PRN 12/10/18 [History] Divalproex Sodium [Depakote] 500 mg PO 12/10/18 [History] Levothyroxine 75 mcg PO MOTUWETHFR 12/10/18 [History] Levothyroxine [Synthroid] 50 mcg PO SUSA 12/10/18 [History] Loperamide [Imodium] 2 mg PO ASDIRECTED PRN 12/10/18 [History] Melatonin 10 mg PO 209912/10/18 [History] PARoxetine HCl [Paxil] 30 mg PO ,12/10/18 [History] allopurinoL [Zyloprim] 300 mg PO 209912/10/18 [History] cloNIDine [Catapres TTS-2] 0.2 mg TOP ASDIRECTED 12/10/18 [History] traZODone HCl [Trazodone HCl] 25 mg PO BEDTIME PRN 12/10/18 [History] Anti-Acid 2 - 4 tsp PO Q4H PRN 03/10/19 [History] Calcium Polycarbophil [Fiber Tabs] 625 mg PO 2100 03/10/19 [History] Desmopressin 0.05 mg PO 2100 03/10/19 [History] Desmopressin 0.05 mg PO BEDTIME PRN 03/10/19 [History] Fexofenadine/Pseudoephedrine [Gris-D 24 Hour Tablet] 1 tab PO DAILY PRN 03/10 [History] Divalproex Sodium [Depakote] 250 mg PO 1400 06/04/19 [History] ARIPiprazole [Aripiprazole] 2.5 mg PO TID PRN #30 tablet 06/08/19 [Rx] Albuterol/Ipratropium [DuoNeb 3.0-0.5 MG/3 ML] 3 ml INH TID PRN #9 neb 06/08/19 [Rx] ARIPiprazole [Abilify] 5 mg PO TID@0800,1400,199908/26/19 [History] Past Medical History HEENT History: Reports: Other (See Below) Other HEENT History: wears glasses Respiratory History: Reports: Asthma, Sleep Apnea Other Respiratory History: wears bipap at night-1L O2--not always compliant. mom states "outgrew asthma" Gastrointestinal History: Reports: Chronic Diarrhea Genitourinary History: Reports: Urinary Incontinence Musculoskeletal History: Reports: Other (See Below) Other Musculoskeletal History: scoliosis Neurological History: Reports: Seizure, Other (See Below) Other Neuro History: patient is developmentally delayed Psychiatric History: 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, Anxiety, Depression , OCD Other Psychiatric History: metal retardation Endocrine/Metabolic History: Reports: Hypothyroidism - Past Surgical History HEENT Surgical History: Reports: None Musculoskeletal Surgical History: Reports: Other (See Below) Social & Family History - Family History Family Medical History: Noncontributory - Tobacco Use Smoking Status *Q: Never Smoker - Caffeine Use Caffeine Use: Reports: None Caffeine Use Comment: Family tries to get him to drink noncaffinated soda - Recreational Drug Use Recreational Drug Use: No - Living Situation & Occupation Living situation: Reports: Single, with Family (Sister) Occupation: Disabled ED ROS GENERAL - Review of Systems Review Of Systems: See Below Constitutional: Reports: Fever HEENT: Reports: No Symptoms Respiratory: Reports: Shortness of Breath, Cough Cardiovascular: Reports: No Symptoms Endocrine: Reports: No Symptoms GI/Abdominal: Reports: Nausea, Vomiting. Denies: Abdominal Pain, Diarrhea : Reports: No Symptoms Musculoskeletal: Reports: No Symptoms ED EXAM, GENERAL - Physical Exam Exam: See Below Exam Limited By: No Limitations General Appearance: Alert, No Apparent Distress Ears: Normal External Exam Nose: Normal Inspection Head: Atraumatic, Normocephalic Neck: Normal Inspection, Supple, Non-Tender Respiratory/Chest: Decreased Breath Sounds, Rhonchi Cardiovascular: Regular Rate, Rhythm, No Edema, No Murmur GI/Abdominal: Soft, Non-Tender, No Organomegaly, No Mass Back Exam: Normal Inspection Extremities: Normal Inspection Course - Vital Signs Last Recorded V/S: Last Vital Signs Temp 99.6 F 08/26/19 08:43 Pulse 83 08/26/19 08:43 Resp 18 08/26/19 08:43 BP 129/67 08/26/19 08:43 Pulse Ox 88 L 08/26/19 09:41 - Orders/Labs/Meds Orders: Active Orders 24 hr Category Date Time Status Cardiac Monitoring [RC] . DIRECTED Care 08/26/19 08:59 Active Oxygen Therapy [RC] PRN Care 08/26/19 08:59 Active Peripheral IV Care [RC] . DIRECTED Care 08/26/19 08:59 Active RT Aerosol Therapy [RC] ASDIRECTED Care 08/26/19 09:09 Active CULTURE BLOOD [BC] Stat Lab 08/26/19 09:38 Received CULTURE BLOOD [BC] Stat Lab 08/26/19 09:45 Received Sodium Chloride 0.9% [Saline Flush] Med 08/26/19 08:58 Active 10 ml FLUSH ASDIRECTED PRN Vancomycin 1.5 gm Med 08/26/19 10:15 Active Sodium Chloride 0.9% [Normal Saline] 500 ml IV ONETIME Blood Culture x2 Reflex Set [OM.PC] Stat Oth 08/26/19 08:59 Ordered Peripheral IV Insertion Adult [OM.PC] Stat Oth 08/26/19 08:58 Ordered Medication Orders Vancomycin HCl 1.5 gm/ Sodium (Chloride) 500 mls @ 250 mls/hr IV ONETIME ONE Stop: 08/26/19 12:14 Last Admin: 08/26/19 10:43 Dose: 250 mls/hr Sodium Chloride (Saline Flush) 10 ml FLUSH ASDIRECTED PRN PRN Reason: Keep Vein Open Last Admin: 08/26/19 09:42 Dose: 10 ml Labs: Laboratory Tests 08/26/19 08/26/19 08/26/19 Range/Units 09:38 09:38 09:38 WBC 23.08 H (4.23-9.07) K/mm3 RBC 5.19 (4.63-6.08) M/mm3 Hgb 14.2 D (13.7-17.5) gm/dl Hct 46.7 (40.1-51.0) % MCV 90.0 D (79.0-92.2) fl MCH 27.4 (25.7-32.2) pg MCHC 30.4 L (32.2-35.5) g/dl RDW Std Deviation 62.2 H (35.1-43.9) fL Plt Count 237 (163-337) K/mm3 MPV TNP Neut % (Auto) 80.3 H (34.0-67.9) % Lymph % (Auto) 8.9 L (21.8-53.1) % [place] % (Auto) 9.4 (5.3-12.2) % Eos % (Auto) 1.0 (0.8-7.0) Baso % (Auto) 0.1 (0.1-1.2) % Neut # (Auto) 18.52 H (1.78-5.38) K/mm3 Lymph # (Auto) 2.06 (1.32-3.57) K/mm3 [place] # (Auto) 2.18 H (0.30-0.82) K/mm3 Eos # (Auto) 0.23 (0.04-0.54) K/mm3 Baso # (Auto) 0.03 (0.01-0.08) K/mm3 Manual Slide Review Abnormal smear Sodium 136 (136-145) mEq/L Potassium 4.7 (3.5-5.1) mEq/L Chloride 97 L (98-107) mEq/L Carbon Dioxide 34 H (21-32) mEq/L Anion Gap 9.7 (5-15) BUN 24 H (7-18) mg/dL Creatinine 1.0 (0.7-1.3) mg/dL Est Cr Clr Drug Dosing 87.98 mL/min Estimated GFR (MDRD) > 60 (>60) mL/min BUN/Creatinine Ratio 24.0 H (14-18) Glucose 90 (74-106) mg/dL Lactic Acid (0.4-2.0) mmol/L Calcium 9.1 (8.5-10.1) mg/dL Total Bilirubin 0.5 (0.2-1.0) mg/dL AST 12 L (15-37) U/L ALT 15 L (16-63) U/L Alkaline Phosphatase 67 (46-116) U/L C-Reactive Protein 0.8 (<1.0) mg/dL Total Protein 6.8 (6.4-8.2) g/dl Albumin 2.9 L (3.4-5.0) g/dl Globulin 3.9 gm/dL Albumin/Globulin Ratio 0.7 L (1-2) Valproic Acid 92.4 (50.0-100.0) ug/mL 08/26/19 Range/Units 09:45 WBC (4.23-9.07) K/mm3 RBC (4.63-6.08) M/mm3 Hgb (13.7-17.5) gm/dl Hct (40.1-51.0) % MCV (79.0-92.2) fl MCH (25.7-32.2) pg MCHC (32.2-35.5) g/dl RDW Std Deviation (35.1-43.9) fL Plt Count (163-337) K/mm3 MPV Neut % (Auto) (34.0-67.9) % Lymph % (Auto) (21.8-53.1) % [place] % (Auto) (5.3-12.2) % Eos % (Auto) (0.8-7.0) Baso % (Auto) (0.1-1.2) % Neut # (Auto) (1.78-5.38) K/mm3 Lymph # (Auto) (1.32-3.57) K/mm3 [place] # (Auto) (0.30-0.82) K/mm3 Eos # (Auto) (0.04-0.54) K/mm3 Baso # (Auto) (0.01-0.08) K/mm3 Manual Slide Review Sodium (136-145) mEq/L Potassium (3.5-5.1) mEq/L Chloride (98-107) mEq/L Carbon Dioxide (21-32) mEq/L Anion Gap (5-15) BUN (7-18) mg/dL Creatinine (0.7-1.3) mg/dL Est Cr Clr Drug Dosing mL/min Estimated GFR (MDRD) (>60) mL/min BUN/Creatinine Ratio (14-18) Glucose (74-106) mg/dL Lactic Acid 1.6 (0.4-2.0) mmol/L Calcium (8.5-10.1) mg/dL Total Bilirubin (0.2-1.0) mg/dL AST (15-37) U/L ALT (16-63) U/L Alkaline Phosphatase (46-116) U/L C-Reactive Protein (<1.0) mg/dL Total Protein (6.4-8.2) g/dl Albumin (3.4-5.0) g/dl Globulin gm/dL Albumin/Globulin Ratio (1-2) Valproic Acid (50.0-100.0) ug/mL Meds: Medications Generic Name Dose Route Start Last Admin Trade Name Freq PRN Reason Stop Dose Admin Vancomycin HCl 1.5 gm/ Sodium 500 mls @ 250 mls/hr 08/26/19 10:15 08/26/19 10 :43 Chloride IV 08/26/19 12:14 250 mls/hr ONETIME ONE Administration Sodium Chloride 10 ml 08/26/19 08:58 08/26/19 09:42 Saline Flush FLUSH 10 ml ASDIRECTED PRN Administration Keep Vein Open Discontinued Medications Generic Name Dose Route Start Last Admin Trade Name Freq PRN Reason Stop Dose Admin Albuterol/Ipratropium 3 ml 08/26/19 09:08 08/26/19 09:22 Duoneb 3.0-0.5 Mg/3 Ml NEB 08/26/19 09:09 3 ml ONETIME ONE Administration Vancomycin HCl 1.5 gm/ Sodium 250 mls @ 250 mls/hr 08/26/19 10:04 Chloride IV 08/26/19 11:03 ONETIME ONE Piperacillin Sod/Tazobactam 100 mls @ 200 mls/hr 08/26/19 10:07 Sod 4.5 gm/ Sodium Chloride IV 08/26/19 10:36 ONETIME ONE - Re-Assessments/Exams Free Text/Narrative Re-Assessment/Exam: 08/26/19 09:18 I ordered oxygen, IV saline lock, CXR, labs, blood cultures and a duoneb. 08/26/19 10:53 His WBC was elevated at 23.08. His lactic acid is normal at 1.6. His CMP looks good. His valproic acid was normal at 92.4. His x-ray shows increased density within the right and left lung bases are noted. These findings are improved from previous exam. Uncertain if current findings represent reappearance of parenchymal densities or represent residual change and incomplete resolution from prior study. I have ordered vancomycin and zosyn. I feel he needs to be admitted. I called Dr Pierre and she agreed to the admission. She wanted levaquin in addition to the vanco and zosyn. Departure - Departure Time of Disposition: 11:00 Disposition: Admitted As Inpatient 67 Clinical Impression: Pneumonia Qualifiers: Pneumonia type: due to unspecified organism Laterality: unspecified laterality Lung location: unspecified part of lung Qualified Code(s): J18.9 - Pneumonia, unspecified organism - Discharge Information Referrals: Michaela Sanchez NP [Primary Care Provider] - Forms: ED Department Discharge Sepsis Event Note - Evaluation Sepsis Screening Result: No Definite Risk - Focused Exam Vital Signs: Vital Signs Temp Pulse Resp BP Pulse Ox Pulse Ox 08/26/19 09:41 88 L 08/26/19 09:23 90 L 08/26/19 08:43 99.6 F 83 18 129/67 90 L Date Exam was Performed: 08/26/19 Time Exam was Performed: 10:53 - My Orders Last 24 Hours: My Active Orders 08/26/19 08:58 Sodium Chloride 0.9% [Saline Flush] 10 ml FLUSH ASDIRECTED PRN Peripheral IV Insertion Adult [OM.PC] Stat 08/26/19 08:59 Cardiac Monitoring [RC] . DIRECTED Oxygen Therapy [RC] PRN Peripheral IV Care [RC] . DIRECTED Blood Culture x2 Reflex Set [OM.PC] Stat 08/26/19 09:09 RT Aerosol Therapy [RC] ASDIRECTED 08/26/19 09:38 CULTURE BLOOD [BC] Stat 08/26/19 09:45 CULTURE BLOOD [BC] Stat 08/26/19 10:15 Vancomycin 1.5 gm Sodium Chloride 0.9% [Normal Saline] 500 ml IV ONETIME - Assessment/Plan Last 24 Hours: My Active Orders 08/26/19 08:58 Sodium Chloride 0.9% [Saline Flush] 10 ml FLUSH ASDIRECTED PRN Peripheral IV Insertion Adult [OM.PC] Stat 08/26/19 08:59 Cardiac Monitoring [RC] . DIRECTED Oxygen Therapy [RC] PRN Peripheral IV Care [RC] . DIRECTED Blood Culture x2 Reflex Set [OM.PC] Stat 08/26/19 09:09 RT Aerosol Therapy [RC] ASDIRECTED 08/26/19 09:38 CULTURE BLOOD [BC] Stat 08/26/19 09:45 CULTURE BLOOD [BC] Stat 08/26/19 10:15 Vancomycin 1.5 gm Sodium Chloride 0.9% [Normal Saline] 500 ml IV ONETIME
[2019-08-26] MEDS ORDERED: Piperacillin/Tazobactam 4.5 GM in Sodium Chloride 0.9% 100 ML IV ONE (10:07)
[2019-08-26] MEDS ORDERED: Vancomycin 1.5 GM in Sodium Chloride 0.9% 500 ML IV ONE (10:15)
--- NOTE | 2019-08-26 10:31 | CR ---
Chest: Portable view of the chest was obtained. Comparison: Prior chest CT of 06/04/19 and chest x-ray of 06/04/19. Elevated left hemidiaphragm which is stable. Increased density within the right and left lung bases are noted. These findings are improved from previous exam. Uncertain if current findings represent reappearance of parenchymal densities or represent residual change and incomplete resolution from prior study. Upper lungs are clear. Heart size and mediastinum are stable. Scoliosis is noted within the spine. Impression: 1. Findings as noted above. Diagnostic code #3 This report was dictated in [place] Standard Time
[2019-08-26] MEDS ORDERED: Levofloxacin/Dextrose 5%-Water 750 MG in Premix Bag 1 BAG IV ONE ×2 (10:57→14:00)
[2019-08-26] MEDS ORDERED: Acetaminophen 325 MG Tab PO PRN (11:52)
[2019-08-26] MEDS ORDERED: Ondansetron 4 MG/2 ML SDV IV PRN (11:52)
[2019-08-26] MEDS ORDERED: Ondansetron 4 MG Tab.DIS PO PRN (11:52)
--- NOTE | 2019-08-26 14:06 | PCM.HP.2 ---
H&P History of Present Illness - General Date of Service: 08/26/19 Admit Problem/Dx: Admission Diagnosis/Problem Admission Diagnosis/Problem Pneumonia - History of Present Illness Initial Comments - Free Text/Narative: This is a 38 year old male with extensive pulmonary past medical history including recurrent admissions for pneumonia in the past year who is brought to the ED by career orientation teacher. As per career orientation teacher around 1AM this morning patient started coughing accompanied with decreased in his O2 saturation down to 79%. Care give denies any fevers or any symptoms prior to this. - Related Data Allergies/Adverse Reactions: Allergies Allergy/AdvReac Type Severity Reaction Status Date / Time dog dander Allergy Cannot Verified 08/26/19 13:37 Remember grass pollen Allergy Difficulty Verified 08/26/19 13:37 Breathing risperidone [From Risperdal] Allergy Cannot Verified 08/26/19 13:37 Remember ziprasidone [From Geodon] Allergy Edema Verified 08/26/19 13:37 cats Allergy Difficulty Uncoded 06/04/19 15:53 Breathing Home Medications: Home Meds Acetaminophen 650 mg PO Q4HR PRN 12/10/18 [History] Divalproex Sodium [Depakote] 500 mg PO ,12/10/18 [History] Levothyroxine 75 mcg PO MOTUWETHFR 12/10/18 [History] Levothyroxine [Synthroid] 50 mcg PO SUSA 12/10/18 [History] Loperamide [Imodium] 2 mg PO ASDIRECTED PRN 12/10/18 [History] Melatonin 10 mg PO 209912/10/18 [History] PARoxetine HCl [Paxil] 30 mg PO ,12/10/18 [History] allopurinoL [Zyloprim] 300 mg PO 209912/10/18 [History] cloNIDine [Catapres TTS-2] 0.2 mg TOP ASDIRECTED 12/10/18 [History] traZODone HCl [Trazodone HCl] 25 mg PO BEDTIME PRN 12/10/18 [History] Anti-Acid 2 - 4 tsp PO Q4H PRN 03/10/19 [History] Calcium Polycarbophil [Fiber Tabs] 625 mg PO 209903/10/19 [History] Desmopressin 0.05 mg PO 209903/10/19 [History] Desmopressin 0.05 mg PO BEDTIME PRN 03/10/19 [History] Fexofenadine/Pseudoephedrine [Gris-D 24 Hour Tablet] 1 tab PO DAILY PRN 03/10 [History] Divalproex Sodium [Depakote] 250 mg PO 1400 06/04/19 [History] ARIPiprazole [Abilify] 5 mg PO TID@0800,1400,2000 08/26/19 [History] ARIPiprazole [Aripiprazole] 2 mg PO BID PRN 08/26/19 [History] Albuterol/Ipratropium [DuoNeb 3.0-0.5 MG/3 ML] 1 vial NEB TID PRN 08/26/19 [ History] Past Medical History HEENT History: Reports: Other (See Below) Other HEENT History: wears glasses Respiratory History: Reports: Asthma, Pneumonia, Recurrent, Sleep Apnea Other Respiratory History: wears bipap at night-3L O2--not always compliant. mom states "outgrew asthma" Gastrointestinal History: Reports: Chronic Diarrhea Genitourinary History: Reports: Urinary Incontinence Musculoskeletal History: Reports: Other (See Below) Other Musculoskeletal History: scoliosis Neurological History: Reports: Other (See Below) Other Neuro History: patient is developmentally delayed. mom states pt has behaviors Psychiatric History: 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, Anxiety, Depression , OCD Other Psychiatric History: developmentally delayed Endocrine/Metabolic History: Reports: Hypothyroidism - Past Surgical History HEENT Surgical History: Reports: None Musculoskeletal Surgical History: Reports: Other (See Below) Social & Family History - Family History Family Medical History: Noncontributory - Tobacco Use Smoking Status *Q: Never Smoker - Caffeine Use Caffeine Use: Reports: Soda Caffeine Use Comment: Family tries to get him to drink noncaffinated soda - Recreational Drug Use Recreational Drug Use: No - Living Situation & Occupation Living situation: Reports: Single, with Family (Sister) Occupation: Disabled H&P Review of Systems - Review of Systems: Review Of Systems: Unable To Obtain Reason Not Obtained: Due to patient's cognitive function Exam - Exam Exam: See Below - Vital Signs Vital Signs: Last Vital Signs Temp 99.6 F 08/26/19 08:43 Pulse 83 08/26/19 08:43 Resp 18 08/26/19 08:43 BP 129/67 08/26/19 08:43 Pulse Ox 88 L 08/26/19 09:41 Weight: 74.661 kg - Exam Quality Assessment: Supplemental Oxygen General: Alert, Cooperative. No: Mild Distress HEENT: Mucosa Moist & [place], Nares Patent Neck: Supple, Trachea Midline, +2 Carotid Pulse wo Bruit, Full Range of Motion. No: Lymphadenopathy Lungs: Decreased Breath Sounds. No: Crackles, Rales, Rhonchi, Wheezing Cardiovascular: Regular Rate, Regular Rhythm. No: Systolic Murmur, Diastolic Murmur, Rubs, Gallop/S3, Gallop/S4 GI/Abdominal Exam: Normal Bowel Sounds, Soft, Non-Tender, No Organomegaly, No Distention. No: Distended, Guarding, Rigid Extremities: Normal Inspection, Normal Range of Motion, Non-Tender, No Pedal Edema, Normal Capillary Refill Skin: Warm, Dry - Patient Data Result Diagrams: 08/26/19 09:38 08/26/19 09:38 Sepsis Event Note - Evaluation Sepsis Screening Result: No Definite Risk - Focused Exam Vital Signs: Vital Signs Temp Pulse Resp BP Pulse Ox Pulse Ox 08/26/19 09:41 88 L 08/26/19 09:23 90 L 08/26/19 08:43 99.6 F 83 18 129/67 90 L Date Exam was Performed: 08/26/19 Time Exam was Performed: 19:45 - Problem List (1) Acute on chronic respiratory failure with hypoxemia SNOMED Code(s): 11134494792275100 ICD Code: J96.21 - ACUTE AND CHRONIC RESPIRATORY FAILURE WITH HYPOXIA Status: Acute Current Visit: No (2) Agitation SNOMED Code(s): 480737671 ICD Code: R45.1 - RESTLESSNESS AND AGITATION Status: Acute Current Visit : No (3) Anxiety SNOMED Code(s): 26790698 ICD Code: F41.9 - ANXIETY DISORDER, UNSPECIFIED Status: Acute Current Visit: No (4) Chronic diarrhea SNOMED Code(s): 106525253 ICD Code: K52.9 - NONINFECTIVE GASTROENTERITIS AND COLITIS, UNSPECIFIED Status: Acute Current Visit: No (5) Circulation disorder of lower extremity SNOMED Code(s): 831341912 ICD Code: I99.9 - UNSPECIFIED DISORDER OF CIRCULATORY SYSTEM Status: Acute Current Visit: No (6) Depression SNOMED Code(s): 64471217 ICD Code: F32.9 - MAJOR DEPRESSIVE DISORDER, SINGLE EPISODE, UNSPECIFIED Status: Acute Current Visit: No (7) Diastolic dysfunction SNOMED Code(s): 9049335 ICD Code: I51.89 - OTHER ILL-DEFINED HEART DISEASES Status: Acute Current Visit: No (8) Healthcare associated bacterial pneumonia SNOMED Code(s): 296673213 ICD Code: J15.9 - UNSPECIFIED BACTERIAL PNEUMONIA Status: Acute Current Visit: No (9) Hypothyroidism SNOMED Code(s): 14956625 ICD Code: E03.9 - HYPOTHYROIDISM, UNSPECIFIED Status: Acute Current Visit : No (10) Hypoxemia SNOMED Code(s): 438202908 ICD Code: R09.02 - HYPOXEMIA Status: Acute Priority: High Current Visit : No (11) Leukocytosis SNOMED Code(s): 609125973, 485226573 ICD Code: D72.829 - ELEVATED WHITE BLOOD CELL COUNT, UNSPECIFIED Status: Acute Current Visit: No (12) OCD (obsessive compulsive disorder) SNOMED Code(s): 725080436 ICD Code: F42.9 - OBSESSIVE-COMPULSIVE DISORDER, UNSPECIFIED Status: Acute Current Visit: No (13) Obstructive sleep apnea SNOMED Code(s): 83908651 ICD Code: G47.33 - OBSTRUCTIVE SLEEP APNEA (ADULT) (PEDIATRIC) Status: Acute Current Visit: No (14) Pervasive developmental disorder, active SNOMED Code(s): 74391182 ICD Code: F84.9 - PERVASIVE DEVELOPMENTAL DISORDER, UNSPECIFIED Status: Acute Current Visit: No (15) Recurrent pneumonia SNOMED Code(s): 751395300 ICD Code: J18.9 - PNEUMONIA, UNSPECIFIED ORGANISM Status: Acute Current Visit: No (16) Restrictive lung disease due to kyphoscoliosis SNOMED Code(s): 053252301 ICD Code: J98.4 - OTHER DISORDERS OF LUNG; M41.9 - SCOLIOSIS, UNSPECIFIED Status: Acute Current Visit: No Problem List Initiated/Reviewed/Updated: Yes Assessment/Plan Comment:: Healthcare associated pneumonia with leukocytosis Recurrent pneumonia Acute on chronic respiratory failure with hypoxemia Restrictive lung disease due to kyphoscoliosis 4 admissions in the past year Worsening cough with low O2 saturation, 79% prior to admission CXR abnormal however infiltrate appears unchanged Baseline O2 NC is 3L, increased to 5L here PLAN - Induced sputum by nursing - DuoNebs PRN - Vancomycin, Zosyn and levaquin - Monitor for fever and panculture if febrile - Mycoplasma and strep. pneumonia antigen - Influenza screen - RSV panel - CPT Agitation Pervasive developmental disorder, active Anxiety Depression OCD (obsessive compulsive disorder) Multiple home medications valproic acid level is normal PLAN - Will reconcile once list available Obstructive sleep apnea Not compliant with home BiPAP As per mom he doesn't like it PLAN - Monitor respiratory status Diastolic dysfunction Unknown ejection fraction PLAN - Request previous records - If no recent echocardiogram available, will order new one Circulation disorder of lower extremity Venous insufficiency Home management with TEDs PLAN - Continue home TEDs Hypothyroidism No acute issues PLAN - Continue home levothyroxine once dose available PROPHYLAXIS: DVT-Lovenox GI- Not indicated CODE STATUS: FULL CODE DISPOSITION: Patient will be fully admitted to the medical floor, IV antibiotics and RT evaluation and treatment as well as monitorization of respiratory status. - Mortality Measure Prognosis:: Poor
[2019-08-26] MEDS: Albuterol 0.083% 2.5 MG/3 ML Neb Soln NEB PRN ×2 (14:09→20:44)
[2019-08-26] MEDS ORDERED: Lactated Ringers 500 ML IV ONE (16:25)
[2019-08-26] MEDS ORDERED: Lactated Ringers 1,000 ML ONE (16:28)
[2019-08-26] MEDS ORDERED: Lactated Ringers 1,000 ML IV ONE (17:15)
[2019-08-26] MEDS: Piperacillin/Tazobactam 4.5 GM in Sodium Chloride 0.9% 100 ML IV SCH (18:36)
[2019-08-26] MEDS ORDERED: Norepinephrine 4 MG in Dextrose 5% in Water 246 ML IV SCH ×2 (20:00)
[2019-08-26] MEDS: Lactated Ringers 1,000 ML IV SCH (20:17)
[2019-08-26] MEDS: guaiFENesin 600 MG Tab.ER PO SCH (20:56)
[2019-08-26] MEDS ORDERED: CLONIDINE TOP SCH (23:30)
[2019-08-26] MEDS ORDERED: ALLOPURINOL 300 MG PO SCH (23:30)
[2019-08-26] MEDS ORDERED: ARIPIPRAZOLE 5 MG PO SCH (23:30)
[2019-08-26] MEDS ORDERED: CALCIUM POLYCARBOPHIL 625 MG PO SCH (23:30)
[2019-08-26] MEDS: DESMOPRESSIN 0.1 MG PO SCH (23:34)
[2019-08-26] MEDS: DIVALPROEX SODIUM 500 MG PO SCH (23:34)
[2019-08-27] MEDS: Lactated Ringers 1,000 ML IV SCH ×4 (00:53→20:23)
[2019-08-27] MEDS: Piperacillin/Tazobactam 4.5 GM in Sodium Chloride 0.9% 100 ML IV SCH ×3 (03:17→19:48)
[2019-08-27] MEDS: Levothyroxine 75 MCG Tab PO SCH (05:53)
[2019-08-27] MEDS ORDERED: Magnesium Sulfate/Water 4 GM in Premix Bag 1 BAG IV ONE (07:34)
[2019-08-27] MEDS: DIVALPROEX SODIUM 500 MG PO SCH (07:35)
[2019-08-27] MEDS: ARIPiprazole 5 MG Tab PO SCH ×3 (07:51→20:25)
[2019-08-27] MEDS ORDERED: CLONIDINE TOP SCH (08:00)
[2019-08-27] MEDS: Albuterol 0.083% 2.5 MG/3 ML Neb Soln NEB PRN ×3 (09:07→20:47)
[2019-08-27] MEDS ORDERED: Magnesium Sulfate/Water 0 ML ONE (09:08)
[2019-08-27] MEDS: guaiFENesin 600 MG Tab.ER PO SCH ×2 (09:19→20:26)
[2019-08-27] MEDS: Lactated Ringers 2,500 ML IV ONE ×3 (12:31→14:42)
[2019-08-27] MEDS ORDERED: Levofloxacin/Dextrose 5%-Water 750 MG in Premix Bag 1 BAG IV SCH (14:00)
[2019-08-27] MEDS ORDERED: PARoxetine 20 MG Tab PO ONE (15:45)
[2019-08-27] MEDS ORDERED: Divalproex Sodium Delayed-Release 250 MG Tab.CR PO ONE (15:45)
--- NOTE | 2019-08-27 17:32 | PCM.SN ---
- Free Text/Narrative Note: Reassessment of Fluid Status after IVF Bolus After fluid bolus patient's BP : 97/60 and 95/63
--- NOTE | 2019-08-27 17:38 | PCM.PN ---
- General Info Date of Service: 08/27/19 Subjective Update: Slept ok Tolerating diet Shortness of breath improved No more coughing - Patient Data Vitals - Most Recent: Last Vital Signs Temp 97.6 F 08/27/19 08:00 Pulse 54 L 08/27/19 06:00 Resp 18 08/27/19 08:00 BP 83/55 L 08/27/19 08:00 Pulse Ox 96 08/27/19 14:55 Weight - Most Recent: 75.75 kg - Exam Quality Assessment: Supplemental Oxygen General: Alert, Cooperative, No Acute Distress HEENT: Pupils Equal, Pupils Reactive, Mucous Membr. Moist/[place] Neck: Supple, Trachea Midline, No JVD, No Thyromegaly. No: Lymphadenopathy Lungs: Decreased Breath Sounds, Crackles. No: Rales, Rhonchi, Rub, Stridor, Wheezing Cardiovascular: Regular Rate, Regular Rhythm. No: Murmurs, Gallops, Rubs GI/Abdominal Exam: Normal Bowel Sounds, Soft, Non-Tender, No Distention. No: Guarding, Rigid, Rebound Extremities: Pedal Edema, Slow Capillary Refill Sepsis Event Note - Evaluation Sepsis Screening Result: No Definite Risk - Focused Exam Vital Signs: Vital Signs Temp Pulse Resp BP Pulse Ox Pulse Ox 08/27/19 14:55 96 08/27/19 09:07 94 L 08/27/19 08:00 97.6 F 18 83/55 L 99 08/27/19 06:00 54 L 98 Date Exam was Performed: 08/27/19 Time Exam was Performed: 17:32 - Problem List & Annotations (1) Acute on chronic respiratory failure with hypoxemia SNOMED Code(s): 85842885093488776 Code(s): J96.21 - ACUTE AND CHRONIC RESPIRATORY FAILURE WITH HYPOXIA Status : Acute Current Visit: No (2) Agitation SNOMED Code(s): 994903758 Code(s): R45.1 - RESTLESSNESS AND AGITATION Status: Acute Current Visit: No (3) Anxiety SNOMED Code(s): 04838922 Code(s): F41.9 - ANXIETY DISORDER, UNSPECIFIED Status: Acute Current Visit: No (4) Chronic diarrhea SNOMED Code(s): 251199548 Code(s): K52.9 - NONINFECTIVE GASTROENTERITIS AND COLITIS, UNSPECIFIED Status: Acute Current Visit: No (5) Circulation disorder of lower extremity SNOMED Code(s): 716150190 Code(s): I99.9 - UNSPECIFIED DISORDER OF CIRCULATORY SYSTEM Status: Acute Current Visit: No (6) Depression SNOMED Code(s): 69663215 Code(s): F32.9 - MAJOR DEPRESSIVE DISORDER, SINGLE EPISODE, UNSPECIFIED Status: Acute Current Visit: No (7) Diastolic dysfunction SNOMED Code(s): 6371556 Code(s): I51.89 - OTHER ILL-DEFINED HEART DISEASES Status: Acute Current Visit: No (8) Healthcare associated bacterial pneumonia SNOMED Code(s): 316099619 Code(s): J15.9 - UNSPECIFIED BACTERIAL PNEUMONIA Status: Acute Current Visit: No (9) Hypothyroidism SNOMED Code(s): 19830070 Code(s): E03.9 - HYPOTHYROIDISM, UNSPECIFIED Status: Acute Current Visit : No (10) Hypoxemia SNOMED Code(s): 893224138 Code(s): R09.02 - HYPOXEMIA Status: Acute Priority: High Current Visit : No (11) Leukocytosis SNOMED Code(s): 042197814, 481565695 Code(s): D72.829 - ELEVATED WHITE BLOOD CELL COUNT, UNSPECIFIED Status: Acute Current Visit: No (12) OCD (obsessive compulsive disorder) SNOMED Code(s): 274871060 Code(s): F42.9 - OBSESSIVE-COMPULSIVE DISORDER, UNSPECIFIED Status: Acute Current Visit: No (13) Obstructive sleep apnea SNOMED Code(s): 78118469 Code(s): G47.33 - OBSTRUCTIVE SLEEP APNEA (ADULT) (PEDIATRIC) Status: Acute Current Visit: No (14) Pervasive developmental disorder, active SNOMED Code(s): 87688029 Code(s): F84.9 - PERVASIVE DEVELOPMENTAL DISORDER, UNSPECIFIED Status: Acute Current Visit: No (15) Recurrent pneumonia SNOMED Code(s): 237344334 Code(s): J18.9 - PNEUMONIA, UNSPECIFIED ORGANISM Status: Acute Current Visit: No (16) Restrictive lung disease due to kyphoscoliosis SNOMED Code(s): 904366374 Code(s): J98.4 - OTHER DISORDERS OF LUNG; M41.9 - SCOLIOSIS, UNSPECIFIED Status: Acute Current Visit: No - Problem List Review Problem List Initiated/Reviewed/Updated: Yes - Plan Plan:: Septic shock, improved Healthcare associated pneumonia with leukocytosis Recurrent pneumonia Acute on chronic respiratory failure with hypoxemia Restrictive lung disease due to kyphoscoliosis 4 admissions in the past year Worsening cough with low O2 saturation, 79% prior to admission CXR abnormal however infiltrate appears unchanged Baseline O2 NC is 3L, increased to 5L here--> tapered down today Yesterday on medical floor patient developed hypotension initially not responsive to fluids but responsive after a couple of hours Transferred to ICU PLAN - Induced sputum by nursing - [place] PRN - Vancomycin, Zosyn and levaquin - Monitor for fever and panculture if febrile - Mycoplasma and strep. pneumonia antigen, Respiratory panel, pending Agitation Pervasive developmental disorder, active Anxiety Depression OCD (obsessive compulsive disorder) Multiple home medications valproic acid level is normal PLAN - Continue home medications Obstructive sleep apnea Not compliant with home BiPAP As per mom he doesn't like it PLAN - Monitor respiratory status - BiPAP as tolerated Diastolic dysfunction Unknown ejection fraction PLAN - Request previous records Circulation disorder of lower extremity Venous insufficiency Home management with TEDs PLAN - Continue home TEDs Hypothyroidism No acute issues PLAN - Continue home levothyroxine once dose available PROPHYLAXIS: DVT-Lovenox GI- Not indicated CODE STATUS: FULL CODE DISPOSITION: Patient admitted to the medical floor, IV antibiotics and RT evaluation and treatment as well as monitorization of respiratory status. Transferred to ICU due to hypotension yesterday.
[2019-08-27] MEDS ORDERED: Multivitamins,Therapeutic Tab PO SCH (20:00)
[2019-08-27] MEDS: Divalproex Sodium Delayed-Release 500 MG Tab.CR PO SCH (20:26)
[2019-08-27] MEDS: DESMOPRESSIN 0.1 MG PO SCH (20:27)
[2019-08-27] MEDS ORDERED: Allopurinol 300 MG Tab PO SCH (21:00)
[2019-08-27] MEDS ORDERED: Calcium Polycarbophil 625 MG Tab PO SCH (21:00)
[2019-08-28] MEDS: Piperacillin/Tazobactam 4.5 GM in Sodium Chloride 0.9% 100 ML IV SCH (03:02)
[2019-08-28] MEDS: Levothyroxine 75 MCG Tab PO SCH (06:44)
[2019-08-28] MEDS: Divalproex Sodium Delayed-Release 500 MG Tab.CR PO SCH (06:44)
[2019-08-28] MEDS: Albuterol 0.083% 2.5 MG/3 ML Neb Soln NEB PRN ×2 (08:19→14:07)
[2019-08-28] MEDS: guaiFENesin 600 MG Tab.ER PO SCH (08:46)
[2019-08-28] MEDS: ARIPiprazole 5 MG Tab PO SCH ×2 (08:46→13:05)
--- NOTE | 2019-08-28 12:17 | PCM.DCSUM1 ---
Discharge Summary - Hospital Course HPI Initial Comments: This is a 38 year old male with extensive pulmonary past medical history including recurrent admissions for pneumonia in the past year who is brought to the ED by md do resident urgent care. As per md do resident urgent care around 1AM this morning patient started coughing accompanied with decreased in his O2 saturation down to 79%. Care give denies any fevers or any symptoms prior to this. Diagnosis: Stroke: No - Discharge Data Discharge Date: 08/28/19 Discharge Disposition: Home, Self-Care 01 Condition: Good - Referral to Home Health Primary Care Physician: Michaela Sanchez [employer] - Discharge Diagnosis/Problem(s) (1) Acute on chronic respiratory failure with hypoxemia SNOMED Code(s): 46072172222465907 ICD Code: J96.21 - ACUTE AND CHRONIC RESPIRATORY FAILURE WITH HYPOXIA Status: Acute (2) Agitation SNOMED Code(s): 617693813 ICD Code: R45.1 - RESTLESSNESS AND AGITATION Status: Acute (3) Anxiety SNOMED Code(s): 47509641 ICD Code: F41.9 - ANXIETY DISORDER, UNSPECIFIED Status: Acute (4) Chronic diarrhea SNOMED Code(s): 438363541 ICD Code: K52.9 - NONINFECTIVE GASTROENTERITIS AND COLITIS, UNSPECIFIED Status: Acute (5) Circulation disorder of lower extremity SNOMED Code(s): 035300403 ICD Code: I99.9 - UNSPECIFIED DISORDER OF CIRCULATORY SYSTEM Status: Acute (6) Depression SNOMED Code(s): 04444862 ICD Code: F32.9 - MAJOR DEPRESSIVE DISORDER, SINGLE EPISODE, UNSPECIFIED Status: Acute (7) Diastolic dysfunction SNOMED Code(s): 7517210 ICD Code: I51.89 - OTHER ILL-DEFINED HEART DISEASES Status: Acute (8) Healthcare associated bacterial pneumonia SNOMED Code(s): 822036026 ICD Code: J15.9 - UNSPECIFIED BACTERIAL PNEUMONIA Status: Acute (9) Hypothyroidism SNOMED Code(s): 68056710 ICD Code: E03.9 - HYPOTHYROIDISM, UNSPECIFIED Status: Acute (10) Hypoxemia SNOMED Code(s): 562352011 ICD Code: R09.02 - HYPOXEMIA Status: Acute Priority: High (11) Leukocytosis SNOMED Code(s): 140839225, 945738908 ICD Code: D72.829 - ELEVATED WHITE BLOOD CELL COUNT, UNSPECIFIED Status: Acute (12) OCD (obsessive compulsive disorder) SNOMED Code(s): 448506018 ICD Code: F42.9 - OBSESSIVE-COMPULSIVE DISORDER, UNSPECIFIED Status: Acute (13) Obstructive sleep apnea SNOMED Code(s): 79964356 ICD Code: G47.33 - OBSTRUCTIVE SLEEP APNEA (ADULT) (PEDIATRIC) Status: Acute (14) Pervasive developmental disorder, active SNOMED Code(s): 33586005 ICD Code: F84.9 - PERVASIVE DEVELOPMENTAL DISORDER, UNSPECIFIED Status: Acute (15) Recurrent pneumonia SNOMED Code(s): 568357711 ICD Code: J18.9 - PNEUMONIA, UNSPECIFIED ORGANISM Status: Acute (16) Restrictive lung disease due to kyphoscoliosis SNOMED Code(s): 635817103 ICD Code: J98.4 - OTHER DISORDERS OF LUNG; M41.9 - SCOLIOSIS, UNSPECIFIED Status: Acute - Patient Summary/Data Consults: Consultations 08/27/19 18:27 OT Evaluation and Treatment [CONS] Routine PT Evaluation and Treatment [CONS] Routine Hospital Course: Worsening cough with low O2 saturation, 79% prior to admission CXR abnormal however infiltrate appears unchanged Baseline O2 NC is 3L, increased to 5L here--> tapered down today Yesterday on medical floor patient developed hypotension initially not responsive to fluids but responsive after a couple of hours Transferred to ICU Admitted with treatment for CAP Discharged to complete 7 days of Levaquin once O2 requirements at baseline - Discharge Plan Prescriptions/Med Rec: Albuterol [Proventil Neb Soln] 2.5 mg NEB Q6H PRN #10 neb PRN Reason: Shortness Of Breath/wheezing guaiFENesin [Mucinex] 600 mg PO BID #10 tab.er levoFLOXacin [Levaquin] 750 mg PO Q24H #5 tablet Home Medications: Home Meds Acetaminophen 650 mg PO Q4HR PRN 12/10/18 [History] Divalproex Sodium [Depakote] 500 mg PO ,12/10/18 [History] Levothyroxine 75 mcg PO MOTUWETHFR 12/10/18 [History] Levothyroxine [Synthroid] 50 mcg PO SUSA 12/10/18 [History] Loperamide [Imodium] 2 mg PO ASDIRECTED PRN 12/10/18 [History] Melatonin 10 mg PO 2100 12/10/18 [History] PARoxetine HCl [Paxil] 30 mg PO 12/10/18 [History] allopurinoL [Zyloprim] 300 mg PO 209912/10/18 [History] cloNIDine [Catapres TTS-2] 0.2 mg TOP Q2D 12/10/18 [History] traZODone HCl [Trazodone HCl] 25 mg PO BEDTIME PRN 12/10/18 [History] Anti-Acid 2 - 4 tsp PO Q4H PRN 03/10/19 [History] Calcium Polycarbophil [Fiber Tabs] 625 mg PO 209903/10/19 [History] Desmopressin 0.05 mg PO 209903/10/19 [History] Desmopressin 0.05 mg PO BEDTIME PRN 03/10/19 [History] Fexofenadine/Pseudoephedrine [Gris-D 24 Hour Tablet] 1 tab PO DAILY PRN 03/10 [History] Divalproex Sodium [Depakote] 250 mg PO 139906/04/19 [History] ARIPiprazole [Abilify] 5 mg PO TID@0800,1400,199908/26/19 [History] ARIPiprazole [Aripiprazole] 2 mg PO BID PRN 08/26/19 [History] Albuterol/Ipratropium [DuoNeb 3.0-0.5 MG/3 ML] 1 vial NEB TID PRN 08/26/19 [ History] Ped Multivit 43/Iron Fumarate [Flintstones Complete Chew Tab] 1 tab PO QPM 08/27 [History] cloNIDine [Catapres TTS-2] 0.2 mg TOP Q3D 08/27/19 [History] Albuterol [Proventil Neb Soln] 2.5 mg NEB Q6H PRN #10 neb 08/28/19 [Rx] guaiFENesin [Mucinex] 600 mg PO BID #10 tab.er 08/28/19 [Rx] levoFLOXacin [Levaquin] 750 mg PO Q24H #5 tablet 08/28/19 [Rx] Patient Handouts: Sepsis, Adult Referrals: Michaela Sanchez NP [Primary Care Provider] - 09/07/19 1:30 pm (Please follow up with Michaela Sanchez NP on September 07 at 1:30. ) - Discharge Summary/Plan Comment DC Time >30 min.: Yes - General Info Date of Service: 08/28/19 Subjective Update: Slept ok Tolerating diet No new reports by nursing - Patient Data Vitals - Most Recent: Last Vital Signs Temp 96.1 F 08/28/19 10:00 Pulse 57 L 08/28/19 10:00 Resp 20 08/28/19 10:00 BP 116/71 08/28/19 10:00 Pulse Ox 98 08/28/19 10:00 Weight - Most Recent: 80.104 kg I&O - Last 24 hours: Intake & Output 08/27/19 08/28/19 08/28/19 22:59 06:59 14:59 Intake Total 3650 2016 0 Output Total 300 250 Balance 3350 1767 0 Lab Results - Last 24 hrs: Laboratory Results - last 24 hr 08/26/19 08/27/19 08/28/19 Range/Units 13:51 12:15 10:42 WBC (4.23-9.07) K/mm3 RBC (4.63-6.08) M/mm3 Hgb (13.7-17.5) gm/dl Hct (40.1-51.0) % MCV (79.0-92.2) fl MCH (25.7-32.2) pg MCHC (32.2-35.5) g/dl RDW Std Deviation (35.1-43.9) fL Plt Count (163-337) K/mm3 Sodium 137 (136-145) mEq/L Potassium 4.5 (3.5-5.1) mEq/L Chloride 101 (98-107) mEq/L Carbon Dioxide 35 H (21-32) mEq/L Anion Gap 5.5 (5-15) BUN 13 (7-18) mg/dL Creatinine 0.9 (0.7-1.3) mg/dL Est Cr Clr Drug Dosing 108.72 mL/min Estimated GFR (MDRD) > 60 (>60) mL/min BUN/Creatinine Ratio 14.4 (14-18) Glucose 113 H (74-106) mg/dL Lactic Acid 0.9 (0.4-2.0) mmol/L Calcium 8.6 (8.5-10.1) mg/dL Phosphorus 3.0 (2.6-4.7) mg/dL Magnesium 1.8 (1.8-2.4) mg/dl Procalcitonin 1.05 H (<0.10) ng/mL 08/28/19 Range/Units 10:42 WBC 10.47 H (4.23-9.07) K/mm3 RBC 4.53 L (4.63-6.08) M/mm3 Hgb 12.0 L (13.7-17.5) gm/dl Hct 41.3 (40.1-51.0) % MCV 91.2 (79.0-92.2) fl MCH 26.5 (25.7-32.2) pg MCHC 29.1 L (32.2-35.5) g/dl RDW Std Deviation 64.0 H (35.1-43.9) fL Plt Count 193 (163-337) K/mm3 Sodium (136-145) mEq/L Potassium (3.5-5.1) mEq/L Chloride (98-107) mEq/L Carbon Dioxide (21-32) mEq/L Anion Gap (5-15) BUN (7-18) mg/dL Creatinine (0.7-1.3) mg/dL Est Cr Clr Drug Dosing mL/min Estimated GFR (MDRD) (>60) mL/min BUN/Creatinine Ratio (14-18) Glucose (74-106) mg/dL Lactic Acid (0.4-2.0) mmol/L Calcium (8.5-10.1) mg/dL Phosphorus (2.6-4.7) mg/dL Magnesium (1.8-2.4) mg/dl Procalcitonin (<0.10) ng/mL [facility] Results - Last 24 hrs: Microbiology 08/26/19 09:45 Aerobic Blood Culture - Preliminary Blood - Venous - Lab Draw NO GROWTH AFTER 2 DAYS Anaerobic Blood Culture - Preliminary NO GROWTH AFTER 2 DAYS 08/26/19 09:38 Aerobic Blood Culture - Preliminary Blood - Venous NO GROWTH AFTER 2 DAYS Anaerobic Blood Culture - Preliminary NO GROWTH AFTER 2 DAYS 08/26/19 17:50 Streptococcus pneumoniae Antigen (M - Final Urine 08/26/19 12:55 Gram Stain - Final Sputum - Induced Sputum Culture - Preliminary Med Orders - Current: Current Medications Acetaminophen (Tylenol) 650 mg PO Q4H PRN PRN Reason: Pain (Mild 1-3)/fever Albuterol (Proventil Neb Soln) 2.5 mg NEB Q6H PRN PRN Reason: Shortness Of Breath/wheezing Last Admin: 08/28/19 08:19 Dose: 2.5 mg Allopurinol (Zyloprim) 300 mg PO BEDTIME [facility] Last Admin: 08/27/19 20:27 Dose: 300 mg Aripiprazole (Abilify) 5 mg PO TID@0800,1400,1999 [facility] Last Admin: 08/28/19 08:46 Dose: 5 mg Calcium Polycarbophil (Fibercon) 625 mg PO BEDTIME [facility] Last Admin: 08/27/19 20:58 Dose: 625 mg Clonidine HCl (Catapres Tts-2) 0.2 mg TOP Q72H [place] Clonidine HCl (Catapres Tts-2) 0.2 mg TOP Q48H [facility] Divalproex Sodium (Depakote) 500 mg PO BID@0700,2100 [facility] Last Admin: 08/28/19 06:44 Dose: 500 mg Guaifenesin (Mucinex) 600 mg PO BID [facility] Last Admin: 08/28/19 08:46 Dose: 600 mg Norepinephrine Bitartrate 4 mg (/ Dextrose/Water) 250 mls @ 7.5 mls/hr IV TITRATE [facility]; Protocol Levofloxacin (Levaquin) 750 mg PO Q24H [facility] Levothyroxine Sodium (Levothyroxine) 75 mcg PO MoTuWeThFr@0600 [facility] Last Admin: 08/28/19 06:44 Dose: 75 mcg Levothyroxine Sodium (Synthroid) 50 mcg PO SuSa@0600 [facility] Miscellaneous Information (Remove Patch) 1 ea TRDERM Q72H [facility] Miscellaneous Information (Remove Patch) 1 ea TRDERM Q48H [facility] Multivitamins (Thera) 1 each PO DAILY@1999 [facility] Last Admin: 08/27/19 20:26 Dose: 1 each Melatonin 5 Mg Tab (Own Med) 10 mg PO BEDTIME [facility] Last Admin: 08/27/19 20:27 Dose: 10 mg Desmopressin 0.1 Mg (TabOwn Med) 0.05 mg PO BEDTIME [facility] Last Admin: 08/27/19 20:27 Dose: 0.05 mg Ondansetron HCl (Zofran Odt) 4 mg PO Q6H PRN PRN Reason: nausea, able to take PO Ondansetron HCl (Zofran) 4 mg IV Q6H PRN PRN Reason: Nausea/Vomiting Sodium Chloride (Saline Flush) 10 ml FLUSH ASDIRECTED PRN PRN Reason: Keep Vein Open Last Admin: 08/26/19 09:42 Dose: 10 ml Discontinued Medications Albuterol/Ipratropium (Duoneb 3.0-0.5 Mg/3 Ml) 3 ml NEB ONETIME ONE Stop: 08/26/19 09:09 Last Admin: 08/26/19 09:22 Dose: 3 ml Allopurinol (Zyloprim) 300 mg PO BEDTIME [facility] Last Admin: 08/26/19 23:34 Dose: 300 mg Aripiprazole (Abilify) 5 mg PO TID@0800,1400,2000 [facility] Last Admin: 08/26/19 23:33 Dose: 5 mg Calcium Polycarbophil (Fibercon) 625 mg PO BEDTIME [facility] Last Admin: 08/26/19 23:34 Dose: 625 mg Clonidine HCl (Catapres Tts-2) 0.2 mg TOP Q48H [facility] Last Admin: 08/26/19 23:34 Dose: 0.2 mg Divalproex Sodium (Depakote) 500 mg PO BID@0700,2100 [facility] Last Admin: 08/27/19 07:35 Dose: 500 mg Divalproex Sodium (Divalproex Sodium) 250 mg PO ONETIME ONE Stop: 08/27/19 15:46 Last Admin: 08/27/19 16:06 Dose: 250 mg Vancomycin HCl 1.5 gm/ Sodium (Chloride) 250 mls @ 250 mls/hr IV ONETIME ONE Stop: 08/26/19 11:03 Last Admin: 08/26/19 11:39 Dose: Not Given Piperacillin Sod/Tazobactam (Sod 4.5 gm/ Sodium Chloride) 100 mls @ 200 mls/hr IV ONETIME ONE Stop: 08/26/19 10:36 Last Admin: 08/26/19 11:01 Dose: 200 mls/hr Vancomycin HCl 1.5 gm/ Sodium (Chloride) 500 mls @ 250 mls/hr IV ONETIME ONE Stop: 08/26/19 12:14 Last Admin: 08/26/19 10:43 Dose: 250 mls/hr Levofloxacin/Dextrose 750 mg/ (Premix) 150 mls @ 100 mls/hr IV ONETIME ONE Stop: 08/26/19 12:26 Last Admin: 08/26/19 14:27 Dose: Not Given Levofloxacin/Dextrose 750 mg/ (Premix) 150 mls @ 100 mls/hr IV Q24H [facility] Last Admin: 08/27/19 14:03 Dose: 100 mls/hr Piperacillin Sod/Tazobactam (Sod 4.5 gm/ Sodium Chloride) 100 mls @ 25 mls/hr IV Q8H [facility] Last Admin: 08/28/19 03:02 Dose: 25 mls/hr Vancomycin HCl 1 gm/ Sodium (Chloride) 250 mls @ 250 mls/hr IV Q12H [facility] Last Admin: 08/27/19 09:17 Dose: 250 mls/hr Levofloxacin/Dextrose 750 mg/ (Premix) 150 mls @ 100 mls/hr IV ONETIME ONE Stop: 08/26/19 15:29 Last Admin: 08/26/19 15:01 Dose: 100 mls/hr Lactated Ringer's (Ringers, Lactated) 500 mls @ 999 mls/hr IV .BOLUS ONE Stop: 08/26/19 16:55 Last Admin: 08/26/19 16:32 Dose: 999 mls/hr Lactated Ringer's (Ringers, Lactated) Confirm Administered Dose 1,000 mls @ as directed .ROUTE .STK-MED ONE Stop: 08/26/19 16:29 Last Admin: 08/26/19 17:49 Dose: Not Given Lactated Ringer's (Ringers, Lactated) 1,000 mls @ 999 mls/hr IV .BOLUS ONE Stop: 08/26/19 18:15 Last Admin: 08/26/19 17:48 Dose: 999 mls/hr Lactated Ringer's (Ringers, Lactated) 1,000 mls @ 250 mls/hr IV ASDIRECTED [facility] Last Admin: 08/27/19 04:57 Dose: 250 mls/hr Magnesium Sulfate 4 gm/ Premix 100 mls @ 25 mls/hr IV ONETIME ONE Stop: 08/27/19 07:35 Last Admin: 08/27/19 09:18 Dose: 25 mls/hr Lactated Ringer's (Ringers, Lactated) 1,000 mls @ 100 mls/hr IV ASDIRECTED [facility] Last Admin: 08/27/19 20:23 Dose: 100 mls/hr Magnesium Sulfate (Magnesium Sulfate In Water Premix) Confirm Administered Dose 100 mls @ as directed .ROUTE .STK-MED ONE Stop: 08/27/19 09:09 Last Admin: 08/27/19 09:18 Dose: Not Given Lactated Ringer's (Ringers, Lactated) 2,500 mls @ 2,497.225 mls/hr IV .BOLUS ONE Stop: 08/27/19 13:20 Last Admin: 08/27/19 14:42 Dose: 999 mls/hr Miscellaneous Information (Remove Patch) 1 ea TRDERM Q48H [facility] Miscellaneous Information (Remove Patch) 1 ea TRDERM Q48H [facility] Paroxetine HCl (Paxil) 30 mg PO ONETIME ONE Stop: 08/27/19 15:46 Last Admin: 08/27/19 16:06 Dose: 30 mg Vancomycin HCl (Pharmacy To Dose - Vancomycin) 0 dose .XX ASDIRECTED PRN PRN Reason: RX TO DOSE VANCOMYCIN - Exam Physical Findings Comments:: Quality Assessment: Supplemental Oxygen General: Alert, Cooperative, No Acute Distress HEENT: Pupils Equal, Pupils Reactive, Mucous Membr. Moist/[place] Neck: Supple, Trachea Midline, No JVD, No Thyromegaly. No: Lymphadenopathy Lungs: Decreased Breath Sounds, Crackles. No: Rales, Rhonchi, Rub, Stridor, Wheezing Cardiovascular: Regular Rate, Regular Rhythm. No: Murmurs, Gallops, Rubs GI/Abdominal Exam: Normal Bowel Sounds, Soft, Non-Tender, No Distention. No: Guarding, Rigid, Rebound Extremities: Pedal Edema, Slow Capillary Refill
[2019-08-28] MEDS ORDERED: Levofloxacin 750 MG Tab PO SCH (14:00)
[2019-08-28] MEDS ORDERED: cloNIDine 0.2 MG/Day Transdermal Patch TOP SCH ×2 (20:00→23:00)
[2019-08-29] MEDS ORDERED: Levothyroxine 50 MCG Tab PO SCH (06:00)
== END 2019-08-28 14:50 | disposition home or self-care (01) | DRG 139 ==
LOC: JD.ED 08:13 → JD.MS 11:09 → JD.ICU 19:44 → JD.MS 08-28 07:46
PROVIDERS: ADMIT Internal Medicine; ATTEND Internal Medicine
DX: J15.9 Unspecified bacterial pneumonia (principal); J96.21 Acute and chronic respiratory failure with hypoxia; R45.1 Restlessness and agitation; F41.9 Anxiety disorder, unspecified; K52.9 Noninfective gastroenteritis and colitis, unspecified; F32.9 Major depressive disorder, single episode, unspecified; E03.9 Hypothyroidism, unspecified; F42.9 Obsessive-compulsive disorder, unspecified; I87.2 Venous insufficiency (chronic) (peripheral); G47.33 Obstructive sleep apnea (adult) (pediatric); F84.9 Pervasive developmental disorder, unspecified; M41.9 Scoliosis, unspecified; J98.4 Other disorders of lung; Z88.8 Allergy status to other drugs, medicaments and biological substances; Z91.09 Other allergy status, other than to drugs and biological substances; Z79.890 Hormone replacement therapy; Z79.899 Other long term (current) drug therapy
CPT/HCPCS: 31720; 36415; 36600; 71045; 71045-26; 80048; 80053; 80164; 81003; 82803; 83605; 83735; 84100; 84145; 85007; 85025; 85027; 85610; 86140; 86738; 87040; 87070; 87205; 87486; 87581; 87632; 87641; 87798; 87804; 87899; 94640; 94667; 94668; 94761; 96365; 96375; 97161-GP; 97165-GO; 99284; 99285-25; A9270-GY; J1956; J2543; J3370; J3475; J7040; J7050; J7120; J7620-GY

== ENCOUNTER 2019-10-01 20:44 | Emergency (ER) | payer BC ==
[2019-10-01] MEDS ORDERED: Sodium Chloride 0.9% 10 ML Syringe FLUSH PRN (21:25)
--- NOTE | 2019-10-01 22:58 | EDM.PDOC ---
ED HPI GENERAL MEDICAL PROBLEM - General Chief Complaint: Respiratory Problem Stated Complaint: VOMITING Time Seen by Provider: 10/01/19 21:00 Source of Information: Reports: Family History Limitations: Reports: Other (developmentaly delayed) - History of Present Illness INITIAL COMMENTS - FREE TEXT/NARRATIVE: The patient presents with his mother from [facility]. The patient is developmentally delayed. He was given his medications tonight and allowed to lay down. Usually he has to be up after his meds. He vomited and his mother is worried he may have aspirated. This has happened in the past. He is on home oxygen. He has no cough at this time but this is usually how it starts. Onset: Sudden Duration: Hour(s): Severity: Moderate Improves with: Reports: None Worsens with: Reports: None Associated Symptoms: Reports: Nausea/Vomiting. Denies: Chest Pain, Cough, Fever /Chills, Headaches, Shortness of Breath - Related Data Allergies Allergy/AdvReac Type Severity Reaction Status Date / Time dog dander Allergy Cannot Verified 10/01/19 21:03 Remember grass pollen Allergy Difficulty Verified 10/01/19 21:03 Breathing risperidone [From Risperdal] Allergy Cannot Verified 10/01/19 21:03 Remember ziprasidone [From Geodon] Allergy Edema Verified 10/01/19 21:03 cats Allergy Difficulty Uncoded 06/04/19 15:53 Breathing Home Meds: Home Meds Acetaminophen 650 mg PO Q4HR PRN 12/10/18 [History] Divalproex Sodium [Depakote] 500 mg PO ,12/10/18 [History] Levothyroxine 75 mcg PO MOTUWETHFR 12/10/18 [History] Levothyroxine [Synthroid] 50 mcg PO SUSA 12/10/18 [History] Loperamide [Imodium] 2 mg PO ASDIRECTED PRN 12/10/18 [History] Melatonin 10 mg PO 209912/10/18 [History] PARoxetine HCl [Paxil] 30 mg PO ,12/10/18 [History] allopurinoL [Zyloprim] 300 mg PO 209912/10/18 [History] cloNIDine [Catapres TTS-2] 0.2 mg TOP Q2D 12/10/18 [History] traZODone HCl [Trazodone HCl] 25 mg PO BEDTIME PRN 12/10/18 [History] Anti-Acid 2 - 4 tsp PO Q4H PRN 03/10/19 [History] Calcium Polycarbophil [Fiber Tabs] 625 mg PO 209903/10/19 [History] Desmopressin 0.05 mg PO 209903/10/19 [History] Desmopressin 0.05 mg PO BEDTIME PRN 03/10/19 [History] Fexofenadine/Pseudoephedrine [Gris-D 24 Hour Tablet] 1 tab PO DAILY PRN 03/10 [History] Divalproex Sodium [Depakote] 250 mg PO 1400 06/04/19 [History] ARIPiprazole [Abilify] 5 mg PO TID@0800,1400,199908/26/19 [History] ARIPiprazole [Aripiprazole] 2 mg PO BID PRN 08/26/19 [History] Albuterol/Ipratropium [DuoNeb 3.0-0.5 MG/3 ML] 1 vial NEB TID PRN 08/26/19 [ History] Ped Multivit 43/Iron Fumarate [Flintstones Complete Chew Tab] 1 tab PO QPM 08/27 [History] cloNIDine [Catapres TTS-2] 0.2 mg TOP Q3D 08/27/19 [History] Albuterol [Proventil Neb Soln] 2.5 mg NEB Q6H PRN #10 neb 08/28/19 [Rx] guaiFENesin [Mucinex] 600 mg PO BID #10 tab.er 08/28/19 [Rx] levoFLOXacin [Levaquin] 750 mg PO Q24H #5 tablet 08/28/19 [Rx] Levofloxacin [Levaquin] 750 mg PO DAILY #7 tablet 10/01/19 [Rx] Past Medical History HEENT History: Reports: Other (See Below) Other HEENT History: wears glasses Respiratory History: Reports: Asthma, Pneumonia, Recurrent, Sleep Apnea Other Respiratory History: wears bipap at night-3L O2--not always compliant. mom states "outgrew asthma" Gastrointestinal History: Reports: Chronic Diarrhea Genitourinary History: Reports: Urinary Incontinence Musculoskeletal History: Reports: Other (See Below) Other Musculoskeletal History: scoliosis Neurological History: Reports: Other (See Below) Other Neuro History: patient is developmentally delayed. mom states pt has behaviors Psychiatric History: 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, Anxiety, Depression , OCD Other Psychiatric History: developmentally delayed Endocrine/Metabolic History: Reports: Hypothyroidism - Past Surgical History HEENT Surgical History: Reports: None Musculoskeletal Surgical History: Reports: Other (See Below) Social & Family History - Family History Family Medical History: Noncontributory - Tobacco Use Smoking Status *Q: Never Smoker - Caffeine Use Caffeine Use: Reports: None Caffeine Use Comment: Family tries to get him to drink noncaffinated soda - Recreational Drug Use Recreational Drug Use: No - Living Situation & Occupation Living situation: Reports: Single, with Family (Sister) Occupation: Disabled ED ROS GENERAL - Review of Systems Review Of Systems: See Below Constitutional: Reports: No Symptoms HEENT: Reports: No Symptoms Respiratory: Reports: No Symptoms Cardiovascular: Reports: No Symptoms Endocrine: Reports: No Symptoms GI/Abdominal: Reports: Nausea, Vomiting. Denies: Abdominal Pain ED EXAM, GENERAL - Physical Exam Exam: See Below Exam Limited By: Other (developmentally delayed) General Appearance: Alert, No Apparent Distress Ears: Normal External Exam Nose: Normal Inspection Head: Atraumatic, Normocephalic Neck: Normal Inspection Respiratory/Chest: No Respiratory Distress, Rhonchi Cardiovascular: Normal Peripheral Pulses, Regular Rate, Rhythm, No Edema GI/Abdominal: Soft, Non-Tender, No Organomegaly, No Mass Back Exam: Normal Inspection Extremities: Normal Inspection Course - Vital Signs Last Recorded V/S: Last Vital Signs Temp 98.4 F 10/01/19 20:58 Pulse 79 10/01/19 20:58 Resp 13 10/01/19 20:58 BP 144/96 H 10/01/19 20:58 Pulse Ox 95 10/01/19 20:58 - Orders/Labs/Meds Orders: Active Orders 24 hr Category Date Time Status Peripheral IV Care [RC] . DIRECTED Care 10/01/19 21:26 Active Chest wo Cont [CT] Stat Exams 10/01/19 21:27 Taken Sodium Chloride 0.9% [Saline Flush] Med 10/01/19 21:25 Active 10 ml FLUSH ASDIRECTED PRN Peripheral IV Insertion Adult [OM.PC] Stat Oth 10/01/19 21:25 Ordered Medication Orders Sodium Chloride (Saline Flush) 10 ml FLUSH ASDIRECTED PRN PRN Reason: Keep Vein Open Labs: Laboratory Tests 10/01/19 10/01/19 10/01/19 Range/Units 21:40 21:40 21:40 WBC 8.14 (4.23-9.07) K/mm3 RBC 4.69 (4.63-6.08) M/mm3 Hgb 12.7 L (13.7-17.5) gm/dl Hct 44.0 (40.1-51.0) % MCV 93.8 H (79.0-92.2) fl MCH 27.1 (25.7-32.2) pg MCHC 28.9 L (32.2-35.5) g/dl RDW Std Deviation 69.2 H (35.1-43.9) fL Plt Count 168 (163-337) K/mm3 Neut % (Auto) 59.2 (34.0-67.9) % Lymph % (Auto) 27.4 (21.8-53.1) % Assumption % (Auto) 9.3 (5.3-12.2) % Eos % (Auto) 3.8 (0.8-7.0) Baso % (Auto) 0.2 (0.1-1.2) % Neut # (Auto) 4.81 (1.78-5.38) K/mm3 Lymph # (Auto) 2.23 (1.32-3.57) K/mm3 Assumption # (Auto) 0.76 (0.30-0.82) K/mm3 Eos # (Auto) 0.31 (0.04-0.54) K/mm3 Baso # (Auto) 0.02 (0.01-0.08) K/mm3 Manual Slide Review Abnormal smear Sodium 144 (136-145) mEq/L Potassium 5.6 H (3.5-5.1) mEq/L Chloride 108 H (98-107) mEq/L Carbon Dioxide 38 H (21-32) mEq/L Anion Gap 3.6 L (5-15) BUN 27 H (7-18) mg/dL Creatinine 1.2 (0.7-1.3) mg/dL Est Cr Clr Drug Dosing 76.06 mL/min Estimated GFR (MDRD) > 60 (>60) mL/min BUN/Creatinine Ratio 22.5 H (14-18) Glucose 85 (74-106) mg/dL Lactic Acid 0.6 (0.4-2.0) mmol/L Calcium 8.9 (8.5-10.1) mg/dL Total Bilirubin 0.3 (0.2-1.0) mg/dL AST 10 L (15-37) U/L ALT 13 L (16-63) U/L Alkaline Phosphatase 67 (46-116) U/L C-Reactive Protein < 0.2 (<1.0) mg/dL Total Protein 6.1 L (6.4-8.2) g/dl Albumin 2.8 L (3.4-5.0) g/dl Globulin 3.3 gm/dL Albumin/Globulin Ratio 0.9 L (1-2) Meds: Medications Generic Name Dose Route Start Last Admin Trade Name Freq PRN Reason Stop Dose Admin Sodium Chloride 10 ml 10/01/19 21:25 Saline Flush FLUSH ASDIRECTED PRN Keep Vein Open - Re-Assessments/Exams Free Text/Narrative Re-Assessment/Exam: 10/01/19 22:55 I ordered oxygen, labs and a CT of his chest. His CBC looks good. His K was a little elevated at 5.6. His anion gap was low. His creatinine was normal at 1.2. His lactic acid was normal at 0.6. His CT shows segmental consolidation with air bronchograms left lower lobe. Patchy airspace disease consistent with infiltrates in the right upper lobe and left upper lobe. Some ground-glass type interstitial changes are noted. Sever dextroscoliosis. I will give him a shot of rocephin and get him on some levaquin. Departure - Departure Time of Disposition: 23:00 Disposition: Home, Self-Care 01 Condition: Good Clinical Impression: Aspiration pneumonia Qualifiers: Aspiration pneumonia type: unspecified Laterality: bilateral Lung location: upper lobe of lung Qualified Code(s): J69.0 - Pneumonitis due to inhalation of food and vomit - Discharge Information *PRESCRIPTION DRUG MONITORING PROGRAM REVIEWED*: Not Applicable *COPY OF PRESCRIPTION DRUG MONITORING REPORT IN PATIENT HUMBERTO: Not Applicable Prescriptions: Levofloxacin [Levaquin] 750 mg PO DAILY #7 tablet Referrals: Michaela Sanchez, [facility]ANT [Primary Care Provider] - 1 Week Additional Instructions: Continue Yaakov's medications. Take levquin daily for 7 days. Follow up with Michaela early next week. Please return if Yaakov is worse over the weekend. Sepsis Event Note - Evaluation Sepsis Screening Result: No Definite Risk - Focused Exam Vital Signs: Vital Signs Temp Pulse Resp BP Pulse Ox 10/01/19 20:58 98.4 F 79 13 144/96 H 95 Date Exam was Performed: 10/01/19 Time Exam was Performed: 22:52 - My Orders Last 24 Hours: My Active Orders 10/01/19 21:25 Sodium Chloride 0.9% [Saline Flush] 10 ml FLUSH ASDIRECTED PRN Peripheral IV Insertion Adult [OM.PC] Stat 10/01/19 21:26 Peripheral IV Care [RC] . DIRECTED 10/01/19 21:27 Chest wo Cont [CT] Stat - Assessment/Plan Last 24 Hours: My Active Orders 10/01/19 21:25 Sodium Chloride 0.9% [Saline Flush] 10 ml FLUSH ASDIRECTED PRN Peripheral IV Insertion Adult [OM.PC] Stat 10/01/19 21:26 Peripheral IV Care [RC] . DIRECTED 10/01/19 21:27 Chest wo Cont [CT] Stat
[2019-10-01] MEDS ORDERED: cefTRIAXone 1 GM, Lidocaine 1% 2.1 ML IM SCH ×2 (23:00)
--- NOTE | 2019-10-02 07:36 | CT ---
CT chest Technique: Multiple axial sections through the chest were obtained. Intravenous contrast was not utilized. Comparison: Prior CT chest of 06/04/19. Findings: Ground-glass and interstitial opacities are seen within both upper lungs. Consolidation is noted within the left lower lung with air bronchograms. Change seen previously within the right lower lung and right middle lobe have improved with mild persisting interstitial change. Left hemidiaphragm is elevated. Severe scoliosis is noted. Mediastinum and hilar region show no adenopathy. No pericardial thickening is seen. Visualized upper abdominal structures show no discrete abnormality. Impression: 1. Consolidation within the left lower lung. Air bronchograms are noted within this area of consolidation. This may be slightly increased in size from previous exam which could represent change from acute on chronic aspiration. 2. Improved parenchymal density within the right base and right middle lobe from prior chest CT with persisting interstitial change being seen. 3. Hazy interstitial change and ground-glass opacities within both upper lungs which is felt to be fairly stable. 4. Other findings believed to be incidental as noted above. Diagnostic code #3 This report was dictated in MDT I agree with preliminary report from jung, finalized on 10/01/19, at 11:21 PM Central Time
== END 2019-10-01 23:30 | disposition home or self-care (01) ==
LOC: JD.ED 20:44
DX: J69.0 Pneumonitis due to inhalation of food and vomit (principal); F32.9 Major depressive disorder, single episode, unspecified; E03.9 Hypothyroidism, unspecified; Z79.899 Other long term (current) drug therapy; Z88.8 Allergy status to other drugs, medicaments and biological substances
CPT/HCPCS: 36415; 71250; 80053; 83605; 85025; 86140; 99284; J0696; J2001; 99283

== ENCOUNTER 2020-04-06 11:09 | Observation (INO) | payer BC ==
[2020-04-06] MEDS ORDERED: Ondansetron 4 MG/2 ML SDV IVPUSH ONE (11:34)
--- NOTE | 2020-04-06 11:42 | EDM.PDOC ---
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 Per the staff members, patient is typically independent and walking. But today he needed to staff members to help him get out of bed. Patient was also complaining of having abdominal pain earlier, they found his temperature to be in the low 100s at home home. He was given Tylenol for this, and this seemed to help relieve some of the fever. His temperature at time of triage is 96.9 F. The staff states that he did vomit last night, but did not vomit today. They also note he has not gone to the bathroom, or voided for them today, which is abnormal for him. He is alert and oriented at this time. He was tested for COVID-19 yesterday, and this was negative. Of note the patient wears 4 L nasal cannula oxygen, and he does have O2 sats of 97%. Respiratory rate is mildly elevated at 20 to 22 breaths/min. He does complain of some mild right lower quadrant pain, he is guarding in this area when I examined his abdomen. I did also ask him about feeling short of breath, and he shook his head yes, and I asked him about having a cough, and he shook his head yes. He states he is not having any pain with urination. He also states that he was not having too bad of nausea at this time. He has not been known to have any diarrhea. [facility] staff does not think he has had any sort of abdomen surgeries. - Related Data Allergies Allergy/AdvReac Type Severity Reaction Status Date / Time ziprasidone [From Geodon] Allergy Severe Edema Verified 04/06/20 11:25 risperidone [From Risperdal] Allergy Mild Cannot Verified 04/06/20 15:18 Remember dog dander Allergy Cannot Verified 04/06/20 11:25 Remember grass pollen Allergy Difficulty Verified 04/06/20 11:25 Breathing cats Allergy Difficulty Uncoded 04/06/20 11:25 Breathing Home Meds: Home Meds Acetaminophen 650 mg PO Q4HR PRN 12/10/18 [History] Divalproex Sodium [Depakote] 500 mg PO ,12/10/18 [History] Levothyroxine 75 mcg PO MOTUWETHFR 12/10/18 [History] Levothyroxine [Synthroid] 50 mcg PO SUSA 12/10/18 [History] Loperamide [Imodium] 2 mg PO ASDIRECTED PRN 12/10/18 [History] Melatonin 10 mg PO 209912/10/18 [History] PARoxetine HCL [Paxil] 30 mg PO 12/10/18 [History] allopurinoL [Zyloprim] 300 mg PO 209912/10/18 [History] cloNIDine [Catapres TTS-2] 0.2 mg TOP Q2D 12/10/18 [History] traZODone HCl [Trazodone HCl] 25 mg PO BEDTIME PRN 12/10/18 [History] Anti-Acid 2 - 4 tsp PO Q4H PRN 03/10/19 [History] Desmopressin 0.05 mg PO 209903/10/19 [History] Desmopressin 0.05 mg PO BEDTIME PRN 03/10/19 [History] Fexofenadine/Pseudoephedrine [Gris-D 24 Hour Tablet] 1 tab PO DAILY PRN 03/10/19 [History] Divalproex Sodium [Depakote] 250 mg PO 1400 06/04/19 [History] ARIPiprazole [Abilify] 5 mg PO TID@0800,1400,199908/26/19 [History] ARIPiprazole [Aripiprazole] 2 mg PO BID PRN 08/26/19 [History] Albuterol/Ipratropium [DuoNeb 3.0-0.5 MG/3 ML] 1 vial NEB TID PRN 08/26/19 [History] Ped Multivit 43/Iron Fumarate [Flintstones Complete Chew Tab] 1 tab PO QPM 08/27/19 [History] cloNIDine [Catapres TTS-2] 0.2 mg TOP Q3D 08/27/19 [History] Acetaminophen/Dextromethorphan [Robitussin Cough-Sore Throat] 0 ml PO DAILY PRN 04/06/20 [History] Bacillus Coagulans [Digestive Advantage Probiotic] 1 each PO DAILY 04/06/20 [History] Inulin/Chromium Picolinate [Fiber Gummies] 1 each PO DAILY 04/06/20 [History] Neomycin/Bacitracin/Polymyxinb [Antibiotic Ointment] 1 applic TP TID PRN 04/06/20 [History] Past Medical History HEENT History: Reports: Other (See Below) Other HEENT History: wears glasses Respiratory History: Reports: Asthma, Pneumonia, Recurrent, Sleep Apnea Other Respiratory History: wears bipap at night-4L O2--not always compliant. CPT Vest. 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, Anxiety, Depression, OCD Other Psychiatric History: developmentally delayed Endocrine/Metabolic History: Reports: Hypothyroidism Social & Family History - Family History Family Medical History: Noncontributory - Tobacco Use Smoking Status *Q: Never Smoker - Caffeine Use Caffeine Use: Reports: None - Recreational Drug Use Recreational Drug Use: No - Living Situation & Occupation Living situation: Reports: Single, Assisted Living (at [facility]) Occupation: Disabled ED ROS GENERAL - Review of Systems Review Of Systems: Comprehensive ROS is negative, except as noted in HPI. ED EXAM, GI/ABD - Physical Exam Exam: See Below Exam Limited By: No Limitations General Appearance: Alert, WD/WN, No Apparent Distress Eyes: Bilateral: Normal Appearance Throat/Mouth: Normal Inspection, Normal Lips, Normal Teeth, Normal Gums, Normal Oropharynx, Normal Voice, No Airway Compromise Respiratory/Chest: No Respiratory Distress, Lungs Clear, Normal Breath Sounds, No Accessory Muscle Use, Chest Non-Tender Cardiovascular: Normal Peripheral Pulses, Regular Rate, Rhythm, No Murmur GI/Abdominal Exam: Normal Bowel Sounds, Soft, No Distention, No Mass, Guarding (RLQ, pt pushed my hand away twice while examining his abdomen), Tender (RLQ mainly) Extremities: Normal Inspection, Normal Capillary Refill Neurological: Alert, Oriented, Normal Cognition Psychiatric: Normal Affect, Normal Mood Skin Exam: Warm, Dry, Intact, Normal Color, No Rash EKG INTERPRETATION EKG Date: 04/06/20 Time: 14:56 Rhythm: NSR Rate (Beats/Min): 91 [place]: Normal P-Wave: Present QRS: Normal ST-T: Normal QT: Normal EKG Interpretation Comments: No obvious ischemia or acute ST changes noted, reviewed by myself and Dr. Brush Course - Vital Signs Last Recorded V/S: Last Vital Signs Temp 98.9 F 04/06/20 20:00 Pulse 91 04/06/20 22:16 Resp 20 04/06/20 20:00 BP 121/88 04/06/20 22:16 Pulse Ox 96 04/06/20 22:16 - Orders/Labs/Meds Orders: Active Orders 24 hr Category Date Time Status Patient Status [ADT] Stat ADT 04/06/20 15:11 Active EKG Documentation Completion [RC] STAT Care 04/06/20 14:33 Active Insert Lucero Catheter [Insert Urinary Catheter] [OM.PC] Care 04/06/20 14:00 Ordered Stat RT Aerosol Therapy [RC] ASDIRECTED Care 04/06/20 15:02 Active Urinary Catheter Assessment [RC] ,16,22,04 Care 04/06/20 14:00 Active Sodium Chloride 0.9% [Saline Flush] Med 04/06/20 12:35 Active 10 ml FLUSH ONETIME PRN Schedule Procedure [COMM] Stat Oth 04/06/20 15:12 Ordered Medication Orders Acetaminophen (Tylenol) 650 mg PO Q4HR PRN PRN Reason: Pain/Fever Albuterol/Ipratropium (Duoneb 3.0-0.5 Mg/3 Ml) 3 ml NEB Q4H PRN PRN Reason: Shortness Of Breath/wheezing Albuterol/Ipratropium (Duoneb 3.0-0.5 Mg/3 Ml) ml NEB TID PRN PRN Reason: Wheezing/SOB Allopurinol (Zyloprim) 300 mg PO 2100 [facility] Last Admin: 04/06/20 20:48 Dose: 300 mg Documented by: RACHID Aripiprazole (Abilify) 5 mg PO TID@0800,1400,2000 [facility] Last Admin: 04/06/20 20:48 Dose: 5 mg Documented by: RACHID Aripiprazole (Abilify) 2 mg PO BID PRN PRN Reason: Agitation Clonidine HCl (Catapres Tts-2) 0.2 mg TOP Q48H [facility] Last Admin: 04/06/20 20:46 Dose: 0.2 mg Documented by: RACHID Clonidine HCl (Catapres Tts-2) 0.2 mg TOP Q48H [facility] Divalproex Sodium (Divalproex Sodium) 250 mg PO 1400 [facility] Divalproex Sodium (Depakote) 500 mg PO 07,21 [facility] Last Admin: 04/06/20 20:47 Dose: 500 mg Documented by: RACHID Heparin Sodium (Porcine) (Heparin Sodium) 5,000 units SUBCUT Q8H [facility] Potassium Chloride/Dextrose/Sod Cl (D5 1/2 Ns W/ 20 Meq/L Kcl) 1,000 mls @ 100 mls/hr IV ASDIRECTED [facility] Last Admin: 04/06/20 20:49 Dose: 100 mls/hr Documented by: RACHID Piperacillin Sod/Tazobactam (Sod 4.5 gm/ Sodium Chloride) 100 mls @ 25 mls/hr IV Q8H [facility] Stop: 04/07/20 11:59 Levothyroxine Sodium (Levothyroxine) 75 mcg PO MoTuWeThFr@0630 [facility] Levothyroxine Sodium (Synthroid) 50 mcg PO SuSa@0630 [facility] Melatonin (Melatonin) 9 mg PO 2100 [facility] Last Admin: 04/06/20 20:53 Dose: Not Given Documented by: RACHID Miscellaneous Information (Remove Patch) 1 ea TRDERM Q48H [facility] Last Admin: 04/06/20 20:53 Dose: 1 ea Documented by: RACHID Miscellaneous Information (Remove Patch) 1 ea TRDERM Q48H [facility] Non-Formulary Medication (Desmopressin) 0.05 mg PO 2100 [facility] Non-Formulary Medication (Fexofenadine/Pseudoephedrine [Gris-D 24 Hour Tablet]) 1 tab PO DAILY PRN PRN Reason: runny nose Non-Formulary Medication (Inulin/Chromium Picolinate [Fiber Gummies]) 1 each PO DAILY [facility] Non-Formulary Medication (Ped Multivit 43/Iron Fumarate [Flintstones Complete Chew Tab]) 1 tab PO QPM [facility] Oxycodone HCl (Oxycodone) 5 mg PO Q4H PRN PRN Reason: Pain (moderate 4-6) Last Admin: 04/06/20 22:00 Dose: 5 mg Documented by: RACHID Paroxetine HCl (Paxil) 30 mg PO BID@0800,1400 [facility] Polyethylene Glycol (Miralax) 17 gm PO DAILY PRN PRN Reason: Constipation Saccharomyces Boulardii (Florastor) 250 mg PO DAILY [facility] Sodium Chloride (Saline Flush) 10 ml FLUSH ONETIME PRN PRN Reason: IV FLUSH Last Admin: 04/06/20 12:55 Dose: 10 ml Documented by: NOEMI Trazodone HCl (Trazodone) 25 mg PO BEDTIME PRN PRN Reason: Sleep Last Admin: 04/06/20 20:47 Dose: 25 mg Documented by: RACHID Labs: Laboratory Tests 04/06/20 04/06/20 04/06/20 Range/Units 14:00 14:00 14:00 WBC 24.58 H (4.23-9.07) K/mm3 RBC 5.38 (4.63-6.08) M/mm3 Hgb 15.3 D (13.7-17.5) gm/dl Hct 49.2 (40.1-51.0) % MCV 91.4 (79.0-92.2) fl MCH 28.4 (25.7-32.2) pg MCHC 31.1 L (32.2-35.5) g/dl RDW Std Deviation 59.5 H (35.1-43.9) fL Plt Count 206 (163-337) K/mm3 MPV 11.6 (9.4-12.3) fl Neutrophils % (Manual) 85 H (40-60) % Band Neutrophils % 0 (0-10) % Lymphocytes % (Manual) 11 L (20-40) % Atypical Lymphs % 0 % Monocytes % (Manual) 4 (2-10) % Eosinophils % (Manual) 0 L (0.8-7.0) % Basophils % (Manual) 0 L (0.2-1.2) Nucleated RBCs 1.0 % Platelet Estimate Adequate RBC Morph Comment Normal Sodium 135 L (136-145) mEq/L Potassium 4.3 (3.5-5.1) mEq/L Chloride 96 L D (98-107) mEq/L Carbon Dioxide 35 H (21-32) mEq/L Anion Gap 8.3 (5-15) BUN 15 (7-18) mg/dL Creatinine 0.9 (0.7-1.3) mg/dL Est Cr Clr Drug Dosing TNP Estimated GFR (MDRD) > 60 (>60) mL/min BUN/Creatinine Ratio 16.7 (14-18) Glucose 100 (74-106) mg/dL Calcium 8.7 (8.5-10.1) mg/dL Total Bilirubin 0.6 (0.2-1.0) mg/dL AST 12 L (15-37) U/L ALT 12 L (16-63) U/L Alkaline Phosphatase 60 (46-116) U/L C-Reactive Protein (<1.0) mg/dL Total Protein 6.9 (6.4-8.2) g/dl Albumin 2.5 L (3.4-5.0) g/dl Globulin 4.4 gm/dL Albumin/Globulin Ratio 0.6 L (1-2) Urine Color Yellow (Yellow) Urine Appearance Clear (Clear) Urine pH 7.0 (5.0-8.0) Ur Specific [place] 1.025 (1.005-1.030) Urine Protein 2+ H (Negative) Urine Glucose (UA) Negative (Negative) Urine Ketones Trace H (Negative) Urine Occult Blood Negative (Negative) Urine Nitrite Negative (Negative) Urine Bilirubin Negative (Negative) Urine Urobilinogen 2.0 H (0.2-1.0) Ur Leukocyte Esterase Negative (Negative) Urine RBC 0-5 (0-5) /hpf Urine WBC 0-5 (0-5) /hpf Ur Squamous Epith Cells 0-5 (0-5) /hpf Amorphous Sediment Few H (NOT SEEN) /hpf Urine Bacteria Moderate H (FEW) /hpf Urine Mucus Few (FEW) /hpf // Range/Units 14:00 WBC (4.23-9.07) K/mm3 RBC (4.63-6.08) M/mm3 Hgb (13.7-17.5) gm/dl Hct (40.1-51.0) % MCV (79.0-92.2) fl MCH (25.7-32.2) pg MCHC (32.2-35.5) g/dl RDW Std Deviation (35.1-43.9) fL Plt Count (163-337) K/mm3 MPV (9.4-12.3) fl Neutrophils % (Manual) (40-60) % Band Neutrophils % (0-10) % Lymphocytes % (Manual) (20-40) % Atypical Lymphs % % Monocytes % (Manual) (2-10) % Eosinophils % (Manual) (0.8-7.0) % Basophils % (Manual) (0.2-1.2) Nucleated RBCs % Platelet Estimate RBC Morph Comment Sodium (136-145) mEq/L Potassium (3.5-5.1) mEq/L Chloride (98-107) mEq/L Carbon Dioxide (21-32) mEq/L Anion Gap (5-15) BUN (7-18) mg/dL Creatinine (0.7-1.3) mg/dL Est Cr Clr Drug Dosing Estimated GFR (MDRD) (>60) mL/min BUN/Creatinine Ratio (14-18) Glucose (74-106) mg/dL Calcium (8.5-10.1) mg/dL Total Bilirubin (0.2-1.0) mg/dL AST (15-37) U/L ALT (16-63) U/L Alkaline Phosphatase (46-116) U/L C-Reactive Protein 26.3 H* (<1.0) mg/dL Total Protein (6.4-8.2) g/dl Albumin (3.4-5.0) g/dl Globulin gm/dL Albumin/Globulin Ratio (1-2) Urine Color (Yellow) Urine Appearance (Clear) Urine pH (5.0-8.0) Ur Specific [place] (1.005-1.030) Urine Protein (Negative) Urine Glucose (UA) (Negative) Urine Ketones (Negative) Urine Occult Blood (Negative) Urine Nitrite (Negative) Urine Bilirubin (Negative) Urine Urobilinogen (0.2-1.0) Ur Leukocyte Esterase (Negative) Urine RBC (0-5) /hpf Urine WBC (0-5) /hpf Ur Squamous Epith Cells (0-5) /hpf Amorphous Sediment (NOT SEEN) /hpf Urine Bacteria (FEW) /hpf Urine Mucus (FEW) /hpf Meds: Medications Generic Name Dose Route Start Last Admin Trade Name Freq PRN Reason Stop Dose Admin Acetaminophen 650 mg 04/06/20 17:36 Tylenol PO Q4HR PRN Pain/Fever Albuterol/Ipratropium 3 ml 04/06/20 17:32 Duoneb 3.0-0.5 Mg/3 Ml NEB Q4H PRN Shortness Of Breath/wheezing Albuterol/Ipratropium ml 04/06/20 17:36 Duoneb 3.0-0.5 Mg/3 Ml NEB TID PRN Wheezing/SOB Allopurinol 300 mg 04/06/20 21:00 04/06/20 20:48 Zyloprim PO 300 mg 2100 [facility] Administration Aripiprazole 5 mg 04/06/20 20:00 04/06/20 20:48 Abilify PO 5 mg TID@0800,1400,2000 [facility] Administration Aripiprazole 2 mg 04/06/20 17:36 Abilify PO BID PRN Agitation Clonidine HCl 0.2 mg 04/06/20 21:00 04/06/20 20:46 Catapres Tts-2 TOP 0.2 mg Q48H [facility] Administration Clonidine HCl 0.2 mg 04/07/20 21:00 Catapres Tts-2 TOP Q48H [facility] Divalproex Sodium 250 mg 04/07/20 14:00 Divalproex Sodium PO 1400 [facility] Divalproex Sodium 500 mg 04/06/20 21:00 04/06/20 20:47 Depakote PO 500 mg [facility] Administration Heparin Sodium (Porcine) 5,000 units 04/07/20 08:00 Heparin Sodium SUBCUT Q8H [facility] Potassium Chloride/Dextrose/Sod Cl 1,000 mls @ 100 mls/hr 04/06/20 17:45 04/06/20 20:49 D5 1/2 Ns W/ 20 Meq/L Kcl IV 100 mls/hr ASDIRECTED [facility] Administration Piperacillin Sod/Tazobactam 100 mls @ 25 mls/hr 04/07/20 00:00 Sod 4.5 gm/ Sodium Chloride IV 04/07/20 11:59 Q8H [facility] Levothyroxine Sodium 75 mcg 04/07/20 06:30 Levothyroxine PO MoTuWeThFr@0630 [facility] Levothyroxine Sodium 50 mcg 04/09/20 06:30 Synthroid PO SuSa@0630 [facility] Melatonin 9 mg 04/06/20 21:00 04/06/20 20:53 Melatonin PO Not Given 2100 [facility] Miscellaneous Information 1 ea 04/06/20 21:00 04/06/20 20:53 Remove Patch TRDERM 1 ea Q48H [facility] Administration Miscellaneous Information 1 ea 04/07/20 21:00 Remove Patch TRDERM Q48H [facility] Non-Formulary Medication 0.05 mg 04/06/20 21:00 Desmopressin PO 2100 [facility] Non-Formulary Medication 1 tab 04/06/20 17:36 Fexofenadine/Pseudoephedrine [Gris-D 24 Hour Tablet] PO DAILY PRN runny nose Non-Formulary Medication 1 each 04/07/20 09:00 Inulin/Chromium Picolinate [Fiber Gummies] PO DAILY [facility] Non-Formulary Medication 1 tab 04/06/20 18:00 Ped Multivit 43/Iron Fumarate [Flintstones Complete Chew Tab] PO QPM [facility] Oxycodone HCl 5 mg 04/06/20 17:32 04/06/20 22:00 Oxycodone PO 5 mg Q4H PRN Administration Pain (moderate 4-6) Paroxetine HCl 30 mg 04/07/20 08:00 Paxil PO BID@0800,1400 [facility] Polyethylene Glycol 17 gm 04/06/20 17:52 Miralax PO DAILY PRN Constipation Saccharomyces Boulardii 250 mg 04/07/20 09:00 Florastor PO DAILY [facility] Sodium Chloride 10 ml 04/06/20 12:35 04/06/20 12:55 Saline Flush FLUSH 10 ml ONETIME PRN Administration IV FLUSH Trazodone HCl 25 mg 04/06/20 17:36 04/06/20 20:47 Trazodone PO 25 mg BEDTIME PRN Administration Sleep Discontinued Medications Generic Name Dose Route Start Last Admin Trade Name Freq PRN Reason Stop Dose Admin Albuterol 2.5 mg 04/06/20 15:02 04/06/20 15:11 Proventil Neb Soln NEB 04/06/20 15:03 2.5 mg ONETIME ONE Administration Albuterol Confirm 04/06/20 15:05 04/06/20 18:40 Proventil Neb Soln Administered 04/06/20 15:06 Not Given Dose 2.5 mg .ROUTE .STK-MED ONE Bupivacaine HCl/Epinephrine Bitart Confirm 04/06/20 15:19 04/06/20 16:17 Marcaine 0.5%/Epinephrine 1:200,000 Administered 04/06/20 15:20 30 ml Dose Administration 50 ml .ROUTE .STK-MED ONE Diatrizoate Meglum/Diatrizoate Sod 120 ml 04/06/20 12:35 04/06/20 12:54 Gastrografin 37% PO 04/06/20 12:36 45 ml ONETIME ONE Administration Ephedrine Sulfate Confirm 04/06/20 16:15 Ephedrine 25 Mg/5 Ml Syringe Administered 04/06/20 16:16 Dose 25 mg IV .STK-MED ONE Fentanyl Confirm 04/06/20 15:16 Sublimaze Administered 04/06/20 15:17 Dose 250 mcg .ROUTE .STK-MED ONE Glycopyrrolate Confirm 04/06/20 17:18 Robinul Administered 04/06/20 17:19 Dose 0.8 mg .ROUTE .STK-MED ONE Sodium Chloride 1,000 mls @ 999 mls/hr 04/06/20 11:45 04/06/20 12:10 Normal Saline IV 999 mls/hr ASDIRECTED [facility] Administration Lactated Ringer's 1,000 mls @ 150 mls/hr 04/06/20 14:31 Ringers, Lactated IV ASDIRECTED [facility] Piperacillin Sod/Tazobactam 100 mls @ 200 mls/hr 04/06/20 15:15 04/06/20 15:26 Sod 4.5 gm/ Sodium Chloride IV 04/06/20 15:44 200 mls/hr ONETIME ONE Administration Sodium Chloride Confirm 04/06/20 16:59 Normal Saline Administered 04/06/20 17:00 Dose 1,000 mls @ as directed .ROUTE .STK-MED ONE Lactated Ringer's Confirm 04/06/20 17:03 Ringers, Lactated Administered 04/06/20 17:04 Dose 1,000 mls @ as directed .ROUTE .STK-MED ONE Iopamidol 100 ml 04/06/20 12:35 04/06/20 12:55 Isovue-300 (61%) IVPUSH 04/06/20 12:36 100 ml ONETIME ONE Administration Labetalol HCl Confirm 04/06/20 18:41 04/06/20 20:36 Normodyne Administered 04/06/20 18:42 Not Given Dose 100 mg .ROUTE .STK-MED ONE Lidocaine/Epinephrine Confirm 04/06/20 15:19 04/06/20 16:17 Xylocaine 1% With Epinephrine 1:100,000 Administered 04/06/20 15:20 30 ml Dose Administration 40 ml .ROUTE .STK-MED ONE Midazolam HCl Confirm 04/06/20 15:16 Versed 1 Mg/Ml Administered 04/06/20 15:17 Dose 2 mg .ROUTE .STK-MED ONE Miscellaneous Medication Confirm 04/06/20 16:14 Phenylephrine 1 Mg/10 Ml-Ns Administered 04/06/20 16:15 Dose 1 mg IV .STK-MED ONE Neostigmine Methylsulfate Confirm 04/06/20 17:18 Neostigmine Methylsulfate Administered 04/06/20 17:19 Dose 5 mg .ROUTE .STK-MED ONE Non-Formulary Medication 10 mg 04/06/20 21:00 Melatonin [Melatonin] PO 2100 [facility] Ondansetron HCl 4 mg 04/06/20 11:34 04/06/20 12:08 Zofran IVPUSH 04/06/20 11:35 4 mg ONETIME ONE Administration Ondansetron HCl Confirm 04/06/20 15:16 Zofran Administered 04/06/20 15:17 Dose 4 mg .ROUTE .STK-MED ONE Propofol Confirm 04/06/20 15:16 Diprivan 20 Ml Administered 04/06/20 15:17 Dose 200 mg .ROUTE .STK-MED ONE Rocuronium [place] Confirm 04/06/20 15:16 Zemuron Administered 04/06/20 15:17 Dose 50 mg .ROUTE .STK-MED ONE - Re-Assessments/Exams Free Text/Narrative Re-Assessment/Exam: 04/06/20 11:43 Patient presents to the ED for the evaluation of a fever, and lethargy. He was tested for COVID-19 yesterday and this was negative. Routine labs to be obtained along with chest x-ray and abdomen pelvis CT for further examination. As he is tender mostly in his right lower quadrant, I do somewhat suspect possible appendicitis versus other etiology at this time. 04/06/20 13:20 The patient's labs unfortunately have not been drawn yet, there was some miscommunication between nursing staff and lab. Lab will be in to draw these now. Patient's chest x-ray has been done, is difficult to interpret by myself, he does have severe scoliosis. 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 Difficult to follow, to know for sure or not if this is in the area of the appendix. But there is some possible inflammatory change in the right lower quadrant; there is also questionable inguinal hernia. He does also have a large amount of stool within his colon. Official radiology reads are still pending. 04/06/20 13:28 CT has been read, There is prominent inflammatory change around the cecum which extends into a right inguinal hernia. Findings most likely due to appendicitis although given the diffuse nature of this finding, could also relate to inflammatory change from the cecum. There is consolidation noted within both lung bases, worse on the left side; findings may be chronic and due to previous aspiration. Horseshoe kidney was appreciated with no hydronephrosis. 04/06/20 14:32 Patient course has been discussed with Dr. Chávez, our general surgeon primary education professor today. White count is markedly elevated at 24,000. Along with a CT results, consistent with acute appendicitis. She was worried as there does appear to be some consolidative processes. Still do not have the official chest x-ray read by radiology at this time. I have asked that they push her to the radiology for a stat read. I will give the patient IV Zosyn, and start IV LR for maintenance fluids. Patient was last known to have eaten yesterday. We will also order an EKG to further clear him for surgery. Departure - Departure Time of Disposition: 14:30 Disposition: DC/Tfer to [facility] Condition: Good Clinical Impression: Appendicitis Qualifiers: Appendicitis type: acute appendicitis Acute appendicitis type: with localized peritonitis Appendicitis gangrene presence: without gangrene Appendicitis perforation presence: without perforation Appendicitis abscess presence: without abscess Qualified Code(s): K35.30 - Acute appendicitis with localized peritonitis, without perforation or gangrene - Discharge Information *PRESCRIPTION DRUG MONITORING PROGRAM REVIEWED*: No *COPY OF PRESCRIPTION DRUG MONITORING REPORT IN PATIENT HUMBERTO: No Sepsis Event Note (ED) - Evaluation Sepsis Screening Result: No Definite Risk - Focused Exam Vital Signs: Vital Signs Temp Pulse Resp BP Pulse Ox Pulse Ox 04/06/20 15:30 98.7 F 90 18 114/79 94 L 04/06/20 15:11 96 04/06/20 13:00 98.0 F 99 20 159/89 H 94 L 04/06/20 11:21 96.9 F 88 20 152/109 H 97 - My Orders Last 24 Hours: My Active Orders 04/06/20 12:35 Sodium Chloride 0.9% [Saline Flush] 10 ml FLUSH ONETIME PRN 04/06/20 14:00 Insert Lucero Catheter [Insert Urinary Catheter] [OM.PC] Stat Urinary Catheter Assessment [RC] ,,,04/06/20 14:33 EKG Documentation Completion [RC] STAT - Assessment/Plan Last 24 Hours: My Active Orders 04/06/20 12:35 Sodium Chloride 0.9% [Saline Flush] 10 ml FLUSH ONETIME PRN 04/06/20 14:00 Insert Lucero Catheter [Insert Urinary Catheter] [OM.PC] Stat Urinary Catheter Assessment [RC] ,,,04/06/20 14:33 EKG Documentation Completion [RC] STAT
[2020-04-06] MEDS ORDERED: Sodium Chloride 0.9% 1,000 ML IV SCH (11:45)
[2020-04-06] MEDS ORDERED: Iopamidol 612 MG/ML 100 ML Bottle IVPUSH ONE (12:35)
[2020-04-06] MEDS ORDERED: Sodium Chloride 0.9% 10 ML Syringe FLUSH PRN (12:35)
[2020-04-06] MEDS ORDERED: Diatrizoate Meglumine/Diatrizoate Sodium 37% 120 ML Bottle PO ONE (12:35)
--- NOTE | 2020-04-06 13:19 | CT ---
CT abdomen and pelvis Technique: Multiple axial sections were obtained from above the dome of the diaphragm inferiorly through the pubic symphysis. Intravenous contrast was utilized. Oral contrast is seen which remains mostly within the stomach. Reconstructed coronal and sagittal images were obtained. Delayed images were also obtained from above the kidneys inferiorly through the pubic symphysis. Findings: Diffuse inflammatory change is seen surrounding the cecum. Inflammatory change extends into a right inguinal hernia. Findings are most suspicious for appendicitis. Inflammatory change arising from the cecum is also a possibility due to the diffuse nature of this finding. Consolidation is noted within both lung bases, worse on the left side. Elevated left hemidiaphragm is seen containing stomach. Liver and spleen shows no focal abnormality. Horseshoe kidney is noted with no hydronephrosis. Adrenal glands show no nodule. Pancreas shows no abnormality. Gallbladder contains no calcified gallstones. Aorta shows no aneurysm. No retroperitoneal adenopathy is seen. No pelvic mass is seen. Impression: 1. Prominent inflammatory change around the cecum which extends into a right inguinal hernia. Findings most likely due to appendicitis although given the diffuse nature of this finding this could also relate to inflammatory change from the cecum. 2. Consolidation within both lung bases. Findings may be chronic and due to previous aspiration. 3. Horseshoe kidney and other nonacute findings. Diagnostic code #5 This report was dictated in MDT
[2020-04-06] MEDS ORDERED: Piperacillin/Tazobactam 4.5 GM in Sodium Chloride 0.9% 100 ML IV ONE ×2 (14:30→15:15)
[2020-04-06] MEDS ORDERED: Lactated Ringers 1,000 ML IV SCH (14:31)
--- NOTE | 2020-04-06 14:53 | CR ---
Chest: AP and lateral views of the chest were obtained. Comparison: Prior chest x-ray of 06/04/19. Elevated left hemidiaphragm is seen with stomach underneath. Increased density is noted within the right lung base which is most likely chronic. Slight density within left lung base is seen most likely chronic. Upper lungs are clear. Scoliosis noted within the spine. Impression: 1. Findings as noted above most likely chronic. 2. Nothing acute is suspected within the chest. Diagnostic code #2 This report was dictated in MDT
[2020-04-06] MEDS ORDERED: Albuterol 0.021% 0.63 MG/3 ML Neb Soln NEB ONE (15:02)
[2020-04-06] MEDS ORDERED: Albuterol 0.083% 2.5 MG/3 ML Neb Soln ONE (15:05)
--- NOTE | 2020-04-06 15:06 | PCM.PREANE ---
Preanesthetic Assessment - Procedure Proposed Procedure: laparoscopic appendectomy - Anesthesia/Transfusion/Family Hx Anesthesia History: Prior Anesthesia Reaction Family History of Anesthesia Reaction: No Transfusion History: No Prior Transfusion(s) - Review of Systems General: Fatigue, Malaise Pulmonary: No Symptoms Cardiovascular: Dyspnea on Exertion Gastrointestinal: Abdominal Pain (RLQ), Nausea Other: Reports: Thyroid Problems (hypothyroid), Anxiety - Physical Assessment NPO Status Date: 04/06/20 NPO Status Time: 08:00 Vital Signs: Last Vital Signs Temp 36.7 C 04/06/20 13:00 Pulse 99 04/06/20 13:00 Resp 20 04/06/20 13:00 BP 159/89 H 04/06/20 13:00 Pulse Ox 94 L 04/06/20 13:00 Height: 1.83 m Weight: 73.936 kg ASA Class: 3 Mental Status: Alert & Oriented x3 Airway Class: Mallampati = 2 Dentition: Reports: Normal Dentition Thyro-Mental Finger Breadths: 2 Mouth Opening Finger Breadths: 2 ROM/Head Extension: Limited/Partial Lungs: Clear to Auscultation, Normal Respiratory Effort Cardiovascular: Regular Rate, Regular Rhythm - Lab Values: Laboratory Last Values WBC 24.58 K/mm3 (4.23-9.07) H 04/06/20 14:00 RBC 5.38 M/mm3 (4.63-6.08) 04/06/20 14:00 Hgb 15.3 gm/dl (13.7-17.5) D 04/06/20 14:00 Hct 49.2 % (40.1-51.0) 04/06/20 14:00 MCV 91.4 fl (79.0-92.2) 04/06/20 14:00 MCH 28.4 pg (25.7-32.2) 04/06/20 14:00 MCHC 31.1 g/dl (32.2-35.5) L 04/06/20 14:00 RDW Std Deviation 59.5 fL (35.1-43.9) H 04/06/20 14:00 Plt Count 206 K/mm3 (163-337) 04/06/20 14:00 MPV 11.6 fl (9.4-12.3) 04/06/20 14:00 Neutrophils % (Manual) 85 % (40-60) H 04/06/20 14:00 Band Neutrophils % 0 % (0-10) 04/06/20 14:00 Lymphocytes % (Manual) 11 % (20-40) L 04/06/20 14:00 Atypical Lymphs % 0 % 04/06/20 14:00 Monocytes % (Manual) 4 % (2-10) 04/06/20 14:00 Eosinophils % (Manual) 0 % (0.8-7.0) L 04/06/20 14:00 Basophils % (Manual) 0 (0.2-1.2) L 04/06/20 14:00 Nucleated RBCs 1.0 % 04/06/20 14:00 Platelet Estimate Adequate 04/06/20 14:00 RBC Morph Comment Normal 04/06/20 14:00 Sodium 135 mEq/L (136-145) L 04/06/20 14:00 Potassium 4.3 mEq/L (3.5-5.1) 04/06/20 14:00 Chloride 96 mEq/L (98-107) L D 04/06/20 14:00 Carbon Dioxide 35 mEq/L (21-32) H 04/06/20 14:00 Anion Gap 8.3 (5-15) 04/06/20 14:00 BUN 15 mg/dL (7-18) 04/06/20 14:00 Creatinine 0.9 mg/dL (0.7-1.3) 04/06/20 14:00 Est Cr Clr Drug Dosing TNP 04/06/20 14:00 Estimated GFR (MDRD) > 60 mL/min (>60) 04/06/20 14:00 BUN/Creatinine Ratio 16.7 (14-18) 04/06/20 14:00 Glucose 100 mg/dL (74-106) 04/06/20 14:00 Calcium 8.7 mg/dL (8.5-10.1) 04/06/20 14:00 Total Bilirubin 0.6 mg/dL (0.2-1.0) 04/06/20 14:00 AST 12 U/L (15-37) L 04/06/20 14:00 ALT 12 U/L (16-63) L 04/06/20 14:00 Alkaline Phosphatase 60 U/L (46-116) 04/06/20 14:00 Total Protein 6.9 g/dl (6.4-8.2) 04/06/20 14:00 Albumin 2.5 g/dl (3.4-5.0) L 04/06/20 14:00 Globulin 4.4 gm/dL 04/06/20 14:00 Albumin/Globulin Ratio 0.6 (1-2) L 04/06/20 14:00 - Imaging/EKG Impressions: EKG SR rate 91 - Allergies Allergies/Adverse Reactions: Allergies Allergy/AdvReac Type Severity Reaction Status Date / Time risperidone [From Risperdal] Allergy Severe Cannot Verified 04/06/20 11:25 Remember ziprasidone [From Geodon] Allergy Severe Edema Verified 04/06/20 11:25 dog dander Allergy Cannot Verified 04/06/20 11:25 Remember grass pollen Allergy Difficulty Verified 04/06/20 11:25 Breathing cats Allergy Difficulty Uncoded 04/06/20 11:25 Breathing - Blood Blood Available: No Product(s) Available: None - Anesthesia Plan Pre-Op Medication Ordered: None - Acknowledgements Anesthesia Type Planned: General Anesthesia Pt an Appropriate Candidate for the Planned Anesthesia: Yes Alternatives and Risks of Anesthesia Discussed w Pt/Guardian: Yes Pt/Guardian Understands and Agrees with Anesthesia Plan: Yes PreAnesthesia Questionnaire HEENT History: Reports: Other (See Below) Other HEENT History: wears glasses Cardiovascular History: Reports: None Respiratory History: Reports: Asthma, Pneumonia, Recurrent, Sleep Apnea Other Respiratory History: wears bipap at night-4L O2--not always compliant. CPT Vest. 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, Anxiety, Depression, OCD Other Psychiatric History: developmentally delayed Endocrine/Metabolic History: Reports: Hypothyroidism Hematologic History: Reports: None Immunologic History: Reports: None Oncologic (Cancer) History: Reports: None Dermatologic History: Reports: None - Infectious Disease History Infectious Disease History: Reports: None - Past Surgical History HEENT Surgical History: Reports: None - SUBSTANCE USE Smoking Status *Q: Never Smoker Tobacco Use Within Last Twelve Months: No Second Hand Smoke Exposure: No Days Per Week of Alcohol Use: 0 Number of Drinks Per Day: 0 Total Drinks Per Week: 0 Recreational Drug Use History: No - HOME MEDS Home Medications: Home Meds Acetaminophen 650 mg PO Q4HR PRN 12/10/18 [History] Divalproex Sodium [Depakote] 500 mg PO 12/10/18 [History] Levothyroxine 75 mcg PO MOTUWETHFR 12/10/18 [History] Levothyroxine [Synthroid] 50 mcg PO SUSA 12/10/18 [History] Loperamide [Imodium] 2 mg PO ASDIRECTED PRN 12/10/18 [History] Melatonin 10 mg PO 209912/10/18 [History] PARoxetine HCL [Paxil] 30 mg PO 12/10/18 [History] allopurinoL [Zyloprim] 300 mg PO 209912/10/18 [History] cloNIDine [Catapres TTS-2] 0.2 mg TOP Q2D 12/10/18 [History] traZODone HCl [Trazodone HCl] 25 mg PO BEDTIME PRN 12/10/18 [History] Anti-Acid 2 - 4 tsp PO Q4H PRN 03/10/19 [History] Desmopressin 0.05 mg PO 209903/10/19 [History] Desmopressin 0.05 mg PO BEDTIME PRN 03/10/19 [History] Fexofenadine/Pseudoephedrine [Gris-D 24 Hour Tablet] 1 tab PO DAILY PRN [History] Divalproex Sodium [Depakote] 250 mg PO 1400 06/04/19 [History] ARIPiprazole [Abilify] 5 mg PO TID@0800,1400,199908/26/19 [History] ARIPiprazole [Aripiprazole] 2 mg PO BID PRN 08/26/19 [History] Albuterol/Ipratropium [DuoNeb 3.0-0.5 MG/3 ML] 1 vial NEB TID PRN 08/26/19 [History] Ped Multivit 43/Iron Fumarate [Flintstones Complete Chew Tab] 1 tab PO QPM 08/27/19 [History] cloNIDine [Catapres TTS-2] 0.2 mg TOP Q3D 08/27/19 [History] Acetaminophen/Dextromethorphan [Robitussin Cough-Sore Throat] 0 ml PO DAILY PRN 04/06/20 [History] Bacillus Coagulans [Digestive Advantage] 1 each PO DAILY 04/06/20 [History] Inulin/Chromium Picolinate [Fiber Gummies] 1 each PO DAILY 04/06/20 [History] Neomycin/Bacitracin/Polymyxinb [Antibiotic Ointment] 1 applic TP TID PRN 04/06/20 [History] - CURRENT (IN HOUSE) MEDS Current Meds: Current Medications Sodium Chloride (Normal Saline) 1,000 mls @ 999 mls/hr IV ASDIRECTED [place] Last Admin: 04/06/20 12:10 Dose: 999 mls/hr Documented by: Lactated Ringer's (Ringers, Lactated) 1,000 mls @ 150 mls/hr IV ASDIRECTED [facility] Sodium Chloride (Saline Flush) 10 ml FLUSH ONETIME PRN PRN Reason: IV FLUSH Last Admin: 04/06/20 12:55 Dose: 10 ml Documented by: Discontinued Medications Diatrizoate Meglum/Diatrizoate Sod (Gastrografin 37%) 120 ml PO ONETIME ONE Stop: 04/06/20 12:36 Last Admin: 04/06/20 12:54 Dose: 45 ml Documented by: Piperacillin Sod/Tazobactam (Sod 4.5 gm/ Sodium Chloride) 100 mls @ 200 mls/hr IV ONETIME ONE Stop: 04/06/20 14:59 Iopamidol (Isovue-300 (61%)) 100 ml IVPUSH ONETIME ONE Stop: 04/06/20 12:36 Last Admin: 04/06/20 12:55 Dose: 100 ml Documented by: Ondansetron HCl (Zofran) 4 mg IVPUSH ONETIME ONE Stop: 04/06/20 11:35 Last Admin: 04/06/20 12:08 Dose: 4 mg Documented by:
[2020-04-06] MEDS ORDERED: Ondansetron 4 MG/2 ML SDV ONE (15:16)
[2020-04-06] MEDS ORDERED: Midazolam 1 MG/ML 2 ML SDV ONE (15:16)
[2020-04-06] MEDS ORDERED: fentaNYL 250 MCG/5 ML SDV ONE (15:16)
[2020-04-06] MEDS ORDERED: Rocuronium 50 MG/5 ML Vial ONE (15:16)
[2020-04-06] MEDS ORDERED: Propofol 200 MG/20 ML SDV ONE (15:16)
[2020-04-06] MEDS ORDERED: Bupivacaine 0.5%/EPINEPHrine 1:200,000 50 ML MDV ONE (15:19)
[2020-04-06] MEDS ORDERED: Lidocaine 1% with EPINEPHrine 1:100,000 20 ML MDV ONE (15:19)
[2020-04-06] MEDS ORDERED: ePHEDrine Sulfate/0.9% NaCl/Pf 25 MG/5 ML SYRINGE IV ONE (16:15)
[2020-04-06] MEDS ORDERED: Sodium Chloride 0.9% 1,000 ML ONE (16:59)
[2020-04-06] MEDS ORDERED: Lactated Ringers 1,000 ML ONE (17:03)
--- NOTE | 2020-04-06 17:20 | PCM.HP.2 ---
H&P History of Present Illness - General Date of Service: 04/06/20 Admit Problem/Dx: Admission Diagnosis/Problem Admission Diagnosis/Problem Appendicitis Source of Information: Family, Provider History Limitations: Reports: Other (learning disability) - History of Present Illness Initial Comments - Free Text/Narative: The shunt is a 39-year-old gentleman who presents from his long term. Per the staff from his home, he was complaining of abdominal pain 1 day ago. He had one episode of vomiting. He also had poor appetite and did not want to intake solids and only very minimal amount of fluid. He was tested for CO VID, which was negative. He developed fever to the low 100s. Patient is not prior able to provide much history. His mother states that they thought "he was just grumpy." - Related Data Allergies/Adverse Reactions: Allergies Allergy/AdvReac Type Severity Reaction Status Date / Time ziprasidone [From Geodon] Allergy Severe Edema Verified 04/06/20 11:25 risperidone [From Risperdal] Allergy Mild Cannot Verified 04/06/20 15:18 Remember dog dander Allergy Cannot Verified 04/06/20 11:25 Remember grass pollen Allergy Difficulty Verified 04/06/20 11:25 Breathing cats Allergy Difficulty Uncoded 04/06/20 11:25 Breathing Home Medications: Home Meds Acetaminophen 650 mg PO Q4HR PRN 12/10/18 [History] Divalproex Sodium [Depakote] 500 mg PO ,12/10/18 [History] Levothyroxine 75 mcg PO MOTUWETHFR 12/10/18 [History] Levothyroxine [Synthroid] 50 mcg PO SUSA 12/10/18 [History] Loperamide [Imodium] 2 mg PO ASDIRECTED PRN 12/10/18 [History] Melatonin 10 mg PO 209912/10/18 [History] PARoxetine HCL [Paxil] 30 mg PO ,12/10/18 [History] allopurinoL [Zyloprim] 300 mg PO 209912/10/18 [History] cloNIDine [Catapres TTS-2] 0.2 mg TOP Q2D 12/10/18 [History] traZODone HCl [Trazodone HCl] 25 mg PO BEDTIME PRN 12/10/18 [History] Anti-Acid 2 - 4 tsp PO Q4H PRN 03/10/19 [History] Desmopressin 0.05 mg PO 2100 03/10/19 [History] Desmopressin 0.05 mg PO BEDTIME PRN 03/10/19 [History] Fexofenadine/Pseudoephedrine [Gris-D 24 Hour Tablet] 1 tab PO DAILY PRN 03/10/19 [History] Divalproex Sodium [Depakote] 250 mg PO 1400 06/04/19 [History] ARIPiprazole [Abilify] 5 mg PO TID@0800,1400,199908/26/19 [History] ARIPiprazole [Aripiprazole] 2 mg PO BID PRN 08/26/19 [History] Albuterol/Ipratropium [DuoNeb 3.0-0.5 MG/3 ML] 1 vial NEB TID PRN 08/26/19 [History] Ped Multivit 43/Iron Fumarate [Flintstones Complete Chew Tab] 1 tab PO QPM 08/27/19 [History] cloNIDine [Catapres TTS-2] 0.2 mg TOP Q3D 08/27/19 [History] Acetaminophen/Dextromethorphan [Robitussin Cough-Sore Throat] 0 ml PO DAILY PRN 04/06/20 [History] Bacillus Coagulans [Digestive Advantage] 1 each PO DAILY 04/06/20 [History] Inulin/Chromium Picolinate [Fiber Gummies] 1 each PO DAILY 04/06/20 [History] Neomycin/Bacitracin/Polymyxinb [Antibiotic Ointment] 1 applic TP TID PRN [History] Past Medical History HEENT History: Reports: Other (See Below) Other HEENT History: wears glasses Cardiovascular History: Reports: None Respiratory History: Reports: Asthma, Pneumonia, Recurrent, Sleep Apnea Other Respiratory History: wears bipap at night-4L O2--not always compliant. CPT Vest. 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, Anxiety, Depression, OCD Other Psychiatric History: developmentally delayed Endocrine/Metabolic History: Reports: Hypothyroidism Hematologic History: Reports: None Immunologic History: Reports: None Oncologic (Cancer) History: Reports: None Dermatologic History: Reports: None - Infectious Disease History Infectious Disease History: Reports: None - Past Surgical History HEENT Surgical History: Reports: None Social & Family History - Family History Cardiac: Denies: Hypertension, MA Neurological: Denies: CVA Endocrine/Metabolic: Denies: Diabetes, type II - Tobacco Use Smoking Status *Q: Never Smoker Second Hand Smoke Exposure: No - Caffeine Use Caffeine Use: Reports: None - Alcohol Use Days Per Week of Alcohol Use: 0 Number of Drinks Per Day: 0 Total Drinks Per Week: 0 - Recreational Drug Use Recreational Drug Use: No - Living Situation & Occupation Living situation: Reports: Single, Assisted Living (at [facility]) Occupation: Disabled H&P Review of Systems - Review of Systems: Review Of Systems: Unable To Obtain Reason Not Obtained: pt is poor historian and does not answer questions General: Reports: Fever Exam - Exam Exam: See Below - Vital Signs Vital Signs: Last Vital Signs Temp 37.1 C 04/06/20 15:30 Pulse 90 04/06/20 15:30 Resp 18 04/06/20 15:30 BP 114/79 04/06/20 15:30 Pulse Ox 94 L 04/06/20 15:30 Weight: 73.936 kg - Exam Quality Assessment: Supplemental Oxygen General: Alert HEENT: EOMI Lungs: Normal Respiratory Effort Cardiovascular: Regular Rate, Regular Rhythm GI/Abdominal Exam: Soft, Guarding, Tender (in the right hemiabdomen) (Male) Exam: Hernia (right inguinal) Extremities: No Pedal Edema Peripheral Pulses: 1+: Dorsalis Pedis (L), Dorsalis Pedis (R) Skin: Warm, Dry, Intact Neuro Extensive - Mental Status: Alert - Patient Data Lab Results Last 24 hrs: Laboratory Results - last 24 hr 04/06/20 04/06/20 04/06/20 Range/Units 14:00 14:00 14:00 WBC 24.58 H (4.23-9.07) K/mm3 RBC 5.38 (4.63-6.08) M/mm3 Hgb 15.3 D (13.7-17.5) gm/dl Hct 49.2 (40.1-51.0) % MCV 91.4 (79.0-92.2) fl MCH 28.4 (25.7-32.2) pg MCHC 31.1 L (32.2-35.5) g/dl RDW Std Deviation 59.5 H (35.1-43.9) fL Plt Count 206 (163-337) K/mm3 MPV 11.6 (9.4-12.3) fl Neutrophils % (Manual) 85 H (40-60) % Band Neutrophils % 0 (0-10) % Lymphocytes % (Manual) 11 L (20-40) % Atypical Lymphs % 0 % Monocytes % (Manual) 4 (2-10) % Eosinophils % (Manual) 0 L (0.8-7.0) % Basophils % (Manual) 0 L (0.2-1.2) Nucleated RBCs 1.0 % Platelet Estimate Adequate RBC Morph Comment Normal Sodium 135 L (136-145) mEq/L Potassium 4.3 (3.5-5.1) mEq/L Chloride 96 L D (98-107) mEq/L Carbon Dioxide 35 H (21-32) mEq/L Anion Gap 8.3 (5-15) BUN 15 (7-18) mg/dL Creatinine 0.9 (0.7-1.3) mg/dL Est Cr Clr Drug Dosing TNP Estimated GFR (MDRD) > 60 (>60) mL/min BUN/Creatinine Ratio 16.7 (14-18) Glucose 100 (74-106) mg/dL Calcium 8.7 (8.5-10.1) mg/dL Total Bilirubin 0.6 (0.2-1.0) mg/dL AST 12 L (15-37) U/L ALT 12 L (16-63) U/L Alkaline Phosphatase 60 (46-116) U/L C-Reactive Protein (<1.0) mg/dL Total Protein 6.9 (6.4-8.2) g/dl Albumin 2.5 L (3.4-5.0) g/dl Globulin 4.4 gm/dL Albumin/Globulin Ratio 0.6 L (1-2) Urine Color Yellow (Yellow) Urine Appearance Clear (Clear) Urine pH 7.0 (5.0-8.0) Ur Specific [place] 1.025 (1.005-1.030) Urine Protein 2+ H (Negative) Urine Glucose (UA) Negative (Negative) Urine Ketones Trace H (Negative) Urine Occult Blood Negative (Negative) Urine Nitrite Negative (Negative) Urine Bilirubin Negative (Negative) Urine Urobilinogen 2.0 H (0.2-1.0) Ur Leukocyte Esterase Negative (Negative) Urine RBC 0-5 (0-5) /hpf Urine WBC 0-5 (0-5) /hpf Ur Squamous Epith Cells 0-5 (0-5) /hpf Amorphous Sediment Few H (NOT SEEN) /hpf Urine Bacteria Moderate H (FEW) /hpf Urine Mucus Few (FEW) /hpf 04/06/20 Range/Units 14:00 WBC (4.23-9.07) K/mm3 RBC (4.63-6.08) M/mm3 Hgb (13.7-17.5) gm/dl Hct (40.1-51.0) % MCV (79.0-92.2) fl MCH (25.7-32.2) pg MCHC (32.2-35.5) g/dl RDW Std Deviation (35.1-43.9) fL Plt Count (163-337) K/mm3 MPV (9.4-12.3) fl Neutrophils % (Manual) (40-60) % Band Neutrophils % (0-10) % Lymphocytes % (Manual) (20-40) % Atypical Lymphs % % Monocytes % (Manual) (2-10) % Eosinophils % (Manual) (0.8-7.0) % Basophils % (Manual) (0.2-1.2) Nucleated RBCs % Platelet Estimate RBC Morph Comment Sodium (136-145) mEq/L Potassium (3.5-5.1) mEq/L Chloride (98-107) mEq/L Carbon Dioxide (21-32) mEq/L Anion Gap (5-15) BUN (7-18) mg/dL Creatinine (0.7-1.3) mg/dL Est Cr Clr Drug Dosing Estimated GFR (MDRD) (>60) mL/min BUN/Creatinine Ratio (14-18) Glucose (74-106) mg/dL Calcium (8.5-10.1) mg/dL Total Bilirubin (0.2-1.0) mg/dL AST (15-37) U/L ALT (16-63) U/L Alkaline Phosphatase (46-116) U/L C-Reactive Protein 26.3 H* (<1.0) mg/dL Total Protein (6.4-8.2) g/dl Albumin (3.4-5.0) g/dl Globulin gm/dL Albumin/Globulin Ratio (1-2) Urine Color (Yellow) Urine Appearance (Clear) Urine pH (5.0-8.0) Ur Specific [place] (1.005-1.030) Urine Protein (Negative) Urine Glucose (UA) (Negative) Urine Ketones (Negative) Urine Occult Blood (Negative) Urine Nitrite (Negative) Urine Bilirubin (Negative) Urine Urobilinogen (0.2-1.0) Ur Leukocyte Esterase (Negative) Urine RBC (0-5) /hpf Urine WBC (0-5) /hpf Ur Squamous Epith Cells (0-5) /hpf Amorphous Sediment (NOT SEEN) /hpf Urine Bacteria (FEW) /hpf Urine Mucus (FEW) /hpf Result Diagrams: 04/06/20 14:00 04/06/20 14:00 Sepsis Event Note - Evaluation Sepsis Screening Result: No Definite Risk - Focused Exam Vital Signs: Vital Signs Temp Pulse Resp BP Pulse Ox Pulse Ox 04/06/20 15:30 37.1 C 90 18 114/79 94 L 04/06/20 15:11 96 04/06/20 13:00 36.7 C 99 20 159/89 H 94 L 04/06/20 11:21 36.1 C 88 20 152/109 H 97 *Q Meaningful Use (ADM) - VTE Risk Assess *Q Each Risk Factor Represents 1 Point: Minor Surgery Planned Total Score 1 Point Risk Factors: 1 Each Risk Factor Represents 2 Points: Patient confined to bed greater than 72 hours Total Score 2 Point Risk Factors: 2 - Problem List (1) Appendicitis SNOMED Code(s): 40937323 ICD Code: K37 - UNSPECIFIED APPENDICITIS Status: Acute Current Visit: No Qualifiers: Appendicitis type: acute appendicitis Acute appendicitis type: with localized peritonitis Appendicitis gangrene presence: without gangrene Appendicitis perforation presence: without perforation Appendicitis abscess presence: without abscess Qualified Code(s): K35.30 - Acute appendicitis with localized peritonitis, without perforation or gangrene Problem List Initiated/Reviewed/Updated: Yes Orders Last 24hrs: Active Orders 24 hr Category Date Time Status Patient Status [ADT] Stat ADT 04/06/20 15:11 Active EKG Documentation Completion [RC] STAT Care 04/06/20 14:33 Active Insert Lucero Catheter [Insert Urinary Catheter] [OM.PC] Care 04/06/20 14:00 Ordered Stat RT Aerosol Therapy [RC] ASDIRECTED Care 04/06/20 15:02 Active Urinary Catheter Assessment [RC] ASDIRECTED Care 04/06/20 14:00 Active Lactated Ringers [Ringers, Lactated] 1,000 ml Med 04/06/20 14:31 Active IV ASDIRECTED Sodium Chloride 0.9% [Normal Saline] 1,000 ml Med 04/06/20 11:45 Active IV ASDIRECTED Sodium Chloride 0.9% [Saline Flush] Med 04/06/20 12:35 Active 10 ml FLUSH ONETIME PRN Schedule Procedure [COMM] Stat Oth 04/06/20 15:12 Ordered Medication Orders Sodium Chloride (Normal Saline) 1,000 mls @ 999 mls/hr IV ASDIRECTED [place] Last Admin: 04/06/20 12:10 Dose: 999 mls/hr Documented by: CLARISSA Lactated Ringer's (Ringers, Lactated) 1,000 mls @ 150 mls/hr IV ASDIRECTED [facility] Sodium Chloride (Saline Flush) 10 ml FLUSH ONETIME PRN PRN Reason: IV FLUSH Last Admin: 04/06/20 12:55 Dose: 10 ml Documented by: NOEMI Assessment/Plan Comment:: 39 y/o gentleman with acute appendicitis - discussed with pt's mother need for appendectomy. Discussed laparoscopic appendectomy, possible conversion to open. Discussed risks of bleeding, infection, and bowel injury. Her written consent was obtained. - IV zosyn in ED - Nebulizer treatment prior to OR per anesthesia - will assess need for inpatient stay based on intraoperative findings. Carol Rizvi MD General surgery - Mortality Measure Prognosis:: Good
--- NOTE | 2020-04-06 17:22 | PCM.OPNOTE ---
- General Post-Op/Procedure Note Date of Surgery/Procedure: 04/06/20 Operative Procedure(s): laparoscopic appendectomy Findings: acute appendicitis with ruptured appendix and localized abscess Pre Op Diagnosis: acute appendicitis Post-Op Diagnosis: same Anesthesia Technique: General ET Tube Primary Surgeon: Carol Rizvi Anesthesia Provider: Alfonzo Dillard Pathology: appendix Fluid Replacement, Intraop: 1,000 Output, Urine Amount: 125 EBL in mLs: 0 Drain/Tube Comments:: murry catheter Complications: none apparent Condition: Good
--- NOTE | 2020-04-06 17:23 | PCM.PRNOTE ---
- Free Text/Narrative Note: Operative Report Date of surgery: April 06, 2020 Preoperative diagnosis: acute appendicitis. Postoperative diagnosis: same Procedure performed: laparoscopic appendectomy Surgeon: Dr. Carol Rizvi Anesthesia: General Veneer Redrier: Alfonzo Dillard CRNA Estimated blood loss: 5 mL IV fluids: 1000 mL Urine output: 125 mL Drains and lines: Lucero catheter Findings: acute appendicitis with ruptured appendix and localized abscess Pathology: Appendix Indications for procedure: The patient is a 39-year-old gentleman who was brought to the emergency department from his skilled nursing for findings of fever, abdominal pain and poor appetite. He had lab and CT evaluation which revealed a very elevated leukocytosis as well as findings of a markedly inflamed cecum and appendix. These findings were consistent with appendicitis. His family was consented for laparoscopic appendectomy with possible conversion to open after discussion of the risks of bleeding, infection, and injury to surrounding bowel. Written consent was obtained. Description of procedure: The patient was taken back to the operating room and placed in supine position on the operating table. SCD boots were in place and functional prior to the start of the procedure. Preoperative antibiotics were administered in the ED before the surgery. The patient had successful induction of general anesthesia and was intubated without difficulty. Pt was then prepped and draped in standard surgical fashion and a timeout was performed. A Lucero c atheter was placed with return of clear yellow urine. We began by making a 15 mm incision in the infraumbilical skin and deepened down to level of the fascia which was then grasped and incised sharply. We entered the peritoneum and then placed stay sutures of 0 Vicryl on the fascial edges. A 12 mm Contreras port was then placed into the umbilicus and the balloon was inflated. The abdomen was insufflated to 15 mmHg a 5 mm camera was inserted. There was no evidence of any injury created from entry into the abdomen. A TA P block was performed using mixed 1% lidocaine with epinephrine and 0.5% bupivacaine with epinephrine . We then proceeded to place a 5 mm port under direct visualization in the suprapubic midline and an additional 5mm port in the left lower quadrant. The patient was then positioned in Trendelenburg with right side elevated and we proceeded to mobilize the appendix. The omentum had created a phlegmon and sealed the right lower quadrant. The inflammatory adhesions were peeled away from the abdominal wall revealing an abscess. This had a feculent odor. This was suctioned. We then mobilized the omentum out of the patient's right inguinal hernia. We were then able to remove the inflamed and friable tissues away. There was evidence of perforation with stool matter present near the appendix. This was suctioned. We were then able to identify the appendix and the mesoappendix. he appendix was then grasped and with blunt dissection was brought into the surgical field. The mesoappendix dissected from the appendix. The appendix was then taken with a tissue staple load. The mesoappendix was then taken with a vascular staple load. The specimen was in place in the Endo Catch bag. We then inspected and suctioned up any blood in the area as well as the murky fluid from the pelvis. There was no active bleeding at the end of this case. The abdomen was then desufflated and the umbilical fascia closed with 0 Vicryl sutures and the stay sutures were tied, effectively closing the umbilical port site. The skin was then reapproximated at all port sites using a 4-0 Monocryl subcutaneous stitch and covered with Dermabond surgical glue. The patient tolerated the procedure. He was extubated and transported to the PACU in stable condition. All sponge and needle counts were correct. I was present and scrubbed for the entirety of the procedure. Carol Rizvi MD General Surgery
[2020-04-06] MEDS ORDERED: oxyCODONE 5 MG Tab PO PRN (17:32)
[2020-04-06] MEDS ORDERED: Polyethylene Glycol 3350 Powder 17 GM Packet PO PRN ×2 (17:32→17:52)
[2020-04-06] MEDS ORDERED: Albuterol/Ipratropium 3.0-0.5 MG/3 ML Neb Soln NEB PRN ×2 (17:32→17:36)
[2020-04-06] MEDS ORDERED: traZODone 50 MG Tab PO PRN (17:36)
[2020-04-06] MEDS ORDERED: Acetaminophen 325 MG Tab PO PRN (17:36)
[2020-04-06] MEDS ORDERED: Non-Formulary Medication 1 Each (Fexofenadine/Pseudoephedrine [Allegra-D 24 Hour Tablet] 1 PO PRN (17:36)
--- NOTE | 2020-04-06 18:27 | PCM.POSTAN ---
POST ANESTHESIA ASSESSMENT - MENTAL STATUS Mental Status: Alert, Oriented - VITAL SIGNS Vital Signs: Last Vital Signs Temp 37.1 C 04/06/20 15:30 Pulse 90 04/06/20 15:30 Resp 18 04/06/20 15:30 BP 114/79 04/06/20 15:30 Pulse Ox 94 L 04/06/20 15:30 - RESPIRATORY Respiratory Status: Respiratory Rate WNL, Airway Patent, O2 Saturation Stable, Supplemental Oxygen, Elevated Respiratory Rate - CARDIOVASCULAR CV Status: Pulse Rate WNL, Blood Pressure Stable - GASTROINTESTINAL GI Status: No Symptoms - PAIN Pain Score: 0 - POST OP HYDRATION Hydration Status: Adequate & Stable - OBSERVATIONS Free Text/Narrative:: no anesthesia complications noted
[2020-04-06] MEDS ORDERED: Labetalol 100 MG/20 ML MDV ONE (18:41)
[2020-04-06] MEDS: Divalproex Sodium Delayed-Release 500 MG Tab.CR PO SCH (20:47)
[2020-04-06] MEDS: ARIPiprazole 5 MG Tab PO SCH (20:48)
[2020-04-06] MEDS: D5 1/2 NS w/ 20 mEq/L KCl 1,000 ML IV SCH (20:49)
[2020-04-06] MEDS ORDERED: DESMOPRESSIN PO SCH (21:00)
[2020-04-06] MEDS ORDERED: REMOVE CLONIDINE TRDERM SCH (21:00)
[2020-04-06] MEDS ORDERED: Melatonin 3 MG Tab PO SCH (21:00)
[2020-04-06] MEDS ORDERED: Non-Formulary Medication 1 Each (Melatonin [Melatonin] 10 MG) PO SCH (21:00)
[2020-04-06] MEDS ORDERED: CLONIDINE TOP SCH (21:00)
[2020-04-06] MEDS ORDERED: Allopurinol 300 MG Tab PO SCH (21:00)
[2020-04-07] MEDS: Piperacillin/Tazobactam 4.5 GM in Sodium Chloride 0.9% 100 ML IV SCH ×2 (00:47→08:37)
[2020-04-07] MEDS: D5 1/2 NS w/ 20 mEq/L KCl 1,000 ML IV SCH (06:28)
[2020-04-07] MEDS: Divalproex Sodium Delayed-Release 500 MG Tab.CR PO SCH (06:28)
[2020-04-07] MEDS ORDERED: Levothyroxine 75 MCG Tab PO SCH (06:30)
[2020-04-07] MEDS ORDERED: Heparin Sodium 5,000 Units/ML Vial SUBCUT SCH (08:00)
[2020-04-07] MEDS: ARIPiprazole 5 MG Tab PO SCH ×2 (08:39→13:57)
[2020-04-07] MEDS: PARoxetine 20 MG Tab PO SCH ×2 (08:39→13:57)
[2020-04-07] MEDS ORDERED: INULIN PO SCH (09:00)
[2020-04-07] MEDS ORDERED: CHROMIUM PICOLINATE PO SCH (09:00)
[2020-04-07] MEDS ORDERED: Saccharomyces Boulardii (Probiotic) 250 MG Cap PO SCH (09:00)
--- NOTE | 2020-04-07 09:20 | PCM.SURGPN ---
- General Info Date of Service: 04/07/20 Admission Diagnosis/Problem: Acute appendicitis Functional Status: Reports: Pain Controlled, Other (respiratory status at baseline) - Patient Data Vitals - Most Recent: Last Vital Signs Temp 37.7 C 04/07/20 08:36 Pulse 89 04/07/20 08:36 Resp 16 04/07/20 08:36 BP 106/77 04/07/20 08:36 Pulse Ox 91 L 04/07/20 08:36 Weight - Most Recent: 77.564 kg I&O - Last 24 Hours: Intake & Output 04/06/20 04/07/20 04/07/20 22:59 06:59 14:59 Intake Total 1000 936 Output Total 250 350 Balance 750 586 Lab Results Last 24 Hrs: Laboratory Results - last 24 hr 04/06/20 04/06/20 04/06/20 Range/Units 14:00 14:00 14:00 WBC 24.58 H (4.23-9.07) K/mm3 RBC 5.38 (4.63-6.08) M/mm3 Hgb 15.3 D (13.7-17.5) gm/dl Hct 49.2 (40.1-51.0) % MCV 91.4 (79.0-92.2) fl MCH 28.4 (25.7-32.2) pg MCHC 31.1 L (32.2-35.5) g/dl RDW Std Deviation 59.5 H (35.1-43.9) fL Plt Count 206 (163-337) K/mm3 MPV 11.6 (9.4-12.3) fl Neutrophils % (Manual) 85 H (40-60) % Band Neutrophils % 0 (0-10) % Lymphocytes % (Manual) 11 L (20-40) % Atypical Lymphs % 0 % Monocytes % (Manual) 4 (2-10) % Eosinophils % (Manual) 0 L (0.8-7.0) % Basophils % (Manual) 0 L (0.2-1.2) Nucleated RBCs 1.0 % Platelet Estimate Adequate RBC Morph Comment Normal Sodium 135 L (136-145) mEq/L Potassium 4.3 (3.5-5.1) mEq/L Chloride 96 L D (98-107) mEq/L Carbon Dioxide 35 H (21-32) mEq/L Anion Gap 8.3 (5-15) BUN 15 (7-18) mg/dL Creatinine 0.9 (0.7-1.3) mg/dL Est Cr Clr Drug Dosing TNP Estimated GFR (MDRD) > 60 (>60) mL/min BUN/Creatinine Ratio 16.7 (14-18) Glucose 100 (74-106) mg/dL Calcium 8.7 (8.5-10.1) mg/dL Total Bilirubin 0.6 (0.2-1.0) mg/dL AST 12 L (15-37) U/L ALT 12 L (16-63) U/L Alkaline Phosphatase 60 (46-116) U/L C-Reactive Protein (<1.0) mg/dL Total Protein 6.9 (6.4-8.2) g/dl Albumin 2.5 L (3.4-5.0) g/dl Globulin 4.4 gm/dL Albumin/Globulin Ratio 0.6 L (1-2) Urine Color Yellow (Yellow) Urine Appearance Clear (Clear) Urine pH 7.0 (5.0-8.0) Ur Specific [place] 1.025 (1.005-1.030) Urine Protein 2+ H (Negative) Urine Glucose (UA) Negative (Negative) Urine Ketones Trace H (Negative) Urine Occult Blood Negative (Negative) Urine Nitrite Negative (Negative) Urine Bilirubin Negative (Negative) Urine Urobilinogen 2.0 H (0.2-1.0) Ur Leukocyte Esterase Negative (Negative) Urine RBC 0-5 (0-5) /hpf Urine WBC 0-5 (0-5) /hpf Ur Squamous Epith Cells 0-5 (0-5) /hpf Amorphous Sediment Few H (NOT SEEN) /hpf Urine Bacteria Moderate H (FEW) /hpf Urine Mucus Few (FEW) /hpf MRSA (PCR) 04/06/20 04/07/20 Range/Units 14:00 04:35 WBC (4.23-9.07) K/mm3 RBC (4.63-6.08) M/mm3 Hgb (13.7-17.5) gm/dl Hct (40.1-51.0) % MCV (79.0-92.2) fl MCH (25.7-32.2) pg MCHC (32.2-35.5) g/dl RDW Std Deviation (35.1-43.9) fL Plt Count (163-337) K/mm3 MPV (9.4-12.3) fl Neutrophils % (Manual) (40-60) % Band Neutrophils % (0-10) % Lymphocytes % (Manual) (20-40) % Atypical Lymphs % % Monocytes % (Manual) (2-10) % Eosinophils % (Manual) (0.8-7.0) % Basophils % (Manual) (0.2-1.2) Nucleated RBCs % Platelet Estimate RBC Morph Comment Sodium (136-145) mEq/L Potassium (3.5-5.1) mEq/L Chloride (98-107) mEq/L Carbon Dioxide (21-32) mEq/L Anion Gap (5-15) BUN (7-18) mg/dL Creatinine (0.7-1.3) mg/dL Est Cr Clr Drug Dosing Estimated GFR (MDRD) (>60) mL/min BUN/Creatinine Ratio (14-18) Glucose (74-106) mg/dL Calcium (8.5-10.1) mg/dL Total Bilirubin (0.2-1.0) mg/dL AST (15-37) U/L ALT (16-63) U/L Alkaline Phosphatase (46-116) U/L C-Reactive Protein 26.3 H* (<1.0) mg/dL Total Protein (6.4-8.2) g/dl Albumin (3.4-5.0) g/dl Globulin gm/dL Albumin/Globulin Ratio (1-2) Urine Color (Yellow) Urine Appearance (Clear) Urine pH (5.0-8.0) Ur Specific [place] (1.005-1.030) Urine Protein (Negative) Urine Glucose (UA) (Negative) Urine Ketones (Negative) Urine Occult Blood (Negative) Urine Nitrite (Negative) Urine Bilirubin (Negative) Urine Urobilinogen (0.2-1.0) Ur Leukocyte Esterase (Negative) Urine RBC (0-5) /hpf Urine WBC (0-5) /hpf Ur Squamous Epith Cells (0-5) /hpf Amorphous Sediment (NOT SEEN) /hpf Urine Bacteria (FEW) /hpf Urine Mucus (FEW) /hpf MRSA (PCR) Negative Med Orders - Current: Current Medications Acetaminophen (Tylenol) 650 mg PO Q4HR PRN PRN Reason: Pain/Fever Last Admin: 04/07/20 06:29 Dose: 650 mg Documented by: Albuterol/Ipratropium (Duoneb 3.0-0.5 Mg/3 Ml) 3 ml NEB Q4H PRN PRN Reason: Shortness Of Breath/wheezing Allopurinol (Zyloprim) 300 mg PO 2100 [facility] Last Admin: 04/06/20 20:48 Dose: 300 mg Documented by: Aripiprazole (Abilify) 5 mg PO TID@0800,1400,2000 [facility] Last Admin: 04/07/20 08:39 Dose: 5 mg Documented by: Aripiprazole (Abilify) 2 mg PO BID PRN PRN Reason: Agitation Clonidine HCl (Catapres Tts-2) 0.2 mg TOP Q48H [facility] Last Admin: 04/06/20 20:46 Dose: 0.2 mg Documented by: Clonidine HCl (Catapres Tts-2) 0.2 mg TOP Q48H [facility] Divalproex Sodium (Divalproex Sodium) 250 mg PO 1400 [facility] Divalproex Sodium (Depakote) 500 mg PO 07 [facility] Last Admin: 04/07/20 06:28 Dose: 500 mg Documented by: Heparin Sodium (Porcine) (Heparin Sodium) 5,000 units SUBCUT Q8H [facility] Last Admin: 04/07/20 08:41 Dose: 5,000 units Documented by: Potassium Chloride/Dextrose/Sod Cl (D5 1/2 Ns W/ 20 Meq/L Kcl) 1,000 mls @ 100 mls/hr IV ASDIRECTED [facility] Last Admin: 04/07/20 06:28 Dose: 100 mls/hr Documented by: Piperacillin Sod/Tazobactam (Sod 4.5 gm/ Sodium Chloride) 100 mls @ 25 mls/hr IV Q8H [facility] Stop: 04/07/20 11:59 Last Admin: 04/07/20 08:37 Dose: 25 mls/hr Documented by: Levothyroxine Sodium (Levothyroxine) 75 mcg PO MoTuWeThFr@30 [facility] Last Admin: 04/07/20 06:28 Dose: 75 mcg Documented by: Levothyroxine Sodium (Synthroid) 50 mcg PO SuSa@30 [facility] Melatonin (Melatonin) 9 mg PO 2100 [facility] Last Admin: 04/06/20 20:53 Dose: Not Given Documented by: Miscellaneous Information (Remove Patch) 1 ea TRDERM Q48H [facility] Last Admin: 04/06/20 20:53 Dose: 1 ea Documented by: Miscellaneous Information (Remove Patch) 1 ea TRDERM Q48H [facility] Non-Formulary Medication (Desmopressin) 0.05 mg PO 2100 [facility] Non-Formulary Medication (Fexofenadine/Pseudoephedrine [Gris-D 24 Hour Tablet]) 1 tab PO DAILY PRN PRN Reason: runny nose Non-Formulary Medication (Inulin/Chromium Picolinate [Fiber Gummies]) 1 each PO DAILY [facility] Non-Formulary Medication (Ped Multivit 43/Iron Fumarate [Flintstones Complete Chew Tab]) 1 tab PO QPM [facility] Oxycodone HCl (Oxycodone) 5 mg PO Q4H PRN PRN Reason: Pain (moderate 4-6) Last Admin: 04/06/20 22:00 Dose: 5 mg Documented by: Paroxetine HCl (Paxil) 30 mg PO BID@0800,1400 [facility] Last Admin: 04/07/20 08:39 Dose: 30 mg Documented by: Polyethylene Glycol (Miralax) 17 gm PO DAILY PRN PRN Reason: Constipation Saccharomyces Boulardii (Florastor) 250 mg PO DAILY [facility] Last Admin: 04/07/20 08:39 Dose: 250 mg Documented by: Sodium Chloride (Saline Flush) 10 ml FLUSH ONETIME PRN PRN Reason: IV FLUSH Last Admin: 04/06/20 12:55 Dose: 10 ml Documented by: Trazodone HCl (Trazodone) 25 mg PO BEDTIME PRN PRN Reason: Sleep Last Admin: 04/06/20 20:47 Dose: 25 mg Documented by: Discontinued Medications Albuterol (Proventil Neb Soln) 2.5 mg NEB ONETIME ONE Stop: 04/06/20 15:03 Last Admin: 04/06/20 15:11 Dose: 2.5 mg Documented by: Albuterol (Proventil Neb Soln) Confirm Administered Dose 2.5 mg .ROUTE .STK-MED ONE Stop: 04/06/20 15:06 Last Admin: 04/06/20 18:40 Dose: Not Given Documented by: Albuterol/Ipratropium (Duoneb 3.0-0.5 Mg/3 Ml) ml NEB TID PRN PRN Reason: Wheezing/SOB Bupivacaine HCl/Epinephrine Bitart (Marcaine 0.5%/Epinephrine 1:200,000) Confirm Administered Dose 50 ml .ROUTE .STK-MED ONE Stop: 04/06/20 15:20 Last Admin: 04/06/20 16:17 Dose: 30 ml Documented by: Diatrizoate Meglum/Diatrizoate Sod (Gastrografin 37%) 120 ml PO ONETIME ONE Stop: 04/06/20 12:36 Last Admin: 04/06/20 12:54 Dose: 45 ml Documented by: Ephedrine Sulfate (Ephedrine 25 Mg/5 Ml Syringe) Confirm Administered Dose 25 mg IV .STK-MED ONE Stop: 04/06/20 16:16 Fentanyl (Sublimaze) Confirm Administered Dose 250 mcg .ROUTE .STK-MED ONE Stop: 04/06/20 15:17 Glycopyrrolate (Robinul) Confirm Administered Dose 0.8 mg .ROUTE .STK-MED ONE Stop: 04/06/20 17:19 Sodium Chloride (Normal Saline) 1,000 mls @ 999 mls/hr IV ASDIRECTED [facility] Last Admin: 04/06/20 12:10 Dose: 999 mls/hr Documented by: Lactated Ringer's (Ringers, Lactated) 1,000 mls @ 150 mls/hr IV ASDIRECTED [facility] Piperacillin Sod/Tazobactam (Sod 4.5 gm/ Sodium Chloride) 100 mls @ 200 mls/hr IV ONETIME ONE Stop: 04/06/20 15:44 Last Admin: 04/06/20 15:26 Dose: 200 mls/hr Documented by: Sodium Chloride (Normal Saline) Confirm Administered Dose 1,000 mls @ as directed .ROUTE .STK-MED ONE Stop: 04/06/20 17:00 Lactated Ringer's (Ringers, Lactated) Confirm Administered Dose 1,000 mls @ as directed .ROUTE .STK-MED ONE Stop: 04/06/20 17:04 Iopamidol (Isovue-300 (61%)) 100 ml IVPUSH ONETIME ONE Stop: 04/06/20 12:36 Last Admin: 04/06/20 12:55 Dose: 100 ml Documented by: Labetalol HCl (Normodyne) Confirm Administered Dose 100 mg .ROUTE .STK-MED ONE Stop: 04/06/20 18:42 Last Admin: 04/06/20 20:36 Dose: Not Given Documented by: Lidocaine/Epinephrine (Xylocaine 1% With Epinephrine 1:100,000) Confirm Administered Dose 40 ml .ROUTE .STK-MED ONE Stop: 04/06/20 15:20 Last Admin: 04/06/20 16:17 Dose: 30 ml Documented by: Midazolam HCl (Versed 1 Mg/Ml) Confirm Administered Dose 2 mg .ROUTE .STK-MED ONE Stop: 04/06/20 15:17 Miscellaneous Medication (Phenylephrine 1 Mg/10 Ml-Ns) Confirm Administered Dose 1 mg IV .STK-MED ONE Stop: 04/06/20 16:15 Neostigmine Methylsulfate (Neostigmine Methylsulfate) Confirm Administered Dose 5 mg .ROUTE .STK-MED ONE Stop: 04/06/20 17:19 Non-Formulary Medication (Melatonin [Melatonin]) 10 mg PO 2100 [facility] Ondansetron HCl (Zofran) 4 mg IVPUSH ONETIME ONE Stop: 04/06/20 11:35 Last Admin: 04/06/20 12:08 Dose: 4 mg Documented by: Ondansetron HCl (Zofran) Confirm Administered Dose 4 mg .ROUTE .STK-MED ONE Stop: 04/06/20 15:17 Propofol (Diprivan 20 Ml) Confirm Administered Dose 200 mg .ROUTE .STK-MED ONE Stop: 04/06/20 15:17 Rocuronium [place] (Zemuron) Confirm Administered Dose 50 mg .ROUTE .STK-MED ONE Stop: 04/06/20 15:17 - Exam Wound/Incisions: Healing Well, No Drainage General: Alert, Cooperative Lungs: Normal Respiratory Effort GI/Abdominal Exam: Soft, No Distention, Tender (appropriate post surgical) Sepsis Event Note - Evaluation Sepsis Screening Result: No Definite Risk - Focused Exam Vital Signs: Vital Signs Temp Pulse Resp BP Pulse Ox Pulse Ox 04/07/20 08:36 37.7 C 89 16 106/77 91 L 04/07/20 03:58 37.1 C 88 20 105/71 97 04/07/20 00:31 93 110/83 96 04/07/20 00:16 94 110/81 95 04/07/20 00:01 94 120/83 95 04/06/20 23:46 93 116/87 96 04/06/20 23:31 93 116/90 96 04/06/20 23:16 93 127/85 96 04/06/20 23:01 93 135/92 H 96 04/06/20 22:46 91 120/85 95 04/06/20 22:31 94 123/86 96 04/06/20 22:16 91 121/88 96 04/06/20 22:12 95 04/06/20 22:01 95 131/101 H 95 04/06/20 21:49 95 04/06/20 21:46 97 133/94 H 95 04/06/20 21:31 94 129/96 H 96 04/06/20 21:18 93 134/90 95 - Problem List & Annotations (1) Appendicitis SNOMED Code(s): 46049691 Code(s): K37 - UNSPECIFIED APPENDICITIS Status: Acute Current Visit: No Qualifiers: Appendicitis type: acute appendicitis Acute appendicitis type: with localized peritonitis Appendicitis gangrene presence: without gangrene Appendicitis perforation presence: without perforation Appendicitis abscess presence: without abscess Qualified Code(s): K35.30 - Acute appendicitis with localized peritonitis, without perforation or gangrene - Problem List Review Problem List Initiated/Reviewed/Updated: Yes - My Orders Last 24 Hours: Active Orders 24 hr Category Date Time Status Patient Status [ADT] Routine ADT 04/06/20 17:32 Active Patient Status [ADT] Stat ADT 04/06/20 15:11 Active Antiembolic Devices [RC] BID Care 04/06/20 17:33 Active CPAP Adult [RT BiPAP/CPAP] [RC] ASDIRECTED Care 04/06/20 17:43 Active Incentive Spirometry [RT Incentive Spirometry] [RC] Care 04/06/20 17:43 Active Q1HWA Insert Murry Catheter [Insert Urinary Catheter] [OM.PC] Care 04/06/20 14:00 Ordered Stat Intake and Output [RC] 04,16 Care 04/06/20 17:33 Active Notify Provider [RC] ASDIRECTED Care 04/06/20 18:26 Active Oxygen Therapy [RC] PRN Care 04/06/20 17:32 Active Pulse Oximetry [RC] ASDIRECTED Care 04/06/20 18:26 Active RT Aerosol Therapy [RC] ASDIRECTED Care 04/06/20 15:02 Active RT Aerosol Therapy [RC] ASDIRECTED Care 04/06/20 17:35 Active Remove Murry Catheter [Urinary Catheter Removal] [] Care 04/07/20 08:17 Active PER UNIT ROUTINE Up With Assistance [RC] ASDIRECTED Care 04/06/20 17:32 Active Urinary Catheter Assessment [RC] 10,16,22,04 Care 04/06/20 14:00 Active VTE/DVT Education [] DAILY Care 04/06/20 17:32 Active Vital Signs [RC] Q4HR Care 04/06/20 17:32 Active Regular Diet [DIET] Diet 04/06/20 Dinner Active ARIPiprazole [Abilify] Med 04/06/20 17:36 Active 2 mg PO BID PRN ARIPiprazole [Abilify] Med 04/06/20 20:00 Active 5 mg PO TID@0800,1400,2000 Acetaminophen [TylenoL] Med 04/06/20 17:36 Active 650 mg PO Q4HR PRN Albuterol/Ipratropium [DuoNeb 3.0-0.5 MG/3 ML] Med 04/06/20 17:32 Active 3 ml NEB Q4H PRN D5 1/2 NS w/ 20 mEq/L KCl 1,000 ml Med 04/06/20 17:45 Active IV ASDIRECTED Desmopressin Med 04/06/20 21:00 Pending 0.05 mg PO 2100 Divalproex Sodium Med 04/07/20 14:00 Active 250 mg PO 1400 Divalproex Sodium [Depakote] Med 04/06/20 21:00 Active 500 mg PO 07,21 Fexofenadine/Pseudoephedrine [Gris-D 24 Hour Tablet] Med 04/06/20 17:36 Pending 1 tab PO DAILY PRN Heparin Sodium Med 04/07/20 08:00 Active 5,000 units SUBCUT Q8H Inulin/Chromium Picolinate [Fiber Gummies] Med 04/07/20 09:00 Pending 1 each PO DAILY Levothyroxine Med 04/07/20 06:30 Active 75 mcg PO MoTuWeThFr@0630 Levothyroxine [Synthroid] Med 04/09/20 06:30 Active 50 mcg PO SuSa@0630 Melatonin Med 04/06/20 21:00 Active 9 mg PO 2100 PARoxetine [Paxil] Med 04/07/20 08:00 Active 30 mg PO BID@0800,1400 Ped Multivit 43/Iron Fumarate [Flintstones Complete Med 04/06/20 18:00 Pending Chew Tab] 1 tab PO QPM Piperacillin/Tazobactam [Piperacil-Tazobact] 4.5 gm Med 04/07/20 00:00 Active Sodium Chloride 0.9% [Normal Saline] 100 ml IV Q8H Remove Patch Med 04/06/20 21:00 Active 1 ea TRDERM Q48H Remove Patch Med 04/07/20 21:00 Active 1 ea TRDERM Q48H Saccharomyces Boulardii [Florastor] Med 04/07/20 09:00 Active 250 mg PO DAILY Sodium Chloride 0.9% [Saline Flush] Med 04/06/20 12:35 Active 10 ml FLUSH ONETIME PRN allopurinoL [Zyloprim] Med 04/06/20 21:00 Active 300 mg PO 2100 cloNIDine [Catapres TTS-2] Med 04/06/20 21:00 Active 0.2 mg TOP Q48H cloNIDine [Catapres TTS-2] Med 04/07/20 21:00 Active 0.2 mg TOP Q48H oxyCODONE Med 04/06/20 17:32 Active 5 mg PO Q4H PRN polyethylene glycoL 3350 [MiraLAX] Med 04/06/20 17:52 Active 17 gm PO DAILY PRN traZODone Med 04/06/20 17:36 Active 25 mg PO BEDTIME PRN Schedule Procedure [COMM] Stat Oth 04/06/20 15:12 Ordered Sequential Compression Device [OM.PC] Per Unit Routine Oth 04/06/20 17:33 Ordered Resuscitation Status Routine Resus Stat 04/06/20 17:32 Ordered Medication Orders Acetaminophen (Tylenol) 650 mg PO Q4HR PRN PRN Reason: Pain/Fever Last Admin: 04/07/20 06:29 Dose: 650 mg Documented by: RACHID Albuterol/Ipratropium (Duoneb 3.0-0.5 Mg/3 Ml) 3 ml NEB Q4H PRN PRN Reason: Shortness Of Breath/wheezing Allopurinol (Zyloprim) 300 mg PO 2100 [facility] Last Admin: 04/06/20 20:48 Dose: 300 mg Documented by: RACHID Aripiprazole (Abilify) 5 mg PO TID@0800,1400,2000 [facility] Last Admin: 04/07/20 08:39 Dose: 5 mg Documented by: Admin: 04/06/20 20:48 Dose: 5 mg Documented by: RACHID Aripiprazole (Abilify) 2 mg PO BID PRN PRN Reason: Agitation Clonidine HCl (Catapres Tts-2) 0.2 mg TOP Q48H [facility] Last Admin: 04/06/20 20:46 Dose: 0.2 mg Documented by: RACHID Clonidine HCl (Catapres Tts-2) 0.2 mg TOP Q48H [facility] Divalproex Sodium (Divalproex Sodium) 250 mg PO 1400 [facility] Divalproex Sodium (Depakote) 500 mg PO 07,21 [facility] Last Admin: 04/07/20 06:28 Dose: 500 mg Documented by: Admin: 04/06/20 20:47 Dose: 500 mg Documented by: RACHID Heparin Sodium (Porcine) (Heparin Sodium) 5,000 units SUBCUT Q8H [facility] Last Admin: 04/07/20 08:41 Dose: 5,000 units Documented by: SIMON Potassium Chloride/Dextrose/Sod Cl (D5 1/2 Ns W/ 20 Meq/L Kcl) 1,000 mls @ 100 mls/hr IV ASDIRECTED [facility] Last Admin: 04/07/20 06:28 Dose: 100 mls/hr Documented by: Infusion: 04/07/20 06:28 Dose: 100 mls/hr Documented by: Admin: 04/06/20 20:49 Dose: 100 mls/hr Documented by: RACHID Piperacillin Sod/Tazobactam (Sod 4.5 gm/ Sodium Chloride) 100 mls @ 25 mls/hr IV Q8H [facility] Stop: 04/07/20 11:59 Last Admin: 04/07/20 08:37 Dose: 25 mls/hr Documented by: Infusion: 04/07/20 04:47 Dose: 25 mls/hr Documented by: Admin: 04/07/20 00:47 Dose: 25 mls/hr Documented by: RACHID Levothyroxine Sodium (Levothyroxine) 75 mcg PO MoTuWeThFr@0630 [facility] Last Admin: 04/07/20 06:28 Dose: 75 mcg Documented by: RACHID Levothyroxine Sodium (Synthroid) 50 mcg PO SuSa@0630 [facility] Melatonin (Melatonin) 9 mg PO 2100 [facility] Last Admin: 04/06/20 20:53 Dose: Not Given Documented by: RACHID Miscellaneous Information (Remove Patch) 1 ea TRDERM Q48H [facility] Last Admin: 04/06/20 20:53 Dose: 1 ea Documented by: RACHID Miscellaneous Information (Remove Patch) 1 ea TRDERM Q48H [facility] Non-Formulary Medication (Desmopressin) 0.05 mg PO 2100 [facility] Non-Formulary Medication (Fexofenadine/Pseudoephedrine [Gris-D 24 Hour Tablet]) 1 tab PO DAILY PRN PRN Reason: runny nose Non-Formulary Medication (Inulin/Chromium Picolinate [Fiber Gummies]) 1 each PO DAILY [facility] Non-Formulary Medication (Ped Multivit 43/Iron Fumarate [Flintstones Complete Chew Tab]) 1 tab PO QPM [facility] Oxycodone HCl (Oxycodone) 5 mg PO Q4H PRN PRN Reason: Pain (moderate 4-6) Last Admin: 04/06/20 22:00 Dose: 5 mg Documented by: RACHID Paroxetine HCl (Paxil) 30 mg PO BID@0800,1400 [facility] Last Admin: 04/07/20 08:39 Dose: 30 mg Documented by: SIMON Polyethylene Glycol (Miralax) 17 gm PO DAILY PRN PRN Reason: Constipation Saccharomyces Boulardii (Florastor) 250 mg PO DAILY [facility] Last Admin: 04/07/20 08:39 Dose: 250 mg Documented by: SIMON Sodium Chloride (Saline Flush) 10 ml FLUSH ONETIME PRN PRN Reason: IV FLUSH Last Admin: 04/06/20 12:55 Dose: 10 ml Documented by: NOEMI Trazodone HCl (Trazodone) 25 mg PO BEDTIME PRN PRN Reason: Sleep Last Admin: 04/06/20 20:47 Dose: 25 mg Documented by: RACHID - Assessment Assessment (Free Text/Narrative):: 39 y/o gentleman POD1 after laparoscopic appendectomy for ruptured appendicitis with abscess. Doing well - Plan Plan (Free Text/Narrative):: -pt is progressing appropriately - discontinue murry catheter. TOV after removal - pt to have one more dose of antibiotics for 3 total doses - regular diet - encourage PO fluid intake. Continue IVF up until the time of discharge - continue home medications D/C home today after completion of antibiotics Carol Rizvi MD General surgery
--- NOTE | 2020-04-07 09:27 | PCM.DCSUM1 ---
Discharge Summary - Hospital Course Free Text/Narrative:: Pt was brought to the ED for abdominal pain and fever. He was found to have acute appendicitis. COVID testing was done on the patient on the day prior to admission with a negative result, so this was not repeated. He had a successful laparoscopic appendectomy, and was admitted for observation and 24h of antibiotics. The patient was doing well on POD1 and was discharged home. Diagnosis: Stroke: No Modified Quique Scale: No Signif.Disability Despite Sympt.Able to Carry Out Usual Act./Duties Modified Quique Scale Score: 1 - Discharge Data Discharge Date: 04/07/20 Discharge Disposition: Home, Self-Care 01 Condition: Good - Referral to Home Health Primary Care Physician: Michaela Sanchez NP - Discharge Diagnosis/Problem(s) (1) Appendicitis SNOMED Code(s): 30474709 ICD Code: K37 - UNSPECIFIED APPENDICITIS Status: Acute Current Visit: No Qualifiers: Appendicitis type: acute appendicitis Acute appendicitis type: with localized peritonitis Appendicitis gangrene presence: without gangrene Appendicitis perforation presence: without perforation Appendicitis abscess presence: without abscess Qualified Code(s): K35.30 - Acute appendicitis with localized peritonitis, without perforation or gangrene - Patient Summary/Data Operative Procedure(s) Performed: laparoscopic appendectomy - Patient Instructions Diet: Usual Diet as Tolerated Activity: As Tolerated, No Lifting Over 20 Pounds (for 2 weeks) Showering/Bathing: May Shower, No Tub Bathing/Swimming (for 2 weeks) Wound/Incision Care: Keep Operative Site/Wound Site Clean and Dry Notify Provider of: Fever, Increased Pain, Swelling and Redness, Drainage, Nausea and/or Vomiting Other/Special Instructions: Please hold imodium and use Miralax as needed for constipation. If pt resumes his usual diarrhea/loose stools, may resume imodium. May use home Tylenol as needed for mild pain, and use Oxycodone as needed for moderate to severe pain. - Discharge Plan *PRESCRIPTION DRUG MONITORING PROGRAM REVIEWED*: Not Applicable *COPY OF PRESCRIPTION DRUG MONITORING REPORT IN PATIENT HUMBERTO: Not Applicable Prescriptions/Med Rec: polyethylene glycoL 3350 [MiraLAX] 17 gm PO DAILY PRN #30 packet PRN Reason: Constipation oxyCODONE 5 mg PO Q4H PRN 14 Days #20 tablet PRN Reason: Pain (Moderate 4-6) Home Medications: Home Meds Acetaminophen 650 mg PO Q4HR PRN 12/10/18 [History] Divalproex Sodium [Depakote] 500 mg PO ,12/10/18 [History] Levothyroxine 75 mcg PO MOTUWETHFR 12/10/18 [History] Levothyroxine [Synthroid] 50 mcg PO SUSA 12/10/18 [History] Loperamide [Imodium] 2 mg PO ASDIRECTED PRN 12/10/18 [History] Melatonin 10 mg PO 209912/10/18 [History] PARoxetine HCL [Paxil] 30 mg PO 12/10/18 [History] allopurinoL [Zyloprim] 300 mg PO 209912/10/18 [History] cloNIDine [Catapres TTS-2] 0.2 mg TOP Q2D 12/10/18 [History] traZODone HCl [Trazodone HCl] 25 mg PO BEDTIME PRN 12/10/18 [History] Anti-Acid 2 - 4 tsp PO Q4H PRN 03/10/19 [History] Desmopressin 0.05 mg PO 209903/10/19 [History] Desmopressin 0.05 mg PO BEDTIME PRN 03/10/19 [History] Fexofenadine/Pseudoephedrine [Gris-D 24 Hour Tablet] 1 tab PO DAILY PRN 03/10/19 [History] Divalproex Sodium [Depakote] 250 mg PO 1400 06/04/19 [History] ARIPiprazole [Abilify] 5 mg PO TID@0800,1400,199908/26/19 [History] ARIPiprazole [Aripiprazole] 2 mg PO BID PRN 08/26/19 [History] Albuterol/Ipratropium [DuoNeb 3.0-0.5 MG/3 ML] 1 vial NEB TID PRN 08/26/19 [History] Ped Multivit 43/Iron Fumarate [Flintstones Complete Chew Tab] 1 tab PO QPM 08/27/19 [History] cloNIDine [Catapres TTS-2] 0.2 mg TOP Q3D 08/27/19 [History] Acetaminophen/Dextromethorphan [Robitussin Cough-Sore Throat] 0 ml PO DAILY PRN 04/06/20 [History] Bacillus Coagulans [Digestive Advantage Probiotic] 1 each PO DAILY 04/06/20 [History] Inulin/Chromium Picolinate [Fiber Gummies] 1 each PO DAILY 04/06/20 [History] Neomycin/Bacitracin/Polymyxinb [Antibiotic Ointment] 1 applic TP TID PRN 04/06/20 [History] oxyCODONE 5 mg PO Q4H PRN 14 Days #20 tablet 04/07/20 [Rx] polyethylene glycoL 3350 [MiraLAX] 17 gm PO DAILY PRN #30 packet 04/07/20 [Rx] Forms: ED Department Discharge Referrals: Michaela Sanchez NP [Primary Care Provider] - Marie Burrell NP [Nurse Practitioner] - (follow up in 2 weeks) - Discharge Summary/Plan Comment DC Time >30 min.: No - Patient Data Vitals - Most Recent: Last Vital Signs Temp 37.7 C 04/07/20 08:36 Pulse 89 04/07/20 08:36 Resp 16 04/07/20 08:36 BP 106/77 04/07/20 08:36 Pulse Ox 91 L 04/07/20 08:36 Weight - Most Recent: 77.564 kg I&O - Last 24 hours: Intake & Output 04/06/20 04/07/20 04/07/20 22:59 06:59 14:59 Intake Total 1000 936 Output Total 250 350 Balance 750 586 Lab Results - Last 24 hrs: Laboratory Results - last 24 hr 04/06/20 04/06/20 04/06/20 Range/Units 14:00 14:00 14:00 WBC 24.58 H (4.23-9.07) K/mm3 RBC 5.38 (4.63-6.08) M/mm3 Hgb 15.3 D (13.7-17.5) gm/dl Hct 49.2 (40.1-51.0) % MCV 91.4 (79.0-92.2) fl MCH 28.4 (25.7-32.2) pg MCHC 31.1 L (32.2-35.5) g/dl RDW Std Deviation 59.5 H (35.1-43.9) fL Plt Count 206 (163-337) K/mm3 MPV 11.6 (9.4-12.3) fl Neutrophils % (Manual) 85 H (40-60) % Band Neutrophils % 0 (0-10) % Lymphocytes % (Manual) 11 L (20-40) % Atypical Lymphs % 0 % Monocytes % (Manual) 4 (2-10) % Eosinophils % (Manual) 0 L (0.8-7.0) % Basophils % (Manual) 0 L (0.2-1.2) Nucleated RBCs 1.0 % Platelet Estimate Adequate RBC Morph Comment Normal Sodium 135 L (136-145) mEq/L Potassium 4.3 (3.5-5.1) mEq/L Chloride 96 L D (98-107) mEq/L Carbon Dioxide 35 H (21-32) mEq/L Anion Gap 8.3 (5-15) BUN 15 (7-18) mg/dL Creatinine 0.9 (0.7-1.3) mg/dL Est Cr Clr Drug Dosing TNP Estimated GFR (MDRD) > 60 (>60) mL/min BUN/Creatinine Ratio 16.7 (14-18) Glucose 100 (74-106) mg/dL Calcium 8.7 (8.5-10.1) mg/dL Total Bilirubin 0.6 (0.2-1.0) mg/dL AST 12 L (15-37) U/L ALT 12 L (16-63) U/L Alkaline Phosphatase 60 (46-116) U/L C-Reactive Protein (<1.0) mg/dL Total Protein 6.9 (6.4-8.2) g/dl Albumin 2.5 L (3.4-5.0) g/dl Globulin 4.4 gm/dL Albumin/Globulin Ratio 0.6 L (1-2) Urine Color Yellow (Yellow) Urine Appearance Clear (Clear) Urine pH 7.0 (5.0-8.0) Ur Specific [place] 1.025 (1.005-1.030) Urine Protein 2+ H (Negative) Urine Glucose (UA) Negative (Negative) Urine Ketones Trace H (Negative) Urine Occult Blood Negative (Negative) Urine Nitrite Negative (Negative) Urine Bilirubin Negative (Negative) Urine Urobilinogen 2.0 H (0.2-1.0) Ur Leukocyte Esterase Negative (Negative) Urine RBC 0-5 (0-5) /hpf Urine WBC 0-5 (0-5) /hpf Ur Squamous Epith Cells 0-5 (0-5) /hpf Amorphous Sediment Few H (NOT SEEN) /hpf Urine Bacteria Moderate H (FEW) /hpf Urine Mucus Few (FEW) /hpf MRSA (PCR) 04/06/20 04/07/20 Range/Units 14:00 04:35 WBC (4.23-9.07) K/mm3 RBC (4.63-6.08) M/mm3 Hgb (13.7-17.5) gm/dl Hct (40.1-51.0) % MCV (79.0-92.2) fl MCH (25.7-32.2) pg MCHC (32.2-35.5) g/dl RDW Std Deviation (35.1-43.9) fL Plt Count (163-337) K/mm3 MPV (9.4-12.3) fl Neutrophils % (Manual) (40-60) % Band Neutrophils % (0-10) % Lymphocytes % (Manual) (20-40) % Atypical Lymphs % % Monocytes % (Manual) (2-10) % Eosinophils % (Manual) (0.8-7.0) % Basophils % (Manual) (0.2-1.2) Nucleated RBCs % Platelet Estimate RBC Morph Comment Sodium (136-145) mEq/L Potassium (3.5-5.1) mEq/L Chloride (98-107) mEq/L Carbon Dioxide (21-32) mEq/L Anion Gap (5-15) BUN (7-18) mg/dL Creatinine (0.7-1.3) mg/dL Est Cr Clr Drug Dosing Estimated GFR (MDRD) (>60) mL/min BUN/Creatinine Ratio (14-18) Glucose (74-106) mg/dL Calcium (8.5-10.1) mg/dL Total Bilirubin (0.2-1.0) mg/dL AST (15-37) U/L ALT (16-63) U/L Alkaline Phosphatase (46-116) U/L C-Reactive Protein 26.3 H* (<1.0) mg/dL Total Protein (6.4-8.2) g/dl Albumin (3.4-5.0) g/dl Globulin gm/dL Albumin/Globulin Ratio (1-2) Urine Color (Yellow) Urine Appearance (Clear) Urine pH (5.0-8.0) Ur Specific [place] (1.005-1.030) Urine Protein (Negative) Urine Glucose (UA) (Negative) Urine Ketones (Negative) Urine Occult Blood (Negative) Urine Nitrite (Negative) Urine Bilirubin (Negative) Urine Urobilinogen (0.2-1.0) Ur Leukocyte Esterase (Negative) Urine RBC (0-5) /hpf Urine WBC (0-5) /hpf Ur Squamous Epith Cells (0-5) /hpf Amorphous Sediment (NOT SEEN) /hpf Urine Bacteria (FEW) /hpf Urine Mucus (FEW) /hpf MRSA (PCR) Negative Med Orders - Current: Current Medications Acetaminophen (Tylenol) 650 mg PO Q4HR PRN PRN Reason: Pain/Fever Last Admin: 04/07/20 06:29 Dose: 650 mg Documented by: Albuterol/Ipratropium (Duoneb 3.0-0.5 Mg/3 Ml) 3 ml NEB Q4H PRN PRN Reason: Shortness Of Breath/wheezing Allopurinol (Zyloprim) 300 mg PO 2100 [facility] Last Admin: 04/06/20 20:48 Dose: 300 mg Documented by: Aripiprazole (Abilify) 5 mg PO TID@0800,1400,2000 [facility] Last Admin: 04/07/20 08:39 Dose: 5 mg Documented by: Aripiprazole (Abilify) 2 mg PO BID PRN PRN Reason: Agitation Clonidine HCl (Catapres Tts-2) 0.2 mg TOP Q48H [facility] Last Admin: 04/06/20 20:46 Dose: 0.2 mg Documented by: Clonidine HCl (Catapres Tts-2) 0.2 mg TOP Q48H [facility] Divalproex Sodium (Divalproex Sodium) 250 mg PO 1400 [facility] Divalproex Sodium (Depakote) 500 mg PO 07,21 [facility] Last Admin: 04/07/20 06:28 Dose: 500 mg Documented by: Heparin Sodium (Porcine) (Heparin Sodium) 5,000 units SUBCUT Q8H [facility] Last Admin: 04/07/20 08:41 Dose: 5,000 units Documented by: Potassium Chloride/Dextrose/Sod Cl (D5 1/2 Ns W/ 20 Meq/L Kcl) 1,000 mls @ 100 mls/hr IV ASDIRECTED [facility] Last Admin: 04/07/20 06:28 Dose: 100 mls/hr Documented by: Piperacillin Sod/Tazobactam (Sod 4.5 gm/ Sodium Chloride) 100 mls @ 25 mls/hr IV Q8H [facility] Stop: 04/07/20 11:59 Last Admin: 04/07/20 08:37 Dose: 25 mls/hr Documented by: Levothyroxine Sodium (Levothyroxine) 75 mcg PO MoTuWeThFr@0630 [facility] Last Admin: 04/07/20 06:28 Dose: 75 mcg Documented by: Levothyroxine Sodium (Synthroid) 50 mcg PO SuSa@0630 [facility] Melatonin (Melatonin) 9 mg PO 2100 [facility] Last Admin: 04/06/20 20:53 Dose: Not Given Documented by: Miscellaneous Information (Remove Patch) 1 ea TRDERM Q48H [facility] Last Admin: 04/06/20 20:53 Dose: 1 ea Documented by: Miscellaneous Information (Remove Patch) 1 ea TRDERM Q48H [facility] Non-Formulary Medication (Desmopressin) 0.05 mg PO 2100 [facility] Non-Formulary Medication (Fexofenadine/Pseudoephedrine [Gris-D 24 Hour Tablet]) 1 tab PO DAILY PRN PRN Reason: runny nose Non-Formulary Medication (Inulin/Chromium Picolinate [Fiber Gummies]) 1 each PO DAILY [facility] Non-Formulary Medication (Ped Multivit 43/Iron Fumarate [Flintstones Complete Chew Tab]) 1 tab PO QPM [facility] Oxycodone HCl (Oxycodone) 5 mg PO Q4H PRN PRN Reason: Pain (moderate 4-6) Last Admin: 04/06/20 22:00 Dose: 5 mg Documented by: Paroxetine HCl (Paxil) 30 mg PO BID@0800,1400 [facility] Last Admin: 04/07/20 08:39 Dose: 30 mg Documented by: Polyethylene Glycol (Miralax) 17 gm PO DAILY PRN PRN Reason: Constipation Saccharomyces Boulardii (Florastor) 250 mg PO DAILY [facility] Last Admin: 04/07/20 08:39 Dose: 250 mg Documented by: Sodium Chloride (Saline Flush) 10 ml FLUSH ONETIME PRN PRN Reason: IV FLUSH Last Admin: 04/06/20 12:55 Dose: 10 ml Documented by: Trazodone HCl (Trazodone) 25 mg PO BEDTIME PRN PRN Reason: Sleep Last Admin: 04/06/20 20:47 Dose: 25 mg Documented by: Discontinued Medications Albuterol (Proventil Neb Soln) 2.5 mg NEB ONETIME ONE Stop: 04/06/20 15:03 Last Admin: 04/06/20 15:11 Dose: 2.5 mg Documented by: Albuterol (Proventil Neb Soln) Confirm Administered Dose 2.5 mg .ROUTE .STK-MED ONE Stop: 04/06/20 15:06 Last Admin: 04/06/20 18:40 Dose: Not Given Documented by: Albuterol/Ipratropium (Duoneb 3.0-0.5 Mg/3 Ml) ml NEB TID PRN PRN Reason: Wheezing/SOB Bupivacaine HCl/Epinephrine Bitart (Marcaine 0.5%/Epinephrine 1:200,000) Confirm Administered Dose 50 ml .ROUTE .STK-MED ONE Stop: 04/06/20 15:20 Last Admin: 04/06/20 16:17 Dose: 30 ml Documented by: Diatrizoate Meglum/Diatrizoate Sod (Gastrografin 37%) 120 ml PO ONETIME ONE Stop: 04/06/20 12:36 Last Admin: 04/06/20 12:54 Dose: 45 ml Documented by: Ephedrine Sulfate (Ephedrine 25 Mg/5 Ml Syringe) Confirm Administered Dose 25 mg IV .STK-MED ONE Stop: 04/06/20 16:16 Fentanyl (Sublimaze) Confirm Administered Dose 250 mcg .ROUTE .STK-MED ONE Stop: 04/06/20 15:17 Glycopyrrolate (Robinul) Confirm Administered Dose 0.8 mg .ROUTE .STK-MED ONE Stop: 04/06/20 17:19 Sodium Chloride (Normal Saline) 1,000 mls @ 999 mls/hr IV ASDIRECTED [facility] Last Admin: 04/06/20 12:10 Dose: 999 mls/hr Documented by: Lactated Ringer's (Ringers, Lactated) 1,000 mls @ 150 mls/hr IV ASDIRECTED [facility] Piperacillin Sod/Tazobactam (Sod 4.5 gm/ Sodium Chloride) 100 mls @ 200 mls/hr IV ONETIME ONE Stop: 04/06/20 15:44 Last Admin: 04/06/20 15:26 Dose: 200 mls/hr Documented by: Sodium Chloride (Normal Saline) Confirm Administered Dose 1,000 mls @ as directed .ROUTE .STK-MED ONE Stop: 04/06/20 17:00 Lactated Ringer's (Ringers, Lactated) Confirm Administered Dose 1,000 mls @ as directed .ROUTE .STK-MED ONE Stop: 04/06/20 17:04 Iopamidol (Isovue-300 (61%)) 100 ml IVPUSH ONETIME ONE Stop: 04/06/20 12:36 Last Admin: 04/06/20 12:55 Dose: 100 ml Documented by: Labetalol HCl (Normodyne) Confirm Administered Dose 100 mg .ROUTE .STK-MED ONE Stop: 04/06/20 18:42 Last Admin: 04/06/20 20:36 Dose: Not Given Documented by: Lidocaine/Epinephrine (Xylocaine 1% With Epinephrine 1:100,000) Confirm Administered Dose 40 ml .ROUTE .STK-MED ONE Stop: 04/06/20 15:20 Last Admin: 04/06/20 16:17 Dose: 30 ml Documented by: Midazolam HCl (Versed 1 Mg/Ml) Confirm Administered Dose 2 mg .ROUTE .STK-MED ONE Stop: 04/06/20 15:17 Miscellaneous Medication (Phenylephrine 1 Mg/10 Ml-Ns) Confirm Administered Dose 1 mg IV .STK-MED ONE Stop: 04/06/20 16:15 Neostigmine Methylsulfate (Neostigmine Methylsulfate) Confirm Administered Dose 5 mg .ROUTE .STK-MED ONE Stop: 04/06/20 17:19 Non-Formulary Medication (Melatonin [Melatonin]) 10 mg PO 2100 [facility] Ondansetron HCl (Zofran) 4 mg IVPUSH ONETIME ONE Stop: 04/06/20 11:35 Last Admin: 04/06/20 12:08 Dose: 4 mg Documented by: Ondansetron HCl (Zofran) Confirm Administered Dose 4 mg .ROUTE .STK-MED ONE Stop: 04/06/20 15:17 Propofol (Diprivan 20 Ml) Confirm Administered Dose 200 mg .ROUTE .STK-MED ONE Stop: 04/06/20 15:17 Rocuronium [place] (Zemuron) Confirm Administered Dose 50 mg .ROUTE .[facility] Stop: 04/06/20 15:17
--- NOTE | 2020-04-07 12:38 | PCM48HPAN ---
Post Anesthesia Note - EVALUATION WITHIN 48HRS OF ANESTHETIC Vital Signs in Normal Range: Yes Patient Participated in Evaluation: No (visited with mother,. patient asleep) Respiratory Function Stable: Yes Airway Patent: Yes Cardiovascular Function Stable: Yes Hydration Status Stable: Yes Pain Control Satisfactory: Yes Nausea and Vomiting Control Satisfactory: Yes Mental Status Recovered: Yes Vital Signs: Last Vital Signs Temp 98.2 F 04/07/20 10:51 Pulse 87 04/07/20 10:40 Resp 16 04/07/20 10:40 BP 99/67 04/07/20 12:00 Pulse Ox 91 L 04/07/20 10:40 - COMMENTS/OBSERVATIONS Free Text/Narrative:: Mother states son is very weak when up today.
[2020-04-07] MEDS ORDERED: Divalproex Sodium Delayed-Release 250 MG Tab.CR PO SCH (14:00)
[2020-04-07] MEDS ORDERED: CLONIDINE TOP SCH (21:00)
[2020-04-07] MEDS ORDERED: REMOVE CLONIDINE TRDERM SCH (21:00)
[2020-04-09] MEDS ORDERED: Levothyroxine 50 MCG Tab PO SCH (06:30)
== END 2020-04-07 14:06 | disposition home or self-care (01) ==
LOC: JD.ED 11:09 → JD.SDS 15:16 → JD.MS 17:32
PROVIDERS: ADMIT Surgery; ATTEND Surgery
DX: K35.33 Acute appendicitis with perforation, localized peritonitis, and gangrene, with abscess (principal); J45.909 Unspecified asthma, uncomplicated; F41.9 Anxiety disorder, unspecified; F32.9 Major depressive disorder, single episode, unspecified; E03.9 Hypothyroidism, unspecified; G47.30 Sleep apnea, unspecified; Z79.899 Other long term (current) drug therapy; Z79.890 Hormone replacement therapy; Z88.8 Allergy status to other drugs, medicaments and biological substances
CPT/HCPCS: 36415; 44970; 51702; 71046; 74177; 80053; 81001; 85007; 85027; 86140; 87641; 93005; 94640; 94760; 96361; 96365; 96372; 96375; 99285; A9270; G0378; J0171; J1644; J2250; J2370; J2405; J2543; J2704; J2710; J3010; J3480; J3490; J7030; J7050; J7120; Q9963; Q9967; 00840; 93010

== ENCOUNTER 2020-04-08 11:03 | Emergency (ER) | payer BC ==
[2020-04-08] MEDS ORDERED: Sodium Chloride 0.9% 10 ML Syringe FLUSH PRN ×2 (11:20→11:46)
[2020-04-08] MEDS ORDERED: Naloxone 2 MG/2 ML Syringe IVPUSH ONE ×2 (11:20→13:49)
[2020-04-08] MEDS ORDERED: Dextrose 5%-0.9% NaCl 1,000 ML IV ONE (11:24)
[2020-04-08] MEDS ORDERED: Iopamidol 612 MG/ML 100 ML Bottle IVPUSH ONE ×2 (11:30→11:46)
--- NOTE | 2020-04-08 11:32 | EDM.PDOC ---
ED HPI GENERAL MEDICAL PROBLEM - General Chief Complaint: Respiratory Problem Stated Complaint: FEVER POST SURGERY Time Seen by Provider: 04/08/20 11:25 Source of Information: Reports: Patient, Family (mother), Old Records, RN Notes Reviewed History Limitations: Reports: No Limitations - History of Present Illness INITIAL COMMENTS - FREE TEXT/NARRATIVE: Patient is a 39-year-old male who presents to the ED for evaluation of a fever and unresponsiveness postop surgery. Patient was seen by me in this ER a few days ago, and found to have acute appendicitis. The surgeon did resect the appendix, and noted that it had ruptured and created a walled abscess. She was able to resect most of this damaged tissue away. Since then he has been doing okay, mother states that he was given oxycodone last night for pain management, and again this morning. The mother herself notes that the patient has a pretty high pain tolerance, and wonder if he is not overmedicated at this time, as he she got called this morning and was told that he was unresponsive. transfer from the wheelchair to the bed, but At the time of triage, he did help he is responsive only to sternal rubs, he does look at you, but then falls quickly back asleep. Patient does look like he is struggling somewhat to breathe however he is normally on oxygen 4 L nasal cannula, but nursing staff did place him on a 15 L nonrebreather, and right now he is 95%, tachycardic at 115-120. Patient's blood pressure is 147/110. It was reported that he had a fever, he does feel warm to the touch. - Related Data Allergies Allergy/AdvReac Type Severity Reaction Status Date / Time ziprasidone [From Geodon] Allergy Severe Edema Verified 04/08/20 11:28 risperidone [From Risperdal] Allergy Mild Cannot Verified 04/08/20 11:28 Remember dog dander Allergy Cannot Verified 04/08/20 11:28 Remember grass pollen Allergy Difficulty Verified 04/08/20 11:28 Breathing cats Allergy Difficulty Uncoded 04/08/20 11:28 Breathing Home Meds: Home Meds Acetaminophen 650 mg PO Q4HR PRN 12/10/18 [History] Divalproex Sodium [Depakote] 500 mg PO 07,21 12/10/18 [History] Levothyroxine 75 mcg PO MOTUWETHFR 12/10/18 [History] Levothyroxine [Synthroid] 50 mcg PO SUSA 12/10/18 [History] Loperamide [Imodium] 2 mg PO ASDIRECTED PRN 12/10/18 [History] Melatonin 10 mg PO 209912/10/18 [History] PARoxetine HCL [Paxil] 30 mg PO ,12/10/18 [History] allopurinoL [Zyloprim] 300 mg PO 209912/10/18 [History] cloNIDine [Catapres TTS-2] 0.2 mg TOP Q2D 12/10/18 [History] traZODone HCl [Trazodone HCl] 25 mg PO BEDTIME PRN 12/10/18 [History] Anti-Acid 2 - 4 tsp PO Q4H PRN 03/10/19 [History] Desmopressin 0.05 mg PO 209903/10/19 [History] Desmopressin 0.05 mg PO BEDTIME PRN 03/10/19 [History] Fexofenadine/Pseudoephedrine [Gris-D 24 Hour Tablet] 1 tab PO DAILY PRN 03/10/19 [History] Divalproex Sodium [Depakote] 250 mg PO 1400 06/04/19 [History] ARIPiprazole [Abilify] 5 mg PO TID@0800,1400,199908/26/19 [History] ARIPiprazole [Aripiprazole] 2 mg PO BID PRN 08/26/19 [History] Albuterol/Ipratropium [DuoNeb 3.0-0.5 MG/3 ML] 1 vial NEB TID PRN 08/26/19 [History] Ped Multivit 43/Iron Fumarate [Flintstones Complete Chew Tab] 1 tab PO QPM 08/27/19 [History] cloNIDine [Catapres TTS-2] 0.2 mg TOP Q3D 08/27/19 [History] Acetaminophen/Dextromethorphan [Robitussin Cough-Sore Throat] 0 ml PO DAILY PRN 04/06/20 [History] Bacillus Coagulans [Digestive Advantage Probiotic] 1 each PO DAILY 04/06/20 [History] Inulin/Chromium Picolinate [Fiber Gummies] 1 each PO DAILY 04/06/20 [History] Neomycin/Bacitracin/Polymyxinb [Antibiotic Ointment] 1 applic TP TID PRN 04/06/20 [History] oxyCODONE 5 mg PO Q4H PRN 14 Days #20 tablet 04/07/20 [Rx] polyethylene glycoL 3350 [MiraLAX] 17 gm PO DAILY PRN #30 packet 04/07/20 [Rx] Past Medical History HEENT History: Reports: Other (See Below) Other HEENT History: wears glasses Cardiovascular History: Reports: None Respiratory History: Reports: Asthma, Pneumonia, Recurrent, Sleep Apnea Other Respiratory History: wears bipap at night-4L O2--not always compliant. CPT Vest. 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, Anxiety, Depression, OCD Other Psychiatric History: developmentally delayed Endocrine/Metabolic History: Reports: Hypothyroidism Hematologic History: Reports: None Immunologic History: Reports: None Oncologic (Cancer) History: Reports: None Dermatologic History: Reports: Other (See Below) Other Dermatologic History: alopecia - Infectious Disease History Infectious Disease History: Reports: None - Past Surgical History HEENT Surgical History: Reports: None Social & Family History - Family History Family Medical History: Noncontributory - Tobacco Use Smoking Status *Q: Never Smoker - Caffeine Use Caffeine Use: Reports: None - Recreational Drug Use Recreational Drug Use: No - Living Situation & Occupation Living situation: Reports: Single, Assisted Living (at [facility]) Occupation: Disabled ED ROS GENERAL - Review of Systems Review Of Systems: Comprehensive ROS is negative, except as noted in HPI. ED EXAM, GENERAL - Physical Exam Exam: See Below Exam Limited By: No Limitations General Appearance: WD/WN, Mild Distress (pt appears to be struggling somewhat to breathe but is alert to sternal rub.) Eye Exam: Bilateral Eye: Normal Inspection, PERRL Respiratory/Chest: No Accessory Muscle Use, Chest Non-Tender, Respiratory Distress (mild), Decreased Breath Sounds (bilaterally), Rales (throughout bilateral lung gandhi). No: Wheezing Cardiovascular: Normal Peripheral Pulses, Regular Rate, Rhythm, No Murmur Peripheral Pulses: 2+: Radial (L), Radial (R) GI/Abdominal: Distended (generalized, abdomen feels somewhat tense and appears distended) Extremities: Normal Inspection, Normal Capillary Refill Skin Exam: Warm (warm to the touch), Dry, Intact, Normal Color, No Rash Course - Vital Signs Last Recorded V/S: Last Vital Signs Temp 98.5 F 04/08/20 11:20 Pulse 124 H 04/08/20 11:20 Resp 16 04/08/20 11:20 BP 147/110 H 04/08/20 11:20 Pulse Ox 63 L 04/08/20 11:20 - Orders/Labs/Meds Orders: Active Orders 24 hr Category Date Time Status Peripheral IV Care [RC] . DIRECTED Care 04/08/20 11:21 Active CBC WITH MANUAL DIFF [HEME] Stat Lab 04/08/20 11:30 Results CORONAVIRUS COVID-19 RAPID [MOLEC] Stat Lab 04/08/20 12:47 Ordered CULTURE BLOOD [BC] Stat Lab 04/08/20 12:10 Received CULTURE BLOOD [BC] Stat Lab 04/08/20 12:20 Received Dextrose 5%-0.9% NaCl [Dextrose 5%-Normal Saline] 1,000 Med 04/08/20 11:24 Active ml IV ASDIRECTED Ertapenem [INVanz] 1 gm Med 04/08/20 12:26 Active Sodium Chloride 0.9% [Normal Saline] 50 ml IV ONETIME Sodium Chloride 0.9% [Saline Flush] Med 04/08/20 11:20 Active 10 ml FLUSH ASDIRECTED PRN Sodium Chloride 0.9% [Saline Flush] Med 04/08/20 11:30 Active 10 ml FLUSH ONETIME PRN Sodium Chloride 0.9% [Saline Flush] Med 04/08/20 11:46 Active 10 ml FLUSH ONETIME PRN Blood Culture x2 Reflex Set [OM.PC] Stat Oth 04/08/20 11:22 Ordered Peripheral IV Insertion Adult [OM.PC] Routine Oth 04/08/20 11:20 Ordered Medication Orders Dextrose/Sodium Chloride (Dextrose 5%-Normal Saline) 1,000 mls @ 500 mls/hr IV ASDIRECTED ONE Stop: 04/08/20 13:23 Last Admin: 04/08/20 11:43 Dose: 500 mls/hr Documented by: GAL Ertapenem 1 gm/ Sodium (Chloride) 50 mls @ 100 mls/hr IV ONETIME ONE Stop: 04/08/20 12:55 Last Admin: 04/08/20 12:46 Dose: 100 mls/hr Documented by: GAL Sodium Chloride (Saline Flush) 10 ml FLUSH ASDIRECTED PRN PRN Reason: Keep Vein Open Last Admin: 04/08/20 11:56 Dose: 10 ml Documented by: GAL Sodium Chloride (Saline Flush) 10 ml FLUSH ONETIME PRN PRN Reason: IV FLUSH Last Admin: 04/08/20 12:03 Dose: 10 ml Documented by: Admin: 04/08/20 11:43 Dose: 10 ml Documented by: GAL Sodium Chloride (Saline Flush) 10 ml FLUSH ONETIME PRN PRN Reason: IV FLUSH Last Admin: 04/08/20 11:56 Dose: 10 ml Documented by: GAL Labs: Laboratory Tests 04/08/20 04/08/20 04/08/20 Range/Units 11:30 11:30 11:30 WBC 14.48 H (4.23-9.07) K/mm3 RBC 5.64 (4.63-6.08) M/mm3 Hgb 15.8 (13.7-17.5) gm/dl Hct 52.6 H (40.1-51.0) % MCV 93.3 H (79.0-92.2) fl MCH 28.0 (25.7-32.2) pg MCHC 30.0 L (32.2-35.5) g/dl RDW Std Deviation 62.6 H (35.1-43.9) fL Plt Count 180 (163-337) K/mm3 Sodium 134 L (136-145) mEq/L Potassium 4.6 (3.5-5.1) mEq/L Chloride 96 L (98-107) mEq/L Carbon Dioxide 34 H (21-32) mEq/L Anion Gap 8.6 (5-15) BUN 29 H (7-18) mg/dL Creatinine 1.2 (0.7-1.3) mg/dL Est Cr Clr Drug Dosing TNP Estimated GFR (MDRD) > 60 (>60) mL/min BUN/Creatinine Ratio 24.2 H (14-18) Glucose 110 H (74-106) mg/dL Lactic Acid 1.2 (0.4-2.0) mmol/L Calcium 9.9 (8.5-10.1) mg/dL Magnesium 2.0 (1.8-2.4) mg/dl Total Bilirubin 0.6 (0.2-1.0) mg/dL AST 70 H (15-37) U/L ALT 54 (16-63) U/L Alkaline Phosphatase 74 (46-116) U/L C-Reactive Protein 34.9 H* (<1.0) mg/dL Total Protein 7.4 (6.4-8.2) g/dl Albumin 2.2 L (3.4-5.0) g/dl Globulin 5.2 gm/dL Albumin/Globulin Ratio 0.4 L (1-2) Meds: Medications Generic Name Dose Route Start Last Admin Trade Name Masonq PRN Reason Stop Dose Admin Dextrose/Sodium Chloride 1,000 mls @ 500 mls/hr 04/08/20 11:24 04/08/20 11:43 Dextrose 5%-Normal Saline IV 04/08/20 13:23 500 mls/hr ASDIRECTED ONE Administration Ertapenem 1 gm/ Sodium 50 mls @ 100 mls/hr 04/08/20 12:26 04/08/20 12:46 Chloride IV 04/08/20 12:55 100 mls/hr ONETIME ONE Administration Sodium Chloride 10 ml 04/08/20 11:20 04/08/20 11:56 Saline Flush FLUSH 10 ml ASDIRECTED PRN Administration Keep Vein Open Sodium Chloride 10 ml 04/08/20 11:30 04/08/20 12:03 Saline Flush FLUSH 10 ml ONETIME PRN Administration IV FLUSH Sodium Chloride 10 ml 04/08/20 11:46 04/08/20 11:56 Saline Flush FLUSH 10 ml ONETIME PRN Administration IV FLUSH Discontinued Medications Generic Name Dose Route Start Last Admin Trade Name Freq PRN Reason Stop Dose Admin Iopamidol 100 ml 04/08/20 11:30 04/08/20 12:03 Isovue-300 (61%) IVPUSH 04/08/20 11:31 100 ml ONETIME ONE Administration Iopamidol 100 ml 04/08/20 11:46 Isovue-300 (61%) IVPUSH 04/08/20 11:47 ONETIME ONE Naloxone HCl 4 mg 04/08/20 11:20 04/08/20 11:43 Narcan IVPUSH 04/08/20 11:21 4 mg ONETIME ONE Administration Ondansetron HCl 4 mg 04/08/20 11:36 04/08/20 11:43 Zofran IVPUSH 04/08/20 11:37 4 mg ONETIME ONE Administration Ondansetron HCl Confirm 04/08/20 11:37 04/08/20 11:43 Zofran Administered 04/08/20 11:38 Not Given Dose 4 mg .ROUTE .[facility] ONE - Re-Assessments/Exams Free Text/Narrative Re-Assessment/Exam: 04/08/20 11:33 Patient presents to the ED for evaluation of his fever and unresponsiveness postop surgery. 4mg Narcan will be given along with some IV fluids, and a septic work-up to rule out further infection. I did read Dr. Chávez's note, and it does look like the patient's appendix had ruptured, and walled itself off with an abscess. Highly likely the patient has some sort of abdomen infection postop surgery. 04/08/20 11:41 Patient did wake up nicely after the 4 mg Narcan was given. He states "I am done now". He is able to converse with me after this medication. We will go forward with CT to evaluate for further postop infection. 04/08/20 12:34 Patient's labs have started to result, and his white count is elevated at 14,000.42. Manual differential is still pending, CMP is fairly unremarkable. Lactic is 1.2, CRP is still resulting at this time. And CT did show 3 different fluid collections within his abdomen and pelvis, that is uncertain if it could represent postop seromas or abscess. It is likely that these might be abscesses. I did call Dr. Chávez, his surgeon, and she states that he could likely be a candidate for a drain placement through IR at [facility] in [place], as she highly believes these could be abscesses as well. Have been in contact with [facility] in [place], and them awaiting to talk with interventional radiology and hospitalist for possible admission in their facility with a. The CT also demonstrated dilated small bowel loops most likely representing postop ileus which is probably true as well. I did appreciate small bowel loops on his CT. His chest x-ray demonstrates no acute intrathoracic process. Most of the changes were the stable changes seen. I did talk with Dr. Eldridge regarding IV antibiotics, and he suggest using a dose of IV Invanz at this time. I have ordered this; along with a rapid COVID screen so he can be sent to [place], he was negative prior to surgery, and I suspect that this is going to be negative again today. 04/08/20 12:48 Was able to talk with Dr. Thorpe, and he does accept for management at this time. Departure - Departure Time of Disposition: 12:49 Disposition: DC/Tfer to [facility] 02 Condition: Good Clinical Impression: Abdominal abscess - Discharge Information *PRESCRIPTION DRUG MONITORING PROGRAM REVIEWED*: No *COPY OF PRESCRIPTION DRUG MONITORING REPORT IN PATIENT HUMBERTO: No Referrals: Michaela Sanchze [employer] [Primary Care Provider] - Forms: ED Department Discharge Sepsis Event Note (ED) - Evaluation Sepsis Screening Result: No Definite Risk - Focused Exam Vital Signs: Vital Signs Temp Pulse Resp BP Pulse Ox 04/08/20 11:20 98.5 F 124 H 16 147/110 H 63 L - My Orders Last 24 Hours: My Active Orders 04/08/20 11:20 Sodium Chloride 0.9% [Saline Flush] 10 ml FLUSH ASDIRECTED PRN Peripheral IV Insertion Adult [OM.PC] Routine 04/08/20 11:21 Peripheral IV Care [RC] . DIRECTED 04/08/20 11:22 Blood Culture x2 Reflex Set [OM.PC] Stat 04/08/20 11:24 Dextrose 5%-0.9% NaCl [Dextrose 5%-Normal Saline] 1,000 ml IV ASDIRECTED 04/08/20 11:30 CBC WITH MANUAL DIFF [HEME] Stat Sodium Chloride 0.9% [Saline Flush] 10 ml FLUSH ONETIME PRN 04/08/20 11:46 Sodium Chloride 0.9% [Saline Flush] 10 ml FLUSH ONETIME PRN 04/08/20 12:10 CULTURE BLOOD [BC] Stat 04/08/20 12:20 CULTURE BLOOD [BC] Stat 04/08/20 12:26 Ertapenem [INVanz] 1 gm Sodium Chloride 0.9% [Normal Saline] 50 ml IV ONETIME 04/08/20 12:47 CORONAVIRUS COVID-19 RAPID [MOLEC] Stat - Assessment/Plan Last 24 Hours: My Active Orders 04/08/20 11:20 Sodium Chloride 0.9% [Saline Flush] 10 ml FLUSH ASDIRECTED PRN Peripheral IV Insertion Adult [OM.PC] Routine 04/08/20 11:21 Peripheral IV Care [RC] . DIRECTED 04/08/20 11:22 Blood Culture x2 Reflex Set [OM.PC] Stat 04/08/20 11:24 Dextrose 5%-0.9% NaCl [Dextrose 5%-Normal Saline] 1,000 ml IV ASDIRECTED 04/08/20 11:30 CBC WITH MANUAL DIFF [HEME] Stat Sodium Chloride 0.9% [Saline Flush] 10 ml FLUSH ONETIME PRN 04/08/20 11:46 Sodium Chloride 0.9% [Saline Flush] 10 ml FLUSH ONETIME PRN 04/08/20 12:10 CULTURE BLOOD [BC] Stat 04/08/20 12:20 CULTURE BLOOD [BC] Stat 04/08/20 12:26 Ertapenem [INVanz] 1 gm Sodium Chloride 0.9% [Normal Saline] 50 ml IV ONETIME 04/08/20 12:47 CORONAVIRUS COVID-19 RAPID [MOLEC] Stat
[2020-04-08] MEDS ORDERED: Ondansetron 4 MG/2 ML SDV IVPUSH ONE (11:36)
[2020-04-08] MEDS ORDERED: Ondansetron 4 MG/2 ML SDV ONE (11:37)
[2020-04-08] MEDS: Sodium Chloride 0.9% 10 ML Syringe FLUSH PRN ×2 (11:43→12:03)
--- NOTE | 2020-04-08 12:24 | CT ---
CT abdomen and pelvis Technique: Multiple axial sections were obtained from above the dome of the diaphragm inferiorly through the pubic symphysis. No oral contrast has been given. Intravenous contrast is seen within the kidneys. Comparison: Previous CT abdomen and pelvis study of 04/06/20. Findings: Increased density within both posterior lung bases is noted. This appears to be stable and appears to be chronic. Liver contains no focal abnormality. Spleen appears within normal limits. Pancreas shows no discrete abnormality. Aorta shows no aneurysm. Horseshoe kidney is noted. No hydronephrosis is seen. Dilated small bowel loops are seen most likely representing postop ileus. Fluid collection is seen off the tip of the cecum measuring approximately 4.9 x 3.7 cm. Inflammatory change is noted within the right lower abdomen most likely residual from previous surgery and previous appendicitis. Fluid collection is seen within the right lower abdomen measuring 5.4 cm. Separate fluid collection is seen within right inguinal hernia measuring 3.2 cm. Small amount of fluid is also seen more centrally within the lower pelvis measuring about 5.1 cm. Uncertain how many of these fluid collections represent abscess or postoperative seromas. Bone window settings were reviewed which show scoliosis within the spine. Nothing acute is appreciated. Impression: 1. 3 fluid collections within the pelvis as described above. Uncertain if this represents postop seromas or abscesses. 2. Dilated small bowel loops most likely representing postop ileus. 3. Chronic parenchymal densities within both lung bases. Diagnostic code #3 This report was dictated in MDT
[2020-04-08] MEDS ORDERED: Ertapenem 1 GM in Sodium Chloride 0.9% 50 ML IV ONE (12:26)
--- NOTE | 2020-04-08 12:31 | CR ---
Chest: 2 views of the chest were obtained. Comparison: Prior chest x-ray of 04/06/20. Diffuse increased density within portions of the chest which appear to be chronic. Elevated left hemidiaphragm is seen which is chronic. Scoliosis is noted. Impression: 1. No definite acute intrathoracic process is seen. Diagnostic code #2 This report was dictated in MDT
[2020-04-08] MEDS ORDERED: Naloxone 2 MG/2 ML Syringe ONE ×2 (13:49→13:50)
== END 2020-04-08 14:00 ==
LOC: JD.ED 11:03
DX: K65.1 Peritoneal abscess (principal); J45.909 Unspecified asthma, uncomplicated; M41.9 Scoliosis, unspecified; F41.9 Anxiety disorder, unspecified; F32.9 Major depressive disorder, single episode, unspecified; E03.9 Hypothyroidism, unspecified; Z88.8 Allergy status to other drugs, medicaments and biological substances; Z91.048 Other nonmedicinal substance allergy status; Z79.899 Other long term (current) drug therapy; Z11.59 Encounter for screening for other viral diseases
CPT/HCPCS: 36415; 71046; 74177; 80053; 83605; 83735; 85007; 85027; 86140; 87040; 87635; 96361; 96365; 96375; 96376; 99285; J1335; J2310; J2405; J7042; J7050; Q9967; 99284; U0002

== ENCOUNTER 2020-06-30 09:55 | Inpatient (IN) | payer BC ==
--- NOTE | 2020-06-30 10:25 | EDM.PDOC ---
ED HPI GENERAL MEDICAL PROBLEM - General Chief Complaint: Respiratory Problem Stated Complaint: DIFFICULTY BREATHING SENT BY CLINIC Time Seen by Provider: 06/30/20 10:16 Source of Information: Reports: RN Notes Reviewed, Other (caregiver) - History of Present Illness INITIAL COMMENTS - FREE TEXT/NARRATIVE: 39 yr old male has been brought in with 2 day hx of cough, intermitent fever. He is special needs, Hx of developmental delay, under the care of [facility], 11/02 staff to help provide the care that he needs. He has severe scoliosis. Is wheelchair and bedridden. Hx of several episodes of pneumonia in the last few yrs according to caregiver. Pt himself is not able to give a meaningful hx. - Related Data Allergies Allergy/AdvReac Type Severity Reaction Status Date / Time ziprasidone [From Geodon] Allergy Severe Edema Verified 06/30/20 10:07 risperidone [From Risperdal] Allergy Mild Cannot Verified 06/30/20 10:07 Remember dog dander Allergy Cannot Verified 06/30/20 10:07 Remember grass pollen Allergy Difficulty Verified 06/30/20 10:07 Breathing cats Allergy Difficulty Uncoded 04/08/20 11:28 Breathing Home Meds: Home Meds Acetaminophen 650 mg PO Q4HR PRN 12/10/18 [History] Divalproex Sodium [Depakote] 500 mg PO ,12/10/18 [History] Levothyroxine 75 mcg PO MOTUWETHFR 12/10/18 [History] Levothyroxine [Synthroid] 50 mcg PO SUSA 12/10/18 [History] Loperamide [Imodium] 2 mg PO ASDIRECTED PRN 12/10/18 [History] Melatonin 10 mg PO 209912/10/18 [History] PARoxetine HCL [Paxil] 30 mg PO ,14 12/10/18 [History] allopurinoL [Zyloprim] 300 mg PO 209912/10/18 [History] cloNIDine [Catapres TTS-2] 0.2 mg TOP Q2D 12/10/18 [History] traZODone HCl [Trazodone HCl] 25 mg PO BEDTIME PRN 12/10/18 [History] Anti-Acid 2 - 4 tsp PO Q4H PRN 03/10/19 [History] Desmopressin 0.05 mg PO 209903/10/19 [History] Desmopressin 0.05 mg PO BEDTIME PRN 03/10/19 [History] Fexofenadine/Pseudoephedrine [Gris-D 24 Hour Tablet] 1 tab PO DAILY PRN 03/10/19 [History] Divalproex Sodium [Depakote] 250 mg PO 1400 06/04/19 [History] ARIPiprazole [Abilify] 7.5 mg PO TID@0800,1400,2000 08/26/19 [History] ARIPiprazole [Aripiprazole] 2 mg PO BID PRN 08/26/19 [History] Albuterol/Ipratropium [DuoNeb 3.0-0.5 MG/3 ML] 1 vial NEB TID PRN 08/26/19 [History] Ped Multivit 43/Iron Fumarate [Flintstones Complete Chew Tab] 1 tab PO QPM 08/27/19 [History] cloNIDine [Catapres TTS-2] 0.2 mg TOP Q3D 08/27/19 [History] Acetaminophen/Dextromethorphan [Robitussin Cough-Sore Throat] 0 ml PO DAILY PRN 04/06/20 [History] Bacillus Coagulans [Digestive Advantage Probiotic] 1 each PO DAILY 04/06/20 [History] Inulin/Chromium Picolinate [Fiber Gummies] 1 each PO DAILY 04/06/20 [History] Neomycin/Bacitracin/Polymyxinb [Antibiotic Ointment] 1 applic TP TID PRN 04/06/20 [History] polyethylene glycoL 3350 [MiraLAX] 17 gm PO DAILY PRN #30 packet 04/07/20 [Rx] Past Medical History HEENT History: Reports: Other (See Below) Other HEENT History: wears glasses Cardiovascular History: Reports: None Respiratory History: Reports: Asthma, Pneumonia, Recurrent, Sleep Apnea Other Respiratory History: wears bipap at night-4L O2--not always compliant. CPT Vest. 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, Anxiety, Depression, OCD Other Psychiatric History: developmentally delayed Endocrine/Metabolic History: Reports: Hypothyroidism Hematologic History: Reports: None Immunologic History: Reports: None Oncologic (Cancer) History: Reports: None Dermatologic History: Reports: Other (See Below) Other Dermatologic History: alopecia - Infectious Disease History Infectious Disease History: Reports: None - Past Surgical History HEENT Surgical History: Reports: None Social & Family History - Family History Family Medical History: No Pertinent Family History - Caffeine Use Caffeine Use: Reports: None - Living Situation & Occupation Living situation: Reports: Single, Assisted Living (at [facility]) Occupation: Disabled ED ROS GENERAL - Review of Systems Review Of Systems: See Below Constitutional: Reports: Fever Respiratory: Reports: Cough GI/Abdominal: Denies: Abdominal Pain, Diarrhea, Vomiting Neurological: Reports: Weakness (chronic) ED EXAM, GENERAL - Physical Exam Exam: See Below Exam Limited By: Other (Hx developmental delay) General Appearance: Other (awake, NAD at time of exam) Throat/Mouth: Normal Inspection Neck: Supple Respiratory/Chest: Respiratory Distress (mild tachypnea), Rhonchi (mild bilat lower lungs gandhi) Cardiovascular: Regular Rate, Rhythm GI/Abdominal: Soft, Non-Tender Extremities: Normal Inspection, Normal Range of Motion Neurological: Alert, Oriented Skin Exam: Warm, Dry, Normal Color Course - Vital Signs Last Recorded V/S: Last Vital Signs Temp 98.0 F 06/30/20 10:28 Pulse 85 06/30/20 10:28 Resp 24 H 06/30/20 10:28 BP 114/76 06/30/20 10:28 Pulse Ox 93 L 06/30/20 10:28 - Orders/Labs/Meds Orders: Active Orders 24 hr Category Date Time Status Chest 1V Frontal [CR] Stat Exams 06/30/20 10:25 Taken CULTURE BLOOD [BC] Stat Lab 06/30/20 12:30 Received CULTURE BLOOD [BC] Stat Lab 06/30/20 12:43 Received Labs: Laboratory Tests 06/30/20 06/30/20 06/30/20 Range/Units 10:25 10:25 10:25 WBC 20.17 H (4.23-9.07) K/mm3 RBC 4.82 (4.63-6.08) M/mm3 Hgb 13.5 L D (13.7-17.5) gm/dl Hct 45.6 (40.1-51.0) % MCV 94.6 H (79.0-92.2) fl MCH 28.0 (25.7-32.2) pg MCHC 29.6 L (32.2-35.5) g/dl RDW Std Deviation 64.4 H (35.1-43.9) fL Plt Count 251 (163-337) K/mm3 MPV 11.5 (9.4-12.3) fl Neut % (Auto) 86.3 H (34.0-67.9) % Lymph % (Auto) 6.0 L (21.8-53.1) % Evangeline % (Auto) 6.8 (5.3-12.2) % Eos % (Auto) 0.6 L (0.8-7.0) Baso % (Auto) 0.1 (0.1-1.2) % Neut # (Auto) 17.38 H (1.78-5.38) K/mm3 Lymph # (Auto) 1.21 L (1.32-3.57) K/mm3 Evangeline # (Auto) 1.38 H (0.30-0.82) K/mm3 Eos # (Auto) 0.13 (0.04-0.54) K/mm3 Baso # (Auto) 0.02 (0.01-0.08) K/mm3 Manual Slide Review Abnormal smear D-Dimer, Quantitative (0.19-0.50) mg/L Puncture Site ABG pH (7.35-7.45) ABG pCO2 (35.0-45.0) mmHg ABG pO2 (80.0-100.0) mmHg ABG HCO3 (22.0-26.0) meq/L ABG O2 Saturation (96.0-97.0) % ABG Base Excess (-2-2.0) Lester Test A-a Gradient mmHg O2 Delivery Device Oxygen Flow Rate FiO2 (21.00-100.00) % Sodium 140 (136-145) mEq/L Potassium 4.2 (3.5-5.1) mEq/L Chloride 97 L (98-107) mEq/L Carbon Dioxide 40 H (21-32) mEq/L Anion Gap 7.2 (5-15) BUN 28 H (7-18) mg/dL Creatinine 1.0 (0.7-1.3) mg/dL Est Cr Clr Drug Dosing 100.16 mL/min Estimated GFR (MDRD) > 60 (>60) mL/min BUN/Creatinine Ratio 28.0 H (14-18) Glucose 90 (74-106) mg/dL Lactic Acid (0.4-2.0) mmol/L Calcium 9.7 (8.5-10.1) mg/dL Ferritin (26-388) ng/ml Total Bilirubin 0.6 (0.2-1.0) mg/dL AST 12 L (15-37) U/L ALT 13 L (16-63) U/L Alkaline Phosphatase 62 (46-116) U/L Lactate Dehydrogenase 195 (85-227) U/L C-Reactive Protein 9.1 H* (<1.0) mg/dL Total Protein 7.7 (6.4-8.2) g/dl Albumin 2.9 L (3.4-5.0) g/dl Globulin 4.8 gm/dL Albumin/Globulin Ratio 0.6 L (1-2) SARS-CoV-2 RNA (NOEMÍ) (NEGATIVE) 06/30/20 06/30/20 06/30/20 Range/Units 10:25 10:25 10:25 WBC (4.23-9.07) K/mm3 RBC (4.63-6.08) M/mm3 Hgb (13.7-17.5) gm/dl Hct (40.1-51.0) % MCV (79.0-92.2) fl MCH (25.7-32.2) pg MCHC (32.2-35.5) g/dl RDW Std Deviation (35.1-43.9) fL Plt Count (163-337) K/mm3 MPV (9.4-12.3) fl Neut % (Auto) (34.0-67.9) % Lymph % (Auto) (21.8-53.1) % Evangeline % (Auto) (5.3-12.2) % Eos % (Auto) (0.8-7.0) Baso % (Auto) (0.1-1.2) % Neut # (Auto) (1.78-5.38) K/mm3 Lymph # (Auto) (1.32-3.57) K/mm3 Evangeline # (Auto) (0.30-0.82) K/mm3 Eos # (Auto) (0.04-0.54) K/mm3 Baso # (Auto) (0.01-0.08) K/mm3 Manual Slide Review D-Dimer, Quantitative 1.21 H (0.19-0.50) mg/L Puncture Site ABG pH (7.35-7.45) ABG pCO2 (35.0-45.0) mmHg ABG pO2 (80.0-100.0) mmHg ABG HCO3 (22.0-26.0) meq/L ABG O2 Saturation (96.0-97.0) % ABG Base Excess (-2-2.0) Lester Test A-a Gradient mmHg O2 Delivery Device Oxygen Flow Rate FiO2 (21.00-100.00) % Sodium (136-145) mEq/L Potassium (3.5-5.1) mEq/L Chloride (98-107) mEq/L Carbon Dioxide (21-32) mEq/L Anion Gap (5-15) BUN (7-18) mg/dL Creatinine (0.7-1.3) mg/dL Est Cr Clr Drug Dosing mL/min Estimated GFR (MDRD) (>60) mL/min BUN/Creatinine Ratio (14-18) Glucose (74-106) mg/dL Lactic Acid 2.0 (0.4-2.0) mmol/L Calcium (8.5-10.1) mg/dL Ferritin 161 (26-388) ng/ml Total Bilirubin (0.2-1.0) mg/dL AST (15-37) U/L ALT (16-63) U/L Alkaline Phosphatase (46-116) U/L Lactate Dehydrogenase (85-227) U/L C-Reactive Protein (<1.0) mg/dL Total Protein (6.4-8.2) g/dl Albumin (3.4-5.0) g/dl Globulin gm/dL Albumin/Globulin Ratio (1-2) SARS-CoV-2 RNA (NOEMÍ) (NEGATIVE) 06/30/20 06/30/20 Range/Units 11:00 12:08 WBC (4.23-9.07) K/mm3 RBC (4.63-6.08) M/mm3 Hgb (13.7-17.5) gm/dl Hct (40.1-51.0) % MCV (79.0-92.2) fl MCH (25.7-32.2) pg MCHC (32.2-35.5) g/dl RDW Std Deviation (35.1-43.9) fL Plt Count (163-337) K/mm3 MPV (9.4-12.3) fl Neut % (Auto) (34.0-67.9) % Lymph % (Auto) (21.8-53.1) % Evangeline % (Auto) (5.3-12.2) % Eos % (Auto) (0.8-7.0) Baso % (Auto) (0.1-1.2) % Neut # (Auto) (1.78-5.38) K/mm3 Lymph # (Auto) (1.32-3.57) K/mm3 Evangeline # (Auto) (0.30-0.82) K/mm3 Eos # (Auto) (0.04-0.54) K/mm3 Baso # (Auto) (0.01-0.08) K/mm3 Manual Slide Review D-Dimer, Quantitative (0.19-0.50) mg/L Puncture Site Lt radial ABG pH 7.37 (7.35-7.45) ABG pCO2 71.3 H* (35.0-45.0) mmHg ABG pO2 66.0 L (80.0-100.0) mmHg ABG HCO3 40.3 H (22.0-26.0) meq/L ABG O2 Saturation 87.8 L (96.0-97.0) % ABG Base Excess 12.6 H (-2-2.0) Lester Test Positive A-a Gradient 101 mmHg O2 Delivery Device Nasal cannula Oxygen Flow Rate 4.0 FiO2 36.00 (21.00-100.00) % Sodium (136-145) mEq/L Potassium (3.5-5.1) mEq/L Chloride (98-107) mEq/L Carbon Dioxide (21-32) mEq/L Anion Gap (5-15) BUN (7-18) mg/dL Creatinine (0.7-1.3) mg/dL Est Cr Clr Drug Dosing mL/min Estimated GFR (MDRD) (>60) mL/min BUN/Creatinine Ratio (14-18) Glucose (74-106) mg/dL Lactic Acid (0.4-2.0) mmol/L Calcium (8.5-10.1) mg/dL Ferritin (26-388) ng/ml Total Bilirubin (0.2-1.0) mg/dL AST (15-37) U/L ALT (16-63) U/L Alkaline Phosphatase (46-116) U/L Lactate Dehydrogenase (85-227) U/L C-Reactive Protein (<1.0) mg/dL Total Protein (6.4-8.2) g/dl Albumin (3.4-5.0) g/dl Globulin gm/dL Albumin/Globulin Ratio (1-2) SARS-CoV-2 RNA (NOEMÍ) Negative (NEGATIVE) Meds: Medications Discontinued Medications Generic Name Dose Route Start Last Admin Trade Name Freq PRN Reason Stop Dose Admin Cefepime HCl 1 gm/ Premix 50 mls @ 100 mls/hr 06/30/20 12:20 06/30/20 12:54 IV 06/30/20 12:49 100 mls/hr ONETIME ONE Administration - Re-Assessments/Exams Free Text/Narrative Re-Assessment/Exam: 06/30/20 11:59 WVC 21,000, CRP 9, CXR shows bilateral lower lobe infiltrates. Have ordered another covid screen. He did have a neg screen from the clinic 1 or 2 days ago. Will order blood cultures times 2, Lactic acid and than IV abx. 06/30/20 12:38ABG's 66/7.37/71.3/40.3 on his uusual 4 L NC. Will plan to admit for further Rx. Lactic acid 2.0. Departure - Departure Time of Disposition: 12:45 Disposition: Admitted As Inpatient 67 Condition: Serious Clinical Impression: Restrictive lung disease due to kyphoscoliosis, Pervasive developmental disorder, active Pneumonia Qualifiers: Pneumonia type: due to unspecified organism Laterality: unspecified laterality Lung location: unspecified part of lung Qualified Code(s): J18.9 - Pneumonia, unspecified organism - Discharge Information Referrals: Michaela Sanchez NP [Primary Care Provider] - Forms: ED Department Discharge Sepsis Event Note (ED) - Focused Exam Vital Signs: Vital Signs Temp Pulse Resp BP Pulse Ox 06/30/20 10:28 98.0 F 85 24 H 114/76 93 L ED Communication - Discussed Case With (1) Discussed Case With (1): Admitting Provider (Discussed with ROBERT Nolan working with Dr Vee today, decision to admit at about 12:45) - My Orders Last 24 Hours: My Active Orders 06/30/20 10:25 Chest 1V Frontal [CR] Stat 06/30/20 12:30 CULTURE BLOOD [BC] Stat 06/30/20 12:43 CULTURE BLOOD [BC] Stat - Assessment/Plan Last 24 Hours: My Active Orders 06/30/20 10:25 Chest 1V Frontal [CR] Stat 06/30/20 12:30 CULTURE BLOOD [BC] Stat 06/30/20 12:43 CULTURE BLOOD [BC] Stat
[2020-06-30] MEDS ORDERED: Cefepime 1 GM in Premix Bag 1 BAG IV ONE (12:20)
[2020-06-30] MEDS ORDERED: Albuterol 0.083% 2.5 MG/3 ML Neb Soln NEB PRN (13:47)
[2020-06-30] MEDS ORDERED: Sodium Chloride 0.9% 10 ML Syringe FLUSH PRN (13:47)
[2020-06-30] MEDS ORDERED: Ondansetron 4 MG/2 ML SDV IV PRN (13:47)
[2020-06-30] MEDS ORDERED: HYDROmorphone 0.5 MG/0.5 ML Syringe IVPUSH PRN (13:47)
[2020-06-30] MEDS ORDERED: Acetaminophen 325 MG Tab PO PRN ×2 (13:47→18:31)
[2020-06-30] MEDS ORDERED: Magnesium Hydroxide 400 MG/5 ML Susp 30 ML Cup PO PRN (13:47)
[2020-06-30] MEDS ORDERED: Docusate Sodium 100 MG Cap PO PRN (13:47)
[2020-06-30] MEDS ORDERED: Piperacillin/Tazobactam 4.5 GM in Sodium Chloride 0.9% 100 ML IV ONE ×2 (13:55→16:00)
[2020-06-30] MEDS ORDERED: Levofloxacin/Dextrose 5%-Water 250 MG in Premix Bag 1 BAG IV SCH (14:00)
[2020-06-30] MEDS ORDERED: Piperacillin/Tazobactam 4.5 GM in Sodium Chloride 0.9% 100 ML IV SCH (14:00)
--- NOTE | 2020-06-30 14:33 | PCM.HP.2 ---
H&P History of Present Illness - General Date of Service: 06/30/20 Admit Problem/Dx: Admission Diagnosis/Problem Admission Diagnosis/Problem Pneumonia Source of Information: Provider, Other (Caregiver) History Limitations: Reports: No Limitations - History of Present Illness Initial Comments - Free Text/Narative: 39 yr old male has been brought in with 2 day hx of cough, intermitent fever. Patient was seen at the clinic 2 days ago because of complaints of a fever greater than 101. He also had began to develop a cough at that time. They did not do a chest x-ray at the clinic on that day. They did do a rapid Covid test as well as a send out Covid test both came back negative. He is special needs, Hx of developmental delay, under the care of [facility], 11/02 staff to help provide the care that he needs. He has severe scoliosis. His caregiver states that he is ambulatory and does not use any assistive devices. He does chronically use 4 L of oxygen per nasal cannula at home. Hx of several episodes of pneumonia in the last few yrs according to caregiver. He was also recently hospitalized according to his caregiver, within the last 2 months, due to complications from an appendectomy. He did spend his hospitalization at [facility] in [place] for this. Pt himself is not able to give a meaningful hx. Onset of Symptoms: Reports: Gradual - Related Data Allergies/Adverse Reactions: Allergies Allergy/AdvReac Type Severity Reaction Status Date / Time ziprasidone [From Geodon] Allergy Severe Edema Verified 06/30/20 10:07 risperidone [From Risperdal] Allergy Mild Cannot Verified 06/30/20 10:07 Remember dog dander Allergy Cannot Verified 06/30/20 10:07 Remember grass pollen Allergy Difficulty Verified 06/30/20 10:07 Breathing cats Allergy Difficulty Uncoded 04/08/20 11:28 Breathing Home Medications: Home Meds Acetaminophen 650 mg PO Q4HR PRN 12/10/18 [History] Divalproex Sodium [Depakote] 500 mg PO ,12/10/18 [History] Levothyroxine 75 mcg PO MOTUWETHFR 12/10/18 [History] Levothyroxine [Synthroid] 50 mcg PO SUSA 12/10/18 [History] Loperamide [Imodium] 2 mg PO ASDIRECTED PRN 12/10/18 [History] Melatonin 10 mg PO 209912/10/18 [History] PARoxetine HCL [Paxil] 30 mg PO 12/10/18 [History] allopurinoL [Zyloprim] 300 mg PO 209912/10/18 [History] cloNIDine [Catapres TTS-2] 0.2 mg TOP Q2D 12/10/18 [History] traZODone HCl [Trazodone HCl] 25 mg PO BEDTIME PRN 12/10/18 [History] Anti-Acid 2 - 4 tsp PO Q4H PRN 03/10/19 [History] Desmopressin 0.05 mg PO 209903/10/19 [History] Desmopressin 0.05 mg PO BEDTIME PRN 03/10/19 [History] Fexofenadine/Pseudoephedrine [Gris-D 24 Hour Tablet] 1 tab PO DAILY PRN 03/10/19 [History] Divalproex Sodium [Depakote] 250 mg PO 1400 06/04/19 [History] ARIPiprazole [Abilify] 7.5 mg PO TID@0800,1400,199908/26/19 [History] ARIPiprazole [Aripiprazole] 2 mg PO BID PRN 08/26/19 [History] Albuterol/Ipratropium [DuoNeb 3.0-0.5 MG/3 ML] 1 vial NEB TID PRN 08/26/19 [History] Ped Multivit 43/Iron Fumarate [Flintstones Complete Chew Tab] 1 tab PO QPM 08/27/19 [History] cloNIDine [Catapres TTS-2] 0.2 mg TOP Q3D 08/27/19 [History] Acetaminophen/Dextromethorphan [Robitussin Cough-Sore Throat] 0 ml PO DAILY PRN 04/06/20 [History] Bacillus Coagulans [Digestive Advantage Probiotic] 1 each PO DAILY 04/06/20 [History] Inulin/Chromium Picolinate [Fiber Gummies] 1 each PO DAILY 04/06/20 [History] Neomycin/Bacitracin/Polymyxinb [Antibiotic Ointment] 1 applic TP TID PRN 04/06/20 [History] polyethylene glycoL 3350 [MiraLAX] 17 gm PO DAILY PRN #30 packet 04/07/20 [Rx] Past Medical History HEENT History: Reports: Other (See Below) Other HEENT History: wears glasses Cardiovascular History: Reports: None Respiratory History: Reports: Asthma, Pneumonia, Recurrent, Sleep Apnea Other Respiratory History: wears bipap at night-4L O2--not always compliant. CPT Vest. 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, Anxiety, Depression, OCD Other Psychiatric History: developmentally delayed Endocrine/Metabolic History: Reports: Hypothyroidism Hematologic History: Reports: None Immunologic History: Reports: None Oncologic (Cancer) History: Reports: None Dermatologic History: Reports: Other (See Below) Other Dermatologic History: alopecia - Infectious Disease History Infectious Disease History: Reports: None - Past Surgical History Head Surgeries/Procedures: Reports: None HEENT Surgical History: Reports: None Respiratory Surgical History: Reports: None GI Surgical History: Reports: None Male Surgical History: Reports: None Endocrine Surgical History: Reports: None Musculoskeletal Surgical History: Reports: Other (See Below) Other Musculoskeletal Surgeries/Procedures:: left pinkie finger surgery Social & Family History - Family History Family Medical History: No Pertinent Family History - Tobacco Use Tobacco Use Status *Q: Never Tobacco User - Caffeine Use Caffeine Use: Reports: Soda - Recreational Drug Use Recreational Drug Use: No - Living Situation & Occupation Living situation: Reports: Single, Assisted Living (at [facility]) Occupation: Disabled H&P Review of Systems - Review of Systems: Review Of Systems: See Below General: Reports: Fever, Chills, Malaise HEENT: Reports: No Symptoms Pulmonary: Reports: Cough. Denies: Shortness of Breath, Wheezing, Pleuritic Chest Pain, Sputum, Hemoptysis Cardiovascular: Reports: No Symptoms Gastrointestinal: Reports: No Symptoms Genitourinary: Reports: No Symptoms Musculoskeletal: Reports: No Symptoms Skin: Reports: No Symptoms Psychiatric: Reports: No Symptoms, Other (Patient does have a history of developmental delay and is cared for by [facility]) Neurological: Reports: Pre-Existing Deficit, Trouble Speaking Hematologic/Lymphatic: Reports: No Symptoms Immunologic: Reports: No Symptoms Exam - Exam Exam: See Below - Vital Signs Vital Signs: Last Vital Signs Temp 98.0 F 06/30/20 10:28 Pulse 85 06/30/20 10:28 Resp 24 H 06/30/20 10:28 BP 114/76 06/30/20 10:28 Pulse Ox 93 L 06/30/20 10:28 Weight: 163 lb - Exam Quality Assessment: Supplemental Oxygen (Chronically wears oxygen at 4 L per nasal cannula) General: Alert, Cooperative, Other (Patient is nonverbal so I am unable to asse ss orientation.). No: Oriented HEENT: Conjunctiva Clear, EOMI, Mucosa Moist & [place] Neck: Supple, Trachea Midline Lungs: Normal Respiratory Effort, Decreased Breath Sounds, Rhonchi (Bilateral bases), Wheezing (Expiratory wheeze noted right upper lobe posteriorly) Cardiovascular: Regular Rate, Regular Rhythm, Normal S1, Normal S2 GI/Abdominal Exam: Normal Bowel Sounds, Soft, Non-Tender, No Distention (Male) Exam: Deferred Rectal (Males) Exam: Deferred Back Exam: Normal Inspection, Full Range of Motion Extremities: Normal Inspection, Normal Range of Motion, Non-Tender, No Pedal Edema, Normal Capillary Refill Peripheral Pulses: 2+: Radial (L), Radial (R) Skin: Warm, Dry, Intact Neuro Extensive - Mental Status: Alert, Normal Mood/Affect. No: Oriented x3 (Patient is nonverbal) Psychiatric: Alert, Normal Affect, Normal Mood - Patient Data Lab Results Last 24 hrs: Laboratory Results - last 24 hr 06/30/20 06/30/20 06/30/20 Range/Units 10:25 10:25 10:25 WBC 20.17 H (4.23-9.07) K/mm3 RBC 4.82 (4.63-6.08) M/mm3 Hgb 13.5 L D (13.7-17.5) gm/dl Hct 45.6 (40.1-51.0) % MCV 94.6 H (79.0-92.2) fl MCH 28.0 (25.7-32.2) pg MCHC 29.6 L (32.2-35.5) g/dl RDW Std Deviation 64.4 H (35.1-43.9) fL Plt Count 251 (163-337) K/mm3 MPV 11.5 (9.4-12.3) fl Neut % (Auto) 86.3 H (34.0-67.9) % Lymph % (Auto) 6.0 L (21.8-53.1) % Cass % (Auto) 6.8 (5.3-12.2) % Eos % (Auto) 0.6 L (0.8-7.0) Baso % (Auto) 0.1 (0.1-1.2) % Neut # (Auto) 17.38 H (1.78-5.38) K/mm3 Lymph # (Auto) 1.21 L (1.32-3.57) K/mm3 Cass # (Auto) 1.38 H (0.30-0.82) K/mm3 Eos # (Auto) 0.13 (0.04-0.54) K/mm3 Baso # (Auto) 0.02 (0.01-0.08) K/mm3 Manual Slide Review Abnormal smear D-Dimer, Quantitative (0.19-0.50) mg/L Puncture Site ABG pH (7.35-7.45) ABG pCO2 (35.0-45.0) mmHg ABG pO2 (80.0-100.0) mmHg ABG HCO3 (22.0-26.0) meq/L ABG O2 Saturation (96.0-97.0) % ABG Base Excess (-2-2.0) Lester Test A-a Gradient mmHg O2 Delivery Device Oxygen Flow Rate FiO2 (21.00-100.00) % Sodium 140 (136-145) mEq/L Potassium 4.2 (3.5-5.1) mEq/L Chloride 97 L (98-107) mEq/L Carbon Dioxide 40 H (21-32) mEq/L Anion Gap 7.2 (5-15) BUN 28 H (7-18) mg/dL Creatinine 1.0 (0.7-1.3) mg/dL Est Cr Clr Drug Dosing 100.16 mL/min Estimated GFR (MDRD) > 60 (>60) mL/min BUN/Creatinine Ratio 28.0 H (14-18) Glucose 90 (74-106) mg/dL Lactic Acid (0.4-2.0) mmol/L Calcium 9.7 (8.5-10.1) mg/dL Ferritin (26-388) ng/ml Total Bilirubin 0.6 (0.2-1.0) mg/dL AST 12 L (15-37) U/L ALT 13 L (16-63) U/L Alkaline Phosphatase 62 (46-116) U/L Lactate Dehydrogenase 195 (85-227) U/L C-Reactive Protein 9.1 H* (<1.0) mg/dL Total Protein 7.7 (6.4-8.2) g/dl Albumin 2.9 L (3.4-5.0) g/dl Globulin 4.8 gm/dL Albumin/Globulin Ratio 0.6 L (1-2) SARS-CoV-2 RNA (NOEMÍ) (NEGATIVE) 06/30/20 06/30/20 06/30/20 Range/Units 10:25 10:25 10:25 WBC (4.23-9.07) K/mm3 RBC (4.63-6.08) M/mm3 Hgb (13.7-17.5) gm/dl Hct (40.1-51.0) % MCV (79.0-92.2) fl MCH (25.7-32.2) pg MCHC (32.2-35.5) g/dl RDW Std Deviation (35.1-43.9) fL Plt Count (163-337) K/mm3 MPV (9.4-12.3) fl Neut % (Auto) (34.0-67.9) % Lymph % (Auto) (21.8-53.1) % Cass % (Auto) (5.3-12.2) % Eos % (Auto) (0.8-7.0) Baso % (Auto) (0.1-1.2) % Neut # (Auto) (1.78-5.38) K/mm3 Lymph # (Auto) (1.32-3.57) K/mm3 Cass # (Auto) (0.30-0.82) K/mm3 Eos # (Auto) (0.04-0.54) K/mm3 Baso # (Auto) (0.01-0.08) K/mm3 Manual Slide Review D-Dimer, Quantitative 1.21 H (0.19-0.50) mg/L Puncture Site ABG pH (7.35-7.45) ABG pCO2 (35.0-45.0) mmHg ABG pO2 (80.0-100.0) mmHg ABG HCO3 (22.0-26.0) meq/L ABG O2 Saturation (96.0-97.0) % ABG Base Excess (-2-2.0) Lester Test A-a Gradient mmHg O2 Delivery Device Oxygen Flow Rate FiO2 (21.00-100.00) % Sodium (136-145) mEq/L Potassium (3.5-5.1) mEq/L Chloride (98-107) mEq/L Carbon Dioxide (21-32) mEq/L Anion Gap (5-15) BUN (7-18) mg/dL Creatinine (0.7-1.3) mg/dL Est Cr Clr Drug Dosing mL/min Estimated GFR (MDRD) (>60) mL/min BUN/Creatinine Ratio (14-18) Glucose (74-106) mg/dL Lactic Acid 2.0 (0.4-2.0) mmol/L Calcium (8.5-10.1) mg/dL Ferritin 161 (26-388) ng/ml Total Bilirubin (0.2-1.0) mg/dL AST (15-37) U/L ALT (16-63) U/L Alkaline Phosphatase (46-116) U/L Lactate Dehydrogenase (85-227) U/L C-Reactive Protein (<1.0) mg/dL Total Protein (6.4-8.2) g/dl Albumin (3.4-5.0) g/dl Globulin gm/dL Albumin/Globulin Ratio (1-2) SARS-CoV-2 RNA (NOEMÍ) (NEGATIVE) 06/30/20 06/30/20 Range/Units 11:00 12:08 WBC (4.23-9.07) K/mm3 RBC (4.63-6.08) M/mm3 Hgb (13.7-17.5) gm/dl Hct (40.1-51.0) % MCV (79.0-92.2) fl MCH (25.7-32.2) pg MCHC (32.2-35.5) g/dl RDW Std Deviation (35.1-43.9) fL Plt Count (163-337) K/mm3 MPV (9.4-12.3) fl Neut % (Auto) (34.0-67.9) % Lymph % (Auto) (21.8-53.1) % Cass % (Auto) (5.3-12.2) % Eos % (Auto) (0.8-7.0) Baso % (Auto) (0.1-1.2) % Neut # (Auto) (1.78-5.38) K/mm3 Lymph # (Auto) (1.32-3.57) K/mm3 Cass # (Auto) (0.30-0.82) K/mm3 Eos # (Auto) (0.04-0.54) K/mm3 Baso # (Auto) (0.01-0.08) K/mm3 Manual Slide Review D-Dimer, Quantitative (0.19-0.50) mg/L Puncture Site Lt radial ABG pH 7.37 (7.35-7.45) ABG pCO2 71.3 H* (35.0-45.0) mmHg ABG pO2 66.0 L (80.0-100.0) mmHg ABG HCO3 40.3 H (22.0-26.0) meq/L ABG O2 Saturation 87.8 L (96.0-97.0) % ABG Base Excess 12.6 H (-2-2.0) Lester Test Positive A-a Gradient 101 mmHg O2 Delivery Device Nasal cannula Oxygen Flow Rate 4.0 FiO2 36.00 (21.00-100.00) % Sodium (136-145) mEq/L Potassium (3.5-5.1) mEq/L Chloride (98-107) mEq/L Carbon Dioxide (21-32) mEq/L Anion Gap (5-15) BUN (7-18) mg/dL Creatinine (0.7-1.3) mg/dL Est Cr Clr Drug Dosing mL/min Estimated GFR (MDRD) (>60) mL/min BUN/Creatinine Ratio (14-18) Glucose (74-106) mg/dL Lactic Acid (0.4-2.0) mmol/L Calcium (8.5-10.1) mg/dL Ferritin (26-388) ng/ml Total Bilirubin (0.2-1.0) mg/dL AST (15-37) U/L ALT (16-63) U/L Alkaline Phosphatase (46-116) U/L Lactate Dehydrogenase (85-227) U/L C-Reactive Protein (<1.0) mg/dL Total Protein (6.4-8.2) g/dl Albumin (3.4-5.0) g/dl Globulin gm/dL Albumin/Globulin Ratio (1-2) SARS-CoV-2 RNA (NOEMÍ) Negative (NEGATIVE) Result Diagrams: 06/30/20 10:25 06/30/20 10:25 Sepsis Event Note - Evaluation Sepsis Screening Result: Possible Sepsis Risk - Focused Exam Vital Signs: Vital Signs Temp Pulse Resp BP Pulse Ox 06/30/20 10:28 98.0 F 85 24 H 114/76 93 L - Problem List (1) Pneumonia SNOMED Code(s): 823258924 ICD Code: J18.9 - PNEUMONIA, UNSPECIFIED ORGANISM Status: Acute Priority: High Current Visit: Yes Qualifiers: Pneumonia type: due to unspecified organism Laterality: bilateral Lung location: lower lobe of lung Qualified Code(s): J18.9 - Pneumonia, unspecified organism (2) Restrictive lung disease due to kyphoscoliosis SNOMED Code(s): 493046264 ICD Code: J98.4 - OTHER DISORDERS OF LUNG; M41.9 - SCOLIOSIS, UNSPECIFIED Status: Chronic Priority: High Current Visit: Yes (3) Hypothyroidism SNOMED Code(s): 13306609 ICD Code: E03.9 - HYPOTHYROIDISM, UNSPECIFIED Status: Chronic Priority: Medium Current Visit: No Qualifiers: Hypothyroidism type: unspecified Qualified Code(s): E03.9 - Hypothyroidism, unspecified (4) Leukocytosis SNOMED Code(s): 421443782, 199109483 ICD Code: D72.829 - ELEVATED WHITE BLOOD CELL COUNT, UNSPECIFIED Status: Acute Priority: High Current Visit: Yes Qualifiers: Leukocytosis type: unspecified Qualified Code(s): D72.829 - Elevated white blood cell count, unspecified (5) Scoliosis SNOMED Code(s): 466147773 ICD Code: M41.9 - SCOLIOSIS, UNSPECIFIED Status: Chronic Priority: Medium Current Visit: No Qualifiers: Scoliosis type: unspecified scoliosis Spinal region: unspecified Qualified Code(s): M41.9 - Scoliosis, unspecified Problem List Initiated/Reviewed/Updated: Yes Orders Last 24hrs: Active Orders 24 hr Category Date Time Status Admission Status [Patient Status] [ADT] Routine ADT 12/10/20 13:22 Active Patient Status [ADT] Routine ADT 06/30/20 13:47 Active Height and Weight [RC] DAILY Care 06/30/20 13:47 Active Intake and Output [RC] QSHIFT Care 06/30/20 13:48 Active Oxygen Therapy [RC] PRN Care 06/30/20 13:47 Active Pulse Oximetry [RC] PRN Care 06/30/20 13:48 Active RT Aerosol Therapy [RC] ASDIRECTED Care 06/30/20 13:51 Active RT Chest Physiotherapy [RC] ASDIRECTED Care 06/30/20 14:27 Ordered Up With Assistance [RC] ASDIRECTED Care 06/30/20 13:47 Active VTE/DVT Education [RC] PER UNIT ROUTINE Care 06/30/20 13:47 Active Vital Signs [RC] Q4H Care 06/30/20 13:47 Active Consult to Case Management/Sociology Teacher [CONS] Cons 06/30/20 13:47 Active Routine OT Evaluation and Treatment [CONS] Routine Cons 06/30/20 13:47 Active PT Evaluation and Treatment [CONS] Routine Cons 06/30/20 13:47 Active Respiratory Care Assess and Treatment [CONS] Routine Cons 06/30/20 13:47 Active 2 Gram Sodium Diet [DIET] Diet 06/30/20 Dinner Active Chest 1V Frontal [CR] Stat Exams 06/30/20 10:25 Taken BASIC METABOLIC PANEL,BMP [CHEM] AM Lab 07/01/20 05:11 Ordered C-REACTIVE PROTEIN [CHEM] AM Lab 07/01/20 05:11 Ordered CBC WITH AUTO DIFF [HEME] AM Lab 07/01/20 05:11 Ordered CULTURE BLOOD [BC] Stat Lab 06/30/20 12:30 Received CULTURE BLOOD [BC] Stat Lab 06/30/20 12:43 Received MAGNESIUM [CHEM] AM Lab 07/01/20 05:11 Ordered PHOSPHORUS [CHEM] AM Lab 07/01/20 05:11 Ordered Acetaminophen [TylenoL] Med 06/30/20 13:47 Active 650 mg PO Q4H PRN Albuterol [Proventil Neb Soln] Med 06/30/20 13:47 Active 2.5 mg NEB Q2H PRN Docusate Sodium [Colace] Med 06/30/20 13:47 Active 100 mg PO BID PRN HYDROmorphone [Dilaudid] Med 06/30/20 13:47 Active 0.25 mg IVPUSH Q2H PRN Levofloxacin/Dextrose 5%-Water [Levaquin in D5W 250 MG/ Med 06/30/20 14:00 Active 50 ML] 250 mg Premix Bag 1 bag IV Q24H Magnesium Hydroxide [Milk of Magnesia] Med 06/30/20 13:47 Active 30 ml PO Q12H PRN Ondansetron [Zofran] Med 06/30/20 13:47 Active 4 mg IV Q4H PRN Piperacillin/Tazobactam [Piperacil-Tazobact] 4.5 gm Med 06/30/20 14:00 Active Sodium Chloride 0.9% [Normal Saline] 100 ml IV Q8H Sodium Chloride 0.9% [Saline Flush] Med 06/30/20 13:47 Active 10 ml FLUSH ASDIRECTED PRN Saline Lock Insert [OM.PC] Routine Oth 06/30/20 13:47 Ordered Resuscitation Status Routine Resus Stat 06/30/20 13:47 Ordered Medication Orders Acetaminophen (Tylenol) 650 mg PO Q4H PRN PRN Reason: Pain (Mild 1-3)/fever Albuterol (Proventil Neb Soln) 2.5 mg NEB Q2H PRN PRN Reason: Shortness Of Breath/wheezing Docusate Sodium (Colace) 100 mg PO BID PRN PRN Reason: Constipation Hydromorphone HCl (Dilaudid) 0.25 mg IVPUSH Q2H PRN PRN Reason: Pain (severe 7-10) Levofloxacin/Dextrose 250 mg/ (Premix) 50 mls @ 50 mls/hr IV Q24H [place] Piperacillin Sod/Tazobactam (Sod 4.5 gm/ Sodium Chloride) 100 mls @ 25 mls/hr IV Q8H [place] Magnesium Hydroxide (Milk Of Magnesia) 30 ml PO Q12H PRN PRN Reason: Constipation Ondansetron HCl (Zofran) 4 mg IV Q4H PRN PRN Reason: Nausea/Vomiting Sodium Chloride (Saline Flush) 10 ml FLUSH ASDIRECTED PRN PRN Reason: Keep Vein Open Assessment/Plan Comment:: 06/30/20 * 39-year-old male with a history of numerous episodes of pneumonia occurring over the last year or 2. * History of severe scoliosis contributing to restrictive lung disease and chronic CO2 retention. * Under the care of [facility], which is a 24/7 fci. * Initial vital signs in the ED show a temp of 98.0, pulse 85, respiratory rate 24, blood pressure 114/76, pulse ox is 93% on 4 L of oxygen per nasal cannula. * Labs in the ED revealed WBC 20.17, neutrophil percentage 86.3, lymphocyte percentage 6.0, platelet count 251, total bilirubin 0.6, LDH 195, C-reactive protein 9.1, D-dimer 1.21, lactic acid 2.0, ferritin 161, he is Covid negative. Blood cultures x2 were also collected. * Blood gases in the ER reveal pH 7.37, PCO2 71.3, PO2 66.0, bicarb 40.3, on 4 L of oxygen per nasal cannula. * Chest x-ray shows bilateral lower lobe infiltrates. * Patient was given a dose of cefepime in the emergency department. PLAN: * Will start Zosyn 4.5 g IV every 8 hours and Levaquin 750 mg every 24 hours. * Will await blood culture results. * Continue O2 at 4 L per nasal cannula respiratory therapy to titrate as needed to keep sats greater than 90%. * RT to continue chest physiotherapy. Will use patient's vest from home. * PT/OT to eval and treat. * At this time will not do a CTA for elevated D-dimer. Case was discussed with Dr. Aranda and he agrees that elevation is likely due to the pneumonia and inflammatory process. Patient is ambulatory so this also makes it unlikely that patient would have a DVT or PE. If the patient becomes symptomatic or requires more oxygen we will do a CTA at that time. * Repeat labs in the a.m. * Repeat chest x-ray and blood gases as needed. 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
[2020-06-30] MEDS ORDERED: Albuterol/Ipratropium 3.0-0.5 MG/3 ML Neb Soln NEB PRN (18:31)
[2020-06-30] MEDS ORDERED: Polyethylene Glycol 3350 Powder 17 GM Packet PO PRN (18:31)
[2020-06-30] MEDS ORDERED: traZODone 50 MG Tab PO PRN (18:31)
[2020-06-30] MEDS ORDERED: Bacitracin/Neomycin/Polymyxin B Oint 15 GM Tube TOP PRN (19:18)
[2020-06-30] MEDS ORDERED: cloNIDine 0.2 MG/Day Transdermal Patch TOP SCH ×2 (20:00→22:00)
[2020-06-30] MEDS: Allopurinol 300 MG Tab PO SCH (20:58)
[2020-06-30] MEDS: Famotidine 20 MG Tab PO SCH (20:58)
[2020-06-30] MEDS: Fluticasone Propionate Nasal Spray 16 GM Bottle NASBOTH SCH (21:00)
[2020-06-30] MEDS: ARIPiprazole 5 MG Tab PO SCH (21:00)
[2020-06-30] MEDS: Divalproex Sodium Delayed-Release 500 MG Tab.CR PO SCH (21:00)
[2020-06-30] MEDS: cloNIDine 0.2 MG/Day Transdermal Patch TOP SCH (21:01)
[2020-06-30] MEDS ORDERED: acetaZOLAMIDE 500 MG Vial IVPUSH ONE ×2 (21:51→23:45)
[2020-06-30] MEDS ORDERED: Furosemide 20 MG/2 ML VIAL IVPUSH ONE ×2 (21:55→23:45)
[2020-07-01] MEDS: Piperacillin/Tazobactam 4.5 GM in Sodium Chloride 0.9% 100 ML IV SCH ×4 (00:04→23:44)
[2020-07-01] MEDS: Divalproex Sodium Delayed-Release 500 MG Tab.CR PO SCH ×3 (06:28→21:16)
[2020-07-01] MEDS: Levothyroxine 75 MCG Tab PO SCH (06:28)
[2020-07-01] MEDS ORDERED: Loratadine 10 MG Tab PO PRN (07:05)
[2020-07-01] MEDS ORDERED: Pseudoephedrine 30 MG Tab PO PRN (07:08)
[2020-07-01] MEDS ORDERED: cloNIDine 0.2 MG/Day Transdermal Patch TOP SCH ×3 (07:30→21:00)
--- NOTE | 2020-07-01 08:39 | CR ---
Chest: Portable view of the chest was obtained. Comparison: Previous chest x-ray of 04/08/20. Chest CT study of 10/01/19 is also available. Scoliosis is noted within the spine. Parenchymal density is seen within the left chest. Slight increased parenchymal markings are noted within the right base. Heart size is stable. Upper mediastinum is stable. Impression: 1. Increased density within both sides of the chest. Parenchymal change within the left midlung appears more prominent than on prior study and difficult to exclude an area of pneumonia. 2. Other findings are stable. Diagnostic code #3
[2020-07-01] MEDS: Famotidine 20 MG Tab PO SCH ×2 (08:46→21:05)
[2020-07-01] MEDS: ARIPiprazole 5 MG Tab PO SCH ×3 (08:47→21:03)
[2020-07-01] MEDS: Fluticasone Propionate Nasal Spray 16 GM Bottle NASBOTH SCH ×2 (08:51→21:01)
[2020-07-01] MEDS: acetaZOLAMIDE 500 MG Vial IVPUSH SCH ×2 (08:51→21:06)
[2020-07-01] MEDS: Desmopressin 0.2 MG Tab PO SCH ×3 (09:18→21:57)
[2020-07-01] MEDS ORDERED: Magnesium Sulfate/Water 2 GM/50 ML BAG IV SCH ×2 (09:45→10:15)
[2020-07-01] MEDS: Divalproex Sodium Delayed-Release 250 MG Tab.CR PO SCH (14:48)
[2020-07-01] MEDS: Levofloxacin/Dextrose 5%-Water 750 MG in Premix Bag 1 BAG IV SCH (14:49)
[2020-07-01] MEDS ORDERED: Bisacodyl 5 MG Tab PO ONE (15:00)
[2020-07-01] MEDS: Albuterol/Ipratropium 3.0-0.5 MG/3 ML Neb Soln NEB SCH ×2 (15:02→21:11)
[2020-07-01] MEDS: Enoxaparin 60 MG/0.6 ML Syringe SUBCUT SCH (16:35)
[2020-07-01] MEDS: Melatonin 3 MG Tab PO SCH (21:05)
[2020-07-01] MEDS: Loperamide 2 MG Cap PO PRN (21:05)
[2020-07-01] MEDS: Allopurinol 300 MG Tab PO SCH (21:06)
[2020-07-01] MEDS ORDERED: Albuterol/Ipratropium 3.0-0.5 MG/3 ML Neb Soln ONE (21:21)
[2020-07-01] MEDS: cloNIDine 0.1 MG/Day Transdermal Patch TRDERM SCH (21:56)
[2020-07-02] MEDS: Albuterol/Ipratropium 3.0-0.5 MG/3 ML Neb Soln NEB SCH ×4 (03:21→20:43)
[2020-07-02] MEDS: Levothyroxine 50 MCG Tab PO SCH (05:34)
[2020-07-02] MEDS: Divalproex Sodium Delayed-Release 500 MG Tab.CR PO SCH ×2 (05:34→06:04)
[2020-07-02] MEDS: Piperacillin/Tazobactam 4.5 GM in Sodium Chloride 0.9% 100 ML IV SCH ×3 (08:44→23:54)
[2020-07-02] MEDS: Enoxaparin 60 MG/0.6 ML Syringe SUBCUT SCH (08:48)
[2020-07-02] MEDS: ARIPiprazole 5 MG Tab PO SCH ×3 (08:49→19:47)
[2020-07-02] MEDS: Famotidine 20 MG Tab PO SCH ×3 (08:49→20:46)
[2020-07-02] MEDS: Fluticasone Propionate Nasal Spray 16 GM Bottle NASBOTH SCH ×3 (10:38→20:46)
--- NOTE | 2020-07-02 11:57 | CR ---
Chest: Portable view of the chest was obtained. Comparison: Prior chest x-ray at 06/30/20. Increased density is noted throughout a large portion of the left chest. Left hemidiaphragm is elevated whivh is stable. Hiatal hernia is also noted. Findings are stable from prior exam. Increased density within the right chest is seen which is stable. Scoliosis is noted within the spine. No acute osseous finding is seen. Heart size and mediastinum are stable. Impression: 1. Numerous findings as noted above. 2. No change from most recent study is seen. Diagnostic code #3
--- NOTE | 2020-07-02 13:33 | PCM.PN ---
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 s: verbal and alert/ answers questions and states mild [place] despite o2. pulmonary vibration vest on and uncomfortable. 02 on 6 liters. 0:vss rr 30-50/// no gfr roncherous b.s bilaterally , severe scoliosis /diaphoretic/mildly pale cor rrr maria esther lusb no s3/s4 abd benign. neuro ao x 4 ms generally good strength but hypotonic overall/ mild contractures. skin normal lab crp 16/ cbc increased . xray increased white out rt lung severe scoliosis. no pleural effusions lytes : normal . a: pneumonia discussed findings with mom prev. hx of recurrent pneumonias over many years with known lung damage. discussed possible aspiration . restrictive lung disease also present with scoliosis and overall weakness . neuromuscular weakness . dehydration . possible sepsis cultures ng sf. p: cont current antibiotics zosyn and ciproflox for aspiration type coverage. cont i.v hydration . cont o2 to keep sats stable . cont nebs for now covid screen negative and discussed still possible covid and cont current precautions pt/ot. boh - Review of Systems General: Reports: Fever, Weakness, Fatigue, Malaise, Chills, Night Sweats, Appetite Pulmonary: Reports: Shortness of Breath, Cough, Wheezing Cardiovascular: Reports: No Symptoms Gastrointestinal: Reports: No Symptoms Genitourinary: Reports: No Symptoms Musculoskeletal: Reports: No Symptoms Skin: Reports: No Symptoms Neurological: Reports: No Symptoms Psychiatric: Reports: No Symptoms - Patient Data Vitals - Most Recent: Last Vital Signs Temp 36.4 C 07/02/20 07:32 Pulse 106 H 07/02/20 07:32 Resp 18 07/02/20 07:32 BP 102/56 L 07/02/20 07:32 Pulse Ox 91 L 07/02/20 09:17 Weight - Most Recent: 74.933 kg I&O - Last 24 Hours: Intake & Output 07/01/20 07/02/20 07/02/20 22:59 06:59 14:59 Intake Total 860 800 380 Output Total 1000 725 Balance -140 75 380 Lab Results Last 24 Hours: Laboratory Results - last 24 hr 07/01/20 07/01/20 07/01/20 Range/Units 04:33 04:33 13:00 WBC (4.23-9.07) K/mm3 RBC (4.63-6.08) M/mm3 Hgb (13.7-17.5) gm/dl Hct (40.1-51.0) % MCV (79.0-92.2) fl MCH (25.7-32.2) pg MCHC (32.2-35.5) g/dl RDW Std Deviation (35.1-43.9) fL Plt Count (163-337) K/mm3 MPV (9.4-12.3) fl Neut % (Auto) (34.0-67.9) % Lymph % (Auto) (21.8-53.1) % [place] % (Auto) (5.3-12.2) % Eos % (Auto) (0.8-7.0) Baso % (Auto) (0.1-1.2) % Neut # (Auto) (1.78-5.38) K/mm3 Lymph # (Auto) (1.32-3.57) K/mm3 [place] # (Auto) (0.30-0.82) K/mm3 Eos # (Auto) (0.04-0.54) K/mm3 Baso # (Auto) (0.01-0.08) K/mm3 Manual Slide Review Sodium (136-145) mEq/L Potassium (3.5-5.1) mEq/L Chloride (98-107) mEq/L Carbon Dioxide (21-32) mEq/L Anion Gap (5-15) BUN (7-18) mg/dL Creatinine (0.7-1.3) mg/dL Est Cr Clr Drug Dosing mL/min Estimated GFR (MDRD) (>60) mL/min BUN/Creatinine Ratio (14-18) Glucose (74-106) mg/dL Lactic Acid 0.7 (0.4-2.0) mmol/L Calcium (8.5-10.1) mg/dL Magnesium (1.8-2.4) mg/dl C-Reactive Protein (<1.0) mg/dL Procalcitonin 6.23 H ng/mL Mycoplasma pneumon IgM Negative (NEGATIVE) 07/02/20 07/02/20 Range/Units 05:55 05:55 WBC 10.04 H (4.23-9.07) K/mm3 RBC 4.12 L (4.63-6.08) M/mm3 Hgb 11.4 L (13.7-17.5) gm/dl Hct 40.0 L (40.1-51.0) % MCV 97.1 H (79.0-92.2) fl MCH 27.7 (25.7-32.2) pg MCHC 28.5 L (32.2-35.5) g/dl RDW Std Deviation 66.8 H (35.1-43.9) fL Plt Count 231 (163-337) K/mm3 MPV 12.0 (9.4-12.3) fl Neut % (Auto) 64.2 (34.0-67.9) % Lymph % (Auto) 24.1 (21.8-53.1) % [place] % (Auto) 6.9 (5.3-12.2) % Eos % (Auto) 4.4 (0.8-7.0) Baso % (Auto) 0.3 (0.1-1.2) % Neut # (Auto) 6.45 H (1.78-5.38) K/mm3 Lymph # (Auto) 2.42 (1.32-3.57) K/mm3 [place] # (Auto) 0.69 (0.30-0.82) K/mm3 Eos # (Auto) 0.44 (0.04-0.54) K/mm3 Baso # (Auto) 0.03 (0.01-0.08) K/mm3 Manual Slide Review Abnormal smear Sodium 142 (136-145) mEq/L Potassium 4.2 (3.5-5.1) mEq/L Chloride 103 (98-107) mEq/L Carbon Dioxide 34 H (21-32) mEq/L Anion Gap 9.2 (5-15) BUN 24 H (7-18) mg/dL Creatinine 1.1 (0.7-1.3) mg/dL Est Cr Clr Drug Dosing 91.05 mL/min Estimated GFR (MDRD) > 60 (>60) mL/min BUN/Creatinine Ratio 21.8 H (14-18) Glucose 94 (74-106) mg/dL Lactic Acid (0.4-2.0) mmol/L Calcium 9.3 (8.5-10.1) mg/dL Magnesium 2.3 (1.8-2.4) mg/dl C-Reactive Protein 9.9 H* (<1.0) mg/dL Procalcitonin ng/mL Mycoplasma pneumon IgM (NEGATIVE) Solomon Results Last 24 Hours: Microbiology 06/30/20 12:43 Aerobic Blood Culture - Preliminary Blood NO GROWTH AFTER 2 DAYS Anaerobic Blood Culture - Preliminary NO GROWTH AFTER 2 DAYS 06/30/20 12:30 Aerobic Blood Culture - Preliminary Blood NO GROWTH AFTER 2 DAYS Anaerobic Blood Culture - Preliminary NO GROWTH AFTER 2 DAYS Med Orders - Current: Current Medications Acetaminophen (Tylenol) 650 mg PO Q4HR PRN PRN Reason: Pain/Fever Albuterol (Proventil Neb Soln) 2.5 mg NEB Q2H PRN PRN Reason: Shortness Of Breath/wheezing Albuterol/Ipratropium (Duoneb 3.0-0.5 Mg/3 Ml) 3 ml NEB Q6HRRT [facility] Last Admin: 07/02/20 09:10 Dose: 3 ml Documented by: Allopurinol (Zyloprim) 300 mg PO 2100 [facility] Last Admin: 07/01/20 21:06 Dose: 300 mg Documented by: Aripiprazole (Abilify) 7.5 mg PO TID@0800,1400,2000 [facility] Last Admin: 07/02/20 08:49 Dose: 7.5 mg Documented by: Aripiprazole (Abilify) 2 mg PO BID PRN PRN Reason: Agitation Clonidine HCl (Catapres Tts-2) 0.2 mg TOP Q2D [facility] Last Admin: 06/30/20 21:01 Dose: 0.2 mg Documented by: Clonidine HCl (Catapres-Tts 1) 0.2 mg TRDERM Q2D [facility] Last Admin: 07/01/20 21:56 Dose: 0.2 mg Documented by: Desmopressin Acetate (Desmopressin) 0.05 mg PO 2100 [facility] Last Admin: 07/01/20 21:57 Dose: Not Given Documented by: Divalproex Sodium (Divalproex Sodium) 250 mg PO 1400 [facility] Last Admin: 07/01/20 14:48 Dose: 250 mg Documented by: Divalproex Sodium (Depakote) 500 mg PO 07, [facility] Last Admin: 07/02/20 06:04 Dose: Not Given Documented by: Docusate Sodium (Colace) 100 mg PO BID PRN PRN Reason: Constipation Enoxaparin Sodium (Lovenox) 60 mg SUBCUT DAILY [facility] Last Admin: 07/02/20 08:48 Dose: 60 mg Documented by: Famotidine (Pepcid) 20 mg PO BID [facility] Last Admin: 07/02/20 08:49 Dose: 20 mg Documented by: Fluticasone Propionate (Flonase) 0 gm NASBOTH BID [facility] Last Admin: 07/02/20 10:38 Dose: 1 spray Documented by: Hydromorphone HCl (Dilaudid) 0.25 mg IVPUSH Q2H PRN PRN Reason: Pain (severe 7-10) Piperacillin Sod/Tazobactam (Sod 4.5 gm/ Sodium Chloride) 100 mls @ 25 mls/hr IV Q8H [facility] Last Admin: 07/02/20 08:44 Dose: 25 mls/hr Documented by: Levofloxacin/Dextrose 750 mg/ (Premix) 150 mls @ 100 mls/hr IV Q24H [facility] Last Admin: 07/01/20 14:49 Dose: 100 mls/hr Documented by: Levothyroxine Sodium (Levothyroxine) 75 mcg PO MoTuWeThFr@0600 [facility] Last Admin: 07/01/20 06:28 Dose: 75 mcg Documented by: Levothyroxine Sodium (Synthroid) 50 mcg PO SuSa@0600 [facility] Last Admin: 07/02/20 05:34 Dose: 50 mcg Documented by: Loperamide HCl (Imodium) 2 mg PO Q4H PRN PRN Reason: Diarrhea Last Admin: 07/01/20 21:05 Dose: 2 mg Documented by: Loratadine (Claritin) 10 mg PO DAILY PRN PRN Reason: runny nose Magnesium Hydroxide (Milk Of Magnesia) 30 ml PO Q12H PRN PRN Reason: Constipation Melatonin (Melatonin) 9 mg PO 2100 [facility] Last Admin: 07/01/20 21:05 Dose: 9 mg Documented by: Miscellaneous Information (Remove Patch) 1 ea TRDERM Q48H [facility] Miscellaneous Information (Remove Patch) 1 ea TRDERM Q3D [place] Neomycin/Polymyxin/Bacitracin (Neosporin Oint) 0 gm TOP TID PRN PRN Reason: Minor Wounds Ondansetron HCl (Zofran) 4 mg IV Q4H PRN PRN Reason: Nausea/Vomiting Paroxetine HCl (Paxil) 30 mg PO 08,14 [facility] Last Admin: 07/02/20 08:48 Dose: 30 mg Documented by: Polyethylene Glycol (Miralax) 17 gm PO DAILY PRN PRN Reason: Constipation Pseudoephedrine HCl (Sudogest) 60 mg PO Q6H PRN PRN Reason: CONGESTION Sodium Chloride (Saline Flush) 10 ml FLUSH ASDIRECTED PRN PRN Reason: Keep Vein Open Trazodone HCl (Trazodone) 25 mg PO BEDTIME PRN PRN Reason: Sleep Discontinued Medications Acetaminophen (Tylenol) 650 mg PO Q4H PRN PRN Reason: Pain (Mild 1-3)/fever Acetazolamide (Diamox) 250 mg IVPUSH Q12HR [facility] Stop: 07/01/20 21:01 Last Admin: 07/01/20 21:06 Dose: 250 mg Documented by: Acetazolamide (Diamox) 250 mg IVPUSH ONETIME ONE Stop: 06/30/20 23:46 Last Admin: 07/01/20 00:16 Dose: 250 mg Documented by: Albuterol/Ipratropium (Duoneb 3.0-0.5 Mg/3 Ml) 3 ml NEB TID PRN PRN Reason: Wheezing/SOB Last Admin: 07/01/20 09:21 Dose: 3 ml Documented by: Albuterol/Ipratropium (Duoneb 3.0-0.5 Mg/3 Ml) Confirm Administered Dose 3 ml .ROUTE .STK-MED ONE Stop: 07/01/20 21:22 Last Admin: 07/01/20 21:26 Dose: Not Given Documented by: Bisacodyl (Dulcolax) 5 mg PO ONETIME ONE Stop: 07/01/20 15:01 Last Admin: 07/01/20 14:48 Dose: 5 mg Documented by: Clonidine HCl (Catapres Tts-2) 0.2 mg TOP Q3D [place] Clonidine HCl (Catapres Tts-2) 0.2 mg TOP Q2D [place] Furosemide (Lasix) 10 mg IVPUSH NOW ONE Stop: 06/30/20 23:46 Last Admin: 07/01/20 00:12 Dose: 10 mg Documented by: Cefepime HCl 1 gm/ Premix 50 mls @ 100 mls/hr IV ONETIME ONE Stop: 06/30/20 12:49 Last Admin: 06/30/20 12:54 Dose: 100 mls/hr Documented by: Levofloxacin/Dextrose 250 mg/ (Premix) 50 mls @ 50 mls/hr IV Q24H [facility] Last Admin: 06/30/20 14:27 Dose: 50 mls/hr Documented by: Piperacillin Sod/Tazobactam (Sod 4.5 gm/ Sodium Chloride) 100 mls @ 25 mls/hr IV Q8H [facility] Last Admin: 06/30/20 15:30 Dose: Not Given Documented by: Piperacillin Sod/Tazobactam (Sod 4.5 gm/ Sodium Chloride) 100 mls @ 200 mls/hr IV ONETIME ONE Stop: 06/30/20 16:29 Last Admin: 06/30/20 16:06 Dose: 200 mls/hr Documented by: Magnesium Sulfate (Magnesium Sulfate In Water Premix) 2 gm in 50 mls @ 25 mls/hr IV Q1H [facility] Last Admin: 07/01/20 11:06 Dose: Not Given Documented by: Magnesium Sulfate (Magnesium Sulfate In Water Premix) 2 gm in 50 mls @ 25 mls/hr IV Q1H [facility] Stop: 07/01/20 11:14 Last Admin: 07/01/20 10:24 Dose: 25 mls/hr Documented by: Miscellaneous Information (Remove Patch) 1 ea TRDERM BEDTIME [facility] Last Admin: 06/30/20 21:03 Dose: 1 ea Documented by: - Exam General: Alert, Oriented, Moderate Distress, Severe Distress HEENT: Pupils Equal, Pupils Reactive, EOMI, Mucous Membr. Moist/[place] Neck: Supple Lungs: Decreased Breath Sounds, Rales, Rhonchi, Wheezing Cardiovascular: Regular Rate, Regular Rhythm GI/Abdominal Exam: Normal Bowel Sounds, Soft, Non-Tender, No Organomegaly, No Distention, No Abnormal Bruit, No Mass, Pelvis Stable (Male) Exam: No Hernia, Normal Inspection, Normal Prostate, Circumcised Back Exam: Normal Inspection, Full Range of Motion Extremities: Normal Inspection, Normal Range of Motion, Non-Tender, No Pedal Edema, Normal Capillary Refill Skin: Warm, Dry, Intact Wound/Incisions: Healing Well Neurological: No New Focal Deficit Psy/Mental Status: Alert, Normal Affect, Normal Mood Sepsis Event Note - Evaluation Sepsis Screening Result: No Definite Risk - Focused Exam Vital Signs: Vital Signs Temp Pulse Resp BP Pulse Ox Pulse Ox 07/02/20 09:17 91 L 07/02/20 07:32 36.4 C 106 H 18 102/56 L 91 L 07/02/20 05:25 36.5 C 54 L 24 H 90/63 89 L 07/02/20 03:20 92 L - Problem List & Annotations (1) Leukocytosis SNOMED Code(s): 153657311, 225051836 Code(s): D72.829 - ELEVATED WHITE BLOOD CELL COUNT, UNSPECIFIED Status: Acute Priority: High Current Visit: Yes Onset Date: ~07/01/20 Qualifiers: Leukocytosis type: unspecified Qualified Code(s): D72.829 - Elevated white blood cell count, unspecified (2) Pervasive developmental disorder, active SNOMED Code(s): 48972437 Code(s): F84.9 - PERVASIVE DEVELOPMENTAL DISORDER, UNSPECIFIED Status: Acute Priority: Low Current Visit: Yes Onset Date: ~07/01/20 (3) Pneumonia SNOMED Code(s): 698471034 Code(s): J18.9 - PNEUMONIA, UNSPECIFIED ORGANISM Status: Acute Priority: High Current Visit: Yes Onset Date: ~07/01/20 Qualifiers: Pneumonia type: aspiration pneumonia Laterality: bilateral Lung location: lower lobe of lung Annotation/Comment:: 39 year old male with possible aspiration episode . (4) Acute on chronic respiratory failure with hypoxemia SNOMED Code(s): 67203014606751024 Code(s): J96.21 - ACUTE AND CHRONIC RESPIRATORY FAILURE WITH HYPOXIA Status: Acute Priority: Medium Current Visit: No Onset Date: ~07/01/20 - Problem List Review Problem List Initiated/Reviewed/Updated: Yes - My Orders Last 24 Hours: My Active Orders 07/01/20 20:32 Loperamide [Imodium] 2 mg PO Q4H PRN 07/01/20 21:00 cloNIDine [Catapres-TTS 1] 0.2 mg TRDERM Q2D - Plan Plan:: 06/30/20 * 39-year-old male with a history of numerous episodes of pneumonia occurring over the last year or 2. * History of severe scoliosis contributing to restrictive lung disease and chronic CO2 retention. * Under the care of [facility], which is a 24/ long term. * Initial vital signs in the ED show a temp of 98.0, pulse 85, respiratory rate 24, blood pressure 114/76, pulse ox is 93% on 4 L of oxygen per nasal cannula. * Labs in the ED revealed WBC 20.17, neutrophil percentage 86.3, lymphocyte percentage 6.0, platelet count 251, total bilirubin 0.6, LDH 195, C-reactive protein 9.1, D-dimer 1.21, lactic acid 2.0, ferritin 161, he is Covid negative. Blood cultures x2 were also collected. * Blood gases in the ER reveal pH 7.37, PCO2 71.3, PO2 66.0, bicarb 40.3, on 4 L of oxygen per nasal cannula. * Chest x-ray shows bilateral lower lobe infiltrates. * Patient was given a dose of cefepime in the emergency department. PLAN: * Will start Zosyn 4.5 g IV every 8 hours and Levaquin 750 mg every 24 hours. * Will await blood culture results. * Continue O2 at 4 L per nasal cannula respiratory therapy to titrate as needed to keep sats greater than 90%. * RT to continue chest physiotherapy. Will use patient's vest from home. * PT/OT to eval and treat. * At this time will not do a CTA for elevated D-dimer. Case was discussed with Dr. Aranda and he agrees that elevation is likely due to the pneumonia and inflammatory process. Patient is ambulatory so this also makes it unlikely that patient would have a DVT or PE. If the patient becomes symptomatic or requires more oxygen we will do a CTA at that time. * Repeat labs in the a.m. * Repeat chest x-ray and blood gases as needed. * community services coordinator and case management for discharge planning.s: afebrile /vss 2 episodes of tach requiring beta jodee. 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 s: verbal and alert/ answers questions and states mild [place] despite o2. pulmonary vibration vest on and uncomfortable. 02 on 6 liters. 0:vss rr 30-50/// no gfr roncherous b.s bilaterally , severe scoliosis /diaphoretic/mildly pale cor rrr maria esther lusb no s3/s4 abd benign. neuro ao x 4 ms generally good strength but hypotonic overall/ mild contractures. skin normal lab crp 16/ cbc increased . xray increased white out rt lung severe scoliosis. no pleural effusions lytes : normal . a: pneumonia discussed findings with mom prev. hx of recurrent pneumonias over many years with known lung damage. discussed possible aspiration . restrictive lung disease also present with scoliosis and overall weakness . neuromuscular weakness . dehydration . possible sepsis cultures ng sf. p: cont current antibiotics zosyn and ciproflox for aspiration type coverage. cont i.v hydration . cont o2 to keep sats stable . cont nebs for now covid screen negative and discussed still possible covid and cont current precautions pt/ot. boh
--- NOTE | 2020-07-02 13:48 | PCM.PN ---
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 s: verbal and alert/ answers questions and states mild [place] despite o2. pulmonary vibration vest on and uncomfortable. 02 on 6 liters. 0:vss rr 30-50/// no gfr roncherous b.s bilaterally , severe scoliosis /diaphoretic/mildly pale cor rrr maria esther lusb no s3/s4 abd benign. neuro ao x 4 ms generally good strength but hypotonic overall/ mild contractures. skin normal lab crp 16/ cbc increased . xray increased white out rt lung severe scoliosis. no pleural effusions lytes : normal . a: pneumonia discussed findings with mom prev. hx of recurrent pneumonias over many years with known lung damage. discussed possible aspiration . restrictive lung disease also present with scoliosis and overall weakness . neuromuscular weakness . dehydration . possible sepsis cultures ng sf. p: cont current antibiotics zosyn and ciproflox for aspiration type coverage. cont i.v hydration . cont o2 to keep sats stable . cont nebs for now covid screen negative and discussed still possible covid and cont current precautions pt/ot. boh 07/02/20 s doing better more alert and weaned down to 4 l n.c. resp clearer but few crackles .m.s scoliosis severe and unchanged cor less tachicardia / no s3/s4 perfusion good . neuro sleepy . melendez . no discussion today (tired) lab pending. a//P : pneumonia improved recheck xray in am. apperent aspiration episode. dehydration resolved. poor po intake will monitor .cont zosyn and ciproflox. Functional Status: Reports: Pain Controlled - Review of Systems General: Reports: No Symptoms, Fever, Weakness, Fatigue HEENT: Reports: No Symptoms Pulmonary: Reports: No Symptoms, Shortness of Breath, Cough, Wheezing Cardiovascular: Reports: No Symptoms Gastrointestinal: Reports: No Symptoms Genitourinary: Reports: No Symptoms Musculoskeletal: Reports: No Symptoms Skin: Reports: No Symptoms Neurological: Reports: No Symptoms Psychiatric: Reports: No Symptoms - Patient Data Vitals - Most Recent: Last Vital Signs Temp 36.4 C 07/02/20 07:32 Pulse 106 H 07/02/20 07:32 Resp 18 07/02/20 07:32 BP 102/56 L 07/02/20 07:32 Pulse Ox 91 L 07/02/20 09:17 Weight - Most Recent: 74.933 kg I&O - Last 24 Hours: Intake & Output 07/01/20 07/02/20 07/02/20 22:59 06:59 14:59 Intake Total 860 800 380 Output Total 1000 725 Balance -140 75 380 Lab Results Last 24 Hours: Laboratory Results - last 24 hr 07/01/20 07/01/20 07/02/20 Range/Units 04:33 04:33 05:55 WBC 10.04 H (4.23-9.07) K/mm3 RBC 4.12 L (4.63-6.08) M/mm3 Hgb 11.4 L (13.7-17.5) gm/dl Hct 40.0 L (40.1-51.0) % MCV 97.1 H (79.0-92.2) fl MCH 27.7 (25.7-32.2) pg MCHC 28.5 L (32.2-35.5) g/dl RDW Std Deviation 66.8 H (35.1-43.9) fL Plt Count 231 (163-337) K/mm3 MPV 12.0 (9.4-12.3) fl Neut % (Auto) 64.2 (34.0-67.9) % Lymph % (Auto) 24.1 (21.8-53.1) % [place] % (Auto) 6.9 (5.3-12.2) % Eos % (Auto) 4.4 (0.8-7.0) Baso % (Auto) 0.3 (0.1-1.2) % Neut # (Auto) 6.45 H (1.78-5.38) K/mm3 Lymph # (Auto) 2.42 (1.32-3.57) K/mm3 [place] # (Auto) 0.69 (0.30-0.82) K/mm3 Eos # (Auto) 0.44 (0.04-0.54) K/mm3 Baso # (Auto) 0.03 (0.01-0.08) K/mm3 Manual Slide Review Abnormal smear Sodium (136-145) mEq/L Potassium (3.5-5.1) mEq/L Chloride (98-107) mEq/L Carbon Dioxide (21-32) mEq/L Anion Gap (5-15) BUN (7-18) mg/dL Creatinine (0.7-1.3) mg/dL Est Cr Clr Drug Dosing mL/min Estimated GFR (MDRD) (>60) mL/min BUN/Creatinine Ratio (14-18) Glucose (74-106) mg/dL Calcium (8.5-10.1) mg/dL Magnesium (1.8-2.4) mg/dl C-Reactive Protein (<1.0) mg/dL Procalcitonin 6.23 H ng/mL Mycoplasma pneumon IgM Negative (NEGATIVE) 07/02/20 Range/Units 05:55 WBC (4.23-9.07) K/mm3 RBC (4.63-6.08) M/mm3 Hgb (13.7-17.5) gm/dl Hct (40.1-51.0) % MCV (79.0-92.2) fl MCH (25.7-32.2) pg MCHC (32.2-35.5) g/dl RDW Std Deviation (35.1-43.9) fL Plt Count (163-337) K/mm3 MPV (9.4-12.3) fl Neut % (Auto) (34.0-67.9) % Lymph % (Auto) (21.8-53.1) % [place] % (Auto) (5.3-12.2) % Eos % (Auto) (0.8-7.0) Baso % (Auto) (0.1-1.2) % Neut # (Auto) (1.78-5.38) K/mm3 Lymph # (Auto) (1.32-3.57) K/mm3 [place] # (Auto) (0.30-0.82) K/mm3 Eos # (Auto) (0.04-0.54) K/mm3 Baso # (Auto) (0.01-0.08) K/mm3 Manual Slide Review Sodium 142 (136-145) mEq/L Potassium 4.2 (3.5-5.1) mEq/L Chloride 103 (98-107) mEq/L Carbon Dioxide 34 H (21-32) mEq/L Anion Gap 9.2 (5-15) BUN 24 H (7-18) mg/dL Creatinine 1.1 (0.7-1.3) mg/dL Est Cr Clr Drug Dosing 91.05 mL/min Estimated GFR (MDRD) > 60 (>60) mL/min BUN/Creatinine Ratio 21.8 H (14-18) Glucose 94 (74-106) mg/dL Calcium 9.3 (8.5-10.1) mg/dL Magnesium 2.3 (1.8-2.4) mg/dl C-Reactive Protein 9.9 H* (<1.0) mg/dL Procalcitonin ng/mL Mycoplasma pneumon IgM (NEGATIVE) Solomon Results Last 24 Hours: Microbiology 06/30/20 12:43 Aerobic Blood Culture - Preliminary Blood NO GROWTH AFTER 2 DAYS Anaerobic Blood Culture - Preliminary NO GROWTH AFTER 2 DAYS 06/30/20 12:30 Aerobic Blood Culture - Preliminary Blood NO GROWTH AFTER 2 DAYS Anaerobic Blood Culture - Preliminary NO GROWTH AFTER 2 DAYS Med Orders - Current: Current Medications Acetaminophen (Tylenol) 650 mg PO Q4HR PRN PRN Reason: Pain/Fever Albuterol (Proventil Neb Soln) 2.5 mg NEB Q2H PRN PRN Reason: Shortness Of Breath/wheezing Albuterol/Ipratropium (Duoneb 3.0-0.5 Mg/3 Ml) 3 ml NEB Q6HRRT [facility] Last Admin: 07/02/20 09:10 Dose: 3 ml Documented by: Allopurinol (Zyloprim) 300 mg PO 2100 [facility] Last Admin: 07/01/20 21:06 Dose: 300 mg Documented by: Aripiprazole (Abilify) 7.5 mg PO TID@0800,1400,2000 [facility] Last Admin: 07/02/20 08:49 Dose: 7.5 mg Documented by: Aripiprazole (Abilify) 2 mg PO BID PRN PRN Reason: Agitation Clonidine HCl (Catapres Tts-2) 0.2 mg TOP Q2D [facility] Last Admin: 06/30/20 21:01 Dose: 0.2 mg Documented by: Clonidine HCl (Catapres-Tts 1) 0.2 mg TRDERM Q2D [facility] Last Admin: 07/01/20 21:56 Dose: 0.2 mg Documented by: Desmopressin Acetate (Desmopressin) 0.05 mg PO 2100 [facility] Last Admin: 07/01/20 21:57 Dose: Not Given Documented by: Divalproex Sodium (Divalproex Sodium) 250 mg PO 1400 [facility] Last Admin: 07/01/20 14:48 Dose: 250 mg Documented by: Divalproex Sodium (Depakote) 500 mg PO 07,21 [facility] Last Admin: 07/02/20 06:04 Dose: Not Given Documented by: Docusate Sodium (Colace) 100 mg PO BID PRN PRN Reason: Constipation Enoxaparin Sodium (Lovenox) 60 mg SUBCUT DAILY [facility] Last Admin: 07/02/20 08:48 Dose: 60 mg Documented by: Famotidine (Pepcid) 20 mg PO BID [facility] Last Admin: 07/02/20 08:49 Dose: 20 mg Documented by: Fluticasone Propionate (Flonase) 0 gm NASBOTH BID [facility] Last Admin: 07/02/20 10:38 Dose: 1 spray Documented by: Hydromorphone HCl (Dilaudid) 0.25 mg IVPUSH Q2H PRN PRN Reason: Pain (severe 7-10) Piperacillin Sod/Tazobactam (Sod 4.5 gm/ Sodium Chloride) 100 mls @ 25 mls/hr IV Q8H [facility] Last Admin: 07/02/20 08:44 Dose: 25 mls/hr Documented by: Levofloxacin/Dextrose 750 mg/ (Premix) 150 mls @ 100 mls/hr IV Q24H [facility] Last Admin: 07/01/20 14:49 Dose: 100 mls/hr Documented by: Levothyroxine Sodium (Levothyroxine) 75 mcg PO MoTuWeThFr@0600 [facility] Last Admin: 07/01/20 06:28 Dose: 75 mcg Documented by: Levothyroxine Sodium (Synthroid) 50 mcg PO SuSa@0600 [facility] Last Admin: 07/02/20 05:34 Dose: 50 mcg Documented by: Loperamide HCl (Imodium) 2 mg PO Q4H PRN PRN Reason: Diarrhea Last Admin: 07/01/20 21:05 Dose: 2 mg Documented by: Loratadine (Claritin) 10 mg PO DAILY PRN PRN Reason: runny nose Magnesium Hydroxide (Milk Of Magnesia) 30 ml PO Q12H PRN PRN Reason: Constipation Melatonin (Melatonin) 9 mg PO 2100 [facility] Last Admin: 07/01/20 21:05 Dose: 9 mg Documented by: Miscellaneous Information (Remove Patch) 1 ea TRDERM Q48H [facility] Miscellaneous Information (Remove Patch) 1 ea TRDERM Q3D [facility] Neomycin/Polymyxin/Bacitracin (Neosporin Oint) 0 gm TOP TID PRN PRN Reason: Minor Wounds Ondansetron HCl (Zofran) 4 mg IV Q4H PRN PRN Reason: Nausea/Vomiting Paroxetine HCl (Paxil) 30 mg PO 08,14 [facility] Last Admin: 07/02/20 08:48 Dose: 30 mg Documented by: Polyethylene Glycol (Miralax) 17 gm PO DAILY PRN PRN Reason: Constipation Pseudoephedrine HCl (Sudogest) 60 mg PO Q6H PRN PRN Reason: CONGESTION Sodium Chloride (Saline Flush) 10 ml FLUSH ASDIRECTED PRN PRN Reason: Keep Vein Open Trazodone HCl (Trazodone) 25 mg PO BEDTIME PRN PRN Reason: Sleep Discontinued Medications Acetaminophen (Tylenol) 650 mg PO Q4H PRN PRN Reason: Pain (Mild 1-3)/fever Acetazolamide (Diamox) 250 mg IVPUSH Q12HR [facility] Stop: 07/01/20 21:01 Last Admin: 07/01/20 21:06 Dose: 250 mg Documented by: Acetazolamide (Diamox) 250 mg IVPUSH ONETIME ONE Stop: 06/30/20 23:46 Last Admin: 07/01/20 00:16 Dose: 250 mg Documented by: Albuterol/Ipratropium (Duoneb 3.0-0.5 Mg/3 Ml) 3 ml NEB TID PRN PRN Reason: Wheezing/SOB Last Admin: 07/01/20 09:21 Dose: 3 ml Documented by: Albuterol/Ipratropium (Duoneb 3.0-0.5 Mg/3 Ml) Confirm Administered Dose 3 ml .ROUTE .STK-MED ONE Stop: 07/01/20 21:22 Last Admin: 07/01/20 21:26 Dose: Not Given Documented by: Bisacodyl (Dulcolax) 5 mg PO ONETIME ONE Stop: 07/01/20 15:01 Last Admin: 07/01/20 14:48 Dose: 5 mg Documented by: Clonidine HCl (Catapres Tts-2) 0.2 mg TOP Q3D [place] Clonidine HCl (Catapres Tts-2) 0.2 mg TOP Q2D [place] Furosemide (Lasix) 10 mg IVPUSH NOW ONE Stop: 06/30/20 23:46 Last Admin: 07/01/20 00:12 Dose: 10 mg Documented by: Cefepime HCl 1 gm/ Premix 50 mls @ 100 mls/hr IV ONETIME ONE Stop: 06/30/20 12:49 Last Admin: 06/30/20 12:54 Dose: 100 mls/hr Documented by: Levofloxacin/Dextrose 250 mg/ (Premix) 50 mls @ 50 mls/hr IV Q24H [facility] Last Admin: 06/30/20 14:27 Dose: 50 mls/hr Documented by: Piperacillin Sod/Tazobactam (Sod 4.5 gm/ Sodium Chloride) 100 mls @ 25 mls/hr IV Q8H [facility] Last Admin: 06/30/20 15:30 Dose: Not Given Documented by: Piperacillin Sod/Tazobactam (Sod 4.5 gm/ Sodium Chloride) 100 mls @ 200 mls/hr IV ONETIME ONE Stop: 06/30/20 16:29 Last Admin: 06/30/20 16:06 Dose: 200 mls/hr Documented by: Magnesium Sulfate (Magnesium Sulfate In Water Premix) 2 gm in 50 mls @ 25 mls/hr IV Q1H [facility] Last Admin: 07/01/20 11:06 Dose: Not Given Documented by: Magnesium Sulfate (Magnesium Sulfate In Water Premix) 2 gm in 50 mls @ 25 mls/hr IV Q1H [place] Stop: 07/01/20 11:14 Last Admin: 07/01/20 10:24 Dose: 25 mls/hr Documented by: Miscellaneous Information (Remove Patch) 1 ea TRDERM BEDTIME [facility] Last Admin: 06/30/20 21:03 Dose: 1 ea Documented by: - Exam Quality Assessment: Supplemental Oxygen General: Alert, Oriented HEENT: Pupils Equal, Pupils Reactive, EOMI, Mucous Membr. Moist/[place] Neck: Supple Lungs: Clear to Auscultation, Normal Respiratory Effort, Decreased Breath Soun ds, Crackles, Rales Cardiovascular: Regular Rate, Regular Rhythm GI/Abdominal Exam: Normal Bowel Sounds, Soft, Non-Tender, No Organomegaly, No Distention, No Abnormal Bruit, No Mass, Pelvis Stable (Male) Exam: No Hernia, Normal Inspection, Normal Prostate, Circumcised Back Exam: Normal Inspection, Full Range of Motion Extremities: Normal Inspection, Normal Range of Motion, Non-Tender, No Pedal Edema, Normal Capillary Refill Skin: Warm, Dry, Intact Wound/Incisions: Healing Well Neurological: No New Focal Deficit Psy/Mental Status: Alert, Normal Affect, Normal Mood Sepsis Event Note - Evaluation Sepsis Screening Result: No Definite Risk - Focused Exam Vital Signs: Vital Signs Temp Pulse Resp BP Pulse Ox Pulse Ox 07/02/20 09:17 91 L 07/02/20 07:32 36.4 C 106 H 18 102/56 L 91 L 07/02/20 05:25 36.5 C 54 L 24 H 90/63 89 L 07/02/20 03:20 92 L - Problem List & Annotations (1) Leukocytosis SNOMED Code(s): 116819154, 129757453 Code(s): D72.829 - ELEVATED WHITE BLOOD CELL COUNT, UNSPECIFIED Status: Acute Priority: High Current Visit: Yes Onset Date: ~07/01/20 Qualifiers: Leukocytosis type: unspecified Qualified Code(s): D72.829 - Elevated white blood cell count, unspecified Annotation/Comment:: crp decreased form 16 to 9 (2) Pervasive developmental disorder, active SNOMED Code(s): 47411885 Code(s): F84.9 - PERVASIVE DEVELOPMENTAL DISORDER, UNSPECIFIED Status: Acute Priority: Low Current Visit: Yes Onset Date: ~07/01/20 (3) Pneumonia SNOMED Code(s): 542479012 Code(s): J18.9 - PNEUMONIA, UNSPECIFIED ORGANISM Status: Acute Priority: High Current Visit: Yes Onset Date: ~07/01/20 Qualifiers: Pneumonia type: aspiration pneumonia Laterality: bilateral Lung location: lower lobe of lung Annotation/Comment:: 39 year old male with possible aspiration episode . (4) Acute on chronic respiratory failure with hypoxemia SNOMED Code(s): 69801642349854522 Code(s): J96.21 - ACUTE AND CHRONIC RESPIRATORY FAILURE WITH HYPOXIA Status: Acute Priority: Medium Current Visit: No Onset Date: ~07/01/20 - Problem List Review Problem List Initiated/Reviewed/Updated: Yes - My Orders Last 24 Hours: My Active Orders 07/01/20 20:32 Loperamide [Imodium] 2 mg PO Q4H PRN 07/01/20 21:00 cloNIDine [Catapres-TTS 1] 0.2 mg TRDERM Q2D - Plan Plan:: 06/30/20 * 39-year-old male with a history of numerous episodes of pneumonia occurring over the last year or 2. * History of severe scoliosis contributing to restrictive lung disease and chronic CO2 retention. * Under the care of [facility], which is a 11/02 retirement. * Initial vital signs in the ED show a temp of 98.0, pulse 85, respiratory rate 24, blood pressure 114/76, pulse ox is 93% on 4 L of oxygen per nasal cannula. * Labs in the ED revealed WBC 20.17, neutrophil percentage 86.3, lymphocyte percentage 6.0, platelet count 251, total bilirubin 0.6, LDH 195, C-reactive protein 9.1, D-dimer 1.21, lactic acid 2.0, ferritin 161, he is Covid negative. Blood cultures x2 were also collected. * Blood gases in the ER reveal pH 7.37, PCO2 71.3, PO2 66.0, bicarb 40.3, on 4 L of oxygen per nasal cannula. * Chest x-ray shows bilateral lower lobe infiltrates. * Patient was given a dose of cefepime in the emergency department. PLAN: * Will start Zosyn 4.5 g IV every 8 hours and Levaquin 750 mg every 24 hours. * Will await blood culture results. * Continue O2 at 4 L per nasal cannula respiratory therapy to titrate as needed to keep sats greater than 90%. * RT to continue chest physiotherapy. Will use patient's vest from home. * PT/OT to eval and treat. * At this time will not do a CTA for elevated D-dimer. Case was discussed with Dr. Aranda and he agrees that elevation is likely due to the pneumonia and inflammatory process. Patient is ambulatory so this also makes it unlikely that patient would have a DVT or PE. If the patient becomes symptomatic or requires more oxygen we will do a CTA at that time. * Repeat labs in the a.m. * Repeat chest x-ray and blood gases as needed. * medical staff services coordinator and case management for discharge planning.s: afebrile /vss 2 episodes of tach requiring beta jodee. 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 s: verbal and alert/ answers questions and states mild [place] despite o2. pulmonary vibration vest on and uncomfortable. 02 on 6 liters. 0:vss rr 30-50/// no gfr roncherous b.s bilaterally , severe scoliosis /diaphoretic/mildly pale cor rrr maria esther lusb no s3/s4 abd benign. neuro ao x 4 ms generally good strength but hypotonic overall/ mild contractures. skin normal lab crp 16/ cbc increased . xray increased white out rt lung severe scoliosis. no pleural effusions lytes : normal . a: pneumonia discussed findings with mom prev. hx of recurrent pneumonias over many years with known lung damage. discussed possible aspiration . restrictive lung disease also present with scoliosis and overall weakness . neuromuscular weakness . dehydration . possible sepsis cultures ng sf. p: cont current antibiotics zosyn and ciproflox for aspiration type coverage. cont i.v hydration . cont o2 to keep sats stable . cont nebs for now covid screen negative and discussed still possible covid and cont current precautions pt/ot. boh
[2020-07-02] MEDS: Levofloxacin/Dextrose 5%-Water 750 MG in Premix Bag 1 BAG IV SCH (14:51)
[2020-07-02] MEDS: Divalproex Sodium Delayed-Release 250 MG Tab.CR PO SCH (14:52)
[2020-07-02] MEDS: Allopurinol 300 MG Tab PO SCH ×2 (19:47→23:56)
[2020-07-02] MEDS: Melatonin 3 MG Tab PO SCH ×2 (19:47→20:46)
[2020-07-02] MEDS: cloNIDine 0.2 MG/Day Transdermal Patch TOP SCH ×2 (19:48→23:55)
[2020-07-03] MEDS: Albuterol/Ipratropium 3.0-0.5 MG/3 ML Neb Soln NEB SCH ×4 (03:13→20:37)
[2020-07-03] MEDS: Levothyroxine 50 MCG Tab PO SCH (05:04)
[2020-07-03] MEDS: Divalproex Sodium Delayed-Release 500 MG Tab.CR PO SCH ×3 (05:05→20:13)
[2020-07-03] MEDS: Piperacillin/Tazobactam 4.5 GM in Sodium Chloride 0.9% 100 ML IV SCH ×3 (08:28→22:53)
[2020-07-03] MEDS: Famotidine 20 MG Tab PO SCH ×2 (08:28→20:07)
[2020-07-03] MEDS: Fluticasone Propionate Nasal Spray 16 GM Bottle NASBOTH SCH ×2 (08:28→20:14)
[2020-07-03] MEDS: Enoxaparin 60 MG/0.6 ML Syringe SUBCUT SCH (08:28)
[2020-07-03] MEDS: ARIPiprazole 5 MG Tab PO SCH ×3 (08:55→20:02)
--- NOTE | 2020-07-03 11:30 | PCM.PN ---
- General Info Date of Service: 07/03/20 Admission Dx/Problem (Free Text): Admission Diagnosis/Problem Admission Diagnosis/Problem Pneumonia/resp failure Subjective Update: 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 s: verbal and alert/ answers questions and states mild [place] despite o2. pulmonary vibration vest on and uncomfortable. 02 on 6 liters. 0:vss rr 30-50/// no gfr roncherous b.s bilaterally , severe scoliosis /diaphoretic/mildly pale cor rrr maria esther lusb no s3/s4 abd benign. neuro ao x 4 ms generally good strength but hypotonic overall/ mild contractures. skin normal lab crp 16/ cbc increased . xray increased white out rt lung severe scoliosis. no pleural effusions lytes : normal . a: pneumonia discussed findings with mom prev. hx of recurrent pneumonias over many years with known lung damage. discussed possible aspiration . restrictive lung disease also present with scoliosis and overall weakness . neuromuscular weakness . dehydration . possible sepsis cultures ng sf. p: cont current antibiotics zosyn and ciproflox for aspiration type coverage. cont i.v hydration . cont o2 to keep sats stable . cont nebs for now covid screen negative and discussed still possible covid and cont current precautions pt/ot. boh 07/02/20 s doing better more alert and weaned down to 4 l n.c. resp clearer but few crackles .m.s scoliosis severe and unchanged cor less tachicardia / no s3/s4 perfusion good . neuro sleepy . melendez . no discussion today (tired) lab pending. a//P : pneumonia improved recheck xray in am. apparent aspiration episode. dehydration resolved. poor po intake will monitor .cont zosyn and ciproflox.1 07/03/20 afebrile vss/ cultures ngsf up in chair. o2 sats stable and weaned to 5 liters. wearing vest < 6 hours yesterday . eating well. lungs clear this am cor rrr no murmur. back unchanged. skin normal i.v sight clean. lab improved wbc and crp/ stable lytes. assess : pneumonia suspect bacterial . hx of known aspiration in past and choking while eating . 2) aspiration syndrome. 3)dev disability multifaceted 4)scoliosis severe with resp impairment /restrictive lung disease. 5) hypoxia on o2 4 liters chronically plan 1) cont anti and switch to oral levaquin in am . patient almost ready for outpatient treatment wean o2 as tolerated . 2) known aspiration and may need repeat swallowing eval and diet modification but already doing that at able . 3) cont supportive care. 4) follow up with primary provider. boh Functional Status: Reports: Pain Controlled - Review of Systems General: Reports: No Symptoms HEENT: Reports: No Symptoms Pulmonary: Reports: No Symptoms, Shortness of Breath, Cough Cardiovascular: Reports: No Symptoms Gastrointestinal: Reports: No Symptoms Genitourinary: Reports: No Symptoms Musculoskeletal: Reports: No Symptoms Skin: Reports: No Symptoms Neurological: Reports: No Symptoms Psychiatric: Reports: No Symptoms - Patient Data Vitals - Most Recent: Last Vital Signs Temp 36.3 C 07/03/20 07:10 Pulse 56 L 07/03/20 07:10 Resp 18 07/03/20 07:10 BP 102/55 L 07/03/20 07:10 Pulse Ox 93 L 07/03/20 07:10 Weight - Most Recent: 71.078 kg I&O - Last 24 Hours: Intake & Output 07/02/20 07/03/20 07/03/20 22:59 06:59 14:59 Intake Total 530 1000 380 Output Total 400 550 Balance 130 450 380 Lab Results Last 24 Hours: Laboratory Results - last 24 hr 07/01/20 07/03/20 07/03/20 Range/Units 04:33 06:29 06:29 WBC 9.12 H (4.23-9.07) K/mm3 RBC 4.18 L (4.63-6.08) M/mm3 Hgb 11.5 L (13.7-17.5) gm/dl Hct 39.4 L (40.1-51.0) % MCV 94.3 H (79.0-92.2) fl MCH 27.5 (25.7-32.2) pg MCHC 29.2 L (32.2-35.5) g/dl RDW Std Deviation 63.7 H (35.1-43.9) fL Plt Count 246 (163-337) K/mm3 MPV 11.5 (9.4-12.3) fl Neut % (Auto) 56.0 (34.0-67.9) % Lymph % (Auto) 30.2 (21.8-53.1) % [place] % (Auto) 7.9 (5.3-12.2) % Eos % (Auto) 4.9 (0.8-7.0) Baso % (Auto) 0.3 (0.1-1.2) % Neut # (Auto) 5.11 (1.78-5.38) K/mm3 Lymph # (Auto) 2.75 (1.32-3.57) K/mm3 [place] # (Auto) 0.72 (0.30-0.82) K/mm3 Eos # (Auto) 0.45 (0.04-0.54) K/mm3 Baso # (Auto) 0.03 (0.01-0.08) K/mm3 Manual Slide Review Abnormal smear Sodium 139 (136-145) mEq/L Potassium 4.2 (3.5-5.1) mEq/L Chloride 102 (98-107) mEq/L Carbon Dioxide 32 (21-32) mEq/L Anion Gap 9.2 (5-15) BUN 24 H (7-18) mg/dL Creatinine 1.1 (0.7-1.3) mg/dL Est Cr Clr Drug Dosing 91.05 mL/min Estimated GFR (MDRD) > 60 (>60) mL/min BUN/Creatinine Ratio 21.8 H (14-18) Glucose 89 (74-106) mg/dL Calcium 9.6 (8.5-10.1) mg/dL Magnesium 1.9 (1.8-2.4) mg/dl C-Reactive Protein 5.2 H* (<1.0) mg/dL Procalcitonin 6.23 H ng/mL Solomon Results Last 24 Hours: Microbiology 06/30/20 12:43 Aerobic Blood Culture - Preliminary Blood NO GROWTH AFTER 2 DAYS Anaerobic Blood Culture - Preliminary NO GROWTH AFTER 2 DAYS 06/30/20 12:30 Aerobic Blood Culture - Preliminary Blood NO GROWTH AFTER 2 DAYS Anaerobic Blood Culture - Preliminary NO GROWTH AFTER 2 DAYS Med Orders - Current: Current Medications Acetaminophen (Tylenol) 650 mg PO Q4HR PRN PRN Reason: Pain/Fever Albuterol (Proventil Neb Soln) 2.5 mg NEB Q2H PRN PRN Reason: Shortness Of Breath/wheezing Albuterol/Ipratropium (Duoneb 3.0-0.5 Mg/3 Ml) 3 ml NEB Q6HRRT [facility] Last Admin: 07/03/20 09:03 Dose: 3 ml Documented by: Allopurinol (Zyloprim) 300 mg PO 2100 [facility] Last Admin: 07/02/20 23:56 Dose: Not Given Documented by: Aripiprazole (Abilify) 7.5 mg PO TID@0800,1400,2000 [facility] Last Admin: 07/03/20 08:55 Dose: 7.5 mg Documented by: Aripiprazole (Abilify) 2 mg PO BID PRN PRN Reason: Agitation Clonidine HCl (Catapres Tts-2) 0.2 mg TOP Q2D [facility] Last Admin: 07/02/20 23:55 Dose: Not Given Documented by: Clonidine HCl (Catapres-Tts 1) 0.2 mg TRDERM Q2D [facility] Last Admin: 07/01/20 21:56 Dose: 0.2 mg Documented by: Desmopressin Acetate (Desmopressin) 0.05 mg PO 2100 [facility] Last Admin: 07/01/20 21:57 Dose: Not Given Documented by: Divalproex Sodium (Divalproex Sodium) 250 mg PO 1400 [facility] Last Admin: 07/02/20 14:52 Dose: 250 mg Documented by: Divalproex Sodium (Depakote) 500 mg PO , [facility] Last Admin: 07/03/20 08:56 Dose: Not Given Documented by: Docusate Sodium (Colace) 100 mg PO BID PRN PRN Reason: Constipation Enoxaparin Sodium (Lovenox) 60 mg SUBCUT DAILY [facility] Last Admin: 07/03/20 08:28 Dose: 60 mg Documented by: Famotidine (Pepcid) 20 mg PO BID [facility] Last Admin: 07/03/20 08:28 Dose: 20 mg Documented by: Fluticasone Propionate (Flonase) 0 gm NASBOTH BID [facility] Last Admin: 07/03/20 08:28 Dose: 1 spray Documented by: Hydromorphone HCl (Dilaudid) 0.25 mg IVPUSH Q2H PRN PRN Reason: Pain (severe 7-10) Piperacillin Sod/Tazobactam (Sod 4.5 gm/ Sodium Chloride) 100 mls @ 25 mls/hr IV Q8H [facility] Last Admin: 07/03/20 08:28 Dose: 25 mls/hr Documented by: Levofloxacin/Dextrose 750 mg/ (Premix) 150 mls @ 100 mls/hr IV Q24H [facility] Last Admin: 07/02/20 14:51 Dose: 100 mls/hr Documented by: Levothyroxine Sodium (Levothyroxine) 75 mcg PO MoTuWeThFr@0600 [facility] Last Admin: 07/01/20 06:28 Dose: 75 mcg Documented by: Levothyroxine Sodium (Synthroid) 50 mcg PO SuSa@0600 [facility] Last Admin: 07/03/20 05:04 Dose: 50 mcg Documented by: Loperamide HCl (Imodium) 2 mg PO Q4H PRN PRN Reason: Diarrhea Last Admin: 07/01/20 21:05 Dose: 2 mg Documented by: Loratadine (Claritin) 10 mg PO DAILY PRN PRN Reason: runny nose Magnesium Hydroxide (Milk Of Magnesia) 30 ml PO Q12H PRN PRN Reason: Constipation Melatonin (Melatonin) 9 mg PO 2100 [facility] Last Admin: 07/02/20 20:46 Dose: Not Given Documented by: Miscellaneous Information (Remove Patch) 1 ea TRDERM Q48H [facility] Last Admin: 07/02/20 23:55 Dose: 1 ea Documented by: Miscellaneous Information (Remove Patch) 1 ea TRDERM Q3D [facility] Neomycin/Polymyxin/Bacitracin (Neosporin Oint) 0 gm TOP TID PRN PRN Reason: Minor Wounds Ondansetron HCl (Zofran) 4 mg IV Q4H PRN PRN Reason: Nausea/Vomiting Paroxetine HCl (Paxil) 30 mg PO 14 [facility] Last Admin: 07/03/20 08:28 Dose: 30 mg Documented by: Polyethylene Glycol (Miralax) 17 gm PO DAILY PRN PRN Reason: Constipation Pseudoephedrine HCl (Sudogest) 60 mg PO Q6H PRN PRN Reason: CONGESTION Sodium Chloride (Saline Flush) 10 ml FLUSH ASDIRECTED PRN PRN Reason: Keep Vein Open Trazodone HCl (Trazodone) 25 mg PO BEDTIME PRN PRN Reason: Sleep Discontinued Medications Acetaminophen (Tylenol) 650 mg PO Q4H PRN PRN Reason: Pain (Mild 1-3)/fever Acetazolamide (Diamox) 250 mg IVPUSH Q12HR [place] Stop: 07/01/20 21:01 Last Admin: 07/01/20 21:06 Dose: 250 mg Documented by: Acetazolamide (Diamox) 250 mg IVPUSH ONETIME ONE Stop: 06/30/20 23:46 Last Admin: 07/01/20 00:16 Dose: 250 mg Documented by: Albuterol/Ipratropium (Duoneb 3.0-0.5 Mg/3 Ml) 3 ml NEB TID PRN PRN Reason: Wheezing/SOB Last Admin: 07/01/20 09:21 Dose: 3 ml Documented by: Albuterol/Ipratropium (Duoneb 3.0-0.5 Mg/3 Ml) Confirm Administered Dose 3 ml .ROUTE .STK-MED ONE Stop: 07/01/20 21:22 Last Admin: 07/01/20 21:26 Dose: Not Given Documented by: Bisacodyl (Dulcolax) 5 mg PO ONETIME ONE Stop: 07/01/20 15:01 Last Admin: 07/01/20 14:48 Dose: 5 mg Documented by: Clonidine HCl (Catapres Tts-2) 0.2 mg TOP Q3D [place] Clonidine HCl (Catapres Tts-2) 0.2 mg TOP Q2D [place] Furosemide (Lasix) 10 mg IVPUSH NOW ONE Stop: 06/30/20 23:46 Last Admin: 07/01/20 00:12 Dose: 10 mg Documented by: Cefepime HCl 1 gm/ Premix 50 mls @ 100 mls/hr IV ONETIME ONE Stop: 06/30/20 12:49 Last Admin: 06/30/20 12:54 Dose: 100 mls/hr Documented by: Levofloxacin/Dextrose 250 mg/ (Premix) 50 mls @ 50 mls/hr IV Q24H [facility] Last Admin: 06/30/20 14:27 Dose: 50 mls/hr Documented by: Piperacillin Sod/Tazobactam (Sod 4.5 gm/ Sodium Chloride) 100 mls @ 25 mls/hr IV Q8H [facility] Last Admin: 06/30/20 15:30 Dose: Not Given Documented by: Piperacillin Sod/Tazobactam (Sod 4.5 gm/ Sodium Chloride) 100 mls @ 200 mls/hr IV ONETIME ONE Stop: 06/30/20 16:29 Last Admin: 06/30/20 16:06 Dose: 200 mls/hr Documented by: Magnesium Sulfate (Magnesium Sulfate In Water Premix) 2 gm in 50 mls @ 25 mls /hr IV Q1H [facility] Last Admin: 07/01/20 11:06 Dose: Not Given Documented by: Magnesium Sulfate (Magnesium Sulfate In Water Premix) 2 gm in 50 mls @ 25 mls/hr IV Q1H [facility] Stop: 07/01/20 11:14 Last Admin: 07/01/20 10:24 Dose: 25 mls/hr Documented by: Miscellaneous Information (Remove Patch) 1 ea TRDERM BEDTIME [facility] Last Admin: 06/30/20 21:03 Dose: 1 ea Documented by: - Exam Quality Assessment: Supplemental Oxygen General: Alert, Oriented HEENT: Pupils Equal, Pupils Reactive, EOMI, Mucous Membr. Moist/[place] Neck: Supple Lungs: Decreased Breath Sounds, Other (severe scolisosis) Cardiovascular: Regular Rate, Regular Rhythm GI/Abdominal Exam: Normal Bowel Sounds, Soft, Non-Tender, No Organomegaly, No Distention, No Abnormal Bruit, No Mass, Pelvis Stable (Male) Exam: Deferred Back Exam: Other (severe scoliosis) Skin: Rash Wound/Incisions: Healing Well Neurological: No New Focal Deficit Psy/Mental Status: Alert, Normal Affect, Normal Mood Sepsis Event Note - Evaluation Sepsis Screening Result: No Definite Risk - Focused Exam Vital Signs: Vital Signs Temp Pulse Resp BP Pulse Ox Pulse Ox 07/03/20 07:10 36.3 C 56 L 18 102/55 L 93 L 07/03/20 04:46 36.6 C 60 22 H 129/96 H 91 L 07/03/20 03:45 89 L 07/03/20 03:13 91 L 07/03/20 02:04 36.5 C 56 L 23 H 94/51 L 96 07/03/20 00:40 36.3 C 55 L 23 H 89/50 L 96 - Problem List & Annotations (1) Leukocytosis SNOMED Code(s): 347384807, 918300788 Code(s): D72.829 - ELEVATED WHITE BLOOD CELL COUNT, UNSPECIFIED Status: Acute Priority: Low Current Visit: Yes Onset Date: ~07/01/20 Qualifiers: Leukocytosis type: unspecified Qualified Code(s): D72.829 - Elevated white blood cell count, unspecified Annotation/Comment:: crp decreased form 16 to 9 (2) Pervasive developmental disorder, active SNOMED Code(s): 22913455 Code(s): F84.9 - PERVASIVE DEVELOPMENTAL DISORDER, UNSPECIFIED Status: Acute Priority: Medium Current Visit: Yes Onset Date: ~07/01/20 (3) Pneumonia SNOMED Code(s): 334863148 Code(s): J18.9 - PNEUMONIA, UNSPECIFIED ORGANISM Status: Acute Priority: High Current Visit: Yes Onset Date: ~07/01/20 Qualifiers: Pneumonia type: aspiration pneumonia Laterality: bilateral Lung location: lower lobe of lung Annotation/Comment:: 39 year old male with possible aspiration episode . (4) Acute on chronic respiratory failure with hypoxemia SNOMED Code(s): 73699125049457660 Code(s): J96.21 - ACUTE AND CHRONIC RESPIRATORY FAILURE WITH HYPOXIA Status: Acute Priority: Low Current Visit: No Onset Date: ~07/01/20 (5) Restrictive lung disease due to kyphoscoliosis SNOMED Code(s): 689615074 Code(s): J98.4 - OTHER DISORDERS OF LUNG; M41.9 - SCOLIOSIS, UNSPECIFIED Status: Chronic Priority: High Current Visit: Yes Onset Date: ~07/01/20 - Problem List Review Problem List Initiated/Reviewed/Updated: Yes - My Orders Last 24 Hours: My Active Orders 07/04/20 11:06 Chest 2V [CR] Routine CRP [C-REACTIVE PROTEIN] [CHEM] Routine 07/04/20 11:07 CMP [COMPREHENSIVE METABOLIC PN,CMP] [CHEM] Routine - Plan Plan:: 06/30/20 * 39-year-old male with a history of numerous episodes of pneumonia occurring over the last year or 2. * History of severe scoliosis contributing to restrictive lung disease and chronic CO2 retention. * Under the care of [facility], which is a 11/02 usp. * Initial vital signs in the ED show a temp of 98.0, pulse 85, respiratory rate 24, blood pressure 114/76, pulse ox is 93% on 4 L of oxygen per nasal cannula. * Labs in the ED revealed WBC 20.17, neutrophil percentage 86.3, lymphocyte percentage 6.0, platelet count 251, total bilirubin 0.6, LDH 195, C-reactive protein 9.1, D-dimer 1.21, lactic acid 2.0, ferritin 161, he is Covid neg ative. Blood cultures x2 were also collected. * Blood gases in the ER reveal pH 7.37, PCO2 71.3, PO2 66.0, bicarb 40.3, on 4 L of oxygen per nasal cannula. * Chest x-ray shows bilateral lower lobe infiltrates. * Patient was given a dose of cefepime in the emergency department. PLAN: * Will start Zosyn 4.5 g IV every 8 hours and Levaquin 750 mg every 24 hours. * Will await blood culture results. * Continue O2 at 4 L per nasal cannula respiratory therapy to titrate as needed to keep sats greater than 90%. * RT to continue chest physiotherapy. Will use patient's vest from home. * PT/OT to eval and treat. * At this time will not do a CTA for elevated D-dimer. Case was discussed with Dr. Aranda and he agrees that elevation is likely due to the pneumonia and inflammatory process. Patient is ambulatory so this also makes it unlikely that patient would have a DVT or PE. If the patient becomes symptomatic or requires more oxygen we will do a CTA at that time. * Repeat labs in the a.m. * Repeat chest x-ray and blood gases as needed. * coordinator of health services and case management for discharge planning.s: afebrile /vss 2 episodes of tach requiring beta jodee. 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 s: verbal and alert/ answers questions and states mild [place] despite o2. pulmonary vibration vest on and uncomfortable. 02 on 6 liters. 0:vss rr 30-50/// no gfr roncherous b.s bilaterally , severe scoliosis /diaphoretic/mildly pale cor rrr maria esther lusb no s3/s4 abd benign. neuro ao x 4 ms generally good strength but hypotonic overall/ mild contractures. skin normal lab crp 16/ cbc increased . xray increased white out rt lung severe scoliosis. no pleural effusions lytes : normal . a: pneumonia discussed findings with mom prev. hx of recurrent pneumonias over many years with known lung damage. discussed possible aspiration . restrictive lung disease also present with scoliosis and overall weakness . neuromuscular weakness . dehydration . possible sepsis cultures ng sf. p: cont current antibiotics zosyn and ciproflox for aspiration type coverage. cont i.v hydration . cont o2 to keep sats stable . cont nebs for now covid screen negative and discussed still possible covid and cont current precautions pt/ot. jeff 07/03/20 afebrile vss/ cultures ngsf up in chair. o2 sats stable and weaned to 5 liters. wearing vest < 6 hours yesterday . eating well. lungs clear this am cor rrr no murmur. back unchanged. skin normal i.v sight clean. lab improved wbc and crp/ stable lytes. assess : pneumonia suspect bacterial . hx of known aspiration in past and choking while eating . 2) aspiration syndrome. 3)dev disability multifaceted 4)scoliosis severe with resp impairment /restrictive lung disease. 5) hypoxia on o2 4 liters chronically plan 1) cont anti and switch to oral levaquin in am . patient almost ready for outpatient treatment wean o2 as tolerated . 2) known aspiration and may need repeat swallowing eval and diet modification but already doing that at able . 3) cont supportive care. 4) follow up with primary provider. boh
[2020-07-03] MEDS: Loperamide 2 MG Cap PO PRN (14:39)
[2020-07-03] MEDS: Levofloxacin/Dextrose 5%-Water 750 MG in Premix Bag 1 BAG IV SCH (14:39)
[2020-07-03] MEDS: Divalproex Sodium Delayed-Release 250 MG Tab.CR PO SCH (14:39)
[2020-07-03] MEDS: Melatonin 3 MG Tab PO SCH (20:05)
[2020-07-03] MEDS: Allopurinol 300 MG Tab PO SCH (20:07)
[2020-07-03] MEDS: Desmopressin 0.2 MG Tab PO SCH (20:15)
[2020-07-03] MEDS: cloNIDine 0.1 MG/Day Transdermal Patch TRDERM SCH (20:54)
[2020-07-04] MEDS: Albuterol/Ipratropium 3.0-0.5 MG/3 ML Neb Soln NEB SCH ×2 (02:40→08:22)
[2020-07-04] MEDS: Levothyroxine 75 MCG Tab PO SCH (06:44)
[2020-07-04] MEDS: Divalproex Sodium Delayed-Release 500 MG Tab.CR PO SCH (06:44)
[2020-07-04] MEDS: Piperacillin/Tazobactam 4.5 GM in Sodium Chloride 0.9% 100 ML IV SCH ×2 (06:45→09:48)
--- NOTE | 2020-07-04 08:28 | CR ---
Chest: 2 views of the chest were obtained. Comparison: Prior chest x-ray of 07/02/20 and 06/30/20. Decreasing density within the left chest. Slight increased density within the right chest is seen which is stable. Heart size and mediastinum are stable. Scoliosis is noted. Hiatal hernia is again seen. Impression: 1. Slight decreasing density within the left chest. 2. Other portions of the chest are stable. Diagnostic code #3
[2020-07-04] MEDS: Fluticasone Propionate Nasal Spray 16 GM Bottle NASBOTH SCH (09:46)
[2020-07-04] MEDS: ARIPiprazole 5 MG Tab PO SCH (09:46)
[2020-07-04] MEDS: Famotidine 20 MG Tab PO SCH (09:47)
[2020-07-04] MEDS: Loperamide 2 MG Cap PO PRN (09:47)
[2020-07-04] MEDS: Enoxaparin 60 MG/0.6 ML Syringe SUBCUT SCH (09:48)
--- NOTE | 2020-07-04 11:34 | PCM.DCSUM1 ---
Discharge Summary - Hospital Course HPI Initial Comments: 39 yr old male has been brought in with 2 day hx of cough, intermitent fever. Patient was seen at the clinic 2 days ago because of complaints of a fever greater than 101. He also had began to develop a cough at that time. They did not do a chest x-ray at the clinic on that day. They did do a rapid Covid test as well as a send out Covid test both came back negative. He is special needs, Hx of developmental delay, under the care of [facility] [employer], 11/02 staff to help provide the care that he needs. He has severe scoliosis. His caregiver states that he is ambulatory and does not use any assistive devices. He does chronically use 4 L of oxygen per nasal cannula at home. Hx of several episodes of pneumonia in the last few yrs according to caregiver. He was also recently hospitalized according to his caregiver, within the last 2 months, due to complications from an appendectomy. He did spend his hospitalization at [facility] in [place] for this. Pt himself is not able to give a meaningful hx. Onset of Symptoms: Reports: Gradual Assessment/Plan Comment:: 06/30/20 * 39-year-old male with a history of numerous episodes of pneumonia occurring over the last year or 2. * History of severe scoliosis contributing to restrictive lung disease and chronic CO2 retention. * Under the care of [employer], which is a 11/02 alf. * Initial vital signs in the ED show a temp of 98.0, pulse 85, respiratory rate 24, blood pressure 114/76, pulse ox is 93% on 4 L of oxygen per nasal cannula. * Labs in the ED revealed WBC 20.17, neutrophil percentage 86.3, lymphocyte percentage 6.0, platelet count 251, total bilirubin 0.6, LDH 195, C-reactive protein 9.1, D-dimer 1.21, lactic acid 2.0, ferritin 161, he is Covid negative. Blood cultures x2 were also collected. * Blood gases in the ER reveal pH 7.37, PCO2 71.3, PO2 66.0, bicarb 40.3, on 4 L of oxygen per nasal cannula. * Chest x-ray shows bilateral lower lobe infiltrates. * Patient was given a dose of cefepime in the emergency department. PLAN: * Will start Zosyn 4.5 g IV every 8 hours and Levaquin 750 mg every 24 hours. * Will await blood culture results. * Continue O2 at 4 L per nasal cannula respiratory therapy to titrate as needed to keep sats greater than 90%. * RT to continue chest physiotherapy. Will use patient's vest from home. * PT/OT to eval and treat. * At this time will not do a CTA for elevated D-dimer. Case was discussed with Dr. Aranda and he agrees that elevation is likely due to the pneumonia and inflammatory process. Patient is ambulatory so this also makes it unlikely t hat patient would have a DVT or PE. If the patient becomes symptomatic or requires more oxygen we will do a CTA at that time. * Repeat labs in the a.m. * Repeat chest x-ray and blood gases as needed. * real estate services coordinator and case management for discharge planning. Diagnosis: Stroke: No - Discharge Data Discharge Date: 07/04/20 Discharge Disposition: Home, Self-Care 01 Condition: Good - Referral to Home Health Primary Care Physician: Michaela Sanchez NP - Patient Summary/Data Consults: Consultations 06/30/20 13:47 Consult to Case Management/Chef [CONS] Routine OT Evaluation and Treatment [CONS] Routine PT Evaluation and Treatment [CONS] Routine Respiratory Care Assess and Treatment [CONS] Routine Hospital Course: 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 s: verbal and alert/ answers questions and states mild [place] despite o2. pulmonary vibration vest on and uncomfortable. 02 on 6 liters. 0:vss rr 30-50/// no gfr roncherous b.s bilaterally , severe scoliosis /diaphoretic/mildly pale cor rrr maria esther lusb no s3/s4 abd benign. neuro ao x 4 ms generally good strength but hypotonic overall/ mild contractures. skin normal lab crp 16/ cbc increased . xray increased white out rt lung severe scoliosis. no pleural effusions lytes : normal . a: pneumonia discussed findings with mom prev. hx of recurrent pneumonias over many years with known lung damage. discussed possible aspiration . restrictive lung disease also present with scoliosis and overall weakness . neuromuscular weakness . dehydration . possible sepsis cultures ng sf. p: cont current antibiotics zosyn and ciproflox for aspiration type coverage. cont i.v hydration . cont o2 to keep sats stable . cont nebs for now covid screen negative and discussed still possible covid and cont current precautions pt/ot. boh 07/02/20 s doing better more alert and weaned down to 4 l n.c. resp clearer but few crackles .m.s scoliosis severe and unchanged cor less tachicardia / no s3/s4 perfusion good . neuro sleepy . melendez . no discussion today (tired) lab pending. a//P : pneumonia improved recheck xray in am. apparent aspiration episode. dehydration resolved. poor po intake will monitor .cont zosyn and ciproflox.1 07/03/20 afebrile vss/ cultures ngsf up in chair. o2 sats stable and weaned to 5 liters. wearing vest < 6 hours yesterday . eating well. lungs clear this am cor rrr no murmur. back unchanged. skin normal i.v sight clean. lab improved wbc and crp/ stable lytes. assess : pneumonia suspect bacterial . hx of known aspiration in past and choking while eating . 2) aspiration syndrome. 3)dev disability multifaceted 4)scoliosis severe with resp impairment /restrictive lung disease. 5) hypoxia on o2 4 liters chronically plan 1) cont anti and switch to oral levaquin in am . patient almost ready for outpatient treatment wean o2 as tolerated . 2) known aspiration and may need repeat swallowing eval and diet modification but already doing that at able . 3) cont supportive care. 4) follow up with primary provider. boh - Patient Instructions Diet: Usual Diet as Tolerated Activity: As Tolerated Driving: Do Not Drive Showering/Bathing: May Shower Other/Special Instructions: Follow up with PCP at the end of this week. - Discharge Plan *PRESCRIPTION DRUG MONITORING PROGRAM REVIEWED*: No *COPY OF PRESCRIPTION DRUG MONITORING REPORT IN PATIENT HUMBERTO: No Prescriptions/Med Rec: Amoxicillin/Clavulanate K [Augmentin 875-125 MG] 1 tab PO BID #10 tablet levoFLOXacin [Levaquin] 750 mg PO Q24H #5 tablet Home Medications: Home Meds Acetaminophen 650 mg PO Q4HR PRN 12/10/18 [History] Divalproex Sodium [Depakote] 500 mg PO 07,21 12/10/18 [History] Levothyroxine 75 mcg PO MOTUWETHFR 12/10/18 [History] Levothyroxine [Synthroid] 50 mcg PO SUSA 12/10/18 [History] Loperamide [Imodium] 2 mg PO ASDIRECTED PRN 12/10/18 [History] Melatonin 10 mg PO 209912/10/18 [History] PARoxetine HCL [Paxil] 30 mg PO 12/10/18 [History] allopurinoL [Zyloprim] 300 mg PO 209912/10/18 [History] cloNIDine [Catapres TTS-2] 0.2 mg TOP Q2D 12/10/18 [History] traZODone HCl [Trazodone HCl] 25 mg PO BEDTIME PRN 12/10/18 [History] Anti-Acid 2 - 4 tsp PO Q4H PRN 03/10/19 [History] Desmopressin 0.05 mg PO 209903/10/19 [History] Desmopressin 0.05 mg PO BEDTIME PRN 03/10/19 [History] Fexofenadine/Pseudoephedrine [Gris-D 24 Hour Tablet] 1 tab PO DAILY PRN 03/10/19 [History] Divalproex Sodium [Depakote] 250 mg PO 1400 06/04/19 [History] ARIPiprazole [Abilify] 7.5 mg PO TID@0800,1400,199908/26/19 [History] ARIPiprazole [Aripiprazole] 2 mg PO BID PRN 08/26/19 [History] Albuterol/Ipratropium [DuoNeb 3.0-0.5 MG/3 ML] 1 vial NEB TID PRN 08/26/19 [History] Ped Multivit 43/Iron Fumarate [Flintstones Complete Chew Tab] 1 tab PO QPM 08/27/19 [History] Acetaminophen/Dextromethorphan [Robitussin Cough-Sore Throat] 0 ml PO DAILY PRN 04/06/20 [History] Bacillus Coagulans [Digestive Advantage Probiotic] 1 each PO DAILY 04/06/20 [History] Inulin/Chromium Picolinate [Fiber Gummies] 1 each PO DAILY 04/06/20 [History] Neomycin/Bacitracin/Polymyxinb [Antibiotic Ointment] 1 applic TP TID PRN 04/06/20 [History] polyethylene glycoL 3350 [MiraLAX] 17 gm PO DAILY PRN #30 packet 04/07/20 [Rx] Famotidine 20 mg PO BID 06/30/20 [History] Fluticasone Propionate [Flonase Allergy Relief] 1 spray YOMAIRA BID 06/30/20 [History] Amoxicillin/Clavulanate K [Augmentin 875-125 MG] 1 tab PO BID #10 tablet 07/04/20 [Rx] levoFLOXacin [Levaquin] 750 mg PO Q24H #5 tablet 07/04/20 [Rx] Oxygen Therapy Mode: Nasal Cannula Oxygen Flow Rate (L/min): 4 Maintain SPO2% less than: 98 Maintain SpO2% greater than: 90 Patient Handouts: Sepsis, Diagnosis, Adult Referrals: Michaela Sanchez NP [Primary Care Provider] - 07/07/20 11:00 am - Discharge Summary/Plan Comment DC Time >30 min.: No Discharge Summary/Plan Comment: Follow-up with primary care provider at the end of this week. - General Info Date of Service: 07/04/20 Admission Dx/Problem (Free Text: Admission Diagnosis/Problem Admission Diagnosis/Problem Pneumonia/resp failure Subjective Update: Yaakov is back to baseline oxygen of 4 L. Appetite is good. He is back at baseline per his mother. Functional Status: Reports: Pain Controlled - Review of Systems General: Reports: No Symptoms HEENT: Reports: No Symptoms Pulmonary: Reports: No Symptoms Cardiovascular: Reports: No Symptoms Gastrointestinal: Reports: No Symptoms Musculoskeletal: Reports: No Symptoms - Patient Data Vitals - Most Recent: Last Vital Signs Temp 97.5 F 07/04/20 07:25 Pulse 51 L 07/04/20 07:25 Resp 16 07/04/20 07:25 BP 92/46 L 07/04/20 07:25 Pulse Ox 94 L 07/04/20 08:22 Weight - Most Recent: 157 lb 12.8 oz I&O - Last 24 hours: Intake & Output 07/03/20 07/04/20 07/04/20 22:59 06:59 14:59 Intake Total 700 1040 120 Output Total 500 1000 Balance 200 40 120 Lab Results - Last 24 hrs: Laboratory Results - last 24 hr 07/04/20 07/04/20 07/04/20 Range/Units 06:05 06:05 06:05 WBC 7.55 (4.23-9.07) K/mm3 RBC 4.07 L (4.63-6.08) M/mm3 Hgb 11.2 L (13.7-17.5) gm/dl Hct 38.2 L (40.1-51.0) % MCV 93.9 H (79.0-92.2) fl MCH 27.5 (25.7-32.2) pg MCHC 29.3 L (32.2-35.5) g/dl RDW Std Deviation 62.6 H (35.1-43.9) fL Plt Count 258 (163-337) K/mm3 MPV 11.8 (9.4-12.3) fl Neut % (Auto) 50.2 (34.0-67.9) % Lymph % (Auto) 33.6 (21.8-53.1) % Navarro % (Auto) 8.9 (5.3-12.2) % Eos % (Auto) 5.8 (0.8-7.0) Baso % (Auto) 0.3 (0.1-1.2) % Neut # (Auto) 3.79 (1.78-5.38) K/mm3 Lymph # (Auto) 2.54 (1.32-3.57) K/mm3 Navarro # (Auto) 0.67 (0.30-0.82) K/mm3 Eos # (Auto) 0.44 (0.04-0.54) K/mm3 Baso # (Auto) 0.02 (0.01-0.08) K/mm3 Manual Slide Review Abnormal smear Sodium 140 (136-145) mEq/L Potassium 4.3 (3.5-5.1) mEq/L Chloride 102 (98-107) mEq/L Carbon Dioxide 35 H (21-32) mEq/L Anion Gap 7.3 (5-15) BUN 24 H (7-18) mg/dL Creatinine 0.9 (0.7-1.3) mg/dL Est Cr Clr Drug Dosing 111.29 mL/min Estimated GFR (MDRD) > 60 (>60) mL/min BUN/Creatinine Ratio 26.7 H (14-18) Glucose 79 (74-106) mg/dL Calcium 9.4 (8.5-10.1) mg/dL Magnesium 1.8 (1.8-2.4) mg/dl Total Bilirubin 0.3 (0.2-1.0) mg/dL AST 11 L (15-37) U/L ALT 13 L (16-63) U/L Alkaline Phosphatase 41 L (46-116) U/L C-Reactive Protein 3.1 H* (<1.0) mg/dL Total Protein 6.4 (6.4-8.2) g/dl Albumin 2.3 L (3.4-5.0) g/dl Globulin 4.1 gm/dL Albumin/Globulin Ratio 0.6 L (1-2) KELVIN Results - Last 24 hrs: Microbiology 06/30/20 12:43 Aerobic Blood Culture - Preliminary Blood NO GROWTH AFTER 3 DAYS Anaerobic Blood Culture - Preliminary NO GROWTH AFTER 3 DAYS 06/30/20 12:30 Aerobic Blood Culture - Preliminary Blood NO GROWTH AFTER 3 DAYS Anaerobic Blood Culture - Preliminary NO GROWTH AFTER 3 DAYS Med Orders - Current: Current Medications Acetaminophen (Tylenol) 650 mg PO Q4HR PRN PRN Reason: Pain/Fever Albuterol (Proventil Neb Soln) 2.5 mg NEB Q2H PRN PRN Reason: Shortness Of Breath/wheezing Albuterol/Ipratropium (Duoneb 3.0-0.5 Mg/3 Ml) 3 ml NEB Q6HRRT [facility] Last Admin: 07/04/20 08:22 Dose: 3 ml Documented by: Allopurinol (Zyloprim) 300 mg PO 2100 [facility] Last Admin: 07/03/20 20:07 Dose: 300 mg Documented by: Amoxicillin/Clavulanate Potassium (Augmentin 875 Mg/125 Mg) 1 tab PO BID [facility] Aripiprazole (Abilify) 7.5 mg PO TID@0800,1400,2000 [facility] Last Admin: 07/04/20 09:46 Dose: 7.5 mg Documented by: Aripiprazole (Abilify) 2 mg PO BID PRN PRN Reason: Agitation Clonidine HCl (Catapres Tts-2) 0.2 mg TOP Q2D [facility] Last Admin: 07/02/20 23:55 Dose: Not Given Documented by: Clonidine HCl (Catapres Tts-2) 0.2 mg TRDERM Q2D [facility] Desmopressin Acetate (Desmopressin) 0.05 mg PO 2100 [facility] Last Admin: 07/03/20 20:15 Dose: 0.05 mg Documented by: Divalproex Sodium (Divalproex Sodium) 250 mg PO 1400 [facility] Last Admin: 07/03/20 14:39 Dose: 250 mg Documented by: Divalproex Sodium (Depakote) 500 mg PO 07,21 [facility] Last Admin: 07/04/20 06:44 Dose: 500 mg Documented by: Docusate Sodium (Colace) 100 mg PO BID PRN PRN Reason: Constipation Enoxaparin Sodium (Lovenox) 60 mg SUBCUT DAILY [facility] Last Admin: 07/04/20 09:48 Dose: 60 mg Documented by: Famotidine (Pepcid) 20 mg PO BID [facility] Last Admin: 07/04/20 09:47 Dose: 20 mg Documented by: Fluticasone Propionate (Flonase) 0 gm NASBOTH BID [facility] Last Admin: 07/04/20 09:46 Dose: 1 spray Documented by: Hydromorphone HCl (Dilaudid) 0.25 mg IVPUSH Q2H PRN PRN Reason: Pain (severe 7-10) Piperacillin Sod/Tazobactam (Sod 4.5 gm/ Sodium Chloride) 100 mls @ 25 mls/hr IV Q8H [facility] Stop: 07/04/20 14:00 Last Admin: 07/04/20 09:48 Dose: 25 mls/hr Documented by: Levofloxacin (Levaquin) 750 mg PO Q24H [facility] Levothyroxine Sodium (Levothyroxine) 75 mcg PO MoTuWeThFr@0600 [facility] Last Admin: 07/04/20 06:44 Dose: 75 mcg Documented by: Levothyroxine Sodium (Synthroid) 50 mcg PO SuSa@0600 [facility] Last Admin: 07/03/20 05:04 Dose: 50 mcg Documented by: Loperamide HCl (Imodium) 2 mg PO Q4H PRN PRN Reason: Diarrhea Last Admin: 07/04/20 09:47 Dose: 2 mg Documented by: Loratadine (Claritin) 10 mg PO DAILY PRN PRN Reason: runny nose Magnesium Hydroxide (Milk Of Magnesia) 30 ml PO Q12H PRN PRN Reason: Constipation Melatonin (Melatonin) 9 mg PO 2100 [facility] Last Admin: 07/03/20 20:05 Dose: 9 mg Documented by: Miscellaneous Information (Remove Patch) 1 ea TRDERM Q48H [facility] Last Admin: 07/02/20 23:55 Dose: 1 ea Documented by: Miscellaneous Information (Remove Patch) 1 ea TRDERM Q2D [facility] Neomycin/Polymyxin/Bacitracin (Neosporin Oint) 0 gm TOP TID PRN PRN Reason: Minor Wounds Ondansetron HCl (Zofran) 4 mg IV Q4H PRN PRN Reason: Nausea/Vomiting Paroxetine HCl (Paxil) 30 mg PO [facility] Last Admin: 07/04/20 09:47 Dose: 30 mg Documented by: Polyethylene Glycol (Miralax) 17 gm PO DAILY PRN PRN Reason: Constipation Pseudoephedrine HCl (Sudogest) 60 mg PO Q6H PRN PRN Reason: CONGESTION Sodium Chloride (Saline Flush) 10 ml FLUSH ASDIRECTED PRN PRN Reason: Keep Vein Open Trazodone HCl (Trazodone) 25 mg PO BEDTIME PRN PRN Reason: Sleep Discontinued Medications Acetaminophen (Tylenol) 650 mg PO Q4H PRN PRN Reason: Pain (Mild 1-3)/fever Acetazolamide (Diamox) 250 mg IVPUSH Q12HR [facility] Stop: 07/01/20 21:01 Last Admin: 07/01/20 21:06 Dose: 250 mg Documented by: Acetazolamide (Diamox) 250 mg IVPUSH ONETIME ONE Stop: 06/30/20 23:46 Last Admin: 07/01/20 00:16 Dose: 250 mg Documented by: Albuterol/Ipratropium (Duoneb 3.0-0.5 Mg/3 Ml) 3 ml NEB TID PRN PRN Reason: Wheezing/SOB Last Admin: 07/01/20 09:21 Dose: 3 ml Documented by: Albuterol/Ipratropium (Duoneb 3.0-0.5 Mg/3 Ml) Confirm Administered Dose 3 ml .ROUTE .STK-MED ONE Stop: 07/01/20 21:22 Last Admin: 07/01/20 21:26 Dose: Not Given Documented by: Bisacodyl (Dulcolax) 5 mg PO ONETIME ONE Stop: 07/01/20 15:01 Last Admin: 07/01/20 14:48 Dose: 5 mg Documented by: Clonidine HCl (Catapres Tts-2) 0.2 mg TOP Q3D [facility] Clonidine HCl (Catapres Tts-2) 0.2 mg TOP Q2D [facility] Clonidine HCl (Catapres-Tts 1) 0.2 mg TRDERM Q2D [facility] Last Admin: 07/03/20 20:54 Dose: 0.2 mg Documented by: Furosemide (Lasix) 10 mg IVPUSH NOW ONE Stop: 06/30/20 23:46 Last Admin: 07/01/20 00:12 Dose: 10 mg Documented by: Cefepime HCl 1 gm/ Premix 50 mls @ 100 mls/hr IV ONETIME ONE Stop: 06/30/20 12:49 Last Admin: 06/30/20 12:54 Dose: 100 mls/hr Documented by: Levofloxacin/Dextrose 250 mg/ (Premix) 50 mls @ 50 mls/hr IV Q24H [facility] Last Admin: 06/30/20 14:27 Dose: 50 mls/hr Documented by: Piperacillin Sod/Tazobactam (Sod 4.5 gm/ Sodium Chloride) 100 mls @ 25 mls/hr IV Q8H [facility] Last Admin: 06/30/20 15:30 Dose: Not Given Documented by: Piperacillin Sod/Tazobactam (Sod 4.5 gm/ Sodium Chloride) 100 mls @ 200 mls/hr IV ONETIME ONE Stop: 06/30/20 16:29 Last Admin: 06/30/20 16:06 Dose: 200 mls/hr Documented by: Levofloxacin/Dextrose 750 mg/ (Premix) 150 mls @ 100 mls/hr IV Q24H [facility] Last Admin: 07/03/20 14:39 Dose: 100 mls/hr Documented by: Magnesium Sulfate (Magnesium Sulfate In Water Premix) 2 gm in 50 mls @ 25 mls/hr IV Q1H [facility] Last Admin: 07/01/20 11:06 Dose: Not Given Documented by: Magnesium Sulfate (Magnesium Sulfate In Water Premix) 2 gm in 50 mls @ 25 mls/hr IV Q1H [facility] Stop: 07/01/20 11:14 Last Admin: 07/01/20 10:24 Dose: 25 mls/hr Documented by: Miscellaneous Information (Remove Patch) 1 ea TRDERM BEDTIME [facility] Last Admin: 06/30/20 21:03 Dose: 1 ea Documented by: - Exam Quality Assessment: Reports: Supplemental Oxygen General: Reports: Alert HEENT: Reports: Pupils Equal, Mucous Membr. Moist/Pulcifer, Scleral Icterus Lungs: Reports: Normal Respiratory Effort, Crackles (Diffuse) Cardiovascular: Reports: Regular Rate, Regular Rhythm GI/Abdominal Exam: Normal Bowel Sounds, Soft, Non-Tender, No Distention Extremities: Normal Inspection, No Pedal Edema, Normal Capillary Refill Neurological: Reports: No New Focal Deficit
[2020-07-04] MEDS ORDERED: Levofloxacin 750 MG Tab PO SCH (14:00)
[2020-07-04] MEDS ORDERED: Amoxicillin/Clavulanate K 875-125 MG Tab PO SCH (21:00)
[2020-07-05] MEDS ORDERED: cloNIDine 0.2 MG/Day Transdermal Patch TRDERM SCH (21:00)
== END 2020-07-04 14:03 | disposition home or self-care (01) | DRG 137 ==
LOC: JD.ED 09:55 → JD.MS 13:22
PROVIDERS: ADMIT Internal Medicine; ATTEND Internal Medicine
DX: J69.0 Pneumonitis due to inhalation of food and vomit (principal); J96.90 Respiratory failure, unspecified, unspecified whether with hypoxia or hypercapnia; M41.9 Scoliosis, unspecified; E86.0 Dehydration; J98.4 Other disorders of lung; H54.7 Unspecified visual loss; J45.909 Unspecified asthma, uncomplicated; G47.00 Insomnia, unspecified; K52.9 Noninfective gastroenteritis and colitis, unspecified; R32 Unspecified urinary incontinence; R62.50 Unspecified lack of expected normal physiological development in childhood; E03.9 Hypothyroidism, unspecified; J15.9 Unspecified bacterial pneumonia; Z20.828 Contact with and (suspected) exposure to other viral communicable diseases; Z79.890 Hormone replacement therapy; Z79.899 Other long term (current) drug therapy; Z79.4 Long term (current) use of insulin; Z88.8 Allergy status to other drugs, medicaments and biological substances; Z87.01 Personal history of pneumonia (recurrent); Z90.49 Acquired absence of other specified parts of digestive tract
CPT/HCPCS: 36415; 36600; 71045; 71045-26; 71046; 71046-26; 80048; 80053; 82728; 82803; 83605; 83615; 83735; 84100; 84145; 85025; 85379; 86140; 86738; 87040; 87641; 94640; 94660; 94667; 94668; 94761; 94762; 96365; 97161-GP; 99284; 99285-25; A9270-GY; J0692; J1120; J1650; J1940; J1956; J2543; J3475; J7050; J7620-GY; U0002

== ENCOUNTER 2020-07-11 20:06 | Emergency (ER) | payer BC ==
--- NOTE | 2020-07-11 20:58 | EDM.PDOC ---
ED HPI GENERAL MEDICAL PROBLEM - General Chief Complaint: Respiratory Problem Stated Complaint: COUGH Time Seen by Provider: 07/11/20 20:48 - History of Present Illness INITIAL COMMENTS - FREE TEXT/NARRATIVE: 39-year-old male presents the emergency room because he had a shortness of breath spell earlier today. Patient was just discharged from the hospital he was seen in clinic and they restarted his antibiotics because they still saw some pneumonia on the chest x- ray. Today he had an episode of coughing when the aids could not get him to catch his breath. Patient has severe scoliosis and is developmentally delayed and is prone to have swallowing issues. He has not had any recent fevers. The patient was admitted to the hospital here on the of this month and was discharged last week. - Related Data Allergies Allergy/AdvReac Type Severity Reaction Status Date / Time ziprasidone [From Geodon] Allergy Intermediate Edema Verified 07/01/20 14:33 risperidone [From Risperdal] Allergy Mild Cannot Verified 06/30/20 16:16 Remember cat dander Allergy Difficulty Verified 07/01/20 14:33 Breathing dog dander Allergy Cannot Verified 06/30/20 16:16 Remember grass pollen Allergy Difficulty Verified 06/30/20 16:16 Breathing Home Meds: Home Meds Acetaminophen 650 mg PO Q4HR PRN 12/10/18 [History] Divalproex Sodium [Depakote] 500 mg PO 12/10/18 [History] Levothyroxine 75 mcg PO MOTUWETHFR 12/10/18 [History] Levothyroxine [Synthroid] 50 mcg PO SUSA 12/10/18 [History] Loperamide [Imodium] 2 mg PO ASDIRECTED PRN 12/10/18 [History] Melatonin 10 mg PO 209912/10/18 [History] PARoxetine HCL [Paxil] 30 mg PO ,12/10/18 [History] allopurinoL [Zyloprim] 300 mg PO 209912/10/18 [History] cloNIDine [Catapres TTS-2] 0.2 mg TOP Q2D 12/10/18 [History] traZODone HCl [Trazodone HCl] 50 mg PO BEDTIME PRN 12/10/18 [History] Anti-Acid 2 - 4 tsp PO Q4H PRN 03/10/19 [History] Desmopressin 0.05 mg PO 2100 03/10/19 [History] Desmopressin 0.05 mg PO BEDTIME PRN 03/10/19 [History] Fexofenadine/Pseudoephedrine [Gris-D 24 Hour Tablet] 180 mg PO DAILY PRN 03/10/19 [History] Divalproex Sodium [Depakote] 250 mg PO 1400 06/04/19 [History] ARIPiprazole [Abilify] 7.5 mg PO TID@0800,1400,199908/26/19 [History] ARIPiprazole [Aripiprazole] 2 mg PO Q6H PRN 08/26/19 [History] Albuterol/Ipratropium [DuoNeb 3.0-0.5 MG/3 ML] 1 vial NEB TID PRN 08/26/19 [History] Ped Multivit 43/Iron Fumarate [Flintstones Complete Chew Tab] 2 tab PO QPM 08/27/19 [History] Acetaminophen/Dextromethorphan [Robitussin Cough-Sore Throat] 0 ml PO DAILY PRN 04/06/20 [History] Bacillus Coagulans [Digestive Advantage Probiotic] 1 each PO DAILY 04/06/20 [History] Inulin/Chromium Picolinate [Fiber Gummies] 1 each PO DAILY 04/06/20 [History] Neomycin/Bacitracin/Polymyxinb [Antibiotic Ointment] 1 applic TP TID PRN 04/06/20 [History] polyethylene glycoL 3350 [MiraLAX] 17 gm PO DAILY PRN #30 packet 04/07/20 [Rx] Famotidine 20 mg PO BID 06/30/20 [History] Fluticasone Propionate [Flonase Allergy Relief] 1 spray YOMAIRA BID 06/30/20 [History] levoFLOXacin [Levaquin] 750 mg PO Q24H #5 tablet 07/04/20 [Rx] Hydrogen Peroxide 1 - 2 applic TOP DAILY PRN 07/11/20 [History] Past Medical History HEENT History: Reports: Other (See Below) Other HEENT History: wears glasses Cardiovascular History: Reports: None Respiratory History: Reports: Asthma, Pneumonia, Recurrent, Sleep Apnea Other Respiratory History: wears bipap at night-4L O2--not always compliant. CPT Vest. 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, Anxiety, Depression, OCD Other Psychiatric History: developmentally delayed Endocrine/Metabolic History: Reports: Hypothyroidism Hematologic History: Reports: None Immunologic History: Reports: None Oncologic (Cancer) History: Reports: None Dermatologic History: Reports: Other (See Below) Other Dermatologic History: alopecia - Infectious Disease History Infectious Disease History: Reports: None - Past Surgical History Head Surgeries/Procedures: Reports: None HEENT Surgical History: Reports: None Respiratory Surgical History: Reports: None GI Surgical History: Reports: None Male Surgical History: Reports: None Endocrine Surgical History: Reports: None Musculoskeletal Surgical History: Reports: Other (See Below) Other Musculoskeletal Surgeries/Procedures:: left pinkie finger surgery Social & Family History - Family History Family Medical History: No Pertinent Family History - Caffeine Use Caffeine Use: Reports: Soda - Living Situation & Occupation Living situation: Reports: Single, Assisted Living (at [facility]) Occupation: Disabled ED ROS GENERAL - Review of Systems Review Of Systems: See Below Constitutional: Denies: Fever, Chills HEENT: Reports: No Symptoms Respiratory: Reports: Shortness of Breath, Cough Cardiovascular: Reports: No Symptoms Endocrine: Reports: No Symptoms GI/Abdominal: Reports: No Symptoms, Difficulty Swallowing : Denies: Other Musculoskeletal: Reports: Other (Scoliosis severe) Neurological: Reports: Other (Again developmental delay) Psychiatric: Reports: No Symptoms ED EXAM, GENERAL - Physical Exam Exam: See Below Exam Limited By: No Limitations General Appearance: Alert, No Apparent Distress Head: Atraumatic, Normocephalic Respiratory/Chest: No Respiratory Distress, Lungs Clear, Other (Sounds on the left this is most likely due to scoliosis) Cardiovascular: Normal Peripheral Pulses, Regular Rate, Rhythm, No Edema GI/Abdominal: Normal Bowel Sounds, Soft, Non-Tender Back Exam: Other (Severe scoliosis) Course - Vital Signs Last Recorded V/S: Last Vital Signs Temp 35.9 C L 07/11/20 20:26 Pulse 72 07/11/20 20:26 Resp 20 07/11/20 20:26 BP 123/83 07/11/20 20:26 Pulse Ox 95 07/11/20 20:26 - Orders/Labs/Meds Orders: Active Orders 24 hr Category Date Time Status Chest 2V [CR] Stat Exams 07/11/20 21:02 Taken - Radiology Interpretation Free Text/Narrative:: Chest x-ray this evening I think looks better than this x-ray here in the hospital. He still has a little bit of consolidation in the left lung base with angles looks significantly better. Patient's been started back on antibiotics by Jose Alejandro I am not sure exactly what they started him on. At this point I would wait and see how how he does I do not think laboratory works can help me at all he is afebrile and otherwise feels pretty good. We will discharge home at this time Departure - Departure Time of Disposition: 22:28 Disposition: Home, Self-Care 01 Clinical Impression: Pneumonia Qualifiers: Pneumonia type: aspiration pneumonia Laterality: bilateral Lung location: lower lobe of lung - Discharge Information Referrals: Michaela Sanchez, T[employer]IST [Primary Care Provider] - Forms: ED Department Discharge Additional Instructions: Return to the emergency room with any questions problems or worsening symptoms. Finish the antibiotics as started earlier. Sepsis Event Note (ED) - Evaluation Sepsis Screening Result: No Definite Risk - Focused Exam Vital Signs: Vital Signs Temp Pulse Resp BP Pulse Ox 07/11/20 20:26 35.9 C L 72 20 123/83 95 - My Orders Last 24 Hours: My Active Orders 07/11/20 21:02 Chest 2V [CR] Stat - Assessment/Plan Last 24 Hours: My Active Orders 07/11/20 21:02 Chest 2V [CR] Stat
--- NOTE | 2020-07-12 08:08 | CR ---
Chest: 2 views of the chest were obtained. Comparison: Prior chest x-ray of 07/04/20. Continuing increased density within the left retrocardiac region is seen which is improved from prior study. Thick area of atelectasis is noted within the left upper lung. Right lung is clear. Heart size and mediastinum are stable. Scoliosis is noted with the spine. Impression: 1. Thick area of atelectasis behind left heart which is improved from prior study. 2. Area of atelectasis within the left upper chest. 3. Other findings as noted above. Diagnostic code #3 I agree with preliminary report from [facility], finalized on 07/11/20, 11:06 PM [employer]
== END 2020-07-11 22:38 | disposition home or self-care (01) ==
LOC: JD.ED 20:06
DX: J69.0 Pneumonitis due to inhalation of food and vomit (principal); J45.909 Unspecified asthma, uncomplicated; E03.9 Hypothyroidism, unspecified; Z88.8 Allergy status to other drugs, medicaments and biological substances; Z91.048 Other nonmedicinal substance allergy status; Z79.899 Other long term (current) drug therapy
CPT/HCPCS: 71046; 71046-26; 99284-25

== ENCOUNTER 2020-10-06 16:36 | Inpatient (IN) | payer BC ==
--- NOTE | 2020-10-06 17:01 | EDM.PDOC ---
ED HPI GENERAL MEDICAL PROBLEM - General Chief Complaint: Fever Stated Complaint: POSSIBLE PNEUMONIA Time Seen by Provider: 10/06/20 17:01 Source of Information: Reports: Family - History of Present Illness INITIAL COMMENTS - FREE TEXT/NARRATIVE: 39-year-old male brought over from able retirement where he resides. Brought over by his mother. Apparently he did not eat much for dinner. Spiked a fever this afternoon of 104 -105 degrees. He was not yet given any medication for fever relief through the timing of mom's arrival to pick him up. He had had a nap this afternoon for a couple of hours which is atypical. Apparently had no fever last night or this morning. He has had pneumonia in the months of July and August. Apparently initial antibiotic therapy failed in July and he was treated with a 10-day course of Levaquin which apparently did bring the pneumonia under control. He has had both of his Covid 19 injections with the last one being given 3 weeks ago which should make him immune. Onset: Today, Sudden Onset Date: 10/06/20 Onset Time: 10:00 Duration: Hour(s):, Getting Worse Location: Reports: Generalized (Spiked a fever of 104 205 degrees this afternoon.), Other (He did not eat much at all for dinner which is atypical. Also had a nap this afternoon for 2 hours again atypical for him. Woke up with a very high fever and mother was summoned to come and pick him up from the group able home.) Quality: Reports: Other (No complaints. He does not cough. He is prone to pneumonia due to severe kyphoscoliosis of his thoracic spine concave to the right. He has a severe restrictive lung disease component to illness.) Severity: Moderate Improves with: Reports: None Worsens with: Reports: None Context: Reports: Other (Illness due to severe restrictive lung disease from kyphoscoliosis thoracic spine he was born with.). Denies: Activity, Exercise, Lifting, Sick Contact, Trauma Associated Symptoms: Reports: Fever/Chills, Loss of Appetite, Malaise, Weakness, Other (Hypnic on exam). Denies: Confusion, Chest Pain, Cough, cough w sputum, Diaphoresis (Fever of 104 degrees in the ER.), Headaches, Nausea/Vomiting, Rash, Seizure, Shortness of Breath, Syncope Treatments CONVENTION SERVICES DIRECTOR: Reports: Other (see below) (Has not had any medication for fever yet.) - Related Data Allergies Allergy/AdvReac Type Severity Reaction Status Date / Time ziprasidone [From Geodon] Allergy Intermediate Edema Verified 10/06/20 18:58 risperidone [From Risperdal] Allergy Mild Cannot Verified 10/06/20 18:58 Remember cat dander Allergy Difficulty Verified 10/06/20 18:58 Breathing dog dander Allergy Cannot Verified 10/06/20 18:58 Remember grass pollen Allergy Difficulty Verified 10/06/20 18:58 Breathing Home Meds: Home Meds Acetaminophen 650 mg PO Q4HR PRN 12/10/18 [History] Divalproex Sodium [Depakote] 500 mg PO ,12/10/18 [History] Levothyroxine 75 mcg PO MOTUWETHFR 12/10/18 [History] Levothyroxine [Synthroid] 50 mcg PO SUSA 12/10/18 [History] Loperamide [Imodium] 2 mg PO ASDIRECTED PRN 12/10/18 [History] Melatonin 10 mg PO 209912/10/18 [History] PARoxetine HCL [Paxil] 30 mg PO 12/10/18 [History] allopurinoL [Zyloprim] 300 mg PO 209912/10/18 [History] cloNIDine [Catapres TTS-2] 0.2 mg TOP Q2D 12/10/18 [History] traZODone HCl [Trazodone HCl] 50 mg PO BEDTIME PRN 12/10/18 [History] Anti-Acid 2 - 4 tsp PO Q4H PRN 03/10/19 [History] Desmopressin 0.05 mg PO 209903/10/19 [History] Desmopressin 0.05 mg PO BEDTIME PRN 03/10/19 [History] Fexofenadine/Pseudoephedrine [Gris-D 24 Hour Tablet] 180 mg PO DAILY PRN 03/10/19 [History] Divalproex Sodium [Depakote] 250 mg PO 1400 06/04/19 [History] ARIPiprazole [Abilify] 7.5 mg PO TID@0800,1400,199908/26/19 [History] ARIPiprazole [Aripiprazole] 2 mg PO Q6H PRN 08/26/19 [History] Albuterol/Ipratropium [DuoNeb 3.0-0.5 MG/3 ML] 1 vial NEB TID PRN 08/26/19 [History] Ped Multivit 43/Iron Fumarate [Flintstones Complete Chew Tab] 2 tab PO QPM 08/27/19 [History] Acetaminophen/Dextromethorphan [Robitussin Cough-Sore Throat] 0 ml PO DAILY PRN 04/06/20 [History] Bacillus Coagulans [Digestive Advantage Probiotic] 1 each PO DAILY 04/06/20 [History] Inulin/Chromium Picolinate [Fiber Gummies] 1 each PO DAILY 04/06/20 [History] Neomycin/Bacitracin/Polymyxinb [Antibiotic Ointment] 1 applic TP TID PRN 04/06/20 [History] polyethylene glycoL 3350 [MiraLAX] 17 gm PO DAILY PRN #30 packet 04/07/20 [Rx] Famotidine 20 mg PO BID 06/30/20 [History] Fluticasone Propionate [Flonase Allergy Relief] 1 spray YOMAIRA BID 06/30/20 [History] levoFLOXacin [Levaquin] 750 mg PO Q24H #5 tablet 07/04/20 [Rx] Hydrogen Peroxide 1 - 2 applic TOP DAILY PRN 07/11/20 [History] Past Medical History HEENT History: Reports: Other (See Below) Other HEENT History: wears glasses Cardiovascular History: Reports: None Respiratory History: Reports: Asthma, Pneumonia, Recurrent (Had pneumonia in the month of July and August of this year.), Sleep Apnea Other Respiratory History: wears bipap at night-4L O2--not always compliant. CPT Vest. 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, Anxiety, Depression, OCD Other Psychiatric History: developmentally delayed Endocrine/Metabolic History: Reports: Hypothyroidism Hematologic History: Reports: None Immunologic History: Reports: None Oncologic (Cancer) History: Reports: None Dermatologic History: Reports: Other (See Below) Other Dermatologic History: alopecia - Infectious Disease History Infectious Disease History: Reports: None - Past Surgical History Head Surgeries/Procedures: Reports: None HEENT Surgical History: Reports: None Respiratory Surgical History: Reports: None GI Surgical History: Reports: None Male Surgical History: Reports: None Endocrine Surgical History: Reports: None Musculoskeletal Surgical History: Reports: Other (See Below) Other Musculoskeletal Surgeries/Procedures:: left pinkie finger surgery Social & Family History - Family History Family Medical History: No Pertinent Family History - Tobacco Use Tobacco Use Status *Q: Never Tobacco User Second Hand Smoke Exposure: No - Caffeine Use Caffeine Use: Reports: Soda - Recreational Drug Use Recreational Drug Use: No - Living Situation & Occupation Living situation: Reports: Single, Assisted Living (at [facility]) Occupation: Disabled ED ROS GENERAL - Review of Systems Review Of Systems: See Below Constitutional: Reports: Fever, Malaise, Weakness (Documented chills.), Fatigue, Decreased Appetite (Did eat hardly any of his dinner meal.). Denies: Chills, Weight Loss HEENT: Reports: Other (No acuity problems.) Respiratory: Reports: Shortness of Breath. Denies: Wheezing, Pleuritic Chest Pain, Cough (Never coughs. Therefore difficulty clearing secretions), Sputum, Hemoptysis, Other Cardiovascular: Reports: Edema. Denies: Chest Pain, Blood Pressure Problem, Claudication, Dyspnea on Exertion (Neck lower extremities up to the knees bilaterally.), Lightheadedness, Orthopnea, Palpitations Endocrine: Reports: Fatigue (Particularly noted today.) GI/Abdominal: Reports: Other (He is incontinent of urine for the most part. Te nds to have diarrhea and in spite of a bowl regimen. Often has accidents because of diarrhea. By time he notifies anybody that he has to go they can get him to the bathroom in time. He therefore does wear depends.) : Reports: Incontinence Musculoskeletal: Reports: Back Pain (Zoomed back pain.) Skin: Reports: Other (Said skin breakdown on the buttocks in the past.) Neurological: Reports: Other (Patient does verbalize occasional words.) Psychiatric: Reports: Agitation, Anxiety Hematologic/Lymphatic: Reports: No Symptoms Immunologic: Reports: No Symptoms ED EXAM, GENERAL - Physical Exam Exam: See Below Exam Limited By: Other (Has cerebral palsy and therefore is a very limited ability to converse verbally. He can say the occasional one-word sentences such as picture meaning that he is going to get a lung x-ray etc.) General Appearance: Moderate Distress, Other (Very warm to palpation. Feels l melia 104. Nurses recorded temperature 37.7 by tympanic assessment. Heart rate is 86 and sinus respiratory is 19 with O2 sats of only 91% room air BP is 139/76.) Eye Exam: Bilateral Eye: Normal Inspection (No scleral icterus or blepharal pallor.), PERRL Ears: Normal TMs Throat/Mouth: Other (Is mildly dry and slightly coated. Oropharynx otherwise ) Head: Atraumatic, Normocephalic Neck: Normal Inspection, Supple, Non-Tender. No: Carotid Bruit, Lymphadenopathy (L), Lymphadenopathy (R), Thyromegaly Respiratory/Chest: Respiratory Distress (At rest), Decreased Breath Sounds (Markedly decreased breath sounds to the left posterior lung field by over 60%.), Rhonchi ( Scattered rhonchi particularly throughout the left upper anterior lobe of lung and slightly on the right upper lobe as well.). No: Wheezing (No wheezes) Cardiovascular: Regular Rate, Rhythm, No Gallop, No Murmur, No Rub. 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 He did require interventional radiology to drain periappendiceal abscess and spent over 2 weeks in hospital on IV antibiotics.). No: Guarding, Rigid, Rebound (Male) Exam: No Hernia Back Exam: Other (Your kyphoscoliosis of his thoracic spine concave to the right.) Extremities: Normal Inspection, Pedal Edema (He has 4+ pitting edema both lower extremities up to the knees.) Neurological: Alert, Other (Can say a few 1 word responses.) Psychiatric: Flat Affect Skin Exam: Warm, Dry, Intact, Normal Color, No Rash, Other #1 Interpretation EKG Date: 10/06/20 Time: 17:34 Rhythm: NSR Rate (Beats/Min): 80 Mica: RAD-Right Mica Deviation (123 degrees) P-Wave: Enlarged (Right atrial hypertrophy pattern) QRS: Other (Early R wave transition suggesting right ventricular hypertrophy. Note his heart is deviated to the left and due to severe kyphoscoliosis of the thoracic spine which skews the axis) ST-T: Other (Wave inversion V1 to V3 and T wave flattening V4 to V6) QT: Normal EKG Interpretation Comments: Abnormal ECG. Note the ECG is abnormal due to the patient's severe kyp hoscoliosis of his thoracic spine concave to the right side which pushes the heart over to the left. Course - Vital Signs Text/Narrative:: 39-year-old male with cerebral palsy and severe congenital kyphoscoliosis of his thoracic spine presents to the ED with acute onset of high fever today. He did not eat much for dinner and then he had a nap this afternoon at retirement where he stays which is atypical for him. Patient has had pneumonia in the months of July and August. Initial antibiotic instituted in July was in it not effective and he was started on Levaquin in August which seemed to clear up his pneumonia. Patient is very prone to pneumonia as he has very poor air entry to the left lower lung field due to the scoliosis of his spine. He has a severe restrictive lung component to his illness. O2 sats are 91% on room air. He will be started on oxygen at 2 L/min by nasal cannula. Septic work-up will be obtained and of course a chest x-ray. IV fluids will be D5 normal saline at open at this time. He will be given Motrin suspension 30 mils to get provide 600 mg of Motrin for fever relief. Last Recorded V/S: Last Vital Signs Temp 37.7 C 10/06/20 16:54 Pulse 86 10/06/20 16:54 Resp 19 10/06/20 16:54 BP 139/76 10/06/20 16:54 Pulse Ox 91 L 10/06/20 16:54 - Orders/Labs/Meds Orders: Active Orders 24 hr Category Date Time Status EKG Documentation Completion [RC] STAT Care 10/06/20 17:16 Active Insert Lucero Catheter [Insert Urinary Catheter] [OM.PC] Care 10/06/20 18:00 Ordered Stat Oxygen Therapy [RC] ASDIRECTED Care 10/06/20 17:22 Active Urinary Catheter Assessment [RC] ASDIRECTED Care 10/06/20 18:00 Active CULTURE BLOOD [BC] Stat Lab 10/06/20 17:40 Received CULTURE BLOOD [BC] Stat Lab 10/06/20 17:50 Received KETONES,BLOOD [CHEM] Stat Lab 10/06/20 17:40 Received Dextrose 5%-0.9% NaCl [Dextrose 5%-Normal Saline] 1,000 Med 10/06/20 17:15 Active ml IV ASDIRECTED Levofloxacin/Dextrose 5%-Water [Levaquin in D5W 750 MG/ Med 10/06/20 18:22 Act john 150 ML] 750 mg Premix Bag 1 bag IV ONETIME Blood Culture x2 Reflex Set [OM.PC] Stat Oth 10/06/20 17:16 Ordered Medication Orders Dextrose/Sodium Chloride (Dextrose 5%-Normal Saline) 1,000 mls @ 999 mls/hr IV ASDIRECTED SALBADOR Last Admin: 10/06/20 17:44 Dose: 999 mls/hr Documented by: CLARISSA Levofloxacin/Dextrose 750 mg/ (Premix) 150 mls @ 100 mls/hr IV ONETIME ONE Stop: 10/06/20 19:51 Last Admin: 10/06/20 18:32 Dose: 100 mls/hr Documented by: SHARMAINE Labs: Laboratory Tests 10/06/20 10/06/20 10/06/20 Range/Units 17:20 17:40 17:40 WBC 13.88 H (4.23-9.07) K/mm3 RBC 5.25 (4.63-6.08) M/mm3 Hgb 14.1 D (13.7-17.5) gm/dl Hct 47.2 (40.1-51.0) % MCV 89.9 D (79.0-92.2) fl MCH 26.9 (25.7-32.2) pg MCHC 29.9 L (32.2-35.5) g/dl RDW Std Deviation 61.7 H (35.1-43.9) fL Plt Count 215 (163-337) K/mm3 MPV 11.8 (9.4-12.3) fl Neutrophils % (Manual) 85 H (40-60) % Band Neutrophils % 0 (0-10) % Lymphocytes % (Manual) 8 L (20-40) % Atypical Lymphs % 0 % Monocytes % (Manual) 7 (2-10) % Eosinophils % (Manual) 0 L (0.8-7.0) % Basophils % (Manual) 0 L (0.2-1.2) Platelet Estimate Adequate Hypochromasia 1+ slight Anisocytosis 1+ slight Stomatocytes Few RBC Morph Comment Not Reportable PT 10.9 (9.7-12.0) SECONDS INR 1.02 APTT 28.6 (21.7-31.4) SECONDS Sodium (136-145) mEq/L Potassium (3.5-5.1) mEq/L Chloride (98-107) mEq/L Carbon Dioxide (21-32) mEq/L Anion Gap (5-15) BUN (7-18) mg/dL Creatinine (0.7-1.3) mg/dL Est Cr Clr Drug Dosing mL/min Estimated GFR (MDRD) (>60) mL/min BUN/Creatinine Ratio (14-18) Glucose (74-106) mg/dL Lactic Acid (0.4-2.0) mmol/L Calcium (8.5-10.1) mg/dL Magnesium (1.8-2.4) mg/dl Total Bilirubin (0.2-1.0) mg/dL AST (15-37) U/L ALT (16-63) U/L Alkaline Phosphatase (46-116) U/L C-Reactive Protein (<1.0) mg/dL NT-Pro-B Natriuret Pep (0-125) pg/mL Total Protein (6.4-8.2) g/dl Albumin (3.4-5.0) g/dl Globulin gm/dL Albumin/Globulin Ratio (1-2) Urine Color (Yellow) Urine Appearance (Clear) Urine pH (5.0-8.0) Ur Specific Furlong (1.005-1.030) Urine Protein (Negative) Urine Glucose (UA) (Negative) Urine Ketones (Negative) Urine Occult Blood (Negative) Urine Nitrite (Negative) Urine Bilirubin (Negative) Urine Urobilinogen (0.2-1.0) Ur Leukocyte Esterase (Negative) SARS-CoV-2 RNA (NOEMÍ) Negative (NEGATIVE) 10/06/20 10/06/20 10/06/20 Range/Units 17:40 17:40 17:40 WBC (4.23-9.07) K/mm3 RBC (4.63-6.08) M/mm3 Hgb (13.7-17.5) gm/dl Hct (40.1-51.0) % MCV (79.0-92.2) fl MCH (25.7-32.2) pg MCHC (32.2-35.5) g/dl RDW Std Deviation (35.1-43.9) fL Plt Count (163-337) K/mm3 MPV (9.4-12.3) fl Neutrophils % (Manual) (40-60) % Band Neutrophils % (0-10) % Lymphocytes % (Manual) (20-40) % Atypical Lymphs % % Monocytes % (Manual) (2-10) % Eosinophils % (Manual) (0.8-7.0) % Basophils % (Manual) (0.2-1.2) Platelet Estimate Hypochromasia Anisocytosis Stomatocytes RBC Morph Comment PT (9.7-12.0) SECONDS INR APTT (21.7-31.4) SECONDS Sodium 139 (136-145) mEq/L Potassium 4.9 (3.5-5.1) mEq/L Chloride 98 (98-107) mEq/L Carbon Dioxide 39 H (21-32) mEq/L Anion Gap 6.9 (5-15) BUN 18 (7-18) mg/dL Creatinine 0.9 (0.7-1.3) mg/dL Est Cr Clr Drug Dosing 107.67 mL/min Estimated GFR (MDRD) > 60 (>60) mL/min BUN/Creatinine Ratio 20.0 H (14-18) Glucose 99 (74-106) mg/dL Lactic Acid 1.2 (0.4-2.0) mmol/L Calcium 9.5 (8.5-10.1) mg/dL Magnesium 1.7 L (1.8-2.4) mg/dl Total Bilirubin 0.6 (0.2-1.0) mg/dL AST 19 (15-37) U/L ALT 20 (16-63) U/L Alkaline Phosphatase 64 (46-116) U/L C-Reactive Protein 2.7 H* (<1.0) mg/dL NT-Pro-B Natriuret Pep 441 H (0-125) pg/mL Total Protein 7.7 (6.4-8.2) g/dl Albumin 3.3 L (3.4-5.0) g/dl Globulin 4.4 gm/dL Albumin/Globulin Ratio 0.8 L (1-2) Urine Color (Yellow) Urine Appearance (Clear) Urine pH (5.0-8.0) Ur Specific Furlong (1.005-1.030) Urine Protein (Negative) Urine Glucose (UA) (Negative) Urine Ketones (Negative) Urine Occult Blood (Negative) Urine Nitrite (Negative) Urine Bilirubin (Negative) Urine Urobilinogen (0.2-1.0) Ur Leukocyte Esterase (Negative) SARS-CoV-2 RNA (NOEMÍ) (NEGATIVE) 10/06/20 Range/Units 18:00 WBC (4.23-9.07) K/mm3 RBC (4.63-6.08) M/mm3 Hgb (13.7-17.5) gm/dl Hct (40.1-51.0) % MCV (79.0-92.2) fl MCH (25.7-32.2) pg MCHC (32.2-35.5) g/dl RDW Std Deviation (35.1-43.9) fL Plt Count (163-337) K/mm3 MPV (9.4-12.3) fl Neutrophils % (Manual) (40-60) % Band Neutrophils % (0-10) % Lymphocytes % (Manual) (20-40) % Atypical Lymphs % % Monocytes % (Manual) (2-10) % Eosinophils % (Manual) (0.8-7.0) % Basophils % (Manual) (0.2-1.2) Platelet Estimate Hypochromasia Anisocytosis Stomatocytes RBC Morph Comment PT (9.7-12.0) SECONDS INR APTT (21.7-31.4) SECONDS Sodium (136-145) mEq/L Potassium (3.5-5.1) mEq/L Chloride (98-107) mEq/L Carbon Dioxide (21-32) mEq/L Anion Gap (5-15) BUN (7-18) mg/dL Creatinine (0.7-1.3) mg/dL Est Cr Clr Drug Dosing mL/min Estimated GFR (MDRD) (>60) mL/min BUN/Creatinine Ratio (14-18) Glucose (74-106) mg/dL Lactic Acid (0.4-2.0) mmol/L Calcium (8.5-10.1) mg/dL Magnesium (1.8-2.4) mg/dl Total Bilirubin (0.2-1.0) mg/dL AST (15-37) U/L ALT (16-63) U/L Alkaline Phosphatase (46-116) U/L C-Reactive Protein (<1.0) mg/dL NT-Pro-B Natriuret Pep (0-125) pg/mL Total Protein (6.4-8.2) g/dl Albumin (3.4-5.0) g/dl Globulin gm/dL Albumin/Globulin Ratio (1-2) Urine Color Yellow (Yellow) Urine Appearance Clear (Clear) Urine pH 8.5 H (5.0-8.0) Ur Specific Furlong 1.020 (1.005-1.030) Urine Protein Negative (Negative) Urine Glucose (UA) Negative (Negative) Urine Ketones Negative (Negative) Urine Occult Blood Negative (Negative) Urine Nitrite Negative (Negative) Urine Bilirubin Negative (Negative) Urine Urobilinogen 1.0 (0.2-1.0) Ur Leukocyte Esterase Negative (Negative) SARS-CoV-2 RNA (NOEMÍ) (NEGATIVE) Meds: Medications Generic Name Dose Route Start Last Admin Trade Name Freq PRN Reason Stop Dose Admin Dextrose/Sodium Chloride 1,000 mls @ 999 mls/hr 10/06/20 17:15 10/06/20 17:44 Dextrose 5%-Normal Saline IV 999 mls/hr ASDIRECTED SALBADOR Administration Levofloxacin/Dextrose 750 mg/ 150 mls @ 100 mls/hr 10/06/20 18:22 10/06/20 18:32 Premix IV 10/06/20 19:51 100 mls/hr ONETIME ONE Administration Discontinued Medications Generic Name Dose Route Start Last Admin Trade Name Freq PRN Reason Stop Dose Admin Ibuprofen 600 mg 10/06/20 17:12 10/06/20 17:44 Ibuprofen Susp 100 Mg/5 Ml 5 Ml Ud Cup PO 10/06/20 17:13 600 mg ONETIME ONE Administration - Radiology Interpretation Free Text/Narrative:: 39-year-old male who suffers from primary cerebral palsy complicated by severe kyphoscoliosis of his thoracic and lumbar spine concave to the right that is worsened since . This is pushed his heart over to the left side and makes it difficult for him to fully inflate the bottom of the left lung. He is very prone to pneumonia. He had pneumonia in the month of July which was not responding to initial antibiotic therapy and it had to be changed to Levaquin which she took for 10 days and did improve. Today he spiked a temperature of 104 or greater at the retirement where he resides. Plan chest x-ray to be done. ECG. Routine labs including blood cultures lactic acid and septic work-up. IV will be D5 normal saline at open at present. He will be given Motrin 600 mg suspension or 30 mils for fever relief. - Re-Assessments/Exams Free Text/Narrative Re-Assessment/Exam: 10/06/20 18:15: 1 view chest x-ray done reveals severe kyphoscoliosis of the thoracic spine concave to the left. This pushes the heart over to the left lateral chest wall. The chest x-ray reveals pneumonia in the retrocardiac space I believe on the right side. Plan he will be started on Levaquin 750 mg IV at this time. 10/06/20 18:28 White count is elevated at 13.88 with 85% neutrophils and no bands cells reported. Hemoglobin is 14.1 with hematocrit of 47.2. MCV is 89.9. Platelet count is 215,000. The slide shows 1+ hypochromasia and 1+ anisocytosis. A few stomatocytes are appreciated. PT is 10.9 with an INR of 1.02 and a PTT of 28.6. Sodium 139 with potassium 4.9. Chloride is 98 with a bicarb of 39 i.e. CO2 retention. Anion gap is 6.9. BUN is 18 with a creatinine of 0.9. GFR greater than 60. Glucose is 99 with a lactic acid of 1.2. Calcium is 9.5. Magnesium slightly low at 1.7. Liver function normal. C-reactive protein is 2.7. Total protein 7.7 with an albumin fraction slightly low at 3.3. I went to speak to the mother to indicate that his x-ray does show pneumonia and in fact he needs to be started on IV antibiotics and we will be starting Levaquin 750 mg IV. However mom has stepped out for a minute or 2. I will try and catch her when she comes back to the room. 10/06/20 18:45 Nurses report they were able to gather a urine specimen by catheterization the patient tolerated this very well. Urine does smell quite foul. Urinalysis is pending.BNP is mildly elevated at 441. COVID-19 screen is negative. Urinalysis is pending 10/06/20 18:59 Urinalysis proved to be negative for any signs of infection. 10/06/20 19:[address] Cruz on-call hospitalist and he will admit the patient to the med surgery floor for treatment of pneumonia. He is at risk of compromise due to severe kyphoscoliosis of his thoracic spine with restrictive lung disease component and mild congestive heart failure. Departure - Departure Time of Disposition: 19:06 Disposition: Admitted As Inpatient 67 Condition: Serious Clinical Impression: Restrictive lung disease due to kyphoscoliosis, Mild congestive heart failure Pneumonia Qualifiers: Pneumonia type: due to unspecified organism Laterality: left Lung location: lower lobe of lung Qualified Code(s): J18.9 - Pneumonia, unspecified organism Cerebral palsy Qualifiers: Cerebral palsy type: unspecified type Qualified Code(s): G80.9 - Cerebral palsy, unspecified - Discharge Information *PRESCRIPTION DRUG MONITORING PROGRAM REVIEWED*: Not Applicable *COPY OF PRESCRIPTION DRUG MONITORING REPORT IN PATIENT HUMBERTO: Not Applicable Referrals: Michaela Sanchez NP [Primary Care Provider] - Forms: ED Department Discharge Sepsis Event Note (ED) - Evaluation Sepsis Screening Result: No Definite Risk - Focused Exam Vital Signs: Vital Signs Temp Pulse Resp BP Pulse Ox 10/06/20 16:54 37.7 C 86 19 139/76 91 L - My Orders Last 24 Hours: My Active Orders 10/06/20 17:15 Dextrose 5%-0.9% NaCl [Dextrose 5%-Normal Saline] 1,000 ml IV ASDIRECTED 10/06/20 17:16 EKG Documentation Completion [RC] STAT Blood Culture x2 Reflex Set [OM.PC] Stat 10/06/20 17:22 Oxygen Therapy [RC] ASDIRECTED 10/06/20 17:40 CULTURE BLOOD [BC] Stat KETONES,BLOOD [CHEM] Stat 10/06/20 17:50 CULTURE BLOOD [BC] Stat 10/06/20 18:00 Insert Lucero Catheter [Insert Urinary Catheter] [OM.PC] Stat Urinary Catheter Assessment [RC] ASDIRECTED 10/06/20 18:22 Levofloxacin/Dextrose 5%-Water [Levaquin in D5W 750 MG/150 ML] 750 mg Premix B ag 1 bag IV ONETIME - Assessment/Plan Last 24 Hours: My Active Orders 10/06/20 17:15 Dextrose 5%-0.9% NaCl [Dextrose 5%-Normal Saline] 1,000 ml IV ASDIRECTED 10/06/20 17:16 EKG Documentation Completion [RC] STAT Blood Culture x2 Reflex Set [OM.PC] Stat 10/06/20 17:22 Oxygen Therapy [RC] ASDIRECTED 10/06/20 17:40 CULTURE BLOOD [BC] Stat KETONES,BLOOD [CHEM] Stat 10/06/20 17:50 CULTURE BLOOD [BC] Stat 10/06/20 18:00 Insert Lucero Catheter [Insert Urinary Catheter] [OM.PC] Stat Urinary Catheter Assessment [RC] ASDIRECTED 10/06/20 18:22 Levofloxacin/Dextrose 5%-Water [Levaquin in D5W 750 MG/150 ML] 750 mg Premix Bag 1 bag IV ONETIME
[2020-10-06] MEDS ORDERED: Ibuprofen Susp 100 MG/5 ML 5 ML UD Cup PO ONE (17:12)
[2020-10-06] MEDS ORDERED: Dextrose 5%-0.9% NaCl 1,000 ML IV SCH (17:15)
[2020-10-06] MEDS ORDERED: Levofloxacin/Dextrose 5%-Water 750 MG in Premix Bag 1 BAG IV ONE (18:22)
--- NOTE | 2020-10-06 18:34 | CR ---
Chest: Portable view of the chest was obtained. Comparison: Prior chest x-ray of 07/11/20. Scoliosis is noted. Slight increased density within the right lung base is seen which is slightly more prominent than on prior exam. Lungs also show stable scarring within the left upper chest. Lungs otherwise are clear. Heart size is stable. Impression: 1. Slight increasing density within the right lung base from prior study, this could represent an area of aspiration, pneumonia or increased atelectasis. 2. Other stable findings as noted above. Diagnostic code #3
[2020-10-06] MEDS ORDERED: Ondansetron 4 MG/2 ML SDV IV PRN (20:32)
[2020-10-06] MEDS ORDERED: Acetaminophen 325 MG Tab PO PRN (20:32)
[2020-10-06] MEDS ORDERED: Loperamide 2 MG Cap PO PRN (20:40)
[2020-10-06] MEDS ORDERED: Polyethylene Glycol 3350 Powder 17 GM Packet PO PRN (20:40)
[2020-10-06] MEDS ORDERED: Non-Formulary Medication 1 Each (Melatonin [Melatonin] 10 MG Tablet) PO SCH (21:00)
[2020-10-06] MEDS: Allopurinol 300 MG Tab PO SCH (21:27)
[2020-10-06] MEDS: Famotidine 20 MG Tab PO SCH (21:27)
[2020-10-06] MEDS: traZODone 50 MG Tab PO PRN (21:28)
[2020-10-06] MEDS: Divalproex Sodium Delayed-Release 500 MG Tab.CR PO SCH (21:29)
[2020-10-06] MEDS: Melatonin 3 MG Tab PO SCH (22:08)
[2020-10-06] MEDS: cloNIDine 0.2 MG/Day Transdermal Patch TOP SCH (22:10)
[2020-10-06] MEDS: [UNRECOGNIZED DRUG - REMARK] TRDERM SCH (22:10)
[2020-10-07] MEDS ORDERED: Levothyroxine 75 MCG Tab PO SCH (06:00)
--- NOTE | 2020-10-07 07:28 | PCM.HP.2 ---
H&P History of Present Illness - General Date of Service: 10/07/20 Admit Problem/Dx: Admission Diagnosis/Problem Admission Diagnosis/Problem Pneumonia Source of Information: Patient, Family, Old Records, Provider, RN, RN Notes Reviewed History Limitations: Reports: Altered Mental Status (has baseline cerebral palsey) - History of Present Illness Initial Comments - Free Text/Narative: This is a 39-year-old male who is well-known to this facility, brought in by his mother from [facility] nursing home where he resides with fever and possible pneumonia. 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 Per the ED note he spiked a fever earlier in the day of 104 to 105 degrees. He also has not been eating much and has been taking some naps which is not his norm. He was in for pneumonia in July and August. In July he attempted outpatient treatment but failed and ended up being treated with a 10-day course of Levaquin. He has had both of his COVID-19 vaccinations with his last one being about 3 weeks ago. In the ED temp is 37.7 Celsius. Pulse 86. Respirations 19. Blood pressure 139/76. Pulse ox 91%. Labs are obtained showing a leukocytosis of 13.88. Hemoglobin is 14.1. +215,000. Neutrophils are elevated at 85% but there is no bandemia noted. INR is 1.02. Sodium is 139. Potassium 4.9. Chloride 98. Carbon dioxide 39. Anion gap is 6.9. BUN is 18, creatinine 0.9, GFR greater than 60. Glucose is 99. Calcium 9.5. Magnesium is low at 1.7. Bilirubin 0.6. AST is 19, ALT 20, alkaline phosphatase 64. CRP is 2.7. Albumin is low at 3.3. Lactic acid is 1.2. proBNP is 441. UA is obtained and is negative. SARS-CoV-2 RNA screen is negative. Twelve-lead EKG is obtained showing sinus rhythm at 80 bpm with right axis deviation, enlarged P waves, early R wave transition, and T wave inversion in V1 to V3 with T wave flattening in V4 to V6. His heart is noted to be shifted to the left which does skew interpretation. Chest x-ray is obtained showing a slight increase in density within the right lung base from prior study which could represent an area of aspiration, pneumonia, or increased atelectasis. There are other stable findings noted. Is given IV fluids and started on Levaquin. He is also given Motrin 600 mg. He is subsequently admitted to the medical floor inpatient for treatment of his pneumonia. He carries a history of asthma, recurrent pneumonia, sleep apnea treated with BiPAPalthough the patient is not always compliant, CPT vest, chronic diarrhea, urinary incontinence, scoliosis, kyphosis, anxiety, depression, OCD, developmental delay, hypothyroidism, alopecia. He is a full code. His PCP is Michaela Sanchez NP. - Related Data Allergies/Adverse Reactions: Allergies Allergy/AdvReac Type Severity Reaction Status Date / Time ziprasidone [From Geodon] Allergy Intermediate Edema Verified 10/06/20 18:58 risperidone [From Risperdal] Allergy Mild Cannot Verified 10/06/20 18:58 Remember cat dander Allergy Difficulty Verified 10/06/20 18:58 Breathing dog dander Allergy Cannot Verified 10/06/20 18:58 Remember grass pollen Allergy Difficulty Verified 10/06/20 18:58 Breathing Home Medications: Home Meds Acetaminophen 650 mg PO Q4HR PRN 12/10/18 [History] Divalproex Sodium [Depakote] 500 mg PO BEDTIME 12/10/18 [History] Levothyroxine 75 mcg PO MOTUWETHFR 12/10/18 [History] Levothyroxine [Synthroid] 50 mcg PO SUSA 12/10/18 [History] Loperamide [Imodium] 2 mg PO ASDIRECTED PRN 12/10/18 [History] Melatonin 10 mg PO 209912/10/18 [History] PARoxetine HCL [Paxil] 30 mg PO 08,14 12/10/18 [History] allopurinoL [Zyloprim] 300 mg PO 209912/10/18 [History] cloNIDine [Catapres TTS-2] 0.2 mg TOP Q2D 12/10/18 [History] traZODone HCl [Trazodone HCl] 50 mg PO BEDTIME PRN 12/10/18 [History] Anti-Acid 2 - 4 tsp PO Q4H PRN 03/10/19 [History] Desmopressin 0.05 mg PO 209903/10/19 [History] Fexofenadine/Pseudoephedrine [Gris-D 24 Hour Tablet] 180 mg PO DAILY 03/10/19 [History] Divalproex Sodium [Depakote] 250 mg PO ,06/04/19 [History] ARIPiprazole [Abilify] 7.5 mg PO TID@0800,1400,2000 08/26/19 [History] ARIPiprazole [Aripiprazole] 2 mg PO Q6H PRN 08/26/19 [History] Ped Multivit 43/Iron Fumarate [Flintstones Complete Chew Tab] 1 tab PO DAILY 08/27/19 [History] Acetaminophen/Dextromethorphan [Robitussin Cough-Sore Throat] 0 ml PO DAILY PRN 04/06/20 [History] Bacillus Coagulans [Digestive Advantage Probiotic] 1 each PO DAILY 04/06/20 [History] Inulin/Chromium Picolinate [Fiber Gummies] 2 g PO DAILY 04/06/20 [History] Neomycin/Bacitracin/Polymyxinb [Antibiotic Ointment] 1 applic TP TID PRN 04/06/20 [History] polyethylene glycoL 3350 [MiraLAX] 17 gm PO DAILY PRN #30 packet 04/07/20 [Rx] Famotidine 20 mg PO BID 06/30/20 [History] Fluticasone Propionate [Flonase Allergy Relief] 1 spray YOMAIRA BID 06/30/20 [History] Hydrogen Peroxide 1 - 2 applic TOP Q8HR PRN 07/11/20 [History] Pv Complete Allergy Tab 1 tab PO Q4H PRN 10/06/20 [History] Past Medical History HEENT History: Reports: Other (See Below) Other HEENT History: wears glasses Cardiovascular History: Reports: None Respiratory History: Reports: Asthma, Pneumonia, Recurrent, Sleep Apnea Other Respiratory History: wears bipap at night-4L O2--not always compliant. m om states "outgrew asthma" Gastrointestinal History: Reports: Chronic Diarrhea Genitourinary History: Reports: Urinary Incontinence Musculoskeletal History: Reports: Other (See Below) Other Musculoskeletal History: scoliosis Neurological History: Reports: Other (See Below) Other Neuro History: patient is developmentally delayed Psychiatric History: 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, Anxiety, Depression, OCD Other Psychiatric History: developmentally delayed Endocrine/Metabolic History: Reports: Hypothyroidism Hematologic History: Reports: None Immunologic History: Reports: None Oncologic (Cancer) History: Reports: None Dermatologic History: Reports: Other (See Below) Other Dermatologic History: alopecia - Infectious Disease History Infectious Disease History: Reports: None - Past Surgical History Head Surgeries/Procedures: Reports: None HEENT Surgical History: Reports: None Respiratory Surgical History: Reports: None GI Surgical History: Reports: None Male Surgical History: Reports: None Endocrine Surgical History: Reports: None Neurological Surgical History: Reports: None Musculoskeletal Surgical History: Reports: Other (See Below) Other Musculoskeletal Surgeries/Procedures:: left pinkie finger surgery Social & Family History - Family History Family Medical History: No Pertinent Family History - Tobacco Use Tobacco Use Status *Q: Never Tobacco User Second Hand Smoke Exposure: No - Caffeine Use Caffeine Use: Reports: Soda Caffeine Use Comment: Diet Coke rarely - Recreational Drug Use Recreational Drug Use: No - Living Situation & Occupation Living situation: Reports: Single, Assisted Living (at [facility]) Occupation: Disabled H&P Review of Systems - Review of Systems: Review Of Systems: See Below General: Reports: Fever, Chills, Malaise, Weakness, Fatigue, Decreased Appetite HEENT: Reports: No Symptoms. Denies: Headaches, Sore Throat Pulmonary: Reports: Shortness of Breath. Denies: Wheezing, Pleuritic Chest Pain, Cough, Sputum Cardiovascular: Reports: Edema. Denies: Chest Pain, Palpitations, Dyspnea on Exertion Gastrointestinal: Reports: Diarrhea (chronic ). Denies: Abdominal Pain, Constipation, Nausea, Vomiting Genitourinary: Reports: Incontinence Musculoskeletal: Reports: Back Pain Skin: Reports: No Symptoms Psychiatric: Reports: Anxiety Neurological: Reports: Confusion (baseline), Pre-Existing Deficit (Developmental delay, cerebral palsey), Trouble Speaking (baseline ), Difficulty Walking (baseline), Weakness, Gait Disturbance (baseline ) Hematologic/Lymphatic: Reports: No Symptoms Immunologic: Reports: No Symptoms Exam - Exam Exam: See Below - Vital Signs Vital Signs: Last Vital Signs Temp 98.1 F 10/07/20 03:42 Pulse 69 10/07/20 03:42 Resp 18 10/07/20 03:42 BP 105/74 10/07/20 03:42 Pulse Ox 97 10/07/20 06:14 Weight: 168 lb 1.6 oz - Exam Quality Assessment: Supplemental Oxygen, DVT Prophylaxis General: Alert, Cooperative. No: Mild Distress HEENT: Conjunctiva Clear, EACs Clear, Mucosa Moist & [place], Posterior Pharynx Clear Neck: Supple, Trachea Midline Lungs: Normal Respiratory Effort, Decreased Breath Sounds, Rhonchi Cardiovascular: Regular Rate, Regular Rhythm GI/Abdominal Exam: Normal Bowel Sounds, Soft, Non-Tender, No Distention (Male) Exam: Deferred Rectal (Males) Exam: Deferred Back Exam: Decreased Range of Motion, Other (Severe baseline kyphoscoliosis) Extremities: Normal Inspection, Non-Tender, Pedal Edema (3-4+), Limited Range of Motion Skin: Warm, Dry, Intact Neurological: Cranial Nerves Intact (Grossly ) Neuro Extensive - Mental Status: Alert Psychiatric: Alert. No: Normal Affect (Flat affect) - Patient Data Lab Results Last 24 hrs: Laboratory Results - last 24 hr 10/06/20 10/06/20 10/06/20 Range/Units 17:20 17:40 17:40 WBC 13.88 H (4.23-9.07) K/mm3 RBC 5.25 (4.63-6.08) M/mm3 Hgb 14.1 D (13.7-17.5) gm/dl Hct 47.2 (40.1-51.0) % MCV 89.9 D (79.0-92.2) fl MCH 26.9 (25.7-32.2) pg MCHC 29.9 L (32.2-35.5) g/dl RDW Std Deviation 61.7 H (35.1-43.9) fL Plt Count 215 (163-337) K/mm3 MPV 11.8 (9.4-12.3) fl Neut % (Auto) (34.0-67.9) % Lymph % (Auto) (21.8-53.1) % Clarke % (Auto) (5.3-12.2) % Eos % (Auto) (0.8-7.0) Baso % (Auto) (0.1-1.2) % Neut # (Auto) (1.78-5.38) K/mm3 Lymph # (Auto) (1.32-3.57) K/mm3 Clarke # (Auto) (0.30-0.82) K/mm3 Eos # (Auto) (0.04-0.54) K/mm3 Baso # (Auto) (0.01-0.08) K/mm3 Neutrophils % (Manual) 85 H (40-60) % Band Neutrophils % 0 (0-10) % Lymphocytes % (Manual) 8 L (20-40) % Atypical Lymphs % 0 % Monocytes % (Manual) 7 (2-10) % Eosinophils % (Manual) 0 L (0.8-7.0) % Basophils % (Manual) 0 L (0.2-1.2) Manual Slide Review Platelet Estimate Adequate Hypochromasia 1+ slight Anisocytosis 1+ slight Stomatocytes Few RBC Morph Comment Not Reportable PT 10.9 (9.7-12.0) SECONDS INR 1.02 APTT 28.6 (21.7-31.4) SECONDS Sodium (136-145) mEq/L Potassium (3.5-5.1) mEq/L Chloride (98-107) mEq/L Carbon Dioxide (21-32) mEq/L Anion Gap (5-15) BUN (7-18) mg/dL Creatinine (0.7-1.3) mg/dL Est Cr Clr Drug Dosing mL/min Estimated GFR (MDRD) (>60) mL/min BUN/Creatinine Ratio (14-18) Glucose (74-106) mg/dL Lactic Acid (0.4-2.0) mmol/L Calcium (8.5-10.1) mg/dL Magnesium (1.8-2.4) mg/dl Total Bilirubin (0.2-1.0) mg/dL AST (15-37) U/L ALT (16-63) U/L Alkaline Phosphatase (46-116) U/L C-Reactive Protein (<1.0) mg/dL NT-Pro-B Natriuret Pep (0-125) pg/mL Total Protein (6.4-8.2) g/dl Albumin (3.4-5.0) g/dl Globulin gm/dL Albumin/Globulin Ratio (1-2) Urine Color (Yellow) Urine Appearance (Clear) Urine pH (5.0-8.0) Ur Specific Wolsey (1.005-1.030) Urine Protein (Negative) Urine Glucose (UA) (Negative) Urine Ketones (Negative) Urine Occult Blood (Negative) Urine Nitrite (Negative) Urine Bilirubin (Negative) Urine Urobilinogen (0.2-1.0) Ur Leukocyte Esterase (Negative) Ketones (0.0-0.3) mM SARS-CoV-2 RNA (NOEMÍ) Negative (NEGATIVE) MRSA (PCR) 10/06/20 10/06/20 10/06/20 Range/Units 17:40 17:40 17:40 WBC (4.23-9.07) K/mm3 RBC (4.63-6.08) M/mm3 Hgb (13.7-17.5) gm/dl Hct (40.1-51.0) % MCV (79.0-92.2) fl MCH (25.7-32.2) pg MCHC (32.2-35.5) g/dl RDW Std Deviation (35.1-43.9) fL Plt Count (163-337) K/mm3 MPV (9.4-12.3) fl Neut % (Auto) (34.0-67.9) % Lymph % (Auto) (21.8-53.1) % Clarke % (Auto) (5.3-12.2) % Eos % (Auto) (0.8-7.0) Baso % (Auto) (0.1-1.2) % Neut # (Auto) (1.78-5.38) K/mm3 Lymph # (Auto) (1.32-3.57) K/mm3 Clarke # (Auto) (0.30-0.82) K/mm3 Eos # (Auto) (0.04-0.54) K/mm3 Baso # (Auto) (0.01-0.08) K/mm3 Neutrophils % (Manual) (40-60) % Band Neutrophils % (0-10) % Lymphocytes % (Manual) (20-40) % Atypical Lymphs % % Monocytes % (Manual) (2-10) % Eosinophils % (Manual) (0.8-7.0) % Basophils % (Manual) (0.2-1.2) Manual Slide Review Platelet Estimate Hypochromasia Anisocytosis Stomatocytes RBC Morph Comment PT (9.7-12.0) SECONDS INR APTT (21.7-31.4) SECONDS Sodium 139 (136-145) mEq/L Potassium 4.9 (3.5-5.1) mEq/L Chloride 98 (98-107) mEq/L Carbon Dioxide 39 H (21-32) mEq/L Anion Gap 6.9 (5-15) BUN 18 (7-18) mg/dL Creatinine 0.9 (0.7-1.3) mg/dL Est Cr Clr Drug Dosing 107.67 mL/min Estimated GFR (MDRD) > 60 (>60) mL/min BUN/Creatinine Ratio 20.0 H (14-18) Glucose 99 (74-106) mg/dL Lactic Acid 1.2 (0.4-2.0) mmol/L Calcium 9.5 (8.5-10.1) mg/dL Magnesium 1.7 L (1.8-2.4) mg/dl Total Bilirubin 0.6 (0.2-1.0) mg/dL AST 19 (15-37) U/L ALT 20 (16-63) U/L Alkaline Phosphatase 64 (46-116) U/L C-Reactive Protein 2.7 H* (<1.0) mg/dL NT-Pro-B Natriuret Pep 441 H (0-125) pg/mL Total Protein 7.7 (6.4-8.2) g/dl Albumin 3.3 L (3.4-5.0) g/dl Globulin 4.4 gm/dL Albumin/Globulin Ratio 0.8 L (1-2) Urine Color (Yellow) Urine Appearance (Clear) Urine pH (5.0-8.0) Ur Specific Wolsey (1.005-1.030) Urine Protein (Negative) Urine Glucose (UA) (Negative) Urine Ketones (Negative) Urine Occult Blood (Negative) Urine Nitrite (Negative) Urine Bilirubin (Negative) Urine Urobilinogen (0.2-1.0) Ur Leukocyte Esterase (Negative) Ketones (0.0-0.3) mM SARS-CoV-2 RNA (NOEMÍ) (NEGATIVE) MRSA (PCR) 10/06/20 10/06/20 10/06/20 Range/Units 17:40 18:00 21:15 WBC (4.23-9.07) K/mm3 RBC (4.63-6.08) M/mm3 Hgb (13.7-17.5) gm/dl Hct (40.1-51.0) % MCV (79.0-92.2) fl MCH (25.7-32.2) pg MCHC (32.2-35.5) g/dl RDW Std Deviation (35.1-43.9) fL Plt Count (163-337) K/mm3 MPV (9.4-12.3) fl Neut % (Auto) (34.0-67.9) % Lymph % (Auto) (21.8-53.1) % Clarke % (Auto) (5.3-12.2) % Eos % (Auto) (0.8-7.0) Baso % (Auto) (0.1-1.2) % Neut # (Auto) (1.78-5.38) K/mm3 Lymph # (Auto) (1.32-3.57) K/mm3 Clarke # (Auto) (0.30-0.82) K/mm3 Eos # (Auto) (0.04-0.54) K/mm3 Baso # (Auto) (0.01-0.08) K/mm3 Neutrophils % (Manual) (40-60) % Band Neutrophils % (0-10) % Lymphocytes % (Manual) (20-40) % Atypical Lymphs % % Monocytes % (Manual) (2-10) % Eosinophils % (Manual) (0.8-7.0) % Basophils % (Manual) (0.2-1.2) Manual Slide Review Platelet Estimate Hypochromasia Anisocytosis Stomatocytes RBC Morph Comment PT (9.7-12.0) SECONDS INR APTT (21.7-31.4) SECONDS Sodium (136-145) mEq/L Potassium (3.5-5.1) mEq/L Chloride (98-107) mEq/L Carbon Dioxide (21-32) mEq/L Anion Gap (5-15) BUN (7-18) mg/dL Creatinine (0.7-1.3) mg/dL Est Cr Clr Drug Dosing mL/min Estimated GFR (MDRD) (>60) mL/min BUN/Creatinine Ratio (14-18) Glucose (74-106) mg/dL Lactic Acid (0.4-2.0) mmol/L Calcium (8.5-10.1) mg/dL Magnesium (1.8-2.4) mg/dl Total Bilirubin (0.2-1.0) mg/dL AST (15-37) U/L ALT (16-63) U/L Alkaline Phosphatase (46-116) U/L C-Reactive Protein (<1.0) mg/dL NT-Pro-B Natriuret Pep (0-125) pg/mL Total Protein (6.4-8.2) g/dl Albumin (3.4-5.0) g/dl Globulin gm/dL Albumin/Globulin Ratio (1-2) Urine Color Yellow (Yellow) Urine Appearance Clear (Clear) Urine pH 8.5 H (5.0-8.0) Ur Specific Wolsey 1.020 (1.005-1.030) Urine Protein Negative (Negative) Urine Glucose (UA) Negative (Negative) Urine Ketones Negative (Negative) Urine Occult Blood Negative (Negative) Urine Nitrite Negative (Negative) Urine Bilirubin Negative (Negative) Urine Urobilinogen 1.0 (0.2-1.0) Ur Leukocyte Esterase Negative (Negative) Ketones 0.07 (0.0-0.3) mM SARS-CoV-2 RNA (NOEMÍ) (NEGATIVE) MRSA (PCR) Negative 10/07/20 10/07/20 Range/Units 05:47 05:47 WBC 7.49 (4.23-9.07) K/mm3 RBC 4.44 L (4.63-6.08) M/mm3 Hgb 11.7 L D (13.7-17.5) gm/dl Hct 40.0 L (40.1-51.0) % MCV 90.1 (79.0-92.2) fl MCH 26.4 (25.7-32.2) pg MCHC 29.3 L (32.2-35.5) g/dl RDW Std Deviation 61.9 H (35.1-43.9) fL Plt Count 171 (163-337) K/mm3 MPV 11.2 (9.4-12.3) fl Neut % (Auto) 60.7 (34.0-67.9) % Lymph % (Auto) 24.6 (21.8-53.1) % Clarke % (Auto) 13.1 H (5.3-12.2) % Eos % (Auto) 1.2 (0.8-7.0) Baso % (Auto) 0.3 (0.1-1.2) % Neut # (Auto) 4.55 (1.78-5.38) K/mm3 Lymph # (Auto) 1.84 (1.32-3.57) K/mm3 Clarke # (Auto) 0.98 H (0.30-0.82) K/mm3 Eos # (Auto) 0.09 (0.04-0.54) K/mm3 Baso # (Auto) 0.02 (0.01-0.08) K/mm3 Neutrophils % (Manual) (40-60) % Band Neutrophils % (0-10) % Lymphocytes % (Manual) (20-40) % Atypical Lymphs % % Monocytes % (Manual) (2-10) % Eosinophils % (Manual) (0.8-7.0) % Basophils % (Manual) (0.2-1.2) Manual Slide Review Abnormal smear Platelet Estimate Hypochromasia Anisocytosis Stomatocytes RBC Morph Comment PT (9.7-12.0) SECONDS INR APTT (21.7-31.4) SECONDS Sodium 142 (136-145) mEq/L Potassium 4.4 (3.5-5.1) mEq/L Chloride 103 (98-107) mEq/L Carbon Dioxide 38 H (21-32) mEq/L Anion Gap 5.4 (5-15) BUN 18 (7-18) mg/dL Creatinine 0.8 (0.7-1.3) mg/dL Est Cr Clr Drug Dosing 117.05 mL/min Estimated GFR (MDRD) > 60 (>60) mL/min BUN/Creatinine Ratio 22.5 H (14-18) Glucose 90 (74-106) mg/dL Lactic Acid (0.4-2.0) mmol/L Calcium 8.7 (8.5-10.1) mg/dL Magnesium 1.6 L (1.8-2.4) mg/dl Total Bilirubin 0.5 (0.2-1.0) mg/dL AST 14 L (15-37) U/L ALT 11 L (16-63) U/L Alkaline Phosphatase 47 (46-116) U/L C-Reactive Protein (<1.0) mg/dL NT-Pro-B Natriuret Pep (0-125) pg/mL Total Protein 5.7 L (6.4-8.2) g/dl Albumin 2.3 L (3.4-5.0) g/dl Globulin 3.4 gm/dL Albumin/Globulin Ratio 0.7 L (1-2) Urine Color (Yellow) Urine Appearance (Clear) Urine pH (5.0-8.0) Ur Specific Wolsey (1.005-1.030) Urine Protein (Negative) Urine Glucose (UA) (Negative) Urine Ketones (Negative) Urine Occult Blood (Negative) Urine Nitrite (Negative) Urine Bilirubin (Negative) Urine Urobilinogen (0.2-1.0) Ur Leukocyte Esterase (Negative) Ketones (0.0-0.3) mM SARS-CoV-2 RNA (NOEMÍ) (NEGATIVE) MRSA (PCR) Result Diagrams: 10/07/20 05:47 10/07/20 05:47 Sepsis Event Note - Evaluation Sepsis Screening Result: No Definite Risk - Focused Exam Vital Signs: Vital Signs Temp Pulse Resp BP Pulse Ox Pulse Ox Pulse Ox 10/07/20 06:14 97 10/07/20 03:42 98.1 F 69 18 105/74 97 10/06/20 22:01 93 L 10/06/20 20:20 97/48 L 10/06/20 20:19 97.9 F 10/06/20 20:16 78 20 91/59 L 93 L 10/06/20 20:10 98.7 F - Problem List (1) Pneumonia SNOMED Code(s): 414895035 ICD Code: J18.9 - PNEUMONIA, UNSPECIFIED ORGANISM Status: Acute Priority: High Current Visit: Yes Problem Details: Qualifiers: Pneumonia type: due to unspecified organism Laterality: right Lung location: lower lobe of lung Qualified Code(s): J18.9 - Pneumonia, unspecified organism (2) Cerebral palsy SNOMED Code(s): 532126717 ICD Code: G80.9 - CEREBRAL PALSY, UNSPECIFIED Status: Chronic Priority: High Current Visit: Yes Qualifiers: Cerebral palsy type: unspecified type Qualified Code(s): G80.9 - Cerebral palsy, unspecified (3) Restrictive lung disease due to kyphoscoliosis SNOMED Code(s): 501220224 ICD Code: J98.4 - OTHER DISORDERS OF LUNG; M41.9 - SCOLIOSIS, UNSPECIFIED Status: Chronic Priority: High Current Visit: Yes (4) Anxiety SNOMED Code(s): 26174261 ICD Code: F41.9 - ANXIETY DISORDER, UNSPECIFIED Status: Chronic Priority: Low Current Visit: No (5) Chronic diarrhea SNOMED Code(s): 546721567 ICD Code: K52.9 - NONINFECTIVE GASTROENTERITIS AND COLITIS, UNSPECIFIED Status: Chronic Priority: Low Current Visit: No (6) Depression SNOMED Code(s): 03337578 ICD Code: F32.9 - MAJOR DEPRESSIVE DISORDER, SINGLE EPISODE, UNSPECIFIED Status: Chronic Priority: Low Current Visit: No Qualifiers: Depression Type: other depression Qualified Code(s): F32.89 - Other specified depressive episodes (7) Fever SNOMED Code(s): 820045114 ICD Code: R50.9 - FEVER, UNSPECIFIED Status: Acute Priority: High Current Visit: Yes Qualifiers: Fever type: unspecified Qualified Code(s): R50.9 - Fever, unspecified (8) Hypoxemia SNOMED Code(s): 758934421 ICD Code: R09.02 - HYPOXEMIA Status: Acute Priority: High Current Visit: Yes (9) OCD (obsessive compulsive disorder) SNOMED Code(s): 507302240 ICD Code: F42.9 - OBSESSIVE-COMPULSIVE DISORDER, UNSPECIFIED Status: Chronic Priority: Medium Current Visit: No Qualifiers: Obsessive-compulsive disorder type: unspecified Qualified Code(s): F42.9 - Obsessive-compulsive disorder, unspecified (10) Obstructive sleep apnea SNOMED Code(s): 57107577 ICD Code: G47.33 - OBSTRUCTIVE SLEEP APNEA (ADULT) (PEDIATRIC) Status: Acute Current Visit: No (11) Pervasive developmental disorder, active SNOMED Code(s): 46214066 ICD Code: F84.9 - PERVASIVE DEVELOPMENTAL DISORDER, UNSPECIFIED Status: Chronic Priority: Medium Current Visit: No (12) Hypothyroidism SNOMED Code(s): 07954025 ICD Code: E03.9 - HYPOTHYROIDISM, UNSPECIFIED Status: Chronic Priority: Medium Current Visit: No Qualifiers: Hypothyroidism type: unspecified Qualified Code(s): E03.9 - Hypothyroidism, unspecified (13) Hypomagnesemia SNOMED Code(s): 893274600 ICD Code: E83.42 - HYPOMAGNESEMIA Status: Acute Priority: High Current Visit: Yes Problem List Initiated/Reviewed/Updated: Yes Orders Last 24hrs: Active Orders 24 hr Category Date Time Status Admission Status [Patient Status] [ADT] Routine ADT 10/06/20 19:01 Active Oxygen Therapy Adult [Oxygen Therapy] [RC] ASDIRECTED Care 10/06/20 23:37 Active RT BiPAP/CPAP [RC] ASDIRECTED Care 10/07/20 07:13 Active Up With Assistance [RC] BID Care 10/06/20 20:32 Active VTE/DVT Education [RC] DAILY Care 10/06/20 20:32 Active Vital Signs [RC] Q4HR Care 10/06/20 20:32 Active Respiratory Care Assess and Treatment [CONS] Routine Cons 10/06/20 20:32 Active Regular Diet [DIET] Diet 10/07/20 Breakfast Active CULTURE BLOOD [BC] Stat Lab 10/06/20 17:40 Received CULTURE BLOOD [BC] Stat Lab 10/06/20 17:50 Received PROCALCITONIN [REF] Routine Lab 10/06/20 17:40 Received ARIPiprazole [Abilify] Med 10/06/20 20:40 Active 2 mg PO Q6H PRN ARIPiprazole [Abilify] Med 10/07/20 08:00 Active 7.5 mg PO TID@0800,1400,2000 Acetaminophen [TylenoL] Med 10/06/20 20:32 Active 650 mg PO Q4H PRN Desmopressin Med 10/07/20 21:00 Active 0.05 mg PO DAILY@2100 Divalproex Sodium Med 10/07/20 08:00 Active 250 mg PO BID@0800,1400 Divalproex Sodium [Depakote] Med 10/06/20 21:00 Active 500 mg PO BEDTIME Enoxaparin [Lovenox] Med 10/07/20 09:00 Active 40 mg SUBCUT DAILY Famotidine [Pepcid] Med 10/06/20 21:00 Active 20 mg PO BID Levofloxacin/Dextrose 5%-Water [Levaquin in D5W 750 MG/ Med 10/07/20 18:00 Active 150 ML] 750 mg Premix Bag 1 bag IV Q24H Levothyroxine Med 10/07/20 06:00 Active 75 mcg PO MoTuWeThFr@0600 Levothyroxine [Synthroid] Med 10/08/20 06:00 Active 50 mcg PO SuSa@0600 Loperamide [Imodium] Med 10/06/20 20:40 Active 2 mg PO ASDIRECTED PRN Melatonin Med 10/06/20 21:21 Active 9 mg PO BEDTIME Ondansetron [Zofran] Med 10/06/20 20:32 Active 4 mg IV Q4H PRN PARoxetine [Paxil] Med 10/07/20 08:00 Active 30 mg PO BID@0800,1400 Remove Patch Med 10/06/20 21:00 Active 1 ea TRDERM BEDTIME allopurinoL [Zyloprim] Med 10/06/20 21:00 Active 300 mg PO DAILY@2100 cloNIDine [Catapres TTS-2] Med 10/06/20 21:00 Active 0.2 mg TOP Q2D cloNIDine [Catapres TTS-2] Med 10/07/20 21:00 Active 0.2 mg TOP Q2D polyethylene glycoL 3350 [MiraLAX] Med 10/06/20 20:40 Active 17 gm PO DAILY PRN traZODone Med 10/06/20 20:40 Active 50 mg PO BEDTIME PRN Blood Culture x2 Reflex Set [OM.PC] Stat Oth 10/06/20 17:16 Ordered Resuscitation Status Routine Resus Stat 10/06/20 20:32 Ordered Medication Orders Acetaminophen (Acetaminophen 325 Mg Tab) 650 mg PO Q4H PRN PRN Reason: Pain (Mild 1-3)/fever Allopurinol (Allopurinol 300 Mg Tab) 300 mg PO DAILY@2100 [facility] Last Admin: 10/06/20 21:27 Dose: 300 mg Documented by: JOSEF Aripiprazole (Aripiprazole 5 Mg Tab) 7.5 mg PO TID@0800,1400,2000 [facility] Aripiprazole (Aripiprazole 2 Mg Tab) 2 mg PO Q6H PRN PRN Reason: Agitation Clonidine HCl (Clonidine 0.2 Mg/Day Transdermal Patch) 0.2 mg TOP Q2D [facility] Last Admin: 10/06/20 22:10 Dose: 0.2 mg Documented by: JOSEF Clonidine HCl (Clonidine 0.2 Mg/Day Transdermal Patch) 0.2 mg TOP Q2D [facility] Desmopressin Acetate (Desmopressin 0.1 Mg Tab) 0.05 mg PO DAILY@2100 [facility] Divalproex Sodium (Divalproex Sodium Delayed-Release 250 Mg Tab.Cr) 250 mg PO BID@0800,1400 [facility] Divalproex Sodium (Divalproex Sodium Delayed-Release 500 Mg Tab.Cr) 500 mg PO BEDTIME [facility] Last Admin: 10/06/20 21:29 Dose: 500 mg Documented by: JOSEF Enoxaparin Sodium (Enoxaparin 40 Mg/0.4 Ml Syringe) 40 mg SUBCUT DAILY [facility] Famotidine (Famotidine 20 Mg Tab) 20 mg PO BID [facility] Last Admin: 10/06/20 21:27 Dose: 20 mg Documented by: JOSEF Levofloxacin/Dextrose 750 mg/ (Premix) 150 mls @ 100 mls/hr IV Q24H [facility] Levothyroxine Sodium (Levothyroxine 75 Mcg Tab) 75 mcg PO MoTuWeThFr@0600 [facility] Last Admin: 10/07/20 06:55 Dose: Not Given Documented by: RACHID Levothyroxine Sodium (Levothyroxine 50 Mcg Tab) 50 mcg PO SuSa@0600 [facility] Loperamide HCl (Loperamide 2 Mg Cap) 2 mg PO ASDIRECTED PRN PRN Reason: Diarrhea Melatonin (Melatonin 3 Mg Tab) 9 mg PO BEDTIME [facility] Last Admin: 10/06/20 22:08 Dose: 9 mg Documented by: JOSEF Miscellaneous Information (Remove Clonidinepatch) 1 ea TRDERM BEDTIME [facility] Last Admin: 10/06/20 22:10 Dose: 1 ea Documented by: JOSEF Ondansetron HCl (Ondansetron 4 Mg/2 Ml Sdv) 4 mg IV Q4H PRN PRN Reason: Nausea/Vomiting Paroxetine HCl (Paroxetine 10 Mg Tab) 30 mg PO BID@0800,1400 [facility] Polyethylene Glycol (Polyethylene Glycol 3350 Powder 17 Gm Packet) 17 gm PO DAILY PRN PRN Reason: Constipation Trazodone HCl (Trazodone 50 Mg Tab) 50 mg PO BEDTIME PRN PRN Reason: Sleep Last Admin: 10/06/20 21:28 Dose: 50 mg Documented by: JOSEF Assessment/Plan Comment:: Assessment - 10/07/20 (admitted 10/06/20 evening) * 39-year-old male presents to ED accompanied by mother with complaint of fever and possible pneumonia. * Fever reported to be 104 to 105 degrees and patient has been napping, which is not normal for him. * Longstanding history of recurrent pneumonia secondary to restrictive lung disease from kyphoscoliosis * Underwent treatment for pneumonia in July and August * Patient resides at [facility]. * History of asthma, recurrent pneumonia, sleep apnea treated with BiPAP, CPT vest, chronic diarrhea, urinary incontinence, developmental delay, anxiety, depression, OCD, hypothyroidism, alopecia. * Chest x-ray in ED shows increasing density within the right lung base from prior study which could represent aspiration, pneumonia, or increased atelectasis. * Twelve-lead EKG is obtained showing a sinus rhythm at 80 bpm with right axis deviation, enlarged P waves, early R transition and wave inversion of V1 to V3 with T wave flattening in V4 to V6. His heart is noted to be shifted to the left which does skew interpretation. * Labs obtained in ED and on floor: * WBC 13.88-->7.49 * Hemoglobin 14.1-->11.7 * Platelet 215-->171 * Neutrophils 85% with no bandemia-->60.7% * INR 1.02 * Sodium 139-->142 * Potassium 4.9-->44 * Carbon dioxide 39-->38 * Anion gap 6.9-->5.4 * BUN 18-->18, creatinine 0.9-->0.8, GFR greater than 60-->greater than 60 * Glucose 99-->90 * Lactic acid 1.2 * Magnesium 1.7-->1.6 * Bilirubin 0.6-->0.5 * AST 19-->14, ALT 20-->11, alkaline phosphatase 64-->47 * CRP 2.7 * proBNP 441 * Albumin 3.3-->2.3 * UA negative * SARS-CoV-2 RNA negative * MRSA screen negative * He started on D5 NS and given 750 mg Levaquin. He is also given 600 mg ibupro fen for his fever. * Is admitted to the medical floor for treatment of his pneumonia. PLAN: Pneumonia Fever Hypoxemia Obstructive sleep apnea Cerebral palsy Restrictive lung disease due to kyphoscoliosis * Continue home BiPAP at night/when napping * Continue home CPT vest * IV fluids as ordered * PRN duonebs * RT consultation * Ambulate BID * O2 as needed * Levaquin 750mg daily * Consult RT * Blood cultures pending * Procalcitonin pending Hypomagnesemia * Supplement * Monitor labs Anxiety Depression OCD (obsessive compulsive disorder) Pervasive developmental disorder, active * No current concerns * Home medications as able * Mother at bedside Hypothyroidism Chronic diarrhea * Home medications as ordered * Monitor I&Os * Antidiarrheals as needed Code status: Full code PCP: Michaela Sanchez NP DVT prophylaxis: Lovenox Social: Patient resides at [facility]. Mother is very involved in patient care Disposition: Patient admitted to [facility] for treatment of pneumonia. LOS likely 3-4 days total Prognosis: Good prognosis with this episode. Overall poor prognosis given chronic worsening restrictive lung disease and frequent pneumonia. - Mortality Measure Prognosis:: Good
[2020-10-07] MEDS ORDERED: Albuterol/Ipratropium 3.0-0.5 MG/3 ML Neb Soln NEB PRN (08:47)
[2020-10-07] MEDS ORDERED: Magnesium Sulfate/Water 2 GM/50 ML BAG IV ONE (09:00)
[2020-10-07] MEDS: ARIPiprazole 5 MG Tab PO SCH ×3 (10:19→21:26)
[2020-10-07] MEDS: Famotidine 20 MG Tab PO SCH ×2 (10:19→21:27)
[2020-10-07] MEDS: Divalproex Sodium Delayed-Release 250 MG Tab.CR PO SCH ×2 (10:19→15:19)
[2020-10-07] MEDS: Enoxaparin 40 MG/0.4 ML Syringe SUBCUT SCH (10:20)
[2020-10-07] MEDS: Levofloxacin/Dextrose 5%-Water 750 MG in Premix Bag 1 BAG IV SCH (18:34)
[2020-10-07] MEDS ORDERED: cloNIDine 0.2 MG/Day Transdermal Patch TOP SCH (21:00)
[2020-10-07] MEDS: Divalproex Sodium Delayed-Release 500 MG Tab.CR PO SCH (21:26)
[2020-10-07] MEDS: Melatonin 3 MG Tab PO SCH (21:27)
[2020-10-07] MEDS: traZODone 50 MG Tab PO PRN (21:28)
[2020-10-07] MEDS: Allopurinol 300 MG Tab PO SCH (21:28)
[2020-10-07] MEDS: [UNRECOGNIZED DRUG - REMARK] TRDERM SCH (21:28)
[2020-10-08] MEDS: Levothyroxine 50 MCG Tab PO SCH (05:38)
[2020-10-08] MEDS: ARIPiprazole 5 MG Tab PO SCH ×3 (08:43→20:37)
[2020-10-08] MEDS: Famotidine 20 MG Tab PO SCH ×2 (08:44→20:40)
[2020-10-08] MEDS: Divalproex Sodium Delayed-Release 250 MG Tab.CR PO SCH ×2 (08:44→14:16)
[2020-10-08] MEDS: Enoxaparin 40 MG/0.4 ML Syringe SUBCUT SCH (08:45)
[2020-10-08] MEDS: metroNIDAZOLE/Normal Saline 500 MG in Premix Bag 1 BAG IV SCH ×2 (10:58→16:32)
--- NOTE | 2020-10-08 14:29 | PCM.PN ---
- General Info Date of Service: 10/08/20 Admission Dx/Problem (Free Text): Admission Diagnosis/Problem Admission Diagnosis/Problem Pneumonia Subjective Update: This is a 39-year-old male who is well-known to this facility, brought in by his mother from [facility] where he resides with fever and possible pneumonia. 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 Met the patient and mother in patient's room this morning. As per mother, he is doing better. He has less shortness of breath and a cough. Afebrile, bradycardia sometimes, 49, blood pressure 106/57 WBC 7.00 Mag 1.9 - Review of Systems Systems Review Comment:: General: Reports: Malaise, Weakness, Fatigue, Decreased Appetite HEENT: Reports: No Symptoms. Denies: Headaches, Sore Throat Pulmonary: Reports: Shortness of Breath. Denies: Wheezing, Pleuritic Chest Pain, Cough, Sputum Cardiovascular: Reports: Edema. Denies: Chest Pain, Palpitations, Dyspnea on Exertion Gastrointestinal: Reports: Diarrhea (chronic ). Denies: Abdominal Pain, Constipation, Nausea, Vomiting Genitourinary: Reports: Incontinence Musculoskeletal: Reports: Back Pain Skin: Reports: No Symptoms Psychiatric: Reports: Anxiety Neurological: Reports: Confusion (baseline), Pre-Existing Deficit (Developmental delay, cerebral palsey), Trouble Speaking (baseline ), Difficulty Walking (baseline), Weakness, Gait Disturbance (baseline ) Hematologic/Lymphatic: Reports: No Symptoms Immunologic: Reports: No Symptoms - Patient Data Vitals - Most Recent: Last Vital Signs Temp 36.4 C 10/08/20 11:31 Pulse 50 L 10/08/20 11:31 Resp 14 10/08/20 11:31 BP 100/56 L 10/08/20 11:31 Pulse Ox 95 10/08/20 11:31 Weight - Most Recent: 77.428 kg I&O - Last 24 Hours: Intake & Output 10/07/20 10/08/20 10/08/20 22:59 06:59 14:59 Intake Total 170 1350 120 Balance 170 1350 120 Lab Results Last 24 Hours: Laboratory Results - last 24 hr 10/06/20 10/08/20 10/08/20 Range/Units 17:40 06:21 06:21 WBC 7.00 (4.23-9.07) K/mm3 RBC 4.17 L (4.63-6.08) M/mm3 Hgb 11.2 L (13.7-17.5) gm/dl Hct 38.0 L (40.1-51.0) % MCV 91.1 (79.0-92.2) fl MCH 26.9 (25.7-32.2) pg MCHC 29.5 L (32.2-35.5) g/dl RDW Std Deviation 63.1 H (35.1-43.9) fL Plt Count 186 (163-337) K/mm3 MPV 11.2 (9.4-12.3) fl Neut % (Auto) 44.3 (34.0-67.9) % Lymph % (Auto) 36.0 (21.8-53.1) % [place] % (Auto) 14.7 H (5.3-12.2) % Eos % (Auto) 4.7 (0.8-7.0) Baso % (Auto) 0.3 (0.1-1.2) % Neut # (Auto) 3.10 (1.78-5.38) K/mm3 Lymph # (Auto) 2.52 (1.32-3.57) K/mm3 [place] # (Auto) 1.03 H (0.30-0.82) K/mm3 Eos # (Auto) 0.33 (0.04-0.54) K/mm3 Baso # (Auto) 0.02 (0.01-0.08) K/mm3 Manual Slide Review Abnormal smear Sodium 143 (136-145) mEq/L Potassium 4.3 (3.5-5.1) mEq/L Chloride 102 (98-107) mEq/L Carbon Dioxide 38 H (21-32) mEq/L Anion Gap 7.3 (5-15) BUN 20 H (7-18) mg/dL Creatinine 0.9 (0.7-1.3) mg/dL Est Cr Clr Drug Dosing 104.05 mL/min Estimated GFR (MDRD) > 60 (>60) mL/min BUN/Creatinine Ratio 22.2 H (14-18) Glucose 97 (74-106) mg/dL Calcium 8.8 (8.5-10.1) mg/dL Magnesium 1.9 (1.8-2.4) mg/dl C-Reactive Protein 4.4 H* (<1.0) mg/dL Procalcitonin 0.28 H ng/mL Solomon Results Last 24 Hours: Microbiology 10/06/20 17:50 Aerobic Blood Culture - Preliminary Blood - Venous - Lab Draw NO GROWTH AFTER 1 DAY Anaerobic Blood Culture - Preliminary NO GROWTH AFTER 1 DAY 10/06/20 17:40 Aerobic Blood Culture - Preliminary Blood - Venous NO GROWTH AFTER 1 DAY Anaerobic Blood Culture - Preliminary NO GROWTH AFTER 1 DAY Med Orders - Current: Current Medications Acetaminophen (Acetaminophen 325 Mg Tab) 650 mg PO Q4H PRN PRN Reason: Pain (Mild 1-3)/fever Albuterol/Ipratropium (Albuterol/Ipratropium 3.0-0.5 Mg/3 Ml Neb Soln) 3 ml NEB Q6HRRT PRN PRN Reason: wheezing/SOB/cough Allopurinol (Allopurinol 300 Mg Tab) 300 mg PO DAILY@2100 [facility] Last Admin: 10/07/20 21:28 Dose: 300 mg Documented by: Aripiprazole (Aripiprazole 5 Mg Tab) 7.5 mg PO TID@0800,1400,2000 [facility] Last Admin: 10/08/20 14:14 Dose: 7.5 mg Documented by: Aripiprazole (Aripiprazole 2 Mg Tab) 2 mg PO Q6H PRN PRN Reason: Agitation Clonidine HCl (Clonidine 0.2 Mg/Day Transdermal Patch) 0.2 mg TOP Q2D [facility] Last Admin: 10/06/20 22:10 Dose: 0.2 mg Documented by: Clonidine HCl (Clonidine 0.2 Mg/Day Transdermal Patch) 0.2 mg TOP Q2D [facility] Last Admin: 10/07/20 21:30 Dose: 0.2 mg Documented by: Desmopressin Acetate (Desmopressin 0.1 Mg Tab) 0.05 mg PO DAILY@2100 [facility] Last Admin: 10/07/20 21:27 Dose: 0.05 mg Documented by: Divalproex Sodium (Divalproex Sodium Delayed-Release 250 Mg Tab.Cr) 250 mg PO BID@0800,1400 [facility] Last Admin: 10/08/20 14:16 Dose: 250 mg Documented by: Divalproex Sodium (Divalproex Sodium Delayed-Release 500 Mg Tab.Cr) 500 mg PO BEDTIME [facility] Last Admin: 10/07/20 21:26 Dose: 500 mg Documented by: Enoxaparin Sodium (Enoxaparin 40 Mg/0.4 Ml Syringe) 40 mg SUBCUT DAILY [facility] Last Admin: 10/08/20 08:45 Dose: 40 mg Documented by: Famotidine (Famotidine 20 Mg Tab) 20 mg PO BID [facility] Last Admin: 10/08/20 08:44 Dose: 20 mg Documented by: Levofloxacin/Dextrose 750 mg/ (Premix) 150 mls @ 100 mls/hr IV Q24H [facility] Last Admin: 10/07/20 18:34 Dose: 100 mls/hr Documented by: Metronidazole 500 mg/ Premix 100 mls @ 100 mls/hr IV Q8H [facility] Last Admin: 10/08/20 10:58 Dose: 100 mls/hr Documented by: Levothyroxine Sodium (Levothyroxine 75 Mcg Tab) 75 mcg PO MoTuWeThFr@0600 [facility] Last Admin: 10/07/20 06:55 Dose: Not Given Documented by: Levothyroxine Sodium (Levothyroxine 50 Mcg Tab) 50 mcg PO SuSa@0600 [facility] Last Admin: 10/08/20 05:38 Dose: 50 mcg Documented by: Loperamide HCl (Loperamide 2 Mg Cap) 2 mg PO ASDIRECTED PRN PRN Reason: Diarrhea Melatonin (Melatonin 3 Mg Tab) 9 mg PO BEDTIME [facility] Last Admin: 10/07/20 21:27 Dose: 9 mg Documented by: Miscellaneous Information (Remove Clonidinepatch) 1 ea TRDERM BEDTIME [facility] Last Admin: 10/07/20 21:28 Dose: 1 ea Documented by: Ondansetron HCl (Ondansetron 4 Mg/2 Ml Sdv) 4 mg IV Q4H PRN PRN Reason: Nausea/Vomiting Paroxetine HCl (Paroxetine 10 Mg Tab) 30 mg PO BID@0800,1400 [facility] Last Admin: 10/08/20 14:14 Dose: 30 mg Documented by: Polyethylene Glycol (Polyethylene Glycol 3350 Powder 17 Gm Packet) 17 gm PO DAILY PRN PRN Reason: Constipation Trazodone HCl (Trazodone 50 Mg Tab) 50 mg PO BEDTIME PRN PRN Reason: Sleep Last Admin: 10/07/20 21:28 Dose: 50 mg Documented by: Discontinued Medications Dextrose/Sodium Chloride (Dextrose 5%-Normal Saline) 1,000 mls @ 999 mls/hr IV ASDIRECTED [facility] Last Admin: 10/06/20 17:44 Dose: 999 mls/hr Documented by: Levofloxacin/Dextrose 750 mg/ (Premix) 150 mls @ 100 mls/hr IV ONETIME ONE Stop: 10/06/20 19:51 Last Admin: 10/06/20 18:32 Dose: 100 mls/hr Documented by: Magnesium Sulfate (Magnesium Sulfate In Water 2 Gm/50 Ml) 2 gm in 50 mls @ 25 mls/hr IV ONETIME ONE Stop: 10/07/20 10:59 Last Admin: 10/07/20 10:20 Dose: 25 mls/hr Documented by: Ibuprofen (Ibuprofen Susp 100 Mg/5 Ml 5 Ml Ud Cup) 600 mg PO ONETIME ONE Stop: 10/06/20 17:13 Last Admin: 10/06/20 17:44 Dose: 600 mg Documented by: Non-Formulary Medication (Melatonin [Melatonin]) 10 mg PO 2100 [facility] Last Admin: 10/07/20 05:46 Dose: Not Given Documented by: - Exam Physical Findings Comments:: General: Alert, Cooperative. No: Mild Distress HEENT: Conjunctiva Clear, EACs Clear, Mucosa Moist & [place], Posterior Pharynx Clear Neck: Supple, Trachea Midline Lungs: Normal Respiratory Effort, Decreased Breath Sounds Cardiovascular: Regular Rate, Regular Rhythm GI/Abdominal Exam: Normal Bowel Sounds, Soft, Non-Tender, No Distention (Male) Exam: Deferred Rectal (Males) Exam: Deferred Back Exam: Decreased Range of Motion, Other (Severe baseline kyphoscoliosis) Extremities: Normal Inspection, Non-Tender, Pedal Edema (3-4+)(improving), Limited Range of Motion Skin: Warm, Dry, Intact Neurological: Cranial Nerves Intact (Grossly ) Neuro Extensive - Mental Status: Alert Psychiatric: Alert. No: Normal Affect (Flat affect) - Patient Data Lab Results Last 24 hrs: Laboratory Results - last 24 hr 10/06/20 10/08/20 10/08/20 Range/Units 17:40 06:21 06:21 WBC 7.00 (4.23-9.07) K/mm3 RBC 4.17 L (4.63-6.08) M/mm3 Hgb 11.2 L (13.7-17.5) gm/dl Hct 38.0 L (40.1-51.0) % MCV 91.1 (79.0-92.2) fl MCH 26.9 (25.7-32.2) pg MCHC 29.5 L (32.2-35.5) g/dl RDW Std Deviation 63.1 H (35.1-43.9) fL Plt Count 186 (163-337) K/mm3 MPV 11.2 (9.4-12.3) fl Neut % (Auto) 44.3 (34.0-67.9) % Lymph % (Auto) 36.0 (21.8-53.1) % [place] % (Auto) 14.7 H (5.3-12.2) % Eos % (Auto) 4.7 (0.8-7.0) Baso % (Auto) 0.3 (0.1-1.2) % Neut # (Auto) 3.10 (1.78-5.38) K/mm3 Lymph # (Auto) 2.52 (1.32-3.57) K/mm3 [place] # (Auto) 1.03 H (0.30-0.82) K/mm3 Eos # (Auto) 0.33 (0.04-0.54) K/mm3 Baso # (Auto) 0.02 (0.01-0.08) K/mm3 Manual Slide Review Abnormal smear Sodium 143 (136-145) mEq/L Potassium 4.3 (3.5-5.1) mEq/L Chloride 102 (98-107) mEq/L Carbon Dioxide 38 H (21-32) mEq/L Anion Gap 7.3 (5-15) BUN 20 H (7-18) mg/dL Creatinine 0.9 (0.7-1.3) mg/dL Est Cr Clr Drug Dosing 104.05 mL/min Estimated GFR (MDRD) > 60 (>60) mL/min BUN/Creatinine Ratio 22.2 H (14-18) Glucose 97 (74-106) mg/dL Calcium 8.8 (8.5-10.1) mg/dL Magnesium 1.9 (1.8-2.4) mg/dl C-Reactive Protein 4.4 H* (<1.0) mg/dL Procalcitonin 0.28 H ng/mL Result Diagrams: 10/08/20 06:21 10/08/20 06:21 Solomon Results Last 24 hrs: Microbiology 10/06/20 17:50 Aerobic Blood Culture - Preliminary Blood - Venous - Lab Draw NO GROWTH AFTER 1 DAY Anaerobic Blood Culture - Preliminary NO GROWTH AFTER 1 DAY 10/06/20 17:40 Aerobic Blood Culture - Preliminary Blood - Venous NO GROWTH AFTER 1 DAY Anaerobic Blood Culture - Preliminary NO GROWTH AFTER 1 DAY Sepsis Event Note - Evaluation Sepsis Screening Result: No Definite Risk - Focused Exam Vital Signs: Vital Signs Temp Temp Pulse Pulse Resp BP BP 10/08/20 11:31 36.4 C 50 L 14 100/56 L 10/08/20 09:10 10/08/20 08:01 36.7 C 49 L 14 106/57 L 10/08/20 05:30 36.7 C 36.7 C 51 L 51 L 14 107/51 L 10/08/20 02:50 Pulse Ox Pulse Ox Pulse Ox 10/08/20 11:31 95 10/08/20 09:10 92 L 10/08/20 08:01 97 10/08/20 05:30 98 10/08/20 02:50 98 - Problem List Review Problem List Initiated/Reviewed/Updated: Yes - My Orders Last 24 Hours: My Active Orders 10/08/20 09:00 metroNIDAZOLE/Normal Saline [Flagyl in NS 500 MG/100 ML] 500 mg Premix Bag 1 bag IV Q8H 10/08/20 09:01 Consult to Speech Language Pathology [DEOILING MACHINE OPERATOR Evaluation and Treatment] [CONS] Routine - Plan Plan:: Assessment - 10/07/20 (admitted 10/06/20 evening) * 39-year-old male presents to ED accompanied by mother with complaint of fever and possible pneumonia. * Fever reported to be 104 to 105 degrees and patient has been napping, which is not normal for him. * Longstanding history of recurrent pneumonia secondary to restrictive lung dise ase from kyphoscoliosis * Underwent treatment for pneumonia in July and August * Patient resides at [facility]. * History of asthma, recurrent pneumonia, sleep apnea treated with BiPAP, CPT vest, chronic diarrhea, urinary incontinence, developmental delay, anxiety, depression, OCD, hypothyroidism, alopecia. * Chest x-ray in ED shows increasing density within the right lung base from prior study which could represent aspiration, pneumonia, or increased atelectasis. * Twelve-lead EKG is obtained showing a sinus rhythm at 80 bpm with right axis deviation, enlarged P waves, early R transition and wave inversion of V1 to V3 with T wave flattening in V4 to V6. His heart is noted to be shifted to the left which does skew interpretation. * Labs obtained in ED and on floor: * WBC 13.88-->7.49 * Hemoglobin 14.1-->11.7 * Platelet 215-->171 * Neutrophils 85% with no bandemia-->60.7% * INR 1.02 * Sodium 139-->142 * Potassium 4.9-->44 * Carbon dioxide 39-->38 * Anion gap 6.9-->5.4 * BUN 18-->18, creatinine 0.9-->0.8, GFR greater than 60-->greater than 60 * Glucose 99-->90 * Lactic acid 1.2 * Magnesium 1.7-->1.6 * Bilirubin 0.6-->0.5 * AST 19-->14, ALT 20-->11, alkaline phosphatase 64-->47 * CRP 2.7 * proBNP 441 * Albumin 3.3-->2.3 * UA negative * SARS-CoV-2 RNA negative * MRSA screen negative * He started on D5 NS and given 750 mg Levaquin. He is also given 600 mg ibuprofen for his fever. * Is admitted to the medical floor for treatment of his pneumonia. PLAN: Pneumonia Fever Hypoxemia Obstructive sleep apnea Cerebral palsy Restrictive lung disease due to kyphoscoliosis * Continue home BiPAP at night/when napping * Continue home CPT vest * IV fluids as ordered * PRN duonebs * RT consultation * Ambulate BID * O2 as needed * Levaquin 750mg daily * Consult RT * Blood cultures pending * Procalcitonin pending Hypomagnesemia * Supplement * Monitor labs Anxiety Depression OCD (obsessive compulsive disorder) Pervasive developmental disorder, active * No current concerns * Home medications as able * Mother at bedside Hypothyroidism Chronic diarrhea * Home medications as ordered * Monitor I&Os * Antidiarrheals as needed 10/07/20 This is a 39-year-old male who is well-known to this facility, brought in by his mother from [facility] where he resides with fever and possible pneumonia. Patient has a history of recurrent pneumonia. Other histories inculde asthma, sleep apnea treated with BiPAP, CPT vest, chronic diarrhea, urinary inconti nence, developmental delay, anxiety, depression, OCD, hypothyroidism, alopecia. Assessment: Pneumonia, history of recurrent secondary to restrictive lung disease from kyphoscoliosis. Aspiration pneumonia cannot be excluded Chest x-ray in ED shows increasing density within the right lung base from prior study which could represent aspiration, pneumonia, or increased atelectasis. Hypoxemia Obstructive sleep apnea Cerebral palsy Restrictive lung disease due to kyphoscoliosis Hypomagnesemia Anxiety Depression OCD (obsessive compulsive disorder) Pervasive developmental disorder, active Hypothyroidism Chronic diarrhea Plan: * Continue home BiPAP at night/when napping * Continue home CPT vest * Levaquin 750 mg daily. Added Flagyl 500 mg every 8 hours * IV fluids as ordered * PRN duonebs * RT consultation * Ambulate BID * O2 as needed * Continue other home medications including Allopurinol, Abilify, clonidine, desmopressin, divalproex, levothyroxine, Imodium, paroxetine, trazodone 50 mg at bedtime * Consult RT * Blood cultures no growth * Procalcitonin 0.28 * Speech pathologist consult (not available on weekend). As per mother, he was seen by a speech pathologist 6 months ago with a negative result. I would l melia patient to see a speech pathologist second. Code status: Full code PCP: Michaela Sanchez NP DVT prophylaxis: Lovenox Social: Patient resides at [facility]. Mother is very involved in patient care Disposition: Patient admitted to [facility] for treatment of pneumonia. LOS likely 3-4 days total Prognosis: Good prognosis with this episode. Overall poor prognosis given chronic worsening restrictive lung disease and frequent pneumonia.
[2020-10-08] MEDS ORDERED: metroNIDAZOLE/Normal Saline 100 ML ONE (16:26)
[2020-10-08] MEDS: Levofloxacin/Dextrose 5%-Water 750 MG in Premix Bag 1 BAG IV SCH (17:49)
[2020-10-08] MEDS: cloNIDine 0.2 MG/Day Transdermal Patch TOP SCH (20:38)
[2020-10-08] MEDS: traZODone 50 MG Tab PO PRN (20:39)
[2020-10-08] MEDS: Melatonin 3 MG Tab PO SCH (20:39)
[2020-10-08] MEDS: Divalproex Sodium Delayed-Release 500 MG Tab.CR PO SCH (20:39)
[2020-10-08] MEDS: Allopurinol 300 MG Tab PO SCH (20:40)
[2020-10-08] MEDS: [UNRECOGNIZED DRUG - REMARK] TRDERM SCH (20:40)
[2020-10-09] MEDS: metroNIDAZOLE/Normal Saline 500 MG in Premix Bag 1 BAG IV SCH ×2 (01:18→09:11)
[2020-10-09] MEDS: Levothyroxine 50 MCG Tab PO SCH (05:56)
[2020-10-09] MEDS: Famotidine 20 MG Tab PO SCH (09:05)
[2020-10-09] MEDS: Enoxaparin 40 MG/0.4 ML Syringe SUBCUT SCH (09:05)
[2020-10-09] MEDS: ARIPiprazole 5 MG Tab PO SCH (09:05)
[2020-10-09] MEDS: Divalproex Sodium Delayed-Release 250 MG Tab.CR PO SCH (09:06)
--- NOTE | 2020-10-09 11:36 | PCM.DCSUM1 ---
Discharge Summary - Hospital Course Free Text/Narrative:: Pneumonia, history of recurrent secondary to restrictive lung disease from kyphoscoliosis. Aspiration pneumonia cannot be excluded Chest x-ray in ED shows increasing density within the right lung base from prior study which could represent aspiration, pneumonia, or increased atelectasis. Hypoxemia Obstructive sleep apnea Cerebral palsy Restrictive lung disease due to kyphoscoliosis Hypomagnesemia Anxiety Depression OCD (obsessive compulsive disorder) Pervasive developmental disorder, active Hypothyroidism Chronic diarrhea Plan: * Continue home BiPAP at night/when napping. continue oxygen 2-4L via NC * Continue home CPT vest * Will discontinue IV Levaquin 750 mg daily and Flagyl 500 mg every 8 hours. Patient will be discharged on oral Flagyl and Levaquin for 5 days. * PRN duonebs * RT consultation * Ambulate BID * O2 as needed * Continue other home medications including Allopurinol, Abilify, clonidine, desmopressin, divalproex, levothyroxine, Imodium, paroxetine, trazodone 50 mg at bedtime * Consult RT * Blood cultures no growth * Procalcitonin 0.28 * Speech pathologist consult (not available on weekend). As per mother, he was seen by a speech pathologist 6 months ago with a negative result. I would like patient to see a speech pathologist second. Today patient does not have any complaints and vital signs are stable and acceptable. WBC 6.88, hemoglobin 11.9, creatinine 0.9. He will be discharged back to the facility where he came from. Patient needs to follow with PCP in 3 days, orthopedist and speech pathologist as soon as possible. Patient will be discharged on oral Levaquin and Flagyl. Continue home oxygen and physical therapy. Repeat the blood tests a CBC and CMP in 3 days. Discussed that with his mom about the discharge and the follow-up plan who fully understood. Call PCP for medical issues. Diagnosis: Stroke: No - Discharge Data Discharge Date: 10/09/20 Discharge Disposition: DC/Tfer to Other 70 Condition: Good - Referral to Home Health Primary Care Physician: Michaela Sanchez NP - Patient Summary/Data Consults: Consultations 10/06/20 20:32 Respiratory Care Assess and Treatment [CONS] Routine 10/08/20 09:01 Consult to Speech Language Pathology [VEGETABLE TESTER Evaluation and Treatment] [CONS] Routine Recommended Follow-up Testing/Procedures: Follow with PCP in 3 days, orthopedics and speech pathology as soon as possible. Repeat the blood tests a CBC and CMP in 3 days. - Patient Instructions Activity: As Tolerated Driving: Do Not Drive - Discharge Plan *PRESCRIPTION DRUG MONITORING PROGRAM REVIEWED*: Not Applicable *COPY OF PRESCRIPTION DRUG MONITORING REPORT IN PATIENT HUMBERTO: Not Applicable Prescriptions/Med Rec: metroNIDAZOLE [Flagyl] 500 mg PO Q8H #15 tab Levofloxacin [Levaquin] 500 mg PO DAILY #5 tablet Home Medications: Home Meds Divalproex Sodium [Depakote] 500 mg PO BEDTIME 12/10/18 [History] Levothyroxine 75 mcg PO MOTUWETHFR 12/10/18 [History] Levothyroxine [Synthroid] 50 mcg PO SUSA 12/10/18 [History] Loperamide [Imodium] 2 mg PO ASDIRECTED PRN 12/10/18 [History] Melatonin 10 mg PO 209912/10/18 [History] PARoxetine HCL [Paxil] 30 mg PO 12/10/18 [History] allopurinoL [Zyloprim] 300 mg PO 209912/10/18 [History] cloNIDine [Catapres TTS-2] 0.2 mg TOP Q2D 12/10/18 [History] traZODone HCl [Trazodone HCl] 50 mg PO BEDTIME PRN 12/10/18 [History] Anti-Acid 2 - 4 tsp PO Q4H PRN 03/10/19 [History] Desmopressin 0.05 mg PO 209903/10/19 [History] Fexofenadine/Pseudoephedrine [Gris-D 24 Hour Tablet] 180 mg PO DAILY 03/10/19 [History] Divalproex Sodium [Depakote] 250 mg PO 06/04/19 [History] ARIPiprazole [Abilify] 7.5 mg PO TID@0800,1400,199908/26/19 [History] ARIPiprazole [Aripiprazole] 2 mg PO Q6H PRN 08/26/19 [History] Ped Multivit 43/Iron Fumarate [Flintstones Complete Chew Tab] 1 tab PO DAILY 0 08/27/19 [History] Acetaminophen/Dextromethorphan [Robitussin Cough-Sore Throat] 0 ml PO DAILY PRN 04/06/20 [History] Bacillus Coagulans [Digestive Advantage Probiotic] 1 each PO DAILY 04/06/20 [History] Inulin/Chromium Picolinate [Fiber Gummies] 2 g PO DAILY 04/06/20 [History] polyethylene glycoL 3350 [MiraLAX] 17 gm PO DAILY PRN #30 packet 04/07/20 [Rx] Famotidine 20 mg PO BID 06/30/20 [History] Fluticasone Propionate [Flonase Allergy Relief] 1 spray YOMAIRA BID 06/30/20 [History] Hydrogen Peroxide 1 - 2 applic TOP Q8HR PRN 07/11/20 [History] Pv Complete Allergy Tab 1 tab PO Q4H PRN 10/06/20 [History] Levofloxacin [Levaquin] 500 mg PO DAILY #5 tablet 10/09/20 [Rx] metroNIDAZOLE [Flagyl] 500 mg PO Q8H #15 tab 10/09/20 [Rx] Oxygen Therapy Mode: Nasal Cannula (2-4L via NC 24hrs) Oxygen Flow Rate (L/min): 4 Maintain SpO2% greater than: 92 Patient Handouts: Sepsis, Self Care, Adult Forms: ED Department Discharge Referrals: Michaela Sanchez NP [Primary Care Provider] - orthopedics, [facility] [Other] speech, pathology within 1 week [Other] - Discharge Summary/Plan Comment DC Time >30 min.: Yes - General Info Date of Service: 10/09/20 Admission Dx/Problem (Free Text: Admission Diagnosis/Problem Admission Diagnosis/Problem Pneumonia - Review of Systems General: Reports: No Symptoms HEENT: Reports: No Symptoms Pulmonary: Reports: No Symptoms Cardiovascular: Reports: No Symptoms Gastrointestinal: Reports: No Symptoms Genitourinary: Reports: No Symptoms Musculoskeletal: Reports: No Symptoms Skin: Reports: No Symptoms Neurological: Reports: No Symptoms Psychiatric: Reports: No Symptoms - Patient Data Vitals - Most Recent: Last Vital Signs Temp 37.0 C 10/09/20 08:14 Pulse 51 L 10/09/20 08:14 Resp 12 10/09/20 08:14 BP 100/57 L 10/09/20 08:14 Pulse Ox 92 L 10/09/20 08:14 Weight - Most Recent: 78.063 kg I&O - Last 24 hours: Intake & Output 10/08/20 10/09/20 10/09/20 22:59 06:59 14:59 Intake Total 830 1350 Output Total 500 400 Balance 330 950 Lab Results - Last 24 hrs: Laboratory Results - last 24 hr 10/09/20 10/09/20 Range/Units 05:39 05:39 WBC 6.88 (4.23-9.07) K/mm3 RBC 4.44 L (4.63-6.08) M/mm3 Hgb 11.9 L (13.7-17.5) gm/dl Hct 40.4 (40.1-51.0) % MCV 91.0 (79.0-92.2) fl MCH 26.8 (25.7-32.2) pg MCHC 29.5 L (32.2-35.5) g/dl RDW Std Deviation 62.3 H (35.1-43.9) fL Plt Count 200 (163-337) K/mm3 MPV 11.6 (9.4-12.3) fl Neut % (Auto) 42.0 (34.0-67.9) % Lymph % (Auto) 41.3 (21.8-53.1) % [place] % (Auto) 11.8 (5.3-12.2) % Eos % (Auto) 4.7 (0.8-7.0) Baso % (Auto) 0.1 (0.1-1.2) % Neut # (Auto) 2.89 (1.78-5.38) K/mm3 Lymph # (Auto) 2.84 (1.32-3.57) K/mm3 [place] # (Auto) 0.81 (0.30-0.82) K/mm3 Eos # (Auto) 0.32 (0.04-0.54) K/mm3 Baso # (Auto) 0.01 (0.01-0.08) K/mm3 Manual Slide Review Abnormal smear Sodium 141 (136-145) mEq/L Potassium 4.8 (3.5-5.1) mEq/L Chloride 99 (98-107) mEq/L Carbon Dioxide 38 H (21-32) mEq/L Anion Gap 8.8 (5-15) BUN 24 H (7-18) mg/dL Creatinine 0.9 (0.7-1.3) mg/dL Est Cr Clr Drug Dosing 104.05 mL/min Estimated GFR (MDRD) > 60 (>60) mL/min BUN/Creatinine Ratio 26.7 H (14-18) Glucose 92 (74-106) mg/dL Calcium 9.0 (8.5-10.1) mg/dL Magnesium 1.8 (1.8-2.4) mg/dl C-Reactive Protein 2.9 H* (<1.0) mg/dL KELVIN Results - Last 24 hrs: Microbiology 10/06/20 17:50 Aerobic Blood Culture - Preliminary Blood - Venous - Lab Draw NO GROWTH AFTER 2 DAYS Anaerobic Blood Culture - Preliminary NO GROWTH AFTER 2 DAYS 10/06/20 17:40 Aerobic Blood Culture - Preliminary Blood - Venous NO GROWTH AFTER 2 DAYS Anaerobic Blood Culture - Preliminary NO GROWTH AFTER 2 DAYS Med Orders - Current: Current Medications Acetaminophen (Acetaminophen 325 Mg Tab) 650 mg PO Q4H PRN PRN Reason: Pain (Mild 1-3)/fever Albuterol/Ipratropium (Albuterol/Ipratropium 3.0-0.5 Mg/3 Ml Neb Soln) 3 ml NEB Q6HRRT PRN PRN Reason: wheezing/SOB/cough Allopurinol (Allopurinol 300 Mg Tab) 300 mg PO DAILY@2100 [facility] Last Admin: 10/08/20 20:40 Dose: 300 mg Documented by: Aripiprazole (Aripiprazole 5 Mg Tab) 7.5 mg PO TID@0800,1400,2000 [facility] Last Admin: 10/09/20 09:05 Dose: 7.5 mg Documented by: Aripiprazole (Aripiprazole 2 Mg Tab) 2 mg PO Q6H PRN PRN Reason: Agitation Clonidine HCl (Clonidine 0.2 Mg/Day Transdermal Patch) 0.2 mg TOP Q2D [facility] Last Admin: 10/08/20 20:38 Dose: 0.2 mg Documented by: Clonidine HCl (Clonidine 0.2 Mg/Day Transdermal Patch) 0.2 mg TOP Q2D [facility] Last Admin: 10/07/20 21:30 Dose: 0.2 mg Documented by: Desmopressin Acetate (Desmopressin 0.1 Mg Tab) 0.05 mg PO DAILY@2100 [facility] Last Admin: 10/08/20 20:41 Dose: 0.05 mg Documented by: Divalproex Sodium (Divalproex Sodium Delayed-Release 250 Mg Tab.Cr) 250 mg PO BID@0800,1400 [facility] Last Admin: 10/09/20 09:06 Dose: 250 mg Documented by: Divalproex Sodium (Divalproex Sodium Delayed-Release 500 Mg Tab.Cr) 500 mg PO BEDTIME [facility] Last Admin: 10/08/20 20:39 Dose: 500 mg Documented by: Enoxaparin Sodium (Enoxaparin 40 Mg/0.4 Ml Syringe) 40 mg SUBCUT DAILY [facility] Last Admin: 10/09/20 09:05 Dose: 40 mg Documented by: Famotidine (Famotidine 20 Mg Tab) 20 mg PO BID [facility] Last Admin: 10/09/20 09:05 Dose: 20 mg Documented by: Levofloxacin/Dextrose 750 mg/ (Premix) 150 mls @ 100 mls/hr IV Q24H [facility] Last Admin: 10/08/20 17:49 Dose: 100 mls/hr Documented by: Metronidazole 500 mg/ Premix 100 mls @ 100 mls/hr IV Q8H [facility] Last Admin: 10/09/20 09:11 Dose: 100 mls/hr Documented by: Levothyroxine Sodium (Levothyroxine 75 Mcg Tab) 75 mcg PO MoTuWeThFr@0600 [facility] Last Admin: 10/07/20 06:55 Dose: Not Given Documented by: Levothyroxine Sodium (Levothyroxine 50 Mcg Tab) 50 mcg PO SuSa@0600 [facility] Last Admin: 10/09/20 05:56 Dose: 50 mcg Documented by: Loperamide HCl (Loperamide 2 Mg Cap) 2 mg PO ASDIRECTED PRN PRN Reason: Diarrhea Melatonin (Melatonin 3 Mg Tab) 9 mg PO BEDTIME [facility] Last Admin: 10/08/20 20:39 Dose: 9 mg Documented by: Miscellaneous Information (Remove Clonidinepatch) 1 ea TRDERM BEDTIME [facility] Last Admin: 10/08/20 20:40 Dose: 1 ea Documented by: Ondansetron HCl (Ondansetron 4 Mg/2 Ml Sdv) 4 mg IV Q4H PRN PRN Reason: Nausea/Vomiting Paroxetine HCl (Paroxetine 10 Mg Tab) 30 mg PO BID@0800,1400 [facility] Last Admin: 10/09/20 09:06 Dose: 30 mg Documented by: Polyethylene Glycol (Polyethylene Glycol 3350 Powder 17 Gm Packet) 17 gm PO DAILY PRN PRN Reason: Constipation Trazodone HCl (Trazodone 50 Mg Tab) 50 mg PO BEDTIME PRN PRN Reason: Sleep Last Admin: 10/08/20 20:39 Dose: 50 mg Documented by: Discontinued Medications Dextrose/Sodium Chloride (Dextrose 5%-Normal Saline) 1,000 mls @ 999 mls/hr IV ASDIRECTED [facility] Last Admin: 10/06/20 17:44 Dose: 999 mls/hr Documented by: Levofloxacin/Dextrose 750 mg/ (Premix) 150 mls @ 100 mls/hr IV ONETIME ONE Stop: 10/06/20 19:51 Last Admin: 10/06/20 18:32 Dose: 100 mls/hr Documented by: Magnesium Sulfate (Magnesium Sulfate In Water 2 Gm/50 Ml) 2 gm in 50 mls @ 25 mls/hr IV ONETIME ONE Stop: 10/07/20 10:59 Last Admin: 10/07/20 10:20 Dose: 25 mls/hr Documented by: Metronidazole (Flagyl In Ns 500 Mg/100 Ml) Confirm Administered Dose 100 mls @ as directed .ROUTE .STK-MED ONE Stop: 10/08/20 16:27 Last Admin: 10/08/20 16:46 Dose: Not Given Documented by: Ibuprofen (Ibuprofen Susp 100 Mg/5 Ml 5 Ml Ud Cup) 600 mg PO ONETIME ONE Stop: 10/06/20 17:13 Last Admin: 10/06/20 17:44 Dose: 600 mg Documented by: Non-Formulary Medication (Melatonin [Melatonin]) 10 mg PO 2100 [facility] Last Admin: 10/07/20 05:46 Dose: Not Given Documented by: - Exam Physical Findings Comments:: General: Alert, Cooperative. No: Mild Distress HEENT: Conjunctiva Clear, EACs Clear, Mucosa Moist & [place], Posterior Pharynx Clear Neck: Supple, Trachea Midline Lungs: Normal Respiratory Effort, Decreased Breath Sounds Cardiovascular: Regular Rate, Regular Rhythm GI/Abdominal Exam: Normal Bowel Sounds, Soft, Non-Tender, No Distention (Male) Exam: Deferred Rectal (Males) Exam: Deferred Back Exam: Decreased Range of Motion, Other (Severe baseline kyphoscoliosis) Extremities: Normal Inspection, Non-Tender, Pedal Edema (3-4+)(improving), Limited Range of Motion Skin: Warm, Dry, Intact Neurological: Cranial Nerves Intact (Grossly ) Neuro Extensive - Mental Status: Alert Psychiatric: Alert. No: Normal Affect (Flat affect)
== END 2020-10-09 13:37 | disposition other institution (70) | DRG 137 ==
LOC: JD.ED 16:36 → JD.MS 19:01
PROVIDERS: ADMIT Family Medicine; ATTEND Family Medicine
PROC: 5A09457 Assistance with Respiratory Ventilation, 24-96 Consecutive Hours, Continuous Positive Airway Pressure (ICD-10-PCS; principal; 2020-10-06)
DX: J69.0 Pneumonitis due to inhalation of food and vomit (principal); M41.54 Other secondary scoliosis, thoracic region; G47.33 Obstructive sleep apnea (adult) (pediatric); G80.9 Cerebral palsy, unspecified; F41.9 Anxiety disorder, unspecified; F32.9 Major depressive disorder, single episode, unspecified; F42.9 Obsessive-compulsive disorder, unspecified; F84.9 Pervasive developmental disorder, unspecified; E03.9 Hypothyroidism, unspecified; K52.9 Noninfective gastroenteritis and colitis, unspecified; E83.42 Hypomagnesemia; J98.4 Other disorders of lung; Z79.890 Hormone replacement therapy; Z79.899 Other long term (current) drug therapy; Z88.8 Allergy status to other drugs, medicaments and biological substances; Z91.048 Other nonmedicinal substance allergy status; G47.30 Sleep apnea, unspecified; R32 Unspecified urinary incontinence; J45.909 Unspecified asthma, uncomplicated; Z20.822 Contact with and (suspected) exposure to COVID-19
CPT/HCPCS: 36415; 71045; 71045-26; 80048; 80053; 81003; 82009; 83605; 83735; 83880; 84145; 85007; 85025; 85027; 85610; 85730; 86140; 87040; 87641; 93005; 93010; 94660; 94667; 94668; 94760; 94761; 96365; 99223; 99233; 99239; 99285; 99285-25; A9270-GY; J1650; J1956; J3475; J3490; J7042; U0002

== ENCOUNTER 2021-08-09 21:52 | Inpatient (IN) | payer BC ==
[2021-08-09] MEDS ORDERED: Ondansetron 4 MG/2 ML SDV IVPUSH ONE (22:28)
[2021-08-09] MEDS ORDERED: Sodium Chloride 0.9% 10 ML Syringe FLUSH PRN (22:28)
[2021-08-09] MEDS ORDERED: Sodium Chloride 0.9% 1,000 ML IV SCH (22:30)
[2021-08-09] MEDS ORDERED: cefTRIAXone 2 GM in Sodium Chloride 0.9% 100 ML IV ONE (22:31)
[2021-08-09 23:41] LABS: CORONAVIRUS COVID-19 NAA NEGATIVE (NEGATIVE)
[2021-08-09] MEDS ORDERED: Azithromycin 500 MG in Sodium Chloride 0.9% 250 ML IV ONE (23:54)
[2021-08-10] MEDS ORDERED: Sodium Chloride 0.9% 500 ML IV ONE ×2 (08:22→09:03)
[2021-08-10] MEDS ORDERED: Polyethylene Glycol 3350 Powder 17 GM Packet PO PRN (08:23)
[2021-08-10] MEDS ORDERED: Multivitamin Tab PO SCH (09:00)
[2021-08-10] MEDS: ARIPiprazole 5 MG Tab PO SCH ×3 (09:15→20:41)
[2021-08-10] MEDS: Famotidine 20 MG Tab PO SCH ×2 (09:17→20:42)
[2021-08-10] MEDS: PARoxetine 20 MG Tab PO SCH ×2 (09:18→13:30)
[2021-08-10] MEDS: Allopurinol 300 MG Tab PO SCH (09:18)
[2021-08-10] MEDS: Carboxymethylcellulose Sodium 1% Ophth Gel 15 ML Bottle EYEBOTH SCH ×2 (10:22→20:42)
[2021-08-10] MEDS: Levothyroxine 75 MCG Tab PO SCH (10:22)
[2021-08-10] MEDS: Divalproex Sodium Delayed-Release 250 MG Tab.CR PO SCH (10:29)
[2021-08-10] MEDS: Enoxaparin 40 MG/0.4 ML Syringe SUBCUT SCH (10:29)
[2021-08-10] MEDS: Sodium Chloride 0.9% 1,000 ML IV SCH ×2 (10:37→20:43)
[2021-08-10] MEDS: Divalproex Sodium Delayed-Release 500 MG Tab.CR PO SCH ×2 (13:30→20:42)
[2021-08-10] MEDS: Melatonin 3 MG Tab PO SCH (20:41)
[2021-08-10] MEDS: Saccharomyces Boulardii (Probiotic) 250 MG Cap PO SCH (20:41)
[2021-08-10] MEDS: cefTRIAXone 2 GM in Sodium Chloride 0.9% 100 ML IV SCH (23:13)
[2021-08-10] MEDS: Azithromycin 500 MG in Sodium Chloride 0.9% 250 ML IV SCH (23:55)
[2021-08-11] MEDS: Levothyroxine 75 MCG Tab PO SCH (05:08)
[2021-08-11] MEDS: Carboxymethylcellulose Sodium 1% Ophth Gel 15 ML Bottle EYEBOTH SCH ×2 (08:36→21:04)
[2021-08-11] MEDS: Enoxaparin 40 MG/0.4 ML Syringe SUBCUT SCH (08:36)
[2021-08-11] MEDS: Divalproex Sodium Delayed-Release 250 MG Tab.CR PO SCH (08:37)
[2021-08-11] MEDS: Allopurinol 300 MG Tab PO SCH (08:37)
[2021-08-11] MEDS: Famotidine 20 MG Tab PO SCH ×2 (08:37→21:02)
[2021-08-11] MEDS: Multivitamin Tab PO SCH (08:37)
[2021-08-11] MEDS: ARIPiprazole 5 MG Tab PO SCH ×3 (08:38→21:02)
[2021-08-11] MEDS: PARoxetine 20 MG Tab PO SCH ×2 (08:38→14:12)
[2021-08-11] MEDS: Saccharomyces Boulardii (Probiotic) 250 MG Cap PO SCH ×2 (08:38→21:02)
[2021-08-11] MEDS ORDERED: Magnesium Sulfate/Water 2 GM in Premix Bag 1 BAG IV ONE (10:18)
[2021-08-11] MEDS: Divalproex Sodium Delayed-Release 500 MG Tab.CR PO SCH ×2 (12:16→21:02)
[2021-08-11] MEDS ORDERED: Loperamide 2 MG Cap PO ONE (14:15)
[2021-08-11] MEDS ORDERED: cloNIDine 0.2 MG/Day Transdermal Patch TRDERM SCH ×2 (21:00)
[2021-08-11] MEDS ORDERED: REMOVE CLONIDINE TRDERM SCH (21:00)
[2021-08-11] MEDS: Melatonin 3 MG Tab PO SCH (21:01)
[2021-08-11] MEDS: Ondansetron 4 MG/2 ML SDV IVPUSH PRN (22:42)
[2021-08-11] MEDS: cefTRIAXone 2 GM in Sodium Chloride 0.9% 100 ML IV SCH (22:45)
[2021-08-11] MEDS: Azithromycin 500 MG in Sodium Chloride 0.9% 250 ML IV SCH (23:39)
[2021-08-12] MEDS: Levothyroxine 50 MCG Tab PO SCH (06:22)
[2021-08-12] MEDS: ARIPiprazole 5 MG Tab PO SCH ×3 (08:36→21:47)
[2021-08-12] MEDS: Allopurinol 300 MG Tab PO SCH (08:37)
[2021-08-12] MEDS: Famotidine 20 MG Tab PO SCH ×2 (08:37→21:46)
[2021-08-12] MEDS: Multivitamin Tab PO SCH (08:37)
[2021-08-12] MEDS: Divalproex Sodium Delayed-Release 250 MG Tab.CR PO SCH (08:37)
[2021-08-12] MEDS: Carboxymethylcellulose Sodium 1% Ophth Gel 15 ML Bottle EYEBOTH SCH ×2 (08:38→21:51)
[2021-08-12] MEDS: PARoxetine 20 MG Tab PO SCH ×2 (08:38→14:12)
[2021-08-12] MEDS: Enoxaparin 40 MG/0.4 ML Syringe SUBCUT SCH (08:38)
[2021-08-12] MEDS: Saccharomyces Boulardii (Probiotic) 250 MG Cap PO SCH ×2 (08:38→21:50)
[2021-08-12] MEDS: Ondansetron 4 MG/2 ML SDV IVPUSH PRN ×2 (08:42→14:57)
[2021-08-12] MEDS: Acetaminophen 325 MG Tab PO PRN (12:02)
[2021-08-12] MEDS: Divalproex Sodium Delayed-Release 500 MG Tab.CR PO SCH ×2 (12:02→21:49)
[2021-08-12] MEDS ORDERED: Metoclopramide 5 MG Tab PO PRN (15:15)
[2021-08-12] MEDS: cloNIDine 0.2 MG/Day Transdermal Patch TRDERM SCH (21:47)
[2021-08-12] MEDS: Melatonin 3 MG Tab PO SCH (21:49)
[2021-08-12] MEDS: cefTRIAXone 2 GM in Sodium Chloride 0.9% 100 ML IV SCH (23:51)
[2021-08-13] MEDS: Ondansetron 4 MG/2 ML SDV IVPUSH PRN (02:55)
[2021-08-13] MEDS: Acetaminophen 325 MG Tab PO PRN (02:56)
[2021-08-13] MEDS: Loperamide 2 MG Cap PO PRN (02:56)
[2021-08-13] MEDS: Levothyroxine 50 MCG Tab PO SCH (06:36)
[2021-08-13] MEDS: ARIPiprazole 5 MG Tab PO SCH ×3 (08:31→20:13)
[2021-08-13] MEDS: Famotidine 20 MG Tab PO SCH ×2 (08:31→20:13)
[2021-08-13] MEDS: Divalproex Sodium Delayed-Release 250 MG Tab.CR PO SCH (08:32)
[2021-08-13] MEDS: Allopurinol 300 MG Tab PO SCH (08:32)
[2021-08-13] MEDS: Saccharomyces Boulardii (Probiotic) 250 MG Cap PO SCH ×2 (08:34→20:11)
[2021-08-13] MEDS: PARoxetine 20 MG Tab PO SCH ×2 (08:34→13:46)
[2021-08-13] MEDS: Multivitamin Tab PO SCH (08:34)
[2021-08-13] MEDS: Carboxymethylcellulose Sodium 1% Ophth Gel 15 ML Bottle EYEBOTH SCH ×2 (08:35→20:12)
[2021-08-13] MEDS: Enoxaparin 40 MG/0.4 ML Syringe SUBCUT SCH (08:35)
[2021-08-13] MEDS: Sodium Chloride 0.45% 1,000 ML IV SCH (12:20)
[2021-08-13] MEDS: Divalproex Sodium Delayed-Release 500 MG Tab.CR PO SCH ×2 (12:21→20:14)
[2021-08-13] MEDS: cloNIDine 0.2 MG/Day Transdermal Patch TRDERM SCH (20:09)
[2021-08-13] MEDS: Melatonin 3 MG Tab PO SCH (20:11)
[2021-08-13] MEDS: cefTRIAXone 2 GM in Sodium Chloride 0.9% 100 ML IV SCH (22:12)
[2021-08-14] MEDS: Levothyroxine 75 MCG Tab PO SCH (05:02)
[2021-08-14] MEDS: Sodium Chloride 0.45% 1,000 ML IV SCH (05:03)
[2021-08-14] MEDS: Saccharomyces Boulardii (Probiotic) 250 MG Cap PO SCH ×2 (08:04→20:48)
[2021-08-14] MEDS: Allopurinol 300 MG Tab PO SCH (08:04)
[2021-08-14] MEDS: Enoxaparin 40 MG/0.4 ML Syringe SUBCUT SCH (08:04)
[2021-08-14] MEDS: Divalproex Sodium Delayed-Release 250 MG Tab.CR PO SCH (08:04)
[2021-08-14] MEDS: Multivitamin Tab PO SCH (08:04)
[2021-08-14] MEDS: ARIPiprazole 5 MG Tab PO SCH ×3 (08:05→20:47)
[2021-08-14] MEDS: PARoxetine 20 MG Tab PO SCH ×2 (08:05→14:44)
[2021-08-14] MEDS: Famotidine 20 MG Tab PO SCH ×2 (08:05→20:48)
[2021-08-14] MEDS: Carboxymethylcellulose Sodium 1% Ophth Gel 15 ML Bottle EYEBOTH SCH ×2 (08:05→20:48)
[2021-08-14] MEDS: Loperamide 2 MG Cap PO PRN (11:11)
[2021-08-14] MEDS: Divalproex Sodium Delayed-Release 500 MG Tab.CR PO SCH ×2 (11:11→20:48)
[2021-08-14] MEDS: Melatonin 3 MG Tab PO SCH (20:47)
[2021-08-14] MEDS: cloNIDine 0.2 MG/Day Transdermal Patch TRDERM SCH (20:48)
[2021-08-14] MEDS: cefTRIAXone 2 GM in Sodium Chloride 0.9% 100 ML IV SCH (22:03)
[2021-08-15] MEDS: Levothyroxine 75 MCG Tab PO SCH (06:03)
[2021-08-15] MEDS ORDERED: Magnesium Sulfate/Water 2 GM in Premix Bag 1 BAG IV ONE (09:00)
[2021-08-15] MEDS: PARoxetine 20 MG Tab PO SCH ×2 (09:51→13:33)
[2021-08-15] MEDS: ARIPiprazole 5 MG Tab PO SCH ×3 (09:51→20:42)
[2021-08-15] MEDS: Carboxymethylcellulose Sodium 1% Ophth Gel 15 ML Bottle EYEBOTH SCH ×2 (09:52→20:44)
[2021-08-15] MEDS: Allopurinol 300 MG Tab PO SCH (09:52)
[2021-08-15] MEDS: Famotidine 20 MG Tab PO SCH ×2 (09:52→20:42)
[2021-08-15] MEDS: Multivitamin Tab PO SCH (09:52)
[2021-08-15] MEDS: Enoxaparin 40 MG/0.4 ML Syringe SUBCUT SCH (09:52)
[2021-08-15] MEDS: Divalproex Sodium Delayed-Release 250 MG Tab.CR PO SCH (09:52)
[2021-08-15] MEDS: Saccharomyces Boulardii (Probiotic) 250 MG Cap PO SCH ×2 (09:52→20:42)
[2021-08-15] MEDS: Divalproex Sodium Delayed-Release 500 MG Tab.CR PO SCH ×2 (11:33→20:42)
[2021-08-15] MEDS: Loperamide 2 MG Cap PO PRN (13:33)
[2021-08-15] MEDS: Melatonin 3 MG Tab PO SCH (20:42)
[2021-08-15] MEDS: cloNIDine 0.2 MG/Day Transdermal Patch TRDERM SCH (20:43)
[2021-08-15] MEDS: cefTRIAXone 2 GM in Sodium Chloride 0.9% 100 ML IV SCH (23:03)
[2021-08-16] MEDS: Levothyroxine 75 MCG Tab PO SCH (06:13)
[2021-08-16] MEDS: Enoxaparin 40 MG/0.4 ML Syringe SUBCUT SCH (09:12)
[2021-08-16] MEDS: Carboxymethylcellulose Sodium 1% Ophth Gel 15 ML Bottle EYEBOTH SCH (09:13)
[2021-08-16] MEDS: ARIPiprazole 5 MG Tab PO SCH (09:13)
[2021-08-16] MEDS: Divalproex Sodium Delayed-Release 250 MG Tab.CR PO SCH (09:14)
[2021-08-16] MEDS: Multivitamin Tab PO SCH (09:14)
[2021-08-16] MEDS: Allopurinol 300 MG Tab PO SCH (09:14)
[2021-08-16] MEDS: PARoxetine 20 MG Tab PO SCH (09:14)
[2021-08-16] MEDS: Famotidine 20 MG Tab PO SCH (09:14)
[2021-08-16] MEDS: Saccharomyces Boulardii (Probiotic) 250 MG Cap PO SCH (09:14)
== END 2021-08-16 12:10 | disposition other institution (70) | DRG 139 ==
LOC: JD.ED 21:52 → JD.MS 08-10 00:32
PROVIDERS: ADMIT Family Medicine; ATTEND Family Medicine
PROC: 5A09557 Assistance with Respiratory Ventilation, Greater than 96 Consecutive Hours, Continuous Positive Airway Pressure (ICD-10-PCS; principal; 2021-08-10)
DX: J18.9 Pneumonia, unspecified organism (principal); J96.21 Acute and chronic respiratory failure with hypoxia; G47.33 Obstructive sleep apnea (adult) (pediatric); F41.9 Anxiety disorder, unspecified; G80.9 Cerebral palsy, unspecified; K52.9 Noninfective gastroenteritis and colitis, unspecified; E03.9 Hypothyroidism, unspecified; F42.9 Obsessive-compulsive disorder, unspecified; J98.4 Other disorders of lung; Z20.822 Contact with and (suspected) exposure to COVID-19; M41.9 Scoliosis, unspecified; I95.9 Hypotension, unspecified; K44.9 Diaphragmatic hernia without obstruction or gangrene; F32.A Depression, unspecified; J45.909 Unspecified asthma, uncomplicated; E83.42 Hypomagnesemia; Z91.09 Other allergy status, other than to drugs and biological substances; Z88.8 Allergy status to other drugs, medicaments and biological substances; Z79.890 Hormone replacement therapy; Z79.4 Long term (current) use of insulin; Z79.899 Other long term (current) drug therapy
CPT/HCPCS: 0241U; 36415; 36600; 71045; 71045-26; 80048; 80053; 82803; 83605; 83735; 84145; 85025; 85610; 85730; 86140; 86738; 87040; 87641; 87899; 93970; 93970-26; 94668; 94761; 96365; 96367; 96375; 97110-GP; 97162-GP; 97530-GP; 99285-25; A9270-GY; J0456; J0696; J1650; J2405; J3475; J7030; J7050

== ENCOUNTER 2021-09-21 10:42 | Inpatient (IN) | payer BC ==
[2021-09-21] MEDS ORDERED: Sodium Chloride 0.9% 10 ML Syringe FLUSH PRN (11:15)
[2021-09-21] MEDS ORDERED: Albuterol 0.083% 2.5 MG/3 ML Neb Soln NEB ONE (11:17)
[2021-09-21 12:43] LABS: CORONAVIRUS COVID-19 NAA NEGATIVE (NEGATIVE)
[2021-09-21] MEDS ORDERED: Piperacillin/Tazobactam 4.5 GM in Sodium Chloride 0.9% 100 ML IV ONE (13:56)
[2021-09-21] MEDS ORDERED: Polyethylene Glycol 3350 Powder 17 GM Packet PO PRN (14:32)
[2021-09-21] MEDS ORDERED: oxyCODONE 5 MG Tab PO PRN (15:00)
[2021-09-21] MEDS ORDERED: Vancomycin 1 GM, Vancomycin 500 MG in Sodium Chloride 0.9% 500 ML IV ONE (15:00)
[2021-09-21] MEDS ORDERED: Albuterol/Ipratropium 3.0-0.5 MG/3 ML Neb Soln NEB PRN (15:00)
[2021-09-21] MEDS ORDERED: Ondansetron 4 MG Tab.DIS PO PRN (15:00)
[2021-09-21] MEDS: Sodium Chloride 0.9% 1,000 ML IV SCH (18:00)
[2021-09-21] MEDS: Divalproex Sodium Delayed-Release 500 MG Tab.CR PO SCH (20:11)
[2021-09-21] MEDS: Fluticasone NASAL Spray 16 GM Bottle NASBOTH SCH (20:12)
[2021-09-21] MEDS: ARIPiprazole 5 MG Tab PO SCH (20:12)
[2021-09-21] MEDS: Famotidine 20 MG Tab PO SCH (20:12)
[2021-09-21] MEDS: traZODone 50 MG Tab PO PRN (20:22)
[2021-09-21] MEDS ORDERED: traZODone 50 MG Tab PO PRN (21:00)
[2021-09-21] MEDS: Piperacillin/Tazobactam 4.5 GM in Sodium Chloride 0.9% 100 ML IV SCH (21:29)
[2021-09-22] MEDS: Levothyroxine 75 MCG Tab PO SCH (06:12)
[2021-09-22] MEDS: Piperacillin/Tazobactam 4.5 GM in Sodium Chloride 0.9% 100 ML IV SCH ×3 (06:12→21:27)
[2021-09-22] MEDS: Sodium Chloride 0.9% 1,000 ML IV SCH ×2 (07:35→21:28)
[2021-09-22] MEDS: ARIPiprazole 5 MG Tab PO SCH ×3 (08:00→19:56)
[2021-09-22] MEDS: Famotidine 20 MG Tab PO SCH ×3 (08:01→22:40)
[2021-09-22] MEDS: Divalproex Sodium Delayed-Release 250 MG Tab.CR PO SCH (08:01)
[2021-09-22] MEDS: Allopurinol 300 MG Tab PO SCH (08:01)
[2021-09-22] MEDS: PARoxetine 20 MG Tab PO SCH ×2 (08:01→13:28)
[2021-09-22] MEDS: Saccharomyces Boulardii (Probiotic) 250 MG Cap PO SCH (08:02)
[2021-09-22] MEDS: Multivitamin Tab PO SCH (08:02)
[2021-09-22] MEDS: Fluticasone NASAL Spray 16 GM Bottle NASBOTH SCH ×2 (08:04→22:39)
[2021-09-22] MEDS: Carboxymethylcellulose Sodium 1% Ophth Gel 15 ML Bottle EYEBOTH SCH ×3 (08:04→20:13)
[2021-09-22] MEDS: FEXOFENADINE PO SCH (08:05)
[2021-09-22] MEDS: Enoxaparin 40 MG/0.4 ML Syringe SUBCUT SCH (08:05)
[2021-09-22] MEDS: PSEUDOEPHEDRINE PO SCH (08:05)
[2021-09-22] MEDS ORDERED: CHROMIUM PICOLINATE PO SCH (09:00)
[2021-09-22] MEDS ORDERED: [UNRECOGNIZED DRUG - OTHER] PO SCH (09:00)
[2021-09-22] MEDS ORDERED: Bacitracin/Neomycin/Polymyxin B Oint 15 GM Tube TOP PRN (09:00)
[2021-09-22] MEDS ORDERED: INULIN PO SCH (09:00)
[2021-09-22] MEDS: Divalproex Sodium Delayed-Release 500 MG Tab.CR PO SCH ×3 (11:31→22:39)
[2021-09-22] MEDS: Loperamide 2 MG Cap PO PRN (13:23)
[2021-09-22] MEDS: cloNIDine 0.2 MG/Day Transdermal Patch TOP SCH ×2 (20:00→20:08)
[2021-09-22] MEDS: [UNRECOGNIZED DRUG - REMARK] TRDERM SCH (20:00)
[2021-09-22] MEDS: traZODone 50 MG Tab PO PRN (20:07)
[2021-09-23] MEDS: Levothyroxine 50 MCG Tab PO SCH (06:15)
[2021-09-23] MEDS: Piperacillin/Tazobactam 4.5 GM in Sodium Chloride 0.9% 100 ML IV SCH ×3 (06:15→21:07)
[2021-09-23] MEDS: Enoxaparin 40 MG/0.4 ML Syringe SUBCUT SCH (08:01)
[2021-09-23] MEDS: Carboxymethylcellulose Sodium 1% Ophth Gel 15 ML Bottle EYEBOTH SCH ×2 (08:02→20:06)
[2021-09-23] MEDS: Fluticasone NASAL Spray 16 GM Bottle NASBOTH SCH ×2 (08:02→20:06)
[2021-09-23] MEDS: Allopurinol 300 MG Tab PO SCH (08:02)
[2021-09-23] MEDS: PARoxetine 20 MG Tab PO SCH ×2 (08:04→14:41)
[2021-09-23] MEDS: Famotidine 20 MG Tab PO SCH ×2 (08:04→20:04)
[2021-09-23] MEDS: Saccharomyces Boulardii (Probiotic) 250 MG Cap PO SCH (08:04)
[2021-09-23] MEDS: Divalproex Sodium Delayed-Release 250 MG Tab.CR PO SCH (08:04)
[2021-09-23] MEDS: Multivitamin Tab PO SCH (08:04)
[2021-09-23] MEDS: ARIPiprazole 5 MG Tab PO SCH ×3 (08:04→20:03)
[2021-09-23] MEDS: Divalproex Sodium Delayed-Release 500 MG Tab.CR PO SCH ×2 (11:06→20:04)
[2021-09-23] MEDS: Sodium Chloride 0.9% 1,000 ML IV SCH (12:57)
[2021-09-23] MEDS: PSEUDOEPHEDRINE PO SCH (14:41)
[2021-09-23] MEDS: FEXOFENADINE PO SCH (14:41)
[2021-09-23] MEDS: cloNIDine 0.2 MG/Day Transdermal Patch TOP SCH (20:05)
[2021-09-23] MEDS ORDERED: [UNRECOGNIZED DRUG - REMARK] TRDERM SCH (21:00)
[2021-09-24] MEDS: Piperacillin/Tazobactam 4.5 GM in Sodium Chloride 0.9% 100 ML IV SCH ×4 (05:01→21:23)
[2021-09-24] MEDS: Levothyroxine 50 MCG Tab PO SCH (05:01)
[2021-09-24] MEDS: Enoxaparin 40 MG/0.4 ML Syringe SUBCUT SCH (08:00)
[2021-09-24] MEDS: ARIPiprazole 5 MG Tab PO SCH ×3 (08:00→20:35)
[2021-09-24] MEDS: Famotidine 20 MG Tab PO SCH ×2 (08:00→20:40)
[2021-09-24] MEDS: Fluticasone NASAL Spray 16 GM Bottle NASBOTH SCH ×2 (08:00→20:39)
[2021-09-24] MEDS: Carboxymethylcellulose Sodium 1% Ophth Gel 15 ML Bottle EYEBOTH SCH ×2 (08:00→20:40)
[2021-09-24] MEDS: PARoxetine 20 MG Tab PO SCH ×2 (08:01→13:03)
[2021-09-24] MEDS: Divalproex Sodium Delayed-Release 250 MG Tab.CR PO SCH (08:01)
[2021-09-24] MEDS: Saccharomyces Boulardii (Probiotic) 250 MG Cap PO SCH (08:01)
[2021-09-24] MEDS: Multivitamin Tab PO SCH (08:02)
[2021-09-24] MEDS: Allopurinol 300 MG Tab PO SCH (08:02)
[2021-09-24] MEDS: Sodium Chloride 0.9% 1,000 ML IV SCH (08:05)
[2021-09-24] MEDS: FEXOFENADINE PO SCH (09:14)
[2021-09-24] MEDS: PSEUDOEPHEDRINE PO SCH (09:14)
[2021-09-24] MEDS: Divalproex Sodium Delayed-Release 500 MG Tab.CR PO SCH ×2 (12:02→20:39)
[2021-09-24] MEDS: Loperamide 2 MG Cap PO PRN (13:32)
[2021-09-24] MEDS: cloNIDine 0.2 MG/Day Transdermal Patch TOP SCH (20:38)
[2021-09-24] MEDS: [UNRECOGNIZED DRUG - REMARK] TRDERM SCH (20:40)
[2021-09-24] MEDS: traZODone 50 MG Tab PO PRN (20:43)
[2021-09-25] MEDS: Piperacillin/Tazobactam 4.5 GM in Sodium Chloride 0.9% 100 ML IV SCH (06:21)
[2021-09-25] MEDS: Levothyroxine 75 MCG Tab PO SCH (06:21)
[2021-09-25] MEDS: Fluticasone NASAL Spray 16 GM Bottle NASBOTH SCH (08:02)
[2021-09-25] MEDS: Enoxaparin 40 MG/0.4 ML Syringe SUBCUT SCH (08:02)
[2021-09-25] MEDS: Carboxymethylcellulose Sodium 1% Ophth Gel 15 ML Bottle EYEBOTH SCH (08:02)
[2021-09-25] MEDS: PARoxetine 20 MG Tab PO SCH (08:03)
[2021-09-25] MEDS: Multivitamin Tab PO SCH (08:03)
[2021-09-25] MEDS: Saccharomyces Boulardii (Probiotic) 250 MG Cap PO SCH (08:03)
[2021-09-25] MEDS: ARIPiprazole 5 MG Tab PO SCH (08:03)
[2021-09-25] MEDS: Allopurinol 300 MG Tab PO SCH (08:04)
[2021-09-25] MEDS: Divalproex Sodium Delayed-Release 250 MG Tab.CR PO SCH (08:04)
[2021-09-25] MEDS: Famotidine 20 MG Tab PO SCH (08:04)
[2021-09-25] MEDS: FEXOFENADINE PO SCH (08:05)
[2021-09-25] MEDS: PSEUDOEPHEDRINE PO SCH (08:05)
[2021-09-25] MEDS: Divalproex Sodium Delayed-Release 500 MG Tab.CR PO SCH (11:44)
== END 2021-09-25 12:32 | disposition home or self-care (01) | DRG 137 ==
LOC: JD.ED 10:42 → JD.MS 13:58
PROVIDERS: ADMIT Internal Medicine; ATTEND Internal Medicine
DX: J69.0 Pneumonitis due to inhalation of food and vomit (principal); J96.21 Acute and chronic respiratory failure with hypoxia; G80.9 Cerebral palsy, unspecified; J98.4 Other disorders of lung; M41.9 Scoliosis, unspecified; Z20.822 Contact with and (suspected) exposure to COVID-19; K44.9 Diaphragmatic hernia without obstruction or gangrene; E03.9 Hypothyroidism, unspecified; G47.30 Sleep apnea, unspecified; Z91.09 Other allergy status, other than to drugs and biological substances; Z88.8 Allergy status to other drugs, medicaments and biological substances; Z79.890 Hormone replacement therapy; Z79.4 Long term (current) use of insulin; Z79.899 Other long term (current) drug therapy
CPT/HCPCS: 0240U; 36415; 36600; 71045; 71045-26; 71046; 71046-26; 80053; 82803; 83605; 83735; 83880; 85007; 85025; 85027; 86140; 86738; 87040; 87641; 94640; 94668; 94760; 94761; 97116-GP; 97161-GP; 99285; 99285-25; A9270-GY; J1650; J2543; J3370; J7030; J7040; J7050

== ENCOUNTER 2021-09-29 09:14 | Inpatient (IN) | payer BC ==
[2021-09-29 10:20] LABS: CORONAVIRUS COVID-19 NAA NEGATIVE (NEGATIVE)
[2021-09-29] MEDS ORDERED: Sodium Chloride 0.9% 500 ML IV ONE (11:14)
[2021-09-29] MEDS ORDERED: Iopamidol 755 Mg/ML 100 ML Bottle IVPUSH ONE (11:18)
[2021-09-29] MEDS ORDERED: Sodium Chloride 0.9% 10 ML Syringe FLUSH PRN (11:18)
[2021-09-29] MEDS ORDERED: Sodium Chloride 0.9% 100 ML IV SCH (11:30)
[2021-09-29] MEDS ORDERED: Furosemide 40 MG/4 ML VIAL IVPUSH ONE (13:49)
[2021-09-29] MEDS ORDERED: Cefepime 2 GM in Sodium Chloride 0.9% 50 ML IV ONE (13:51)
[2021-09-29] MEDS ORDERED: Albuterol/Ipratropium 3.0-0.5 MG/3 ML Neb Soln NEB ONE (14:01)
[2021-09-29] MEDS ORDERED: Acetaminophen 325 MG Tab PO PRN (15:28)
[2021-09-29] MEDS ORDERED: Polyethylene Glycol 3350 Powder 17 GM Packet PO PRN (15:28)
[2021-09-29] MEDS: Levothyroxine 75 MCG Tab PO SCH (16:21)
[2021-09-29] MEDS: Heparin Sodium 5,000 Units/ML Vial SUBCUT SCH ×2 (16:28→22:37)
[2021-09-29] MEDS: ARIPiprazole 5 MG Tab PO SCH (20:55)
[2021-09-29] MEDS: Famotidine 20 MG Tab PO SCH (20:56)
[2021-09-29] MEDS: Divalproex Sodium Delayed-Release 500 MG Tab.CR PO SCH (20:56)
[2021-09-29] MEDS: [UNRECOGNIZED DRUG - OTHER] TRDERM SCH (20:56)
[2021-09-29] MEDS: cloNIDine 0.2 MG/Day Transdermal Patch TOP SCH (20:57)
[2021-09-30] MEDS: Cefepime 2 GM in Sodium Chloride 0.9% 50 ML IV SCH ×2 (04:00→14:31)
[2021-09-30] MEDS: Heparin Sodium 5,000 Units/ML Vial SUBCUT SCH ×3 (06:55→23:25)
[2021-09-30] MEDS: ARIPiprazole 5 MG Tab PO SCH ×3 (07:33→20:03)
[2021-09-30] MEDS ORDERED: Furosemide 20 MG/2 ML VIAL IVPUSH ONE (08:05)
[2021-09-30] MEDS: Famotidine 20 MG Tab PO SCH ×2 (08:22→20:03)
[2021-09-30] MEDS: Divalproex Sodium Delayed-Release 250 MG Tab.CR PO SCH (08:22)
[2021-09-30] MEDS: Divalproex Sodium Delayed-Release 500 MG Tab.CR PO SCH ×2 (08:23→20:03)
[2021-09-30] MEDS: Levothyroxine 50 MCG Tab PO SCH (14:43)
[2021-09-30] MEDS: traZODone 50 MG Tab PO PRN (20:03)
[2021-09-30] MEDS: [UNRECOGNIZED DRUG - OTHER] TRDERM SCH (21:01)
[2021-09-30] MEDS: cloNIDine 0.2 MG/Day Transdermal Patch TOP SCH (21:03)
[2021-10-01] MEDS: Cefepime 2 GM in Sodium Chloride 0.9% 50 ML IV SCH ×2 (03:13→15:01)
[2021-10-01] MEDS: Heparin Sodium 5,000 Units/ML Vial SUBCUT SCH ×3 (06:54→22:41)
[2021-10-01] MEDS: ARIPiprazole 5 MG Tab PO SCH ×3 (08:44→20:35)
[2021-10-01] MEDS: Divalproex Sodium Delayed-Release 250 MG Tab.CR PO SCH (08:44)
[2021-10-01] MEDS: Famotidine 20 MG Tab PO SCH ×2 (08:44→20:35)
[2021-10-01] MEDS: Divalproex Sodium Delayed-Release 500 MG Tab.CR PO SCH ×2 (08:45→20:35)
[2021-10-01] MEDS: Levothyroxine 50 MCG Tab PO SCH (15:05)
[2021-10-01] MEDS: [UNRECOGNIZED DRUG - OTHER] TRDERM SCH (21:00)
[2021-10-01] MEDS: cloNIDine 0.2 MG/Day Transdermal Patch TOP SCH (21:00)
[2021-10-01] MEDS: traZODone 50 MG Tab PO PRN (21:58)
[2021-10-02] MEDS: Cefepime 2 GM in Sodium Chloride 0.9% 50 ML IV SCH ×2 (02:57→14:25)
[2021-10-02] MEDS: Heparin Sodium 5,000 Units/ML Vial SUBCUT SCH ×3 (06:43→23:00)
[2021-10-02] MEDS: Famotidine 20 MG Tab PO SCH ×2 (08:49→22:00)
[2021-10-02] MEDS: ARIPiprazole 5 MG Tab PO SCH ×3 (08:50→21:00)
[2021-10-02] MEDS: Divalproex Sodium Delayed-Release 500 MG Tab.CR PO SCH ×2 (08:53→22:00)
[2021-10-02] MEDS: Divalproex Sodium Delayed-Release 250 MG Tab.CR PO SCH (08:53)
[2021-10-02] MEDS: Levothyroxine 75 MCG Tab PO SCH (15:35)
[2021-10-02] MEDS: cloNIDine 0.2 MG/Day Transdermal Patch TOP SCH (21:30)
[2021-10-02] MEDS: [UNRECOGNIZED DRUG - OTHER] TRDERM SCH (21:37)
[2021-10-03] MEDS: Cefepime 2 GM in Sodium Chloride 0.9% 50 ML IV SCH (03:01)
[2021-10-03] MEDS: Heparin Sodium 5,000 Units/ML Vial SUBCUT SCH (06:21)
[2021-10-03] MEDS: Famotidine 20 MG Tab PO SCH (08:39)
[2021-10-03] MEDS: ARIPiprazole 5 MG Tab PO SCH (08:39)
[2021-10-03] MEDS: Divalproex Sodium Delayed-Release 250 MG Tab.CR PO SCH (08:42)
[2021-10-03] MEDS: Divalproex Sodium Delayed-Release 500 MG Tab.CR PO SCH (08:42)
== END 2021-10-03 11:25 | disposition home health service (06) | DRG 720 ==
LOC: JD.ED 09:14 → JD.ICU 14:29
PROVIDERS: ADMIT Internal Medicine; ATTEND Internal Medicine
PROC: 5A09357 Assistance with Respiratory Ventilation, Less than 24 Consecutive Hours, Continuous Positive Airway Pressure (ICD-10-PCS; principal; 2021-09-29)
PROC: 3E03329 Introduction of Other Anti-infective into Peripheral Vein, Percutaneous Approach (ICD-10-PCS; 2021-09-29)
DX: A41.9 Sepsis, unspecified organism (principal); J96.21 Acute and chronic respiratory failure with hypoxia; I50.9 Heart failure, unspecified; N17.0 Acute kidney failure with tubular necrosis; R13.10 Dysphagia, unspecified; J69.0 Pneumonitis due to inhalation of food and vomit; K21.9 Gastro-esophageal reflux disease without esophagitis; Z66 Do not resuscitate; G80.9 Cerebral palsy, unspecified; E03.9 Hypothyroidism, unspecified; J98.4 Other disorders of lung; G47.33 Obstructive sleep apnea (adult) (pediatric); E86.0 Dehydration; G80.0 Spastic quadriplegic cerebral palsy; M41.9 Scoliosis, unspecified; E87.5 Hyperkalemia; F41.9 Anxiety disorder, unspecified; F32.A Depression, unspecified; Z88.8 Allergy status to other drugs, medicaments and biological substances; Z79.890 Hormone replacement therapy; Z79.899 Other long term (current) drug therapy; Z87.01 Personal history of pneumonia (recurrent)
CPT/HCPCS: 0240U; 36415; 36600; 71045; 71045-26; 71275; 71275-26; 80053; 81001; 82803; 82947; 83605; 83880; 84484; 85007; 85027; 85379; 86140; 87040; 93005; 93010; 93306; 94640; 94668; 99285; 99285-25; A9270-GY; J0692; J1644; J1940; J3490; J7030; J7620-GY

== ENCOUNTER 2022-03-17 16:27 | Emergency (ER) | payer BC | END 2022-03-17 18:30 | LOC: JD.ED 16:27 | DX: Z53.21 Procedure and treatment not carried out due to patient leaving prior to being seen by health care provider (principal) ==

== ENCOUNTER 2022-03-31 13:27 | Emergency (ER) | payer BC | END 2022-03-31 15:00 | disposition home or self-care (01) | LOC: JD.ED 13:27 | DX: S09.90XA Unspecified injury of head, initial encounter (principal); G80.0 Spastic quadriplegic cerebral palsy; E03.9 Hypothyroidism, unspecified; Z79.899 Other long term (current) drug therapy; Z91.048 Other nonmedicinal substance allergy status; Z88.8 Allergy status to other drugs, medicaments and biological substances; W19.XXXA Unspecified fall, initial encounter | CPT/HCPCS: 70450; 70450-26; 72125; 72125-26; 99283 ==

== ENCOUNTER 2022-04-06 12:09 | Emergency (ER) | payer BC ==
[2022-04-06 14:07] LABS: ESTIMATED GFR 98 mL/min (>60)
== END 2022-04-06 15:35 | disposition home or self-care (01) ==
LOC: JD.ED 12:09
DX: R00.1 Bradycardia, unspecified (principal); J18.9 Pneumonia, unspecified organism; E03.9 Hypothyroidism, unspecified; Z88.8 Allergy status to other drugs, medicaments and biological substances; Z91.048 Other nonmedicinal substance allergy status; Z79.899 Other long term (current) drug therapy
CPT/HCPCS: 36415; 71045; 71045-26; 80053; 83735; 83880; 84439; 84443; 84484; 85025; 93005; 93010; 93225; 93226; 99284; 99285

== ENCOUNTER 2022-06-23 21:12 | Emergency (ER) | payer BC | END 2022-06-23 22:02 | disposition home or self-care (01) | LOC: JD.ED 21:12 | DX: T43.591A Poisoning by other antipsychotics and neuroleptics, accidental (unintentional), initial encounter (principal); E03.9 Hypothyroidism, unspecified; Z79.899 Other long term (current) drug therapy; Z88.8 Allergy status to other drugs, medicaments and biological substances; Z91.048 Other nonmedicinal substance allergy status | CPT/HCPCS: 99283 ==

== ENCOUNTER 2022-06-26 10:19 | Inpatient (IN) | payer BC ==
[2022-06-26 12:11] LABS: CORONAVIRUS COVID-19 NAA NEGATIVE (NEGATIVE)
[2022-06-26] MEDS ORDERED: Ampicillin/Sulbactam Na 3 GM in Sodium Chloride 0.9% 100 ML IV ONE (12:40)
[2022-06-26] MEDS ORDERED: Sodium Chloride 0.9% 1,000 ML IV SCH (12:45)
[2022-06-26] MEDS: Levothyroxine 75 MCG Tab PO SCH (17:21)
[2022-06-26] MEDS: ARIPiprazole 5 MG Tab PO SCH (20:43)
[2022-06-26] MEDS: Ampicillin/Sulbactam Na 3 GM in Sodium Chloride 0.9% 100 ML IV SCH (20:44)
[2022-06-26] MEDS: Allopurinol 300 MG Tab PO SCH (20:45)
[2022-06-26] MEDS: Divalproex Sodium Delayed-Release 250 MG Tab.CR PO SCH (20:45)
[2022-06-26] MEDS: Famotidine 20 MG Tab PO SCH (20:45)
[2022-06-26] MEDS: traZODone 50 MG Tab PO SCH (20:46)
[2022-06-26] MEDS: ClonazePAM 0.5 MG Tab PO SCH (20:46)
[2022-06-27] MEDS: Ampicillin/Sulbactam Na 3 GM in Sodium Chloride 0.9% 100 ML IV SCH ×4 (04:10→20:45)
[2022-06-27] MEDS: Levothyroxine 75 MCG Tab PO SCH (06:04)
[2022-06-27] MEDS ORDERED: Furosemide 20 MG/2 ML VIAL IVPUSH ONE (08:30)
[2022-06-27] MEDS: Enoxaparin 40 MG/0.4 ML Syringe SUBCUT SCH (09:45)
[2022-06-27] MEDS: ARIPiprazole 5 MG Tab PO SCH ×3 (09:46→20:41)
[2022-06-27] MEDS: Divalproex Sodium Delayed-Release 250 MG Tab.CR PO SCH ×3 (09:47→20:45)
[2022-06-27] MEDS: Famotidine 20 MG Tab PO SCH ×2 (09:48→20:43)
[2022-06-27] MEDS: Loperamide 2 MG Cap PO SCH (09:48)
[2022-06-27] MEDS ORDERED: cloNIDine 0.2 MG/Day Transdermal Patch TOP SCH (20:00)
[2022-06-27] MEDS: traZODone 50 MG Tab PO SCH (20:43)
[2022-06-27] MEDS: Allopurinol 300 MG Tab PO SCH (20:43)
[2022-06-27] MEDS: ClonazePAM 0.5 MG Tab PO SCH (20:46)
[2022-06-28] MEDS: Ampicillin/Sulbactam Na 3 GM in Sodium Chloride 0.9% 100 ML IV SCH ×3 (02:35→14:12)
[2022-06-28] MEDS: Famotidine 20 MG Tab PO SCH (08:33)
[2022-06-28] MEDS: Loperamide 2 MG Cap PO SCH (08:34)
[2022-06-28] MEDS: Divalproex Sodium Delayed-Release 250 MG Tab.CR PO SCH ×2 (08:35→14:17)
[2022-06-28] MEDS: ARIPiprazole 5 MG Tab PO SCH ×2 (08:36→14:18)
[2022-06-28] MEDS: Levothyroxine 75 MCG Tab PO SCH (08:37)
[2022-06-28] MEDS: Enoxaparin 40 MG/0.4 ML Syringe SUBCUT SCH (08:39)
[2022-06-28] MEDS ORDERED: Furosemide 20 MG Tab PO SCH (09:00)
[2022-06-28] MEDS ORDERED: cloNIDine 0.2 MG/Day Transdermal Patch TOP SCH (20:00)
[2022-06-30] MEDS ORDERED: Levothyroxine 50 MCG Tab PO SCH (06:00)
== END 2022-06-28 14:55 | disposition home or self-care (01) | DRG 137 ==
LOC: JD.ED 10:19 → JD.MS 15:08
PROVIDERS: ADMIT Internal Medicine; ATTEND Internal Medicine
PROC: 5A09357 Assistance with Respiratory Ventilation, Less than 24 Consecutive Hours, Continuous Positive Airway Pressure (ICD-10-PCS; principal; 2022-06-26)
DX: J69.0 Pneumonitis due to inhalation of food and vomit (principal); J96.21 Acute and chronic respiratory failure with hypoxia; E87.5 Hyperkalemia; Z20.822 Contact with and (suspected) exposure to COVID-19; K21.9 Gastro-esophageal reflux disease without esophagitis; E86.1 Hypovolemia; F41.9 Anxiety disorder, unspecified; F32.A Depression, unspecified; E03.9 Hypothyroidism, unspecified; I50.30 Unspecified diastolic (congestive) heart failure; G80.9 Cerebral palsy, unspecified; G31.84 Mild cognitive impairment of uncertain or unknown etiology; Z88.8 Allergy status to other drugs, medicaments and biological substances; Z79.890 Hormone replacement therapy; Z87.01 Personal history of pneumonia (recurrent); Z97.3 Presence of spectacles and contact lenses
CPT/HCPCS: 0241U; 36415; 71045; 71045-26; 80048; 80053; 83880; 84145; 84484; 85025; 85027; 93005; 94668; 94760; 94761; 96361; 96365; 99285-25; A9270-GY; J0295; J1650; J1940; J7030

== ENCOUNTER 2022-07-03 00:03 | Inpatient (IN) | payer BC ==
[2022-07-03 01:20] LABS: ESTIMATED GFR 111 mL/min (>60)
[2022-07-03] MEDS ORDERED: Piperacillin/Tazobactam 4.5 GM in Sodium Chloride 0.9% 100 ML IV ONE (01:55)
[2022-07-03] MEDS ORDERED: Metoclopramide 10 MG/2 ML SDV IVPUSH ONE ×2 (02:54→02:57)
[2022-07-03] MEDS ORDERED: HYDROmorphone 0.5 MG/0.5 ML Syringe IVPUSH ONE (02:54)
[2022-07-03] MEDS ORDERED: diphenhydrAMINE 50 MG/ML SDV IVPUSH ONE (02:54)
[2022-07-03] MEDS ORDERED: Sodium Chloride 0.9% 10 ML Syringe FLUSH PRN (09:40)
[2022-07-03] MEDS: Dextrose 5%-0.9% NaCl 1,000 ML IV SCH ×2 (10:13→20:15)
[2022-07-03] MEDS ORDERED: Albuterol/Ipratropium 3.0-0.5 MG/3 ML Neb Soln NEB PRN (12:50)
[2022-07-03] MEDS ORDERED: Ondansetron 4 MG Tab.DIS PO PRN (12:50)
[2022-07-03] MEDS ORDERED: Ondansetron 4 MG/2 ML SDV IV PRN (12:50)
[2022-07-03] MEDS ORDERED: Docusate Sodium 100 MG Cap PO PRN (12:50)
[2022-07-03] MEDS ORDERED: Acetaminophen 325 MG Tab PO PRN (12:50)
[2022-07-03] MEDS ORDERED: Piperacillin/Tazobactam 4.5 GM in Sodium Chloride 0.9% 100 ML IV SCH (13:30)
[2022-07-03] MEDS: Heparin Sodium 5,000 Units/ML Vial SUBCUT SCH ×2 (14:30→21:57)
[2022-07-03] MEDS: Piperacillin/Tazobactam 4.5 GM in Sodium Chloride 0.9% 100 ML IV SCH ×2 (16:00→21:57)
[2022-07-04] MEDS: Heparin Sodium 5,000 Units/ML Vial SUBCUT SCH ×3 (05:59→21:29)
[2022-07-04] MEDS: Piperacillin/Tazobactam 4.5 GM in Sodium Chloride 0.9% 100 ML IV SCH ×3 (05:59→23:18)
[2022-07-04] MEDS: Dextrose 5%-0.9% NaCl 1,000 ML IV SCH (05:59)
[2022-07-04] MEDS ORDERED: Sodium Chloride 0.9% 250 ML ONE (21:17)
[2022-07-05] MEDS: Piperacillin/Tazobactam 4.5 GM in Sodium Chloride 0.9% 100 ML IV SCH (05:39)
[2022-07-05] MEDS: Heparin Sodium 5,000 Units/ML Vial SUBCUT SCH ×3 (05:39→21:12)
[2022-07-05] MEDS: Levothyroxine 75 MCG Tab PO SCH (18:18)
[2022-07-05] MEDS ORDERED: cloNIDine 0.2 MG/Day Transdermal Patch TOP SCH (21:00)
[2022-07-05] MEDS: Allopurinol 300 MG Tab PO SCH (21:13)
[2022-07-05] MEDS: Famotidine 20 MG Tab PO SCH (21:13)
[2022-07-05] MEDS: Divalproex Sodium Delayed-Release 250 MG Tab.CR PO SCH (21:13)
[2022-07-05] MEDS: ClonazePAM 0.5 MG Tab PO SCH (21:13)
[2022-07-05] MEDS: Doxycycline Monohydrate 100 MG Cap PO SCH (21:13)
[2022-07-05] MEDS: ARIPiprazole 5 MG Tab PO SCH (21:14)
[2022-07-06] MEDS: Heparin Sodium 5,000 Units/ML Vial SUBCUT SCH ×3 (05:55→21:09)
[2022-07-06] MEDS: ARIPiprazole 5 MG Tab PO SCH ×3 (07:49→21:04)
[2022-07-06] MEDS: Loratadine 10 MG Tab PO SCH (08:16)
[2022-07-06] MEDS: Famotidine 20 MG Tab PO SCH ×2 (08:16→21:07)
[2022-07-06] MEDS: Divalproex Sodium Delayed-Release 250 MG Tab.CR PO SCH ×3 (08:16→21:04)
[2022-07-06] MEDS: Doxycycline Monohydrate 100 MG Cap PO SCH ×2 (08:16→21:07)
[2022-07-06] MEDS ORDERED: BACILLUS COAGULANS PO SCH (14:00)
[2022-07-06] MEDS: Levothyroxine 75 MCG Tab PO SCH (17:55)
[2022-07-06] MEDS ORDERED: cloNIDine 0.2 MG/Day Transdermal Patch TOP SCH (21:00)
[2022-07-06] MEDS: ClonazePAM 0.5 MG Tab PO SCH (21:08)
[2022-07-06] MEDS: Allopurinol 300 MG Tab PO SCH (21:08)
[2022-07-07] MEDS: Heparin Sodium 5,000 Units/ML Vial SUBCUT SCH (06:07)
[2022-07-07 07:21] VITALS: BP 149/100; PULSE 72
[2022-07-07] MEDS: ARIPiprazole 5 MG Tab PO SCH (08:07)
[2022-07-07] MEDS: Doxycycline Monohydrate 100 MG Cap PO SCH (08:08)
[2022-07-07] MEDS: Famotidine 20 MG Tab PO SCH (08:08)
[2022-07-07] MEDS: Divalproex Sodium Delayed-Release 250 MG Tab.CR PO SCH (08:09)
[2022-07-07] MEDS: Loratadine 10 MG Tab PO SCH (08:09)
[2022-07-07] MEDS ORDERED: REMOVE CLONIDINE TRDERM SCH (21:00)
[2022-07-08] MEDS ORDERED: REMOVE CLONIDINE TRDERM SCH (21:00)
== END 2022-07-07 13:44 | disposition home or self-care (01) | DRG 137 ==
LOC: JD.ED 00:03 → JD.ICU 09:39 → JD.MS 07-04 16:17
PROVIDERS: ADMIT Hospitalist; ATTEND Hospitalist
PROC: 5A09357 Assistance with Respiratory Ventilation, Less than 24 Consecutive Hours, Continuous Positive Airway Pressure (ICD-10-PCS; principal; 2022-07-03)
DX: J69.0 Pneumonitis due to inhalation of food and vomit (principal); J96.21 Acute and chronic respiratory failure with hypoxia; J96.22 Acute and chronic respiratory failure with hypercapnia; J18.9 Pneumonia, unspecified organism; Z66 Do not resuscitate; H91.90 Unspecified hearing loss, unspecified ear; H54.7 Unspecified visual loss; K52.9 Noninfective gastroenteritis and colitis, unspecified; F41.9 Anxiety disorder, unspecified; F32.A Depression, unspecified; E03.9 Hypothyroidism, unspecified; Z91.09 Other allergy status, other than to drugs and biological substances; Z88.8 Allergy status to other drugs, medicaments and biological substances; Z79.890 Hormone replacement therapy; Z79.899 Other long term (current) drug therapy
CPT/HCPCS: 36415; 36600; 71045; 71045-26; 80048; 80053; 80202; 82803; 83735; 83880; 84484; 85025; 85610; 85730; 86140; 93005; 94660; 94761; 97110-GP; 97116-GP; 97162-GP; A9270-GY; J1170; J1200; J1644; J2543; J2765; J3370; J7042; J7050

== ENCOUNTER 2022-07-24 18:19 | Emergency (ER) | payer BC ==
[2022-07-24 21:24] LABS: CORONAVIRUS COVID-19 NAA POSITIVE (NEGATIVE)
== END 2022-07-24 23:26 | disposition home or self-care (01) ==
LOC: JD.ED 18:19
DX: U07.1 COVID-19 (principal); R06.89 Other abnormalities of breathing; E03.9 Hypothyroidism, unspecified; Z79.899 Other long term (current) drug therapy; Z88.8 Allergy status to other drugs, medicaments and biological substances; Z91.048 Other nonmedicinal substance allergy status
CPT/HCPCS: 0241U; 36415; 36600; 71045; 80053; 81001; 82803; 83605; 83735; 84443; 85007; 85027; 85379; 85610; 85730; 86140; 87040; 93005; 99285

== ENCOUNTER 2022-10-05 08:53 | Emergency (ER) | payer BC | END 2022-10-05 10:16 | disposition home or self-care (01) | LOC: JD.ED 08:53 | DX: R60.0 Localized edema (principal); E03.9 Hypothyroidism, unspecified; Z86.16 Personal history of COVID-19; Z91.048 Other nonmedicinal substance allergy status; Z88.8 Allergy status to other drugs, medicaments and biological substances; Z79.899 Other long term (current) drug therapy | CPT/HCPCS: 99283 ==

== ENCOUNTER 2022-11-03 13:03 | Emergency (ER) | payer BC | END 2022-11-03 14:55 | disposition home or self-care (01) | LOC: JD.ED 13:03 | DX: T17.908A Unspecified foreign body in respiratory tract, part unspecified causing other injury, initial encounter (principal); E03.9 Hypothyroidism, unspecified; Z91.048 Other nonmedicinal substance allergy status; Z88.8 Allergy status to other drugs, medicaments and biological substances; Z79.899 Other long term (current) drug therapy | CPT/HCPCS: 71045; 71045-26; 99283 ==

== ENCOUNTER 2023-02-13 02:33 | Inpatient (IN) | payer BC ==
[2023-02-13 03:24] LABS: BASOPHILS ABSOLUTE AUTO 0.01 K/mm3 (0.01-0.08); BASOPHILS PERCENT AUTO 0.2 % (0.1-1.2); EOSINOPHILS ABSOLUTE AUTO 0.26 K/mm3 (0.04-0.54); HEMATOCRIT 49.3 % (40.1-51.0); HEMOGLOBIN 14.8 gm/dl (13.7-17.5); IMMATURE GRAN ABSOLUTE AUTO 0.01 K/mm3 (0.00-0.10); IMMATURE GRAN PERCENT AUTO 0.2 % (<=1.0); LYMPHOCYTES ABSOLUTE AUTO 2.03 K/mm3 (1.32-3.57); LYMPHOCYTES PERCENT AUTO 30.9 % (21.8-53.1); MEAN CORPUSCULAR HEMOGLOBIN 28.1 pg (25.7-32.2); MEAN CORPUSCULAR VOLUME 93.7 fl (79.0-92.2); MEAN PLATELET VOLUME 11.2 fl (9.4-12.3); MONOCYTES ABSOLUTE AUTO 0.17 K/mm3 (0.30-0.82); MONOCYTES PERCENT AUTO 2.6 % (5.3-12.2); NEUTROPHILS PERCENT AUTO 62.1 % (34.0-67.9); PLATELET COUNT,PLT 191 K/mm3 (163-337); RED BLOOD CELL COUNT 5.26 M/mm3 (4.63-6.08); WHITE BLOOD CELL COUNT,WBC 6.58 K/mm3 (4.23-9.07)
[2023-02-13 03:24] LABS: BASE EXCESS ARTERIAL 15.6 (-2-2.0); BICARBONATE,ARTERIAL 47.2 meq/L (22.0-26.0); O2 SATURATION ARTERIAL 81.7 % (96.0-97.0)
[2023-02-13 03:29] LABS: PCO2 ARTERIAL 96.8 mmHg (35.0-45.0)
[2023-02-13] MEDS ORDERED: Piperacillin/Tazobactam 4.5 GM in Sodium Chloride 0.9% 100 ML IV ONE (03:33)
[2023-02-13 03:42] LABS: INR 1.02; PROTHROMBIN TIME 10.9 SECONDS (9.7-12.0)
[2023-02-13 03:49] LABS: A/G RATIO 0.7 (1-2); ALBUMIN 3.3 g/dl (3.4-5.0); ANION GAP 0.5 (5-15); BILIRUBIN TOTAL 0.4 mg/dL (0.2-1.0); CALCIUM 9.8 mg/dL (8.5-10.1); EST CRCL DRUG DOSING (CG) 87.73 mL/min; POTASSIUM,K 4.5 mEq/L (3.5-5.1)
[2023-02-13] MEDS ORDERED: LORazepam 2 MG/ML SDV IM ONE (04:55)
[2023-02-13] MEDS ORDERED: LORazepam 2 MG/ML SDV IVPUSH ONE (04:56)
[2023-02-14] MEDS ORDERED: Enoxaparin 40 MG/0.4 ML Syringe SUBCUT SCH (09:00)
[2023-02-14] MEDS ORDERED: Piperacillin/Tazobactam 4.5 GM in Sodium Chloride 0.9% 100 ML IV SCH (10:30)
[2023-02-14] MEDS ORDERED: Acetaminophen 325 MG Tab PO PRN (12:04)
[2023-02-14] MEDS ORDERED: Albuterol 0.083% 2.5 MG/3 ML Neb Soln NEB PRN (12:04)
[2023-02-14] MEDS ORDERED: Ondansetron 4 MG/2 ML SDV IV PRN (12:04)
[2023-02-14] MEDS ORDERED: cloNIDine 0.2 MG/Day Transdermal Patch TOP SCH (12:15)
[2023-02-14] MEDS ORDERED: Levothyroxine 75 MCG Tab PO SCH (12:15)
[2023-02-14] MEDS: ARIPiprazole 5 MG Tab PO SCH ×2 (14:01→20:41)
[2023-02-14] MEDS: Piperacillin/Tazobactam 4.5 GM in Sodium Chloride 0.9% 100 ML IV SCH ×2 (14:05→22:43)
[2023-02-14] MEDS: Enoxaparin 40 MG/0.4 ML Syringe SUBCUT SCH (14:06)
[2023-02-14] MEDS: Divalproex Sodium Delayed-Release 250 MG Tab.CR PO SCH ×2 (14:38→22:46)
[2023-02-14] MEDS: PARoxetine 20 MG Tab PO SCH (14:43)
[2023-02-14] MEDS: Albuterol/Ipratropium 3.0-0.5 MG/3 ML Neb Soln NEB SCH ×2 (16:11→20:01)
[2023-02-14] MEDS: Furosemide 20 MG Tab PO SCH (18:30)
[2023-02-14] MEDS: Carboxymethylcellulose Sodium 1% Ophth Gel 15 ML Bottle EYEBOTH SCH (20:30)
[2023-02-14] MEDS: cloNIDine 0.2 MG/Day Transdermal Patch TOP SCH (20:40)
[2023-02-14] MEDS: traZODone 50 MG Tab PO SCH (20:40)
[2023-02-14] MEDS: Famotidine 20 MG Tab PO SCH (20:41)
[2023-02-15] MEDS: Albuterol/Ipratropium 3.0-0.5 MG/3 ML Neb Soln NEB SCH ×4 (06:08→20:52)
[2023-02-15 06:33] LABS: BASOPHILS ABSOLUTE AUTO 0.02 K/mm3 (0.01-0.08); BASOPHILS PERCENT AUTO 0.2 % (0.1-1.2); EOSINOPHILS ABSOLUTE AUTO 0.47 K/mm3 (0.04-0.54); EOSINOPHILS PERCENT AUTO 5.3 (0.8-7.0); HEMATOCRIT 40.1 % (40.1-51.0); IMMATURE GRAN ABSOLUTE AUTO 0.01 K/mm3 (0.00-0.10); IMMATURE GRAN PERCENT AUTO 0.1 % (<=1.0); LYMPHOCYTES ABSOLUTE AUTO 2.78 K/mm3 (1.32-3.57); LYMPHOCYTES PERCENT AUTO 31.5 % (21.8-53.1); MEAN CORPUSCULAR HEMOGLOBIN 27.6 pg (25.7-32.2); MEAN CORPUSCULAR HGB CONC 28.7 g/dl (32.2-35.5); MEAN CORPUSCULAR VOLUME 96.4 fl (79.0-92.2); MEAN PLATELET VOLUME 12.4 fl (9.4-12.3); MONOCYTES ABSOLUTE AUTO 0.55 K/mm3 (0.30-0.82); MONOCYTES PERCENT AUTO 6.2 % (5.3-12.2); NEUTROPHILS ABSOLUTE AUTO 4.99 K/mm3 (1.78-5.38); NEUTROPHILS PERCENT AUTO 56.7 % (34.0-67.9); PLATELET COUNT,PLT 158 K/mm3 (163-337); RED BLOOD CELL COUNT 4.16 M/mm3 (4.63-6.08); WHITE BLOOD CELL COUNT,WBC 8.82 K/mm3 (4.23-9.07)
[2023-02-15] MEDS: Piperacillin/Tazobactam 4.5 GM in Sodium Chloride 0.9% 100 ML IV SCH (06:40)
[2023-02-15 06:44] LABS: HEMOGLOBIN 11.5 gm/dl (13.7-17.5)
[2023-02-15 07:08] LABS: BUN/CREATININE RATIO 27.5 (14-18); C-REACTIVE PROTEIN 7.6 mg/dL (<1.0); CALCIUM 9.1 mg/dL (8.5-10.1); CREATININE 0.8 mg/dL (0.7-1.3); EST CRCL DRUG DOSING (CG) 113.61 mL/min; MAGNESIUM 1.7 mg/dL (1.8-2.4); POTASSIUM,K 4.2 mEq/L (3.5-5.1)
[2023-02-15 07:23] LABS: SLIDE REVIEW ABNORMAL SMEAR
[2023-02-15 07:26] LABS: ANION GAP 1.2 (5-15)
[2023-02-15] MEDS ORDERED: Magnesium Sulfate/Water 2 GM in Premix Bag 1 BAG IV ONE (07:47)
[2023-02-15] MEDS: ARIPiprazole 5 MG Tab PO SCH ×4 (08:15→20:35)
[2023-02-15] MEDS: Furosemide 20 MG Tab PO SCH ×3 (08:16→17:33)
[2023-02-15 08:17] LABS: BICARBONATE,ARTERIAL 42.1 meq/L (22.0-26.0); O2 SATURATION ARTERIAL 88.1 % (96.0-97.0)
[2023-02-15] MEDS: PARoxetine 20 MG Tab PO SCH ×3 (08:17→17:32)
[2023-02-15] MEDS: Levothyroxine 75 MCG Tab PO SCH (08:17)
[2023-02-15] MEDS: Famotidine 20 MG Tab PO SCH ×2 (08:18→20:35)
[2023-02-15 08:19] LABS: PCO2 ARTERIAL 84.5 mmHg (35.0-45.0)
[2023-02-15] MEDS: Carboxymethylcellulose Sodium 1% Ophth Gel 15 ML Bottle EYEBOTH SCH ×2 (08:22→20:37)
[2023-02-15] MEDS ORDERED: Ampicillin/Sulbactam Na 1.5 GM in Sodium Chloride 0.9% 100 ML IV SCH (12:30)
[2023-02-15] MEDS: Ampicillin/Sulbactam Na 3 GM in Sodium Chloride 0.9% 100 ML IV SCH ×2 (13:20→19:12)
[2023-02-15] MEDS: Enoxaparin 40 MG/0.4 ML Syringe SUBCUT SCH (16:00)
[2023-02-15] MEDS: Divalproex Sodium Delayed-Release 250 MG Tab.CR PO SCH ×3 (16:00→20:39)
[2023-02-15] MEDS: traZODone 50 MG Tab PO SCH (20:35)
[2023-02-15] MEDS: cloNIDine 0.2 MG/Day Transdermal Patch TOP SCH (20:37)
[2023-02-16] MEDS: Ampicillin/Sulbactam Na 3 GM in Sodium Chloride 0.9% 100 ML IV SCH ×4 (01:14→18:06)
[2023-02-16 06:03] LABS: BASOPHILS ABSOLUTE AUTO 0.02 K/mm3 (0.01-0.08); BASOPHILS PERCENT AUTO 0.3 % (0.1-1.2); EOSINOPHILS ABSOLUTE AUTO 0.68 K/mm3 (0.04-0.54); EOSINOPHILS PERCENT AUTO 8.8 (0.8-7.0); HEMOGLOBIN 11.9 gm/dl (13.7-17.5); IMMATURE GRAN ABSOLUTE AUTO 0.02 K/mm3 (0.00-0.10); IMMATURE GRAN PERCENT AUTO 0.3 % (<=1.0); LYMPHOCYTES ABSOLUTE AUTO 2.72 K/mm3 (1.32-3.57); LYMPHOCYTES PERCENT AUTO 35.2 % (21.8-53.1); MEAN CORPUSCULAR HEMOGLOBIN 27.8 pg (25.7-32.2); MEAN CORPUSCULAR VOLUME 95.8 fl (79.0-92.2); MEAN PLATELET VOLUME 12.6 fl (9.4-12.3); MONOCYTES ABSOLUTE AUTO 0.55 K/mm3 (0.30-0.82); MONOCYTES PERCENT AUTO 7.1 % (5.3-12.2); NEUTROPHILS ABSOLUTE AUTO 3.74 K/mm3 (1.78-5.38); NEUTROPHILS PERCENT AUTO 48.3 % (34.0-67.9); PLATELET COUNT,PLT 144 K/mm3 (163-337); RED BLOOD CELL COUNT 4.28 M/mm3 (4.63-6.08); WHITE BLOOD CELL COUNT,WBC 7.73 K/mm3 (4.23-9.07)
[2023-02-16 06:18] LABS: ANION GAP 5.7 (5-15); BUN/CREATININE RATIO 27.5 (14-18); C-REACTIVE PROTEIN 4.1 mg/dL (<1.0); CALCIUM 9.1 mg/dL (8.5-10.1); CREATININE 0.8 mg/dL (0.7-1.3); EST CRCL DRUG DOSING (CG) 113.61 mL/min; MAGNESIUM 1.8 mg/dL (1.8-2.4); POTASSIUM,K 4.7 mEq/L (3.5-5.1)
[2023-02-16] MEDS: Albuterol/Ipratropium 3.0-0.5 MG/3 ML Neb Soln NEB SCH ×4 (06:44→21:43)
[2023-02-16] MEDS: PARoxetine 20 MG Tab PO SCH ×2 (08:23→13:25)
[2023-02-16] MEDS: Furosemide 20 MG Tab PO SCH ×2 (08:23→17:19)
[2023-02-16] MEDS: ARIPiprazole 5 MG Tab PO SCH ×3 (08:23→20:55)
[2023-02-16] MEDS: Famotidine 20 MG Tab PO SCH ×2 (08:23→20:54)
[2023-02-16] MEDS: Levothyroxine 50 MCG Tab PO SCH (08:23)
[2023-02-16] MEDS: Carboxymethylcellulose Sodium 1% Ophth Gel 15 ML Bottle EYEBOTH SCH ×2 (08:23→20:54)
[2023-02-16] MEDS: Divalproex Sodium Delayed-Release 250 MG Tab.CR PO SCH ×2 (13:25→21:00)
[2023-02-16] MEDS: Enoxaparin 40 MG/0.4 ML Syringe SUBCUT SCH (13:25)
[2023-02-16] MEDS: traZODone 50 MG Tab PO SCH (20:54)
[2023-02-16] MEDS: cloNIDine 0.2 MG/Day Transdermal Patch TOP SCH (20:55)
[2023-02-17] MEDS: Ampicillin/Sulbactam Na 3 GM in Sodium Chloride 0.9% 100 ML IV SCH ×4 (00:58→18:11)
[2023-02-17 05:58] LABS: BASOPHILS ABSOLUTE AUTO 0.03 K/mm3 (0.01-0.08); BASOPHILS PERCENT AUTO 0.4 % (0.1-1.2); EOSINOPHILS ABSOLUTE AUTO 0.42 K/mm3 (0.04-0.54); HEMATOCRIT 43.3 % (40.1-51.0); HEMOGLOBIN 12.7 gm/dl (13.7-17.5); IMMATURE GRAN ABSOLUTE AUTO 0.01 K/mm3 (0.00-0.10); IMMATURE GRAN PERCENT AUTO 0.1 % (<=1.0); LYMPHOCYTES ABSOLUTE AUTO 2.26 K/mm3 (1.32-3.57); LYMPHOCYTES PERCENT AUTO 32.5 % (21.8-53.1); MEAN CORPUSCULAR HEMOGLOBIN 27.6 pg (25.7-32.2); MEAN CORPUSCULAR HGB CONC 29.3 g/dl (32.2-35.5); MEAN CORPUSCULAR VOLUME 94.1 fl (79.0-92.2); MONOCYTES ABSOLUTE AUTO 0.57 K/mm3 (0.30-0.82); MONOCYTES PERCENT AUTO 8.2 % (5.3-12.2); NEUTROPHILS ABSOLUTE AUTO 3.66 K/mm3 (1.78-5.38); NEUTROPHILS PERCENT AUTO 52.8 % (34.0-67.9); PLATELET COUNT,PLT 168 K/mm3 (163-337); WHITE BLOOD CELL COUNT,WBC 6.95 K/mm3 (4.23-9.07)
[2023-02-17 05:59] LABS: BUN/CREATININE RATIO 26.3 (14-18); C-REACTIVE PROTEIN 2.6 mg/dL (<1.0); CALCIUM 9.6 mg/dL (8.5-10.1); CREATININE 0.8 mg/dL (0.7-1.3); EST CRCL DRUG DOSING (CG) 113.61 mL/min; MAGNESIUM 1.8 mg/dL (1.8-2.4); POTASSIUM,K 4.2 mEq/L (3.5-5.1)
[2023-02-17] MEDS: Albuterol/Ipratropium 3.0-0.5 MG/3 ML Neb Soln NEB SCH ×4 (06:04→20:26)
[2023-02-17 06:23] LABS: SLIDE REVIEW ABNORMAL SMEAR
[2023-02-17 06:32] LABS: ANION GAP 4.2 (5-15)
[2023-02-17] MEDS: ARIPiprazole 5 MG Tab PO SCH ×3 (08:00→20:59)
[2023-02-17] MEDS: Furosemide 20 MG Tab PO SCH ×2 (08:00→17:22)
[2023-02-17] MEDS: PARoxetine 20 MG Tab PO SCH ×2 (08:01→13:41)
[2023-02-17] MEDS: Levothyroxine 50 MCG Tab PO SCH (08:01)
[2023-02-17] MEDS: Carboxymethylcellulose Sodium 1% Ophth Gel 15 ML Bottle EYEBOTH SCH ×2 (08:01→21:02)
[2023-02-17] MEDS: Famotidine 20 MG Tab PO SCH ×2 (08:01→21:01)
[2023-02-17] MEDS: Divalproex Sodium Delayed-Release 250 MG Tab.CR PO SCH ×2 (13:40→21:08)
[2023-02-17] MEDS: Enoxaparin 40 MG/0.4 ML Syringe SUBCUT SCH (13:41)
[2023-02-17] MEDS: traZODone 50 MG Tab PO SCH (21:00)
[2023-02-17] MEDS: cloNIDine 0.2 MG/Day Transdermal Patch TOP SCH (21:05)
[2023-02-18 05:29] LABS: BASOPHILS ABSOLUTE AUTO 0.02 K/mm3 (0.01-0.08); BASOPHILS PERCENT AUTO 0.3 % (0.1-1.2); EOSINOPHILS ABSOLUTE AUTO 0.33 K/mm3 (0.04-0.54); EOSINOPHILS PERCENT AUTO 4.3 (0.8-7.0); HEMOGLOBIN 12.7 gm/dl (13.7-17.5); IMMATURE GRAN ABSOLUTE AUTO 0.01 K/mm3 (0.00-0.10); IMMATURE GRAN PERCENT AUTO 0.1 % (<=1.0); LYMPHOCYTES ABSOLUTE AUTO 2.93 K/mm3 (1.32-3.57); LYMPHOCYTES PERCENT AUTO 38.3 % (21.8-53.1); MEAN CORPUSCULAR HEMOGLOBIN 27.7 pg (25.7-32.2); MEAN CORPUSCULAR HGB CONC 29.5 g/dl (32.2-35.5); MEAN CORPUSCULAR VOLUME 93.7 fl (79.0-92.2); MEAN PLATELET VOLUME 11.6 fl (9.4-12.3); MONOCYTES PERCENT AUTO 9.2 % (5.3-12.2); NEUTROPHILS ABSOLUTE AUTO 3.66 K/mm3 (1.78-5.38); NEUTROPHILS PERCENT AUTO 47.8 % (34.0-67.9); PLATELET COUNT,PLT 168 K/mm3 (163-337); RED BLOOD CELL COUNT 4.59 M/mm3 (4.63-6.08); WHITE BLOOD CELL COUNT,WBC 7.65 K/mm3 (4.23-9.07)
[2023-02-18] MEDS: Albuterol/Ipratropium 3.0-0.5 MG/3 ML Neb Soln NEB SCH ×2 (05:50→09:16)
[2023-02-18 06:10] LABS: A/G RATIO 0.6 (1-2); ALBUMIN 2.6 g/dl (3.4-5.0); BILIRUBIN TOTAL 0.5 mg/dL (0.2-1.0); BUN/CREATININE RATIO 31.4 (14-18); C-REACTIVE PROTEIN 1.2 mg/dL (<1.0); CALCIUM 9.5 mg/dL (8.5-10.1); CREATININE 0.7 mg/dL (0.7-1.3); EST CRCL DRUG DOSING (CG) 129.84 mL/min; MAGNESIUM 1.7 mg/dL (1.8-2.4); PROTEIN TOTAL,TP 6.7 g/dl (6.4-8.2)
[2023-02-18] MEDS: Amoxicillin/Clavulanate K 875-125 MG Tab PO SCH ×2 (06:36→10:30)
[2023-02-18] MEDS ORDERED: Magnesium Oxide 400 MG Tab PO ONE (09:26)
[2023-02-18] MEDS: ARIPiprazole 5 MG Tab PO SCH (10:26)
[2023-02-18] MEDS: Furosemide 20 MG Tab PO SCH (10:28)
[2023-02-18] MEDS: PARoxetine 20 MG Tab PO SCH (10:28)
[2023-02-18] MEDS: Famotidine 20 MG Tab PO SCH (10:29)
[2023-02-18] MEDS: Levothyroxine 75 MCG Tab PO SCH (10:29)
[2023-02-18] MEDS: Carboxymethylcellulose Sodium 1% Ophth Gel 15 ML Bottle EYEBOTH SCH (10:30)
[2023-02-18] MEDS ORDERED: Divalproex Sodium Delayed-Release 500 MG Tab.CR PO SCH (14:00)
== END 2023-02-18 12:45 | disposition other institution (70) | DRG 133 ==
LOC: JD.ED 02:33 → JD.MS 02-14 12:01
PROVIDERS: ADMIT Hospitalist; ATTEND Hospitalist
PROC: 4A13XR1 Monitoring of Arterial Saturation, Peripheral, External Approach (ICD-10-PCS; principal; 2023-02-15)
PROC: 5A09357 Assistance with Respiratory Ventilation, Less than 24 Consecutive Hours, Continuous Positive Airway Pressure (ICD-10-PCS; 2023-02-15)
DX: J96.22 Acute and chronic respiratory failure with hypercapnia (principal); J96.21 Acute and chronic respiratory failure with hypoxia; J69.0 Pneumonitis due to inhalation of food and vomit; G47.30 Sleep apnea, unspecified; F41.9 Anxiety disorder, unspecified; E03.9 Hypothyroidism, unspecified; K21.9 Gastro-esophageal reflux disease without esophagitis; M41.9 Scoliosis, unspecified; K52.9 Noninfective gastroenteritis and colitis, unspecified; F32.89 Other specified depressive episodes; F42.9 Obsessive-compulsive disorder, unspecified; G80.0 Spastic quadriplegic cerebral palsy; Z66 Do not resuscitate; E83.42 Hypomagnesemia; R13.12 Dysphagia, oropharyngeal phase; K44.9 Diaphragmatic hernia without obstruction or gangrene; J98.4 Other disorders of lung; Z88.8 Allergy status to other drugs, medicaments and biological substances; Z91.048 Other nonmedicinal substance allergy status; Z91.09 Other allergy status, other than to drugs and biological substances; Z99.81 Dependence on supplemental oxygen; Z79.899 Other long term (current) drug therapy; Z86.16 Personal history of COVID-19; Z90.49 Acquired absence of other specified parts of digestive tract; Z98.890 Other specified postprocedural states; Z79.890 Hormone replacement therapy
CPT/HCPCS: 36415; 36600; 71045; 71045-26; 80048; 80053; 82803; 83605; 83735; 83880; 85025; 85379; 85610; 86140; 87040; 94640; 94660; 94667; 94668; 94760; 94761; 96365; 96367; 96375; 99285; 99285-25; A9270-GY; J0295; J1650; J2060; J2543; J3370; J3475; J3490; J7050; J7620-GY

== ENCOUNTER 2023-03-09 19:54 | Emergency (ER) | payer BC | END 2023-03-09 22:40 | disposition home or self-care (01) | LOC: JD.ED 19:54 | DX: S93.402A Sprain of unspecified ligament of left ankle, initial encounter (principal); J45.909 Unspecified asthma, uncomplicated; E03.9 Hypothyroidism, unspecified; Z86.16 Personal history of COVID-19; Z91.048 Other nonmedicinal substance allergy status; Z79.899 Other long term (current) drug therapy; W01.0XXA Fall on same level from slipping, tripping and stumbling without subsequent striking against object, initial encounter; Y92.009 Unspecified place in unspecified non-institutional (private) residence as the place of occurrence of the external cause | CPT/HCPCS: 73610-26-LT; 73610-LT; 99283 ==

== ENCOUNTER 2023-03-24 22:50 | Emergency (ER) | payer BC | END 2023-03-25 00:20 | disposition home or self-care (01) | LOC: JD.ED 22:50 | DX: T42.4X1A Poisoning by benzodiazepines, accidental (unintentional), initial encounter (principal); I50.9 Heart failure, unspecified; G47.30 Sleep apnea, unspecified; E03.9 Hypothyroidism, unspecified; Z88.8 Allergy status to other drugs, medicaments and biological substances; Z91.048 Other nonmedicinal substance allergy status; Z79.899 Other long term (current) drug therapy | CPT/HCPCS: 99284 ==

== ENCOUNTER 2023-05-06 09:42 | Inpatient (IN) | payer BC ==
[2023-05-06] MEDS ORDERED: Acetaminophen 325 MG Tab PO ONE (10:19)
[2023-05-06] MEDS ORDERED: Dextrose 5%-0.9% NaCl 1,000 ML IV SCH (10:30)
[2023-05-06 10:45] LABS: BASE EXCESS ARTERIAL 17.3 (-2-2.0); BICARBONATE,ARTERIAL 45.8 meq/L (22.0-26.0); O2 SATURATION ARTERIAL 90.3 % (96.0-97.0)
[2023-05-06 10:46] LABS: PCO2 ARTERIAL 76.6 mmHg (35.0-45.0)
[2023-05-06 11:37] LABS: HEMATOCRIT 41.2 % (42.0-52.0); HEMOGLOBIN 12.4 gm/dl (14.0-18.0); MEAN CORPUSCULAR HEMOGLOBIN 27.9 pg (28.0-32.0); MEAN CORPUSCULAR HGB CONC 30.1 g/dl (32.0-36.0); MEAN CORPUSCULAR VOLUME 92.8 fl (83.0-99.0); MEAN PLATELET VOLUME 11.5 fl (9.4-12.4); PLATELET COUNT,PLT 230 K/mm3 (150-400); RED BLOOD CELL COUNT 4.44 M/mm3 (4.52-5.90); WHITE BLOOD CELL COUNT,WBC 19.75 K/mm3 (3.9-11.3)
[2023-05-06 11:40] LABS: CORONAVIRUS COVID-19 NAA NEGATIVE (NEGATIVE); INFLUENZA A NAA NEGATIVE (NEGATIVE); RESPIRATORY SYNCYTIAL VIR NAA NEGATIVE (NEGATIVE)
[2023-05-06 11:40] LABS: INR 1.07; PROTHROMBIN TIME 11.4 SECONDS (9.7-12.0)
[2023-05-06 11:41] LABS: PTT,PARTIAL THROMBOPLSTIN TIME 30.5 SECONDS (21.7-31.4)
[2023-05-06 11:54] LABS: A/G RATIO 0.6 (1-2); ALBUMIN 2.6 g/dl (3.4-5.0); ALKALINE PHOSPHATASE 80 U/L (46-116); ANION GAP 5.2 (5-15); ASPARTATE AMNIOTRANSFERASE,AST 12 U/L (15-37); BILIRUBIN TOTAL 0.6 mg/dL (0.2-1.0); BLOOD UREA NITROGEN,BUN 25 mg/dL (7-18); C-REACTIVE PROTEIN 3.2 mg/dL (<1.0); CALCIUM 9.5 mg/dL (8.5-10.1); CHLORIDE,CL 94 mEq/L (98-107); EST CRCL DRUG DOSING (CG) 97.21 mL/min; ESTIMATED GFR 97 mL/min (>60); GLUCOSE RANDOM 99 mg/dL (70-99); LACTATE DEHYDROGENASE,LDH 169 U/L (85-227); MAGNESIUM 1.6 mg/dL (1.8-2.4); POTASSIUM,K 4.2 mEq/L (3.5-5.1); PROTEIN TOTAL,TP 6.8 g/dl (6.4-8.2); SODIUM,NA 138 mEq/L (136-145); TROPONIN I HIGH SENSITIVITY 8 pg/mL (<=76)
[2023-05-06] MEDS ORDERED: Piperacillin/Tazobactam 4.5 GM in Sodium Chloride 0.9% 100 ML IV SCH (12:00)
[2023-05-06] MEDS ORDERED: Piperacillin/Tazobactam 4.5 GM in Sodium Chloride 0.9% 100 ML IV ONE (12:00)
[2023-05-06 12:02] LABS: CARBON DIOXIDE,CO2 43 mEq/L (21-32)
[2023-05-06 12:14] LABS: ALANINE AMINOTRANSFERASE,ALT < 6 U/L (16-63)
[2023-05-06 12:19] LABS: BAND PERCENT MAN 8 % (0-10); BASOPHILS PERCENT MAN 0 (0.2-1.2); EOSINOPHILS PERCENT MAN 2 % (0.8-7.0); LYMPHOCYTES % ATYPICAL MANUAL 0 %; LYMPHOCYTES PERCENT MAN 9 % (20-40); MONOCYTES PERCENT MAN 3 % (2-10)
[2023-05-06 12:23] LABS: ANISOCYTOSIS 2+ MODERATE; HYPOCHROMASIA 1+ SLIGHT; STOMATOCYTES 1+ SLIGHT; TARGET CELLS 1+ SLIGHT
[2023-05-06 12:24] LABS: PLATELET COUNT ESTIMATE ADEQUATE
[2023-05-06] MEDS ORDERED: Acetaminophen 325 MG Tab PO PRN (13:25)
[2023-05-06] MEDS ORDERED: Docusate Sodium 100 MG Cap PO PRN (13:25)
[2023-05-06] MEDS ORDERED: Ondansetron 4 MG/2 ML SDV IV PRN (13:25)
[2023-05-06] MEDS ORDERED: Albuterol 0.083% 2.5 MG/3 ML Neb Soln NEB PRN (13:25)
[2023-05-06] MEDS ORDERED: Polyethylene Glycol 3350 Powder 17 GM Packet PO PRN (13:52)
[2023-05-06] MEDS ORDERED: Dextrose 5%-0.9% NaCl 500 ML IV SCH (14:00)
[2023-05-06] MEDS: Albuterol/Ipratropium 3.0-0.5 MG/3 ML Neb Soln NEB SCH ×2 (14:59→20:15)
[2023-05-06] MEDS ORDERED: Mupirocin Oint 22 GM Tube TOP SCH (15:00)
[2023-05-06] MEDS: Enoxaparin 40 MG/0.4 ML Syringe SUBCUT SCH (15:03)
[2023-05-06] MEDS: Divalproex Sodium Delayed-Release 250 MG Tab.CR PO SCH ×2 (15:22→20:09)
[2023-05-06] MEDS: ARIPiprazole 5 MG Tab PO SCH ×2 (15:22→20:09)
[2023-05-06] MEDS ORDERED: Albuterol/Ipratropium 3.0-0.5 MG/3 ML Neb Soln NEB SCH (17:00)
[2023-05-06] MEDS: ClonazePAM 0.5 MG Tab PO SCH ×2 (17:29→20:10)
[2023-05-06] MEDS: Allopurinol 300 MG Tab PO SCH (20:08)
[2023-05-06] MEDS: Famotidine 20 MG Tab PO SCH (20:08)
[2023-05-06] MEDS: traZODone 50 MG Tab PO SCH (20:09)
[2023-05-06] MEDS: Carboxymethylcellulose Sodium 1% Ophth Gel 15 ML Bottle EYEBOTH SCH (20:11)
[2023-05-06] MEDS: Fluticasone NASAL Spray 16 GM Bottle NASBOTH SCH (20:11)
[2023-05-06] MEDS ORDERED: cloNIDine 0.1 MG Tab PO SCH (21:00)
[2023-05-07] MEDS: Haloperidol 0.5 MG Tab PO PRN (01:37)
[2023-05-07] MEDS: traZODone 50 MG Tab PO PRN (01:37)
[2023-05-07] MEDS: Albuterol/Ipratropium 3.0-0.5 MG/3 ML Neb Soln NEB SCH ×4 (05:06→20:14)
[2023-05-07] MEDS: Levothyroxine 75 MCG Tab PO SCH (05:44)
[2023-05-07 06:31] LABS: BASOPHILS PERCENT AUTO 0.4 % (0.0-1.0); EOSINOPHILS ABSOLUTE AUTO 0.5 K/mm3 (0.0-0.4); EOSINOPHILS PERCENT AUTO 4.8 % (0.0-6.0); HEMOGLOBIN 13.7 gm/dl (14.0-18.0); IMMATURE GRAN ABSOLUTE AUTO 0.04 K/mm3 (0.00-0.05); IMMATURE GRAN PERCENT AUTO 0.4 % (0.0-0.4); LYMPHOCYTES ABSOLUTE AUTO 3.3 K/mm3 (1.0-4.8); LYMPHOCYTES PERCENT AUTO 29.1 % (24.0-44.0); MEAN CORPUSCULAR HEMOGLOBIN 28.5 pg (28.0-32.0); MEAN CORPUSCULAR HGB CONC 30.4 g/dl (32.0-36.0); MEAN CORPUSCULAR VOLUME 93.8 fl (83.0-99.0); MEAN PLATELET VOLUME 11.6 fl (9.4-12.4); MONOCYTES ABSOLUTE AUTO 0.7 K/mm3 (0.0-0.8); NEUTROPHILS ABSOLUTE AUTO 6.7 K/mm3 (1.8-7.7); NEUTROPHILS PERCENT AUTO 59.3 % (41.0-71.0); PLATELET COUNT,PLT 232 K/mm3 (150-400)
[2023-05-07 06:57] LABS: A/G RATIO 0.6 (1-2); ALBUMIN 2.7 g/dl (3.4-5.0); ANION GAP 7.5 (5-15); BILIRUBIN TOTAL 0.5 mg/dL (0.2-1.0); CALCIUM 9.4 mg/dL (8.5-10.1); CREATININE 0.8 mg/dL (0.7-1.3); EST CRCL DRUG DOSING (CG) 121.52 mL/min; MAGNESIUM 1.7 mg/dL (1.8-2.4); POTASSIUM,K 3.5 mEq/L (3.5-5.1); PROTEIN TOTAL,TP 7.3 g/dl (6.4-8.2)
[2023-05-07] MEDS ORDERED: Magnesium Sulfate/Water 2 GM in Premix Bag 1 BAG IV ONE (07:51)
[2023-05-07] MEDS ORDERED: cloNIDine 0.2 MG/Day Transdermal Patch TOP SCH (08:00)
[2023-05-07] MEDS: Enoxaparin 40 MG/0.4 ML Syringe SUBCUT SCH (08:03)
[2023-05-07] MEDS: cloNIDine 0.2 MG/Day Transdermal Patch TOP SCH ×2 (08:03→20:59)
[2023-05-07] MEDS: Fluticasone NASAL Spray 16 GM Bottle NASBOTH SCH ×2 (08:03→20:59)
[2023-05-07] MEDS: Carboxymethylcellulose Sodium 1% Ophth Gel 15 ML Bottle EYEBOTH SCH ×2 (08:03→20:59)
[2023-05-07] MEDS: PARoxetine 20 MG Tab PO SCH ×2 (08:04→13:07)
[2023-05-07] MEDS: ARIPiprazole 5 MG Tab PO SCH ×3 (08:04→20:51)
[2023-05-07] MEDS: Famotidine 20 MG Tab PO SCH ×2 (08:05→20:57)
[2023-05-07] MEDS: Loratadine 10 MG Tab PO SCH (08:05)
[2023-05-07] MEDS: Divalproex Sodium Delayed-Release 250 MG Tab.CR PO SCH ×3 (08:05→20:51)
[2023-05-07] MEDS: ClonazePAM 0.5 MG Tab PO SCH ×4 (08:05→20:52)
[2023-05-07] MEDS ORDERED: Piperacillin/Tazobactam 4.5 GM in Sodium Chloride 0.9% 100 ML IV ONE (11:00)
[2023-05-07] MEDS: Piperacillin/Tazobactam 4.5 GM in Sodium Chloride 0.9% 100 ML IV SCH (18:42)
[2023-05-07] MEDS: cloNIDine 0.1 MG Tab PO SCH (20:52)
[2023-05-07] MEDS: Allopurinol 300 MG Tab PO SCH (20:58)
[2023-05-07] MEDS: traZODone 50 MG Tab PO SCH (20:58)
[2023-05-08] MEDS: Haloperidol 0.5 MG Tab PO PRN (01:13)
[2023-05-08] MEDS: traZODone 50 MG Tab PO PRN ×2 (01:14→21:01)
[2023-05-08] MEDS: Piperacillin/Tazobactam 4.5 GM in Sodium Chloride 0.9% 100 ML IV SCH ×3 (03:11→19:03)
[2023-05-08] MEDS: Albuterol/Ipratropium 3.0-0.5 MG/3 ML Neb Soln NEB SCH ×4 (05:44→20:32)
[2023-05-08] MEDS: Levothyroxine 75 MCG Tab PO SCH (08:48)
[2023-05-08] MEDS: Divalproex Sodium Delayed-Release 250 MG Tab.CR PO SCH ×3 (08:49→21:02)
[2023-05-08] MEDS: PARoxetine 20 MG Tab PO SCH ×2 (08:49→13:29)
[2023-05-08] MEDS: Loratadine 10 MG Tab PO SCH (08:50)
[2023-05-08] MEDS: Famotidine 20 MG Tab PO SCH ×2 (08:50→21:01)
[2023-05-08] MEDS: ARIPiprazole 5 MG Tab PO SCH ×3 (08:50→21:02)
[2023-05-08] MEDS: ClonazePAM 0.5 MG Tab PO SCH ×4 (08:51→21:02)
[2023-05-08] MEDS: cloNIDine 0.2 MG/Day Transdermal Patch TOP SCH ×2 (08:52→21:04)
[2023-05-08] MEDS: Enoxaparin 40 MG/0.4 ML Syringe SUBCUT SCH (08:52)
[2023-05-08] MEDS: Carboxymethylcellulose Sodium 1% Ophth Gel 15 ML Bottle EYEBOTH SCH ×2 (08:53→21:03)
[2023-05-08] MEDS: Fluticasone NASAL Spray 16 GM Bottle NASBOTH SCH ×2 (08:53→21:03)
[2023-05-08 09:37] LABS: BASOPHILS PERCENT AUTO 0.4 % (0.0-1.0); EOSINOPHILS ABSOLUTE AUTO 0.5 K/mm3 (0.0-0.4); EOSINOPHILS PERCENT AUTO 6.6 % (0.0-6.0); HEMATOCRIT 45.4 % (42.0-52.0); HEMOGLOBIN 13.6 gm/dl (14.0-18.0); IMMATURE GRAN ABSOLUTE AUTO 0.02 K/mm3 (0.00-0.05); IMMATURE GRAN PERCENT AUTO 0.2 % (0.0-0.4); LYMPHOCYTES ABSOLUTE AUTO 2.8 K/mm3 (1.0-4.8); LYMPHOCYTES PERCENT AUTO 33.8 % (24.0-44.0); MEAN CORPUSCULAR HEMOGLOBIN 28.3 pg (28.0-32.0); MEAN CORPUSCULAR VOLUME 94.4 fl (83.0-99.0); MEAN PLATELET VOLUME 11.2 fl (9.4-12.4); MONOCYTES ABSOLUTE AUTO 0.7 K/mm3 (0.0-0.8); MONOCYTES PERCENT AUTO 8.8 % (0.0-8.0); NEUTROPHILS ABSOLUTE AUTO 4.1 K/mm3 (1.8-7.7); NEUTROPHILS PERCENT AUTO 50.2 % (41.0-71.0); PLATELET COUNT,PLT 231 K/mm3 (150-400); RED BLOOD CELL COUNT 4.81 M/mm3 (4.52-5.90); WHITE BLOOD CELL COUNT,WBC 8.14 K/mm3 (3.9-11.3)
[2023-05-08 09:58] LABS: A/G RATIO 0.6 (1-2); ALBUMIN 2.7 g/dl (3.4-5.0); ANION GAP 4.4 (5-15); BILIRUBIN TOTAL 0.5 mg/dL (0.2-1.0); BUN/CREATININE RATIO 11.1 (14-18); C-REACTIVE PROTEIN 4.2 mg/dL (<1.0); CREATININE 0.9 mg/dL (0.7-1.3); EST CRCL DRUG DOSING (CG) 108.01 mL/min; MAGNESIUM 2.1 mg/dL (1.8-2.4); POTASSIUM,K 4.4 mEq/L (3.5-5.1); PROTEIN TOTAL,TP 7.2 g/dl (6.4-8.2)
[2023-05-08] MEDS: Allopurinol 300 MG Tab PO SCH (21:01)
[2023-05-08] MEDS: traZODone 50 MG Tab PO SCH (21:04)
[2023-05-08] MEDS: cloNIDine 0.1 MG Tab PO SCH (21:06)
[2023-05-09] MEDS: Piperacillin/Tazobactam 4.5 GM in Sodium Chloride 0.9% 100 ML IV SCH (02:25)
[2023-05-09] MEDS: Levothyroxine 75 MCG Tab PO SCH (05:44)
[2023-05-09] MEDS: Albuterol/Ipratropium 3.0-0.5 MG/3 ML Neb Soln NEB SCH ×2 (05:58→10:02)
[2023-05-09 06:10] LABS: BASOPHILS PERCENT AUTO 0.3 % (0.0-1.0); EOSINOPHILS ABSOLUTE AUTO 0.4 K/mm3 (0.0-0.4); EOSINOPHILS PERCENT AUTO 5.2 % (0.0-6.0); HEMOGLOBIN 11.6 gm/dl (14.0-18.0); IMMATURE GRAN ABSOLUTE AUTO 0.03 K/mm3 (0.00-0.05); IMMATURE GRAN PERCENT AUTO 0.4 % (0.0-0.4); LYMPHOCYTES ABSOLUTE AUTO 2.4 K/mm3 (1.0-4.8); LYMPHOCYTES PERCENT AUTO 30.3 % (24.0-44.0); MEAN CORPUSCULAR HEMOGLOBIN 27.1 pg (28.0-32.0); MEAN CORPUSCULAR HGB CONC 29.7 g/dl (32.0-36.0); MEAN CORPUSCULAR VOLUME 91.1 fl (83.0-99.0); MEAN PLATELET VOLUME 11.6 fl (9.4-12.4); MONOCYTES ABSOLUTE AUTO 0.7 K/mm3 (0.0-0.8); MONOCYTES PERCENT AUTO 8.3 % (0.0-8.0); NEUTROPHILS ABSOLUTE AUTO 4.3 K/mm3 (1.8-7.7); NEUTROPHILS PERCENT AUTO 55.5 % (41.0-71.0); PLATELET COUNT,PLT 209 K/mm3 (150-400); RED BLOOD CELL COUNT 4.28 M/mm3 (4.52-5.90); WHITE BLOOD CELL COUNT,WBC 7.82 K/mm3 (3.9-11.3)
[2023-05-09 06:50] LABS: A/G RATIO 0.6 (1-2); ALBUMIN 2.2 g/dl (3.4-5.0); ANION GAP 6.5 (5-15); BILIRUBIN TOTAL 0.3 mg/dL (0.2-1.0); C-REACTIVE PROTEIN 2.2 mg/dL (<1.0); EST CRCL DRUG DOSING (CG) 97.21 mL/min; MAGNESIUM 1.9 mg/dL (1.8-2.4); POTASSIUM,K 4.5 mEq/L (3.5-5.1)
[2023-05-09] MEDS ORDERED: cloNIDine 0.1 MG/Day Transdermal Patch TRDERM ONE (09:00)
[2023-05-09] MEDS: PARoxetine 20 MG Tab PO SCH (09:13)
[2023-05-09] MEDS: Famotidine 20 MG Tab PO SCH (09:13)
[2023-05-09] MEDS: Loratadine 10 MG Tab PO SCH (09:13)
[2023-05-09] MEDS: Divalproex Sodium Delayed-Release 250 MG Tab.CR PO SCH (09:13)
[2023-05-09] MEDS: ARIPiprazole 5 MG Tab PO SCH (09:14)
[2023-05-09] MEDS: ClonazePAM 0.5 MG Tab PO SCH (09:15)
[2023-05-09] MEDS: Enoxaparin 40 MG/0.4 ML Syringe SUBCUT SCH (09:16)
[2023-05-09] MEDS: Carboxymethylcellulose Sodium 1% Ophth Gel 15 ML Bottle EYEBOTH SCH (09:16)
[2023-05-09] MEDS: Fluticasone NASAL Spray 16 GM Bottle NASBOTH SCH (09:16)
[2023-05-09] MEDS: cloNIDine 0.2 MG/Day Transdermal Patch TOP SCH (09:26)
[2023-05-10] MEDS ORDERED: [UNRECOGNIZED DRUG - REMARK] TRDERM ONE (09:00)
[2023-05-11] MEDS ORDERED: Levothyroxine 50 MCG Tab PO SCH (06:00)
== END 2023-05-09 12:35 | disposition other institution (70) | DRG 137 ==
LOC: JD.ED 09:42 → JD.MS 12:43 → JD.ICU 13:45
PROVIDERS: ADMIT Internal Medicine; ATTEND Internal Medicine
PROC: 4A033R1 Measurement of Arterial Saturation, Peripheral, Percutaneous Approach (ICD-10-PCS; principal; 2023-05-06)
PROC: 5A09357 Assistance with Respiratory Ventilation, Less than 24 Consecutive Hours, Continuous Positive Airway Pressure (ICD-10-PCS; 2023-05-06)
DX: J69.0 Pneumonitis due to inhalation of food and vomit (principal); J96.21 Acute and chronic respiratory failure with hypoxia; J96.22 Acute and chronic respiratory failure with hypercapnia; I50.9 Heart failure, unspecified; F41.9 Anxiety disorder, unspecified; F42.9 Obsessive-compulsive disorder, unspecified; E03.9 Hypothyroidism, unspecified; Z66 Do not resuscitate; Z20.822 Contact with and (suspected) exposure to COVID-19; R65.10 Systemic inflammatory response syndrome (SIRS) of non-infectious origin without acute organ dysfunction; J98.4 Other disorders of lung; M41.9 Scoliosis, unspecified; E83.42 Hypomagnesemia; G80.0 Spastic quadriplegic cerebral palsy; F32.89 Other specified depressive episodes; R13.12 Dysphagia, oropharyngeal phase; K21.9 Gastro-esophageal reflux disease without esophagitis; I95.9 Hypotension, unspecified; G47.33 Obstructive sleep apnea (adult) (pediatric); H91.90 Unspecified hearing loss, unspecified ear; Z90.49 Acquired absence of other specified parts of digestive tract; Z79.890 Hormone replacement therapy; Z79.899 Other long term (current) drug therapy; Z99.81 Dependence on supplemental oxygen; Z88.8 Allergy status to other drugs, medicaments and biological substances; Q90.9 Down syndrome, unspecified
CPT/HCPCS: 0241U; 36415; 36600; 71045; 71045-26; 80053; 82803; 83605; 83615; 83735; 83880; 84484; 85007; 85025; 85027; 85610; 85730; 86140; 87040; 93005; 93010; 94640; 94667; 94668; 94761; 96365; 97116-GP; 97162-GP; 99223; 99233; 99239; 99285; 99285-25; A9270-GY; J1650; J2543; J3475; J3490; J7042; J7620-GY

== ENCOUNTER 2023-05-30 06:36 | Inpatient (IN) | payer BC ==
[2023-05-30 07:43] LABS: BASOPHILS PERCENT AUTO 0.2 % (0.0-1.0); EOSINOPHILS ABSOLUTE AUTO 0.4 K/mm3 (0.0-0.4); EOSINOPHILS PERCENT AUTO 2.9 % (0.0-6.0); HEMATOCRIT 46.9 % (42.0-52.0); IMMATURE GRAN ABSOLUTE AUTO 0.05 K/mm3 (0.00-0.05); IMMATURE GRAN PERCENT AUTO 0.3 % (0.0-0.4); LYMPHOCYTES ABSOLUTE AUTO 1.5 K/mm3 (1.0-4.8); LYMPHOCYTES PERCENT AUTO 10.1 % (24.0-44.0); MEAN CORPUSCULAR HEMOGLOBIN 28.3 pg (28.0-32.0); MEAN CORPUSCULAR HGB CONC 30.5 g/dl (32.0-36.0); MEAN CORPUSCULAR VOLUME 92.7 fl (83.0-99.0); MEAN PLATELET VOLUME 11.3 fl (9.4-12.4); MONOCYTES ABSOLUTE AUTO 0.5 K/mm3 (0.0-0.8); MONOCYTES PERCENT AUTO 3.1 % (0.0-8.0); NEUTROPHILS ABSOLUTE AUTO 12.5 K/mm3 (1.8-7.7); NEUTROPHILS PERCENT AUTO 83.4 % (41.0-71.0); PLATELET COUNT,PLT 248 K/mm3 (150-400); RED BLOOD CELL COUNT 5.06 M/mm3 (4.52-5.90); WHITE BLOOD CELL COUNT,WBC 15.01 K/mm3 (3.9-11.3)
[2023-05-30] MEDS ORDERED: Lactated Ringers 500 ML IV ONE (07:50)
[2023-05-30 07:53] LABS: HEMOGLOBIN 14.3 gm/dl (14.0-18.0)
[2023-05-30 07:59] LABS: INR 1.01; PROTHROMBIN TIME 10.8 SECONDS (9.7-12.0)
[2023-05-30 08:05] LABS: LACTIC ACID 1.5 mmol/L (0.4-2.0)
[2023-05-30] MEDS ORDERED: Piperacillin/Tazobactam 4.5 GM in Sodium Chloride 0.9% 100 ML IV ONE (08:07)
[2023-05-30 08:11] LABS: A/G RATIO 0.6 (1-2); ALBUMIN 3.2 g/dl (3.4-5.0); BILIRUBIN TOTAL 0.5 mg/dL (0.2-1.0); BUN/CREATININE RATIO 24.4 (14-18); CALCIUM 9.8 mg/dL (8.5-10.1); CREATININE 0.9 mg/dL (0.7-1.3); EST CRCL DRUG DOSING (CG) 108.01 mL/min; PROTEIN TOTAL,TP 8.3 g/dl (6.4-8.2)
[2023-05-30 08:11] LABS: APPEARANCE,URINE CLEAR (Clear); BILIRUBIN,URINE NEGATIVE (Negative); COLOR,URINE YELLOW (Yellow); GLUCOSE,URINE NEGATIVE (Negative); KETONES,URINE NEGATIVE (Negative); LEUKOCYTE ESTERASE,URINE NEGATIVE (Negative); NITRITE,URINE NEGATIVE (Negative); OCCULT BLOOD,URINE NEGATIVE (Negative); PROTEIN,URINE NEGATIVE (Negative); UROBILINOGEN,URINE 0.2 (0.2-1.0)
[2023-05-30 08:13] LABS: C-REACTIVE PROTEIN 1.1 mg/dL (<1.0)
[2023-05-30 08:26] LABS: CORONAVIRUS COVID-19 NAA NEGATIVE (NEGATIVE); INFLUENZA A NAA NEGATIVE (NEGATIVE)
[2023-05-30 09:01] LABS: BASE EXCESS ARTERIAL 14.4 (-2-2.0); BICARBONATE,ARTERIAL 42.8 meq/L (22.0-26.0); O2 SATURATION ARTERIAL 91.4 % (96.0-97.0); PCO2 ARTERIAL 78.9 mmHg (35.0-45.0)
[2023-05-30] MEDS ORDERED: Albuterol 0.083% 2.5 MG/3 ML Neb Soln NEB PRN (09:07)
[2023-05-30] MEDS ORDERED: Ondansetron 4 MG/2 ML SDV IV PRN (09:07)
[2023-05-30] MEDS ORDERED: Acetaminophen 325 MG Tab PO PRN (09:07)
[2023-05-30] MEDS ORDERED: Docusate Sodium 100 MG Cap PO PRN (09:07)
[2023-05-30] MEDS: Albuterol/Ipratropium 3.0-0.5 MG/3 ML Neb Soln NEB SCH ×3 (11:09→20:30)
[2023-05-30] MEDS ORDERED: Polyethylene Glycol 3350 Powder 17 GM Packet PO PRN (16:20)
[2023-05-30] MEDS ORDERED: Haloperidol 0.5 MG Tab PO PRN (16:20)
[2023-05-30] MEDS: ClonazePAM 0.5 MG Tab PO SCH ×2 (17:59→21:09)
[2023-05-30] MEDS: Sodium Chloride 0.9% 1,000 ML IV SCH (18:08)
[2023-05-30] MEDS: Enoxaparin 40 MG/0.4 ML Syringe SUBCUT SCH (20:30)
[2023-05-30] MEDS ORDERED: Hypromellose 0.5% Ophth Soln 15 ML Bottle EYEBOTH SCH (21:00)
[2023-05-30] MEDS: Divalproex Sodium Delayed-Release 250 MG Tab.CR PO SCH (21:08)
[2023-05-30] MEDS: Allopurinol 300 MG Tab PO SCH (21:08)
[2023-05-30] MEDS: cloNIDine 0.1 MG Tab PO SCH (21:08)
[2023-05-30] MEDS: ARIPiprazole 5 MG Tab PO SCH (21:09)
[2023-05-30] MEDS: traZODone 50 MG Tab PO SCH (21:10)
[2023-05-30] MEDS: Famotidine 20 MG Tab PO SCH (21:10)
[2023-05-30] MEDS: Fluticasone NASAL Spray 16 GM Bottle NASBOTH SCH (21:17)
[2023-05-30] MEDS: Remove Patch CLONIDINE TRDERM SCH (22:30)
[2023-05-30] MEDS: cloNIDine 0.2 MG/Day Transdermal Patch TOP SCH (22:31)
[2023-05-31] MEDS ORDERED: traZODone 50 MG Tab PO PRN (02:00)
[2023-05-31] MEDS: Sodium Chloride 0.9% 1,000 ML IV SCH (04:14)
[2023-05-31] MEDS: Albuterol/Ipratropium 3.0-0.5 MG/3 ML Neb Soln NEB SCH ×4 (05:40→21:17)
[2023-05-31 05:41] LABS: BASOPHILS PERCENT AUTO 0.3 % (0.0-1.0); EOSINOPHILS ABSOLUTE AUTO 0.3 K/mm3 (0.0-0.4); EOSINOPHILS PERCENT AUTO 2.1 % (0.0-6.0); HEMATOCRIT 33.4 % (42.0-52.0); HEMOGLOBIN 10.3 gm/dl (14.0-18.0); IMMATURE GRAN ABSOLUTE AUTO 0.03 K/mm3 (0.00-0.05); IMMATURE GRAN PERCENT AUTO 0.2 % (0.0-0.4); LYMPHOCYTES ABSOLUTE AUTO 2.8 K/mm3 (1.0-4.8); MEAN CORPUSCULAR HEMOGLOBIN 28.1 pg (28.0-32.0); MEAN CORPUSCULAR HGB CONC 30.8 g/dl (32.0-36.0); MONOCYTES ABSOLUTE AUTO 0.9 K/mm3 (0.0-0.8); MONOCYTES PERCENT AUTO 7.7 % (0.0-8.0); NEUTROPHILS ABSOLUTE AUTO 8.1 K/mm3 (1.8-7.7); NEUTROPHILS PERCENT AUTO 66.7 % (41.0-71.0); PLATELET COUNT,PLT 153 K/mm3 (150-400); RED BLOOD CELL COUNT 3.67 M/mm3 (4.52-5.90); WHITE BLOOD CELL COUNT,WBC 12.15 K/mm3 (3.9-11.3)
[2023-05-31] MEDS ORDERED: Levothyroxine 75 MCG Tab PO SCH (06:00)
[2023-05-31 06:16] LABS: ANION GAP 6.8 (5-15); BUN/CREATININE RATIO 21.3 (14-18); C-REACTIVE PROTEIN 8.9 mg/dL (<1.0); CALCIUM 8.5 mg/dL (8.5-10.1); CREATININE 0.8 mg/dL (0.7-1.3); EST CRCL DRUG DOSING (CG) 121.52 mL/min; MAGNESIUM 1.8 mg/dL (1.8-2.4); POTASSIUM,K 3.8 mEq/L (3.5-5.1)
[2023-05-31 06:52] LABS: SLIDE REVIEW ABNORMAL SMEAR
[2023-05-31] MEDS ORDERED: Remove Patch CLONIDINE TRDERM SCH (09:00)
[2023-05-31] MEDS ORDERED: cloNIDine 0.2 MG/Day Transdermal Patch TOP SCH (09:00)
[2023-05-31] MEDS: ARIPiprazole 5 MG Tab PO SCH ×3 (09:25→20:19)
[2023-05-31] MEDS: Carboxymethylcellulose Sodium 1% Ophth Gel 15 ML Bottle EYEBOTH SCH ×2 (09:47→20:20)
[2023-05-31] MEDS: Enoxaparin 40 MG/0.4 ML Syringe SUBCUT SCH (09:48)
[2023-05-31] MEDS: Fluticasone NASAL Spray 16 GM Bottle NASBOTH SCH ×2 (09:48→20:21)
[2023-05-31] MEDS: cloNIDine 0.2 MG/Day Transdermal Patch TOP SCH ×2 (09:50→20:20)
[2023-05-31] MEDS: ClonazePAM 0.5 MG Tab PO SCH ×4 (09:50→20:21)
[2023-05-31] MEDS: Famotidine 20 MG Tab PO SCH ×2 (09:52→20:19)
[2023-05-31] MEDS: Loratadine 10 MG Tab PO SCH (09:53)
[2023-05-31] MEDS: Remove Patch CLONIDINE TRDERM SCH ×2 (09:53→20:21)
[2023-05-31] MEDS: Divalproex Sodium Delayed-Release 250 MG Tab.CR PO SCH ×3 (09:53→20:19)
[2023-05-31] MEDS ORDERED: Piperacillin/Tazobactam 4.5 GM in Sodium Chloride 0.9% 100 ML IV ONE (10:00)
[2023-05-31] MEDS: Piperacillin/Tazobactam 4.5 GM in Sodium Chloride 0.9% 100 ML IV SCH (19:11)
[2023-05-31] MEDS: cloNIDine 0.1 MG Tab PO SCH (20:19)
[2023-05-31] MEDS: traZODone 50 MG Tab PO SCH (20:19)
[2023-05-31] MEDS: Allopurinol 300 MG Tab PO SCH (20:19)
[2023-06-01] MEDS: Piperacillin/Tazobactam 4.5 GM in Sodium Chloride 0.9% 100 ML IV SCH ×2 (01:49→10:23)
[2023-06-01] MEDS: Albuterol/Ipratropium 3.0-0.5 MG/3 ML Neb Soln NEB SCH ×2 (05:29→10:13)
[2023-06-01 05:37] LABS: BASOPHILS ABSOLUTE AUTO 0.1 K/mm3 (0.0-0.2); BASOPHILS PERCENT AUTO 0.6 % (0.0-1.0); EOSINOPHILS ABSOLUTE AUTO 0.5 K/mm3 (0.0-0.4); EOSINOPHILS PERCENT AUTO 5.9 % (0.0-6.0); HEMATOCRIT 34.8 % (42.0-52.0); HEMOGLOBIN 10.3 gm/dl (14.0-18.0); IMMATURE GRAN ABSOLUTE AUTO 0.01 K/mm3 (0.00-0.05); IMMATURE GRAN PERCENT AUTO 0.1 % (0.0-0.4); LYMPHOCYTES ABSOLUTE AUTO 3.1 K/mm3 (1.0-4.8); LYMPHOCYTES PERCENT AUTO 35.2 % (24.0-44.0); MEAN CORPUSCULAR HEMOGLOBIN 27.8 pg (28.0-32.0); MEAN CORPUSCULAR HGB CONC 29.6 g/dl (32.0-36.0); MEAN CORPUSCULAR VOLUME 93.8 fl (83.0-99.0); MEAN PLATELET VOLUME 11.4 fl (9.4-12.4); MONOCYTES ABSOLUTE AUTO 0.7 K/mm3 (0.0-0.8); MONOCYTES PERCENT AUTO 8.4 % (0.0-8.0); NEUTROPHILS ABSOLUTE AUTO 4.3 K/mm3 (1.8-7.7); NEUTROPHILS PERCENT AUTO 49.8 % (41.0-71.0); PLATELET COUNT,PLT 163 K/mm3 (150-400); RED BLOOD CELL COUNT 3.71 M/mm3 (4.52-5.90); WHITE BLOOD CELL COUNT,WBC 8.69 K/mm3 (3.9-11.3)
[2023-06-01] MEDS ORDERED: Levothyroxine 50 MCG Tab PO SCH (06:00)
[2023-06-01 06:06] LABS: ANION GAP 6.2 (5-15); BUN/CREATININE RATIO 17.8 (14-18); C-REACTIVE PROTEIN 5.1 mg/dL (<1.0); CALCIUM 8.9 mg/dL (8.5-10.1); CREATININE 0.9 mg/dL (0.7-1.3); EST CRCL DRUG DOSING (CG) 108.01 mL/min; MAGNESIUM 1.9 mg/dL (1.8-2.4); POTASSIUM,K 4.2 mEq/L (3.5-5.1)
[2023-06-01] MEDS: ARIPiprazole 5 MG Tab PO SCH ×2 (08:35→14:26)
[2023-06-01] MEDS: Carboxymethylcellulose Sodium 1% Ophth Gel 15 ML Bottle EYEBOTH SCH (08:36)
[2023-06-01] MEDS: Divalproex Sodium Delayed-Release 250 MG Tab.CR PO SCH ×2 (08:36→14:32)
[2023-06-01] MEDS: Loratadine 10 MG Tab PO SCH (08:37)
[2023-06-01] MEDS: Fluticasone NASAL Spray 16 GM Bottle NASBOTH SCH (08:37)
[2023-06-01] MEDS: ClonazePAM 0.5 MG Tab PO SCH ×2 (08:38→14:27)
[2023-06-01] MEDS: Famotidine 20 MG Tab PO SCH (08:38)
[2023-06-01] MEDS: Enoxaparin 40 MG/0.4 ML Syringe SUBCUT SCH (08:39)
[2023-06-01] MEDS: Remove Patch CLONIDINE TRDERM SCH (08:40)
[2023-06-01] MEDS: cloNIDine 0.2 MG/Day Transdermal Patch TOP SCH (08:40)
== END 2023-06-01 15:05 | DRG 720 ==
LOC: JD.ED 06:36 → JD.MS 09:03 → JD.ICU 12:32
PROVIDERS: ADMIT Pediatrics; ATTEND Internal Medicine
PROC: 3E03329 Introduction of Other Anti-infective into Peripheral Vein, Percutaneous Approach (ICD-10-PCS; principal; 2023-05-30)
PROC: 5A09357 Assistance with Respiratory Ventilation, Less than 24 Consecutive Hours, Continuous Positive Airway Pressure (ICD-10-PCS; 2023-05-30)
PROC: 4A033R1 Measurement of Arterial Saturation, Peripheral, Percutaneous Approach (ICD-10-PCS; 2023-05-30)
DX: A41.9 Sepsis, unspecified organism (principal); J69.0 Pneumonitis due to inhalation of food and vomit; J96.21 Acute and chronic respiratory failure with hypoxia; R65.20 Severe sepsis without septic shock; J18.9 Pneumonia, unspecified organism; J98.4 Other disorders of lung; Z66 Do not resuscitate; E03.9 Hypothyroidism, unspecified; M41.9 Scoliosis, unspecified; F41.9 Anxiety disorder, unspecified; F32.A Depression, unspecified; K21.9 Gastro-esophageal reflux disease without esophagitis; I50.9 Heart failure, unspecified; G47.33 Obstructive sleep apnea (adult) (pediatric); G80.0 Spastic quadriplegic cerebral palsy; K52.9 Noninfective gastroenteritis and colitis, unspecified; R13.12 Dysphagia, oropharyngeal phase; F32.89 Other specified depressive episodes; F42.9 Obsessive-compulsive disorder, unspecified; Z86.16 Personal history of COVID-19; Z79.890 Hormone replacement therapy; Z11.52 Encounter for screening for COVID-19; Z88.8 Allergy status to other drugs, medicaments and biological substances; Z99.81 Dependence on supplemental oxygen; Z90.49 Acquired absence of other specified parts of digestive tract
CPT/HCPCS: 0240U; 36415; 36600; 71045; 71045-26; 80048; 80053; 81003; 82803; 83605; 83735; 83880; 84484; 85025; 85379; 85610; 86140; 87040; 93005; 93010; 94640; 94660; 94667; 94668; 94761; 96365; 99285; 99285-25; A9270-GY; C1758; J1650; J2543; J3490; J7030; J7120; J7620-GY

== ENCOUNTER 2023-07-04 09:08 | Emergency (ER) | payer BC | END 2023-07-04 11:00 | disposition home or self-care (01) | LOC: JD.ED 09:08 | DX: J18.9 Pneumonia, unspecified organism (principal); F99 Mental disorder, not otherwise specified; I50.9 Heart failure, unspecified; E03.9 Hypothyroidism, unspecified; Z86.16 Personal history of COVID-19; Z88.8 Allergy status to other drugs, medicaments and biological substances; Z91.048 Other nonmedicinal substance allergy status; Z79.899 Other long term (current) drug therapy | CPT/HCPCS: 99283 ==

== ENCOUNTER 2023-08-14 09:38 | Inpatient (IN) | payer BC ==
[2023-08-14] MEDS ORDERED: Acetaminophen 325 MG Tab PO PRN ×2 (09:44→21:25)
[2023-08-14] MEDS ORDERED: Sodium Chloride 0.9% 1,000 ML IV SCH (09:45)
[2023-08-14] MEDS ORDERED: cefTRIAXone 2 GM in Sodium Chloride 0.9% 100 ML IV ONE (09:48)
[2023-08-14] MEDS ORDERED: Acetaminophen 650 MG Supp RECTAL ONE ×2 (10:28→15:40)
[2023-08-14] MEDS ORDERED: Azithromycin 500 MG in Sodium Chloride 0.9% 250 ML IV ONE (10:35)
[2023-08-14 10:37] LABS: HEMATOCRIT 49.3 % (42.0-52.0); HEMOGLOBIN 14.8 gm/dl (14.0-18.0); MEAN CORPUSCULAR HEMOGLOBIN 27.9 pg (28.0-32.0); NRBC ABSOLUTE 0.03 (0.00-0.02); NRBC PERCENT 0.3 % (0.0-0.2); PLATELET COUNT,PLT 205 K/mm3 (150-400); WHITE BLOOD CELL COUNT,WBC 10.64 K/mm3 (3.9-11.3)
[2023-08-14 10:46] LABS: BICARBONATE,ARTERIAL 44.9 meq/L (22.0-26.0); O2 SATURATION ARTERIAL 87.3 % (96.0-97.0); PCO2 ARTERIAL 75.6 mmHg (35.0-45.0)
[2023-08-14 10:47] LABS: BASE EXCESS ARTERIAL 16.1 (-2-2.0)
[2023-08-14] MEDS ORDERED: Metoclopramide 10 MG/2 ML SDV IVPUSH ONE ×2 (10:51→15:41)
[2023-08-14 11:08] LABS: CORONAVIRUS COVID-19 NAA NEGATIVE (NEGATIVE); INFLUENZA A NAA NEGATIVE (NEGATIVE); RESPIRATORY SYNCYTIAL VIR NAA NEGATIVE (NEGATIVE)
[2023-08-14 11:10] LABS: A/G RATIO 0.7 (1-2); ALANINE AMINOTRANSFERASE,ALT 13 U/L (16-63); ALBUMIN 3.3 g/dl (3.4-5.0); ALKALINE PHOSPHATASE 101 U/L (46-116); ANION GAP 11.2 (5-15); ASPARTATE AMNIOTRANSFERASE,AST 14 U/L (15-37); BILIRUBIN TOTAL 0.6 mg/dL (0.2-1.0); BLOOD UREA NITROGEN,BUN 20 mg/dL (7-18); C-REACTIVE PROTEIN <0.2 mg/dL (<1.0); CALCIUM 9.7 mg/dL (8.5-10.1); CHLORIDE,CL 95 mEq/L (98-107); EST CRCL DRUG DOSING (CG) 95.42 mL/min; ESTIMATED GFR 97 mL/min (>60); GLUCOSE RANDOM 95 mg/dL (70-99); MAGNESIUM 1.5 mg/dL (1.8-2.4); POTASSIUM,K 4.2 mEq/L (3.5-5.1); PROTEIN TOTAL,TP 8.3 g/dl (6.4-8.2); SODIUM,NA 145 mEq/L (136-145); TROPONIN I HIGH SENSITIVITY 13 pg/mL (<=76)
[2023-08-14 11:11] LABS: LACTIC ACID 4.8 mmol/L (0.4-2.0)
[2023-08-14 11:13] LABS: INR 1.03
[2023-08-14 11:15] LABS: CARBON DIOXIDE,CO2 43 mEq/L (21-32); PTT,PARTIAL THROMBOPLSTIN TIME 25.5 SECONDS (21.7-31.4)
[2023-08-14] MEDS ORDERED: Lactated Ringers 1,000 ML IV ONE (11:19)
[2023-08-14 11:26] LABS: BAND PERCENT MAN 10 % (0-10); BASOPHILS PERCENT MAN 0 (0.2-1.2); EOSINOPHILS PERCENT MAN 1 % (0.8-7.0); LYMPHOCYTES % ATYPICAL MANUAL 0 %; LYMPHOCYTES PERCENT MAN 27 % (20-40); MONOCYTES PERCENT MAN 0 % (2-10)
[2023-08-14 11:27] LABS: PLATELET COUNT ESTIMATE ADEQUATE
[2023-08-14] MEDS ORDERED: Dextrose 5%-Lactated Ringers 1,000 ML IV SCH ×2 (12:30→15:00)
[2023-08-14] MEDS ORDERED: diphenhydrAMINE 50 MG/ML SDV IVPUSH ONE (15:41)
[2023-08-14] MEDS ORDERED: Norepinephrine 4 MG in Dextrose 5% in Water 246 ML IV SCH ×2 (15:45)
[2023-08-14] MEDS ORDERED: Piperacillin/Tazobactam 4.5 GM in Sodium Chloride 0.9% 100 ML IV ONE (18:30)
[2023-08-14] MEDS: Lactated Ringers 1,000 ML IV SCH (18:43)
[2023-08-14] MEDS ORDERED: Albuterol 0.5% 2.5 MG/0.5 ML Neb Soln NEB PRN (18:53)
[2023-08-14] MEDS: Divalproex Sodium Delayed-Release 500 MG Tab.CR PO SCH (20:13)
[2023-08-14] MEDS: ARIPiprazole 5 MG Tab PO SCH (20:13)
[2023-08-14] MEDS: Famotidine 20 MG Tab PO SCH (20:13)
[2023-08-14] MEDS: traZODone 50 MG Tab PO SCH (20:13)
[2023-08-14] MEDS: Carboxymethylcellulose Sodium 1% Ophth Gel 15 ML Bottle EYEBOTH SCH (20:14)
[2023-08-14] MEDS ORDERED: Morphine 2 MG/ML SYRINGE IVPUSH PRN (21:25)
[2023-08-14] MEDS ORDERED: Acetaminophen/HYDROcodone 325-5 MG Tab PO PRN (21:25)
[2023-08-15] MEDS: Enoxaparin 40 MG/0.4 ML Syringe SUBCUT SCH ×2 (01:06→08:27)
[2023-08-15] MEDS: Piperacillin/Tazobactam 4.5 GM in Sodium Chloride 0.9% 100 ML IV SCH ×4 (01:06→23:45)
[2023-08-15 06:10] LABS: BASE EXCESS ARTERIAL 14.6 (-2-2.0); BICARBONATE,ARTERIAL 43.1 meq/L (22.0-26.0)
[2023-08-15 06:11] LABS: PCO2 ARTERIAL 81.9 mmHg (35.0-45.0)
[2023-08-15] MEDS: Levothyroxine 75 MCG Tab PO SCH (06:50)
[2023-08-15 06:58] LABS: BASOPHILS ABSOLUTE AUTO 0.1 K/mm3 (0.0-0.2); BASOPHILS PERCENT AUTO 0.3 % (0.0-1.0); EOSINOPHILS ABSOLUTE AUTO 0.2 K/mm3 (0.0-0.4); EOSINOPHILS PERCENT AUTO 0.9 % (0.0-6.0); HEMATOCRIT 37.5 % (42.0-52.0); IMMATURE GRAN ABSOLUTE AUTO 0.11 K/mm3 (0.00-0.05); IMMATURE GRAN PERCENT AUTO 0.6 % (0.0-0.4); LYMPHOCYTES ABSOLUTE AUTO 2.5 K/mm3 (1.0-4.8); LYMPHOCYTES PERCENT AUTO 14.3 % (24.0-44.0); MEAN CORPUSCULAR HEMOGLOBIN 27.9 pg (28.0-32.0); MEAN CORPUSCULAR HGB CONC 30.1 g/dl (32.0-36.0); MEAN CORPUSCULAR VOLUME 92.6 fl (83.0-99.0); MONOCYTES ABSOLUTE AUTO 1.2 K/mm3 (0.0-0.8); MONOCYTES PERCENT AUTO 6.8 % (0.0-8.0); NEUTROPHILS ABSOLUTE AUTO 13.3 K/mm3 (1.8-7.7); NEUTROPHILS PERCENT AUTO 77.1 % (41.0-71.0); RED BLOOD CELL COUNT 4.05 M/mm3 (4.52-5.90); WHITE BLOOD CELL COUNT,WBC 17.23 K/mm3 (3.9-11.3)
[2023-08-15 07:19] LABS: HEMOGLOBIN 11.3 gm/dl (14.0-18.0); PLATELET COUNT,PLT 125 K/mm3 (150-400)
[2023-08-15 07:21] LABS: ANION GAP 6.8 (5-15); BUN/CREATININE RATIO 22.2 (14-18); CREATININE 0.9 mg/dL (0.7-1.3); EST CRCL DRUG DOSING (CG) 108.01 mL/min; POTASSIUM,K 3.8 mEq/L (3.5-5.1)
[2023-08-15] MEDS: Carboxymethylcellulose Sodium 1% Ophth Gel 15 ML Bottle EYEBOTH SCH ×2 (08:27→20:26)
[2023-08-15] MEDS: Divalproex Sodium Delayed-Release 250 MG Tab.CR PO SCH (08:28)
[2023-08-15] MEDS: Famotidine 20 MG Tab PO SCH ×2 (08:28→20:25)
[2023-08-15] MEDS: Loratadine 10 MG Tab PO SCH (08:28)
[2023-08-15] MEDS: PARoxetine 20 MG Tab PO SCH ×2 (08:29→14:37)
[2023-08-15] MEDS: ARIPiprazole 5 MG Tab PO SCH ×3 (08:30→20:25)
[2023-08-15] MEDS: Albuterol/Ipratropium 3.0-0.5 MG/3 ML Neb Soln NEB PRN ×3 (09:06→21:56)
[2023-08-15] MEDS ORDERED: Albuterol 0.083% 2.5 MG/3 ML Neb Soln NEB PRN (10:03)
[2023-08-15] MEDS: Lactated Ringers 1,000 ML IV SCH (10:11)
[2023-08-15] MEDS: Divalproex Sodium Delayed-Release 500 MG Tab.CR PO SCH ×2 (14:38→20:25)
[2023-08-15] MEDS: traZODone 50 MG Tab PO SCH (20:25)
[2023-08-16 04:37] LABS: BASOPHILS PERCENT AUTO 0.2 % (0.0-1.0); EOSINOPHILS ABSOLUTE AUTO 0.7 K/mm3 (0.0-0.4); EOSINOPHILS PERCENT AUTO 5.3 % (0.0-6.0); HEMATOCRIT 36.2 % (42.0-52.0); HEMOGLOBIN 10.8 gm/dl (14.0-18.0); IMMATURE GRAN ABSOLUTE AUTO 0.06 K/mm3 (0.00-0.05); IMMATURE GRAN PERCENT AUTO 0.4 % (0.0-0.4); LYMPHOCYTES ABSOLUTE AUTO 2.7 K/mm3 (1.0-4.8); LYMPHOCYTES PERCENT AUTO 19.6 % (24.0-44.0); MEAN CORPUSCULAR HEMOGLOBIN 27.3 pg (28.0-32.0); MEAN CORPUSCULAR HGB CONC 29.8 g/dl (32.0-36.0); MEAN CORPUSCULAR VOLUME 91.4 fl (83.0-99.0); MONOCYTES ABSOLUTE AUTO 0.8 K/mm3 (0.0-0.8); MONOCYTES PERCENT AUTO 6.1 % (0.0-8.0); NEUTROPHILS ABSOLUTE AUTO 9.5 K/mm3 (1.8-7.7); NEUTROPHILS PERCENT AUTO 68.4 % (41.0-71.0); PLATELET COUNT,PLT 134 K/mm3 (150-400); RED BLOOD CELL COUNT 3.96 M/mm3 (4.52-5.90); WHITE BLOOD CELL COUNT,WBC 13.87 K/mm3 (3.9-11.3)
[2023-08-16 05:03] LABS: ANION GAP 3.7 (5-15); BUN/CREATININE RATIO 21.4 (14-18); CALCIUM 8.7 mg/dL (8.5-10.1); CREATININE 0.7 mg/dL (0.7-1.3); EST CRCL DRUG DOSING (CG) 138.88 mL/min; POTASSIUM,K 3.7 mEq/L (3.5-5.1)
[2023-08-16] MEDS: Levothyroxine 75 MCG Tab PO SCH (06:50)
[2023-08-16] MEDS: PARoxetine 20 MG Tab PO SCH ×2 (08:55→13:54)
[2023-08-16] MEDS: Loratadine 10 MG Tab PO SCH (08:56)
[2023-08-16] MEDS: ARIPiprazole 5 MG Tab PO SCH ×2 (08:57→13:53)
[2023-08-16] MEDS: Carboxymethylcellulose Sodium 1% Ophth Gel 15 ML Bottle EYEBOTH SCH (08:58)
[2023-08-16] MEDS: Divalproex Sodium Delayed-Release 250 MG Tab.CR PO SCH (08:58)
[2023-08-16] MEDS: Enoxaparin 40 MG/0.4 ML Syringe SUBCUT SCH (08:58)
[2023-08-16] MEDS: Famotidine 20 MG Tab PO SCH (08:58)
[2023-08-16] MEDS: Piperacillin/Tazobactam 4.5 GM in Sodium Chloride 0.9% 100 ML IV SCH (08:59)
[2023-08-16] MEDS ORDERED: cloNIDine 0.1 MG Tab PO ONE (12:21)
[2023-08-16] MEDS: Divalproex Sodium Delayed-Release 500 MG Tab.CR PO SCH (13:53)
[2023-08-17] MEDS ORDERED: Levothyroxine 50 MCG Tab PO SCH (06:00)
== END 2023-08-16 14:45 | disposition other institution (70) | DRG 720 ==
LOC: JD.ED 09:38 → JD.MS 17:15
PROVIDERS: ADMIT Student in an Organized Health Care Education/Training Program; ATTEND Student in an Organized Health Care Education/Training Program
PROC: 5A09357 Assistance with Respiratory Ventilation, Less than 24 Consecutive Hours, Continuous Positive Airway Pressure (ICD-10-PCS; principal; 2023-08-14)
PROC: 4A033R1 Measurement of Arterial Saturation, Peripheral, Percutaneous Approach (ICD-10-PCS; 2023-08-14)
PROC: 3E03329 Introduction of Other Anti-infective into Peripheral Vein, Percutaneous Approach (ICD-10-PCS; 2023-08-14)
DX: A41.9 Sepsis, unspecified organism (principal); R57.1 Hypovolemic shock; J96.21 Acute and chronic respiratory failure with hypoxia; J96.22 Acute and chronic respiratory failure with hypercapnia; J69.0 Pneumonitis due to inhalation of food and vomit; R65.21 Severe sepsis with septic shock; J18.9 Pneumonia, unspecified organism; I95.9 Hypotension, unspecified; I50.9 Heart failure, unspecified; H91.90 Unspecified hearing loss, unspecified ear; G47.30 Sleep apnea, unspecified; K52.9 Noninfective gastroenteritis and colitis, unspecified; G80.9 Cerebral palsy, unspecified; F41.9 Anxiety disorder, unspecified; E03.9 Hypothyroidism, unspecified; M41.9 Scoliosis, unspecified; Z66 Do not resuscitate; F32.89 Other specified depressive episodes; F42.9 Obsessive-compulsive disorder, unspecified; J98.4 Other disorders of lung; G80.0 Spastic quadriplegic cerebral palsy; K44.9 Diaphragmatic hernia without obstruction or gangrene; K21.9 Gastro-esophageal reflux disease without esophagitis; E87.3 Alkalosis; R13.12 Dysphagia, oropharyngeal phase; Z88.8 Allergy status to other drugs, medicaments and biological substances; Z91.048 Other nonmedicinal substance allergy status; Z79.899 Other long term (current) drug therapy; Z79.51 Long term (current) use of inhaled steroids; Z86.16 Personal history of COVID-19; Z11.52 Encounter for screening for COVID-19; Z51.5 Encounter for palliative care; Z99.81 Dependence on supplemental oxygen
CPT/HCPCS: 0241U; 36415; 36600; 71045; 71045-26; 80048; 80053; 80164; 82803; 82947; 83605; 83735; 83880; 84484; 85007; 85025; 85027; 85610; 85652; 85730; 86140; 87040; 87641; 93005; 93010; 94640; 94660; 94667; 94668; 94761; 94762; 96361; 96365; 96367; 96375; 96376; 97110-GP; 97161-GP; 99223; 99233; 99239; 99285; 99285-25; A9270-GY; J0456; J0696; J1200; J1650; J2543; J2765; J3490; J7030; J7050; J7120; J7121; J7620-GY

== ENCOUNTER 2023-08-21 21:18 | Emergency (ER) | payer BC, MEDICAID | END 2023-08-21 21:50 | disposition home or self-care (01) | LOC: JD.ED 21:18 | DX: R03.0 Elevated blood-pressure reading, without diagnosis of hypertension (principal); E03.9 Hypothyroidism, unspecified; Z79.899 Other long term (current) drug therapy; Z86.16 Personal history of COVID-19; Z91.048 Other nonmedicinal substance allergy status; Z88.8 Allergy status to other drugs, medicaments and biological substances; Z90.49 Acquired absence of other specified parts of digestive tract | CPT/HCPCS: 99283; 99284 ==

== ENCOUNTER 2024-02-18 11:59 | Emergency (ER) | payer BC, MEDICAID ==
[2024-02-18 14:32] LABS: BASE EXCESS ARTERIAL 2.9 (-2-2.0); BICARBONATE,ARTERIAL 29.3 meq/L (22.0-26.0); O2 SATURATION ARTERIAL 91.3 % (96.0-97.0)
[2024-02-18 14:37] LABS: BASOPHILS PERCENT AUTO 0.3 % (0.0-1.0); EOSINOPHILS ABSOLUTE AUTO 1.4 K/mm3 (0.0-0.4); EOSINOPHILS PERCENT AUTO 13.9 % (0.0-6.0); HEMATOCRIT 40.5 % (42.0-52.0); HEMOGLOBIN 12.1 gm/dl (14.0-18.0); IMMATURE GRAN ABSOLUTE AUTO 0.03 K/mm3 (0.00-0.05); IMMATURE GRAN PERCENT AUTO 0.3 % (0.0-0.4); LYMPHOCYTES ABSOLUTE AUTO 2.2 K/mm3 (1.0-4.8); LYMPHOCYTES PERCENT AUTO 21.2 % (24.0-44.0); MEAN CORPUSCULAR HEMOGLOBIN 28.4 pg (28.0-32.0); MEAN CORPUSCULAR HGB CONC 29.9 g/dl (32.0-36.0); MEAN PLATELET VOLUME 11.1 fl (9.4-12.4); MONOCYTES ABSOLUTE AUTO 0.6 K/mm3 (0.0-0.8); MONOCYTES PERCENT AUTO 5.8 % (0.0-8.0); NEUTROPHILS PERCENT AUTO 58.5 % (41.0-71.0); PLATELET COUNT,PLT 158 K/mm3 (150-400); RED BLOOD CELL COUNT 4.26 M/mm3 (4.52-5.90); WHITE BLOOD CELL COUNT,WBC 10.21 K/mm3 (3.9-11.3)
[2024-02-18 14:38] LABS: MEAN CORPUSCULAR VOLUME 95.1 fl (83.0-99.0)
[2024-02-18 14:45] LABS: CORONAVIRUS COVID-19 NAA NEGATIVE (NEGATIVE); INFLUENZA A NAA NEGATIVE (NEGATIVE); RESPIRATORY SYNCYTIAL VIR NAA NEGATIVE (NEGATIVE)
[2024-02-18 15:04] LABS: LACTIC ACID 0.4 mmol/L (0.4-2.0)
[2024-02-18 15:11] LABS: A/G RATIO 0.7 (1-2); ANION GAP 2.2 (5-15); BILIRUBIN TOTAL 0.4 mg/dL (0.2-1.0); BUN/CREATININE RATIO 27.1 (14-18); CALCIUM 9.5 mg/dL (8.5-10.1); CREATININE 0.7 mg/dL (0.7-1.3); EST CRCL DRUG DOSING (CG) 132.3 mL/min; MAGNESIUM 1.9 mg/dL (1.8-2.4); POTASSIUM,K 4.2 mEq/L (3.5-5.1); PROTEIN TOTAL,TP 7.2 g/dl (6.4-8.2)
[2024-02-18] MEDS: Albuterol/Ipratropium 3.0-0.5 MG/3 ML Neb Soln NEB ONE (16:05)
[2024-02-18] MEDS: Levofloxacin/Dextrose 5%-Water 500 MG in Premix Bag 1 BAG IV ONE (17:02)
[2024-02-18] MEDS: cefTRIAXone 1 GM Vial IM ONE (17:14)
== END 2024-02-18 17:25 | disposition home or self-care (01) ==
LOC: JD.ED 11:59
DX: J18.9 Pneumonia, unspecified organism (principal); E03.9 Hypothyroidism, unspecified; Z88.8 Allergy status to other drugs, medicaments and biological substances; Z91.048 Other nonmedicinal substance allergy status; Z79.899 Other long term (current) drug therapy; Z79.890 Hormone replacement therapy; Z86.16 Personal history of COVID-19; Z90.49 Acquired absence of other specified parts of digestive tract
CPT/HCPCS: 0241U; 36415; 36600; 71045; 80053; 82803; 83605; 83735; 84484; 85025; 87040; 93005; 94640; 96372; 99285; J0696; 93010; 99284; J7620-GY

== ENCOUNTER 2024-03-15 11:35 | Emergency (ER) | payer MEDICARE, MEDICAID ==
[2024-03-15 12:15] LABS: O2 SATURATION ARTERIAL 98.2 % (96.0-97.0); PCO2 ARTERIAL 70.6 mmHg (35.0-45.0)
[2024-03-15 12:16] LABS: BASE EXCESS ARTERIAL 16.8 (-2-2.0); BICARBONATE,ARTERIAL 44.8 meq/L (22.0-26.0)
[2024-03-15 12:35] LABS: BASOPHILS PERCENT AUTO 0.3 % (0.0-1.0); EOSINOPHILS ABSOLUTE AUTO 0.7 K/mm3 (0.0-0.4); EOSINOPHILS PERCENT AUTO 8.7 % (0.0-6.0); HEMATOCRIT 45.4 % (42.0-52.0); HEMOGLOBIN 13.7 gm/dl (14.0-18.0); IMMATURE GRAN ABSOLUTE AUTO 0.03 K/mm3 (0.00-0.05); IMMATURE GRAN PERCENT AUTO 0.4 % (0.0-0.4); LYMPHOCYTES ABSOLUTE AUTO 2.2 K/mm3 (1.0-4.8); LYMPHOCYTES PERCENT AUTO 28.1 % (24.0-44.0); MEAN CORPUSCULAR HEMOGLOBIN 28.1 pg (28.0-32.0); MEAN CORPUSCULAR HGB CONC 30.2 g/dl (32.0-36.0); MEAN PLATELET VOLUME 12.2 fl (9.4-12.4); MONOCYTES ABSOLUTE AUTO 0.5 K/mm3 (0.0-0.8); MONOCYTES PERCENT AUTO 6.6 % (0.0-8.0); NEUTROPHILS ABSOLUTE AUTO 4.4 K/mm3 (1.8-7.7); NEUTROPHILS PERCENT AUTO 55.9 % (41.0-71.0); PLATELET COUNT,PLT 234 K/mm3 (150-400); RED BLOOD CELL COUNT 4.88 M/mm3 (4.52-5.90); WHITE BLOOD CELL COUNT,WBC 7.84 K/mm3 (3.9-11.3)
[2024-03-15 12:57] LABS: LACTIC ACID 0.5 mmol/L (0.4-2.0)
[2024-03-15 13:03] LABS: A/G RATIO 0.8 (1-2); ALBUMIN 3.3 g/dl (3.4-5.0); BILIRUBIN TOTAL 0.4 mg/dL (0.2-1.0); C-REACTIVE PROTEIN 0.26 mg/dL (<0.30); CALCIUM 9.8 mg/dL (8.5-10.1); CREATININE 0.8 mg/dL (0.7-1.3); EST CRCL DRUG DOSING (CG) 120.29 mL/min; MAGNESIUM 1.8 mg/dL (1.8-2.4); POTASSIUM,K 3.8 mEq/L (3.5-5.1); PROTEIN TOTAL,TP 7.5 g/dl (6.4-8.2)
[2024-03-15] MEDS: Acetaminophen Soln 650 MG/20.3 ML UD Cup PO ONE (13:03)
[2024-03-15 13:12] LABS: CORONAVIRUS COVID-19 NAA NEGATIVE (NEGATIVE); INFLUENZA A NAA NEGATIVE (NEGATIVE); RESPIRATORY SYNCYTIAL VIR NAA NEGATIVE (NEGATIVE)
[2024-03-15 13:19] LABS: ANION GAP 4.8 (5-15)
== END 2024-03-15 13:41 | disposition home or self-care (01) ==
LOC: JD.ED 11:35
DX: J96.11 Chronic respiratory failure with hypoxia (principal); J96.12 Chronic respiratory failure with hypercapnia; J98.4 Other disorders of lung; E03.9 Hypothyroidism, unspecified; Z88.8 Allergy status to other drugs, medicaments and biological substances; Z91.048 Other nonmedicinal substance allergy status; Z79.890 Hormone replacement therapy; Z79.899 Other long term (current) drug therapy; Z86.16 Personal history of COVID-19; Z90.49 Acquired absence of other specified parts of digestive tract
CPT/HCPCS: 0241U; 36415; 36600; 71045; 80053; 82803; 83605; 83735; 83880; 84484; 85025; 85379; 86140; 87040; 99284; A9270

== ENCOUNTER 2024-06-09 08:24 | Inpatient (IN) | payer MEDICARE, MEDICAID ==
[2024-06-09] MEDS ORDERED: Sodium Chloride 0.9% 10 ML Syringe FLUSH PRN (08:49)
[2024-06-09 09:05] LABS: HEMATOCRIT 42.6 % (42.0-52.0); HEMOGLOBIN 12.9 gm/dl (14.0-18.0); MEAN CORPUSCULAR HEMOGLOBIN 27.3 pg (28.0-32.0); MEAN CORPUSCULAR HGB CONC 30.3 g/dl (32.0-36.0); MEAN CORPUSCULAR VOLUME 90.1 fl (83.0-99.0); PLATELET COUNT,PLT 225 K/mm3 (150-400); RED BLOOD CELL COUNT 4.73 M/mm3 (4.52-5.90); WHITE BLOOD CELL COUNT,WBC 21.97 K/mm3 (3.9-11.3)
[2024-06-09 09:20] LABS: A/G RATIO 0.7 (1-2); ALBUMIN 3.3 g/dl (3.4-5.0); BILIRUBIN TOTAL 0.4 mg/dL (0.2-1.0); BUN/CREATININE RATIO 26.4 (14-18); C-REACTIVE PROTEIN 1.42 mg/dL (<0.30); CALCIUM 9.5 mg/dL (8.5-10.1); CREATININE 1.1 mg/dL (0.7-1.3); EST CRCL DRUG DOSING (CG) 87.48 mL/min
[2024-06-09 09:22] LABS: LACTIC ACID 0.9 mmol/L (0.4-2.0); PROTHROMBIN TIME 10.6 SECONDS (9.7-12.0)
[2024-06-09 09:38] LABS: BAND PERCENT MAN 0 % (0-10); BASOPHILS PERCENT MAN 0 (0.2-1.2); EOSINOPHILS PERCENT MAN 2 % (0.8-7.0); LYMPHOCYTES % ATYPICAL MANUAL 0 %; LYMPHOCYTES PERCENT MAN 10 % (20-40); MONOCYTES PERCENT MAN 5 % (2-10)
[2024-06-09 09:38] LABS: CORONAVIRUS COVID-19 NAA NEGATIVE (NEGATIVE); INFLUENZA A NAA NEGATIVE (NEGATIVE); RESPIRATORY SYNCYTIAL VIR NAA NEGATIVE (NEGATIVE)
[2024-06-09 09:40] LABS: ANISOCYTOSIS 1+ SLIGHT; HYPOCHROMASIA 1+ SLIGHT; OVALOCYTES 1+ SLIGHT; PLATELET COUNT ESTIMATE ADEQUATE; POLYCHROMASIA 1+ SLIGHT; SPHEROCYTES 1+ SLIGHT; STOMATOCYTES 2+ MODERATE; TOXIC GRANULATION 1+ SLIGHT
[2024-06-09 10:07] LABS: BASE EXCESS ARTERIAL 13.9 (-2-2.0); BICARBONATE,ARTERIAL 42.1 meq/L (22.0-26.0); O2 SATURATION ARTERIAL 95.3 % (96.0-97.0); PCO2 ARTERIAL 74.4 mmHg (35.0-45.0)
[2024-06-09] MEDS: Albuterol/Ipratropium 3.0-0.5 MG/3 ML Neb Soln NEB ONE (10:28)
[2024-06-09] MEDS: cefTRIAXone 2 GM in Sodium Chloride 0.9% 100 ML IV ONE (10:36)
[2024-06-09] MEDS: Azithromycin 500 MG in Sodium Chloride 0.9% 250 ML IV ONE (11:07)
[2024-06-09] MEDS ORDERED: Albuterol 0.083% 2.5 MG/3 ML Neb Soln NEB PRN (16:19)
[2024-06-09] MEDS ORDERED: Melatonin 3 MG Tab PO PRN (16:22)
[2024-06-09] MEDS ORDERED: Ondansetron 4 MG/2 ML SDV IV PRN (16:22)
[2024-06-09] MEDS ORDERED: oxyCODONE 5 MG Tab PO PRN (16:22)
[2024-06-09] MEDS ORDERED: Sennosides/Docusate Sodium 50-8.6 MG Tab PO PRN (16:22)
[2024-06-09] MEDS ORDERED: Acetaminophen 325 MG Tab PO PRN (16:22)
[2024-06-09] MEDS: Piperacillin/Tazobactam 4.5 GM in Sodium Chloride 0.9% 100 ML IV ONE (17:38)
[2024-06-09] MEDS: VANCOmycin 1.5 GM/300 ML 300 ML IV ONE (17:39)
[2024-06-09] MEDS: Divalproex Sodium Delayed-Release 500 MG Tab.CR PO SCH (20:29)
[2024-06-09] MEDS: Allopurinol 100 MG Tab PO SCH (20:29)
[2024-06-09] MEDS: ARIPiprazole 5 MG Tab PO SCH (20:30)
[2024-06-09] MEDS: Calcium Polycarbophil 625 MG Tab PO SCH (20:30)
[2024-06-09] MEDS: Vitamin B6-pyridOXINE 50 MG Tab PO SCH (20:31)
[2024-06-09] MEDS: ClonazePAM 1 MG Tab PO SCH (20:31)
[2024-06-09] MEDS: cloNIDine 0.1 MG Tab PO SCH (20:32)
[2024-06-09] MEDS: Famotidine 20 MG Tab PO SCH (20:32)
[2024-06-09] MEDS: Furosemide 20 MG Tab PO SCH (20:36)
[2024-06-09] MEDS: Fluticasone NASAL Spray 16 GM Bottle NASBOTH SCH (20:41)
[2024-06-09] MEDS: Carboxymethylcellulose Sodium 1% Ophth Gel 15 ML Bottle EYEBOTH SCH (20:41)
[2024-06-09] MEDS: Piperacillin/Tazobactam 4.5 GM in Sodium Chloride 0.9% 100 ML IV SCH (21:24)
[2024-06-10 04:47] LABS: BASOPHILS PERCENT AUTO 0.3 % (0.0-1.0); EOSINOPHILS ABSOLUTE AUTO 0.4 K/mm3 (0.0-0.4); EOSINOPHILS PERCENT AUTO 3.4 % (0.0-6.0); HEMATOCRIT 37.3 % (42.0-52.0); HEMOGLOBIN 11.1 gm/dl (14.0-18.0); IMMATURE GRAN ABSOLUTE AUTO 0.05 K/mm3 (0.00-0.05); IMMATURE GRAN PERCENT AUTO 0.4 % (0.0-0.4); LYMPHOCYTES ABSOLUTE AUTO 3.2 K/mm3 (1.0-4.8); LYMPHOCYTES PERCENT AUTO 24.8 % (24.0-44.0); MEAN CORPUSCULAR HEMOGLOBIN 27.7 pg (28.0-32.0); MEAN CORPUSCULAR HGB CONC 29.8 g/dl (32.0-36.0); MEAN PLATELET VOLUME 11.1 fl (9.4-12.4); MONOCYTES ABSOLUTE AUTO 0.9 K/mm3 (0.0-0.8); MONOCYTES PERCENT AUTO 6.6 % (0.0-8.0); NEUTROPHILS ABSOLUTE AUTO 8.3 K/mm3 (1.8-7.7); NEUTROPHILS PERCENT AUTO 64.5 % (41.0-71.0); PLATELET COUNT,PLT 183 K/mm3 (150-400); RED BLOOD CELL COUNT 4.01 M/mm3 (4.52-5.90); WHITE BLOOD CELL COUNT,WBC 12.85 K/mm3 (3.9-11.3)
[2024-06-10 05:10] LABS: A/G RATIO 0.6 (1-2); ALBUMIN 2.5 g/dl (3.4-5.0); ANION GAP 4.1 (5-15); BILIRUBIN TOTAL 0.3 mg/dL (0.2-1.0); BUN/CREATININE RATIO 25.6 (14-18); C-REACTIVE PROTEIN 6.75 mg/dL (<0.30); CALCIUM 9.1 mg/dL (8.5-10.1); CREATININE 0.9 mg/dL (0.7-1.3); EST CRCL DRUG DOSING (CG) 99.97 mL/min; MAGNESIUM 1.8 mg/dL (1.8-2.4); PHOSPHORUS 4.5 mg/dL (2.6-4.7); POTASSIUM,K 4.1 mEq/L (3.5-5.1); PROTEIN TOTAL,TP 6.7 g/dl (6.4-8.2)
[2024-06-10] MEDS: Levothyroxine 75 MCG Tab PO SCH (06:07)
[2024-06-10] MEDS ORDERED: Divalproex Sodium 250 MG Tab.ER PO SCH (08:00)
[2024-06-10] MEDS: ClonazePAM 0.5 MG Tab PO SCH (09:08)
[2024-06-10] MEDS: Folic Acid 1 MG Tab PO SCH (09:08)
[2024-06-10] MEDS: Cholecalciferol (Vitamin D3) 25 MCG Tab PO SCH (09:08)
[2024-06-10] MEDS: PARoxetine 20 MG Tab PO SCH (09:08)
[2024-06-10] MEDS: guaiFENesin 600 MG Tab.ER PO SCH (09:08)
[2024-06-10] MEDS: Saccharomyces Boulardii (Probiotic) 250 MG Cap PO SCH (09:08)
[2024-06-10] MEDS: Divalproex Sodium Delayed-Release 250 MG Tab.CR PO SCH (09:08)
[2024-06-10] MEDS: Enoxaparin 40 MG/0.4 ML Syringe SUBCUT SCH (09:19)
[2024-06-10] MEDS: Polyethylene Glycol 3350 Powder 17 GM Packet PO SCH (09:23)
[2024-06-10] MEDS: Divalproex Sodium Delayed-Release 500 MG Tab.CR PO SCH (13:42)
[2024-06-10] MEDS ORDERED: VANCOmycin 750 MG/150 ML 750 MG in Premix Bag 1 BAG IV SCH (17:00)
[2024-06-13] MEDS ORDERED: Levothyroxine 50 MCG Tab PO SCH (07:00)
== END 2024-06-10 14:56 | disposition home or self-care (01) | DRG 193 ==
LOC: JD.ED 08:24 → JD.MS 15:50
PROVIDERS: ADMIT Student in an Organized Health Care Education/Training Program; ATTEND Student in an Organized Health Care Education/Training Program
PROC: 4A033R1 Measurement of Arterial Saturation, Peripheral, Percutaneous Approach (ICD-10-PCS; principal; 2024-06-09)
DX: J18.9 Pneumonia, unspecified organism (principal); J96.21 Acute and chronic respiratory failure with hypoxia; J96.22 Acute and chronic respiratory failure with hypercapnia; Z66 Do not resuscitate; S63.502A Unspecified sprain of left wrist, initial encounter; H91.90 Unspecified hearing loss, unspecified ear; H54.7 Unspecified visual loss; Z79.890 Hormone replacement therapy; Z79.4 Long term (current) use of insulin; Z91.048 Other nonmedicinal substance allergy status; I50.9 Heart failure, unspecified; G47.30 Sleep apnea, unspecified; K59.09 Other constipation; E03.9 Hypothyroidism, unspecified; M41.9 Scoliosis, unspecified; F79 Unspecified intellectual disabilities; Z99.81 Dependence on supplemental oxygen; Z88.8 Allergy status to other drugs, medicaments and biological substances; Z79.51 Long term (current) use of inhaled steroids; Z79.899 Other long term (current) drug therapy; Z86.16 Personal history of COVID-19; Z90.49 Acquired absence of other specified parts of digestive tract; X58.XXXA Exposure to other specified factors, initial encounter
CPT/HCPCS: 0241U; 36415; 36600; 71045; 73110; 80053; 80202; 82803; 83605; 83735; 84100; 85007; 85025; 85027; 85610; 86140; 87040; 87081; 87641; 94640; 94761; 96365; 96367; 99284; A9270-GY; J0456; J0696; J1650; J2543; J3372; J3490; J7050; J7620-GY

== ENCOUNTER 2024-06-13 12:34 | Emergency (ER) | payer MEDICARE, MEDICAID | END 2024-06-13 15:18 | disposition home or self-care (01) | LOC: JD.ED 12:34 | DX: S02.5XXB Fracture of tooth (traumatic), initial encounter for open fracture (principal); J45.909 Unspecified asthma, uncomplicated; E03.9 Hypothyroidism, unspecified; Z86.16 Personal history of COVID-19; Z90.49 Acquired absence of other specified parts of digestive tract; Z88.8 Allergy status to other drugs, medicaments and biological substances; Z91.048 Other nonmedicinal substance allergy status; Z79.51 Long term (current) use of inhaled steroids; Z79.890 Hormone replacement therapy; Z79.2 Long term (current) use of antibiotics; Z79.899 Other long term (current) drug therapy; X58.XXXA Exposure to other specified factors, initial encounter | CPT/HCPCS: 71045; 71045-26; 74018; 74018-26; 99283 ==

== ENCOUNTER 2024-06-13 20:49 | Emergency (ER) | payer MEDICARE, MEDICAID | END 2024-06-13 22:40 | disposition home or self-care (01) | LOC: JD.ED 20:49 | DX: K06.8 Other specified disorders of gingiva and edentulous alveolar ridge (principal); J45.909 Unspecified asthma, uncomplicated; E03.9 Hypothyroidism, unspecified; Z86.16 Personal history of COVID-19; Z90.49 Acquired absence of other specified parts of digestive tract; Z88.8 Allergy status to other drugs, medicaments and biological substances; Z91.048 Other nonmedicinal substance allergy status; Z79.51 Long term (current) use of inhaled steroids; Z79.890 Hormone replacement therapy; Z79.899 Other long term (current) drug therapy | CPT/HCPCS: 99282 ==

== ENCOUNTER 2024-06-20 09:58 | Inpatient (IN) | payer MEDICARE, MEDICAID ==
[2024-06-20] MEDS: cefTRIAXone 2 GM in Sodium Chloride 0.9% 100 ML IV ONE (11:08)
[2024-06-20] MEDS: Sodium Chloride 0.9% 1,000 ML IV ONE (11:08)
[2024-06-20] MEDS: Sodium Chloride 0.9% 10 ML Syringe FLUSH PRN (11:08)
[2024-06-20 11:26] LABS: HEMATOCRIT 35.7 % (42.0-52.0); HEMOGLOBIN 10.8 gm/dl (14.0-18.0); MEAN CORPUSCULAR HEMOGLOBIN 28.3 pg (28.0-32.0); MEAN CORPUSCULAR HGB CONC 30.3 g/dl (32.0-36.0); MEAN CORPUSCULAR VOLUME 93.5 fl (83.0-99.0); MEAN PLATELET VOLUME 10.7 fl (9.4-12.4); PLATELET COUNT,PLT 277 K/mm3 (150-400); RED BLOOD CELL COUNT 3.82 M/mm3 (4.52-5.90)
[2024-06-20 11:44] LABS: A/G RATIO 0.7 (1-2); ALANINE AMINOTRANSFERASE,ALT 16 U/L (16-63); ALBUMIN 2.7 g/dl (3.4-5.0); ALKALINE PHOSPHATASE 78 U/L (46-116); ASPARTATE AMNIOTRANSFERASE,AST 19 U/L (15-37); BILIRUBIN TOTAL 0.5 mg/dL (0.2-1.0); BLOOD UREA NITROGEN,BUN 17 mg/dL (7-18); C-REACTIVE PROTEIN 2.52 mg/dL (<0.30); CALCIUM 9.1 mg/dL (8.5-10.1); CHLORIDE,CL 94 mEq/L (98-107); ESTIMATED GFR 96 mL/min (>60); GLUCOSE RANDOM 98 mg/dL (70-99); POTASSIUM,K 4.3 mEq/L (3.5-5.1); PROTEIN TOTAL,TP 6.8 g/dl (6.4-8.2); SODIUM,NA 137 mEq/L (136-145)
[2024-06-20 11:47] LABS: ANION GAP 1.3 (5-15); CARBON DIOXIDE,CO2 46 mEq/L (21-32)
[2024-06-20] MEDS: Albuterol/Ipratropium 3.0-0.5 MG/3 ML Neb Soln NEB ONE (11:53)
[2024-06-20 12:14] LABS: INR 1.03; PROTHROMBIN TIME 10.9 SECONDS (9.7-12.0)
[2024-06-20 13:48] LABS: BAND PERCENT MAN 6 % (0-10); BASOPHILS PERCENT MAN 0 (0.2-1.2); EOSINOPHILS PERCENT MAN 3 % (0.8-7.0); LYMPHOCYTES % ATYPICAL MANUAL 0 %; LYMPHOCYTES PERCENT MAN 7 % (20-40); MONOCYTES PERCENT MAN 4 % (2-10)
[2024-06-20 13:54] LABS: ANISOCYTOSIS 1+ SLIGHT; PLATELET COUNT ESTIMATE ADEQUATE; STOMATOCYTES 1+ SLIGHT
[2024-06-20 14:18] LABS: BASE EXCESS ARTERIAL 18.6 (-2-2.0); BICARBONATE,ARTERIAL 48 meq/L (22.0-26.0)
[2024-06-20] MEDS ORDERED: Acetaminophen 325 MG Tab PO PRN (14:42)
[2024-06-20] MEDS: Azithromycin 500 MG in Sodium Chloride 0.9% 250 ML IV SCH (18:29)
[2024-06-20] MEDS: Cefepime 2 GM in Sodium Chloride 0.9% 50 ML IV SCH (19:53)
[2024-06-20] MEDS: VANCOmycin 1.5 GM/300 ML 1.5 GM in Premix Bag 1 BAG IV ONE (20:30)
[2024-06-20] MEDS: Famotidine 20 MG Tab PO SCH (20:34)
[2024-06-20] MEDS: guaiFENesin 600 MG Tab.ER PO SCH (20:34)
[2024-06-20] MEDS: Allopurinol 300 MG Tab PO SCH (20:34)
[2024-06-20] MEDS: cloNIDine 0.1 MG Tab PO SCH (20:35)
[2024-06-20] MEDS: Divalproex Sodium Delayed-Release 500 MG Tab.CR PO SCH (20:35)
[2024-06-20] MEDS: Furosemide 20 MG Tab PO SCH (20:40)
[2024-06-20] MEDS: Albuterol/Ipratropium 3.0-0.5 MG/3 ML Neb Soln NEB PRN (20:47)
[2024-06-21] MEDS: Levothyroxine 50 MCG Tab PO SCH (06:48)
[2024-06-21] MEDS: Divalproex Sodium Delayed-Release 250 MG Tab.CR PO SCH (06:48)
[2024-06-21 06:53] LABS: BASOPHILS PERCENT AUTO 0.3 % (0.0-1.0); EOSINOPHILS ABSOLUTE AUTO 0.4 K/mm3 (0.0-0.4); EOSINOPHILS PERCENT AUTO 3.6 % (0.0-6.0); HEMATOCRIT 36.5 % (42.0-52.0); HEMOGLOBIN 10.8 gm/dl (14.0-18.0); IMMATURE GRAN ABSOLUTE AUTO 0.04 K/mm3 (0.00-0.05); IMMATURE GRAN PERCENT AUTO 0.4 % (0.0-0.4); LYMPHOCYTES ABSOLUTE AUTO 2.4 K/mm3 (1.0-4.8); LYMPHOCYTES PERCENT AUTO 23.1 % (24.0-44.0); MEAN CORPUSCULAR HEMOGLOBIN 28.2 pg (28.0-32.0); MEAN CORPUSCULAR HGB CONC 29.6 g/dl (32.0-36.0); MEAN CORPUSCULAR VOLUME 95.3 fl (83.0-99.0); MEAN PLATELET VOLUME 10.9 fl (9.4-12.4); MONOCYTES ABSOLUTE AUTO 0.6 K/mm3 (0.0-0.8); MONOCYTES PERCENT AUTO 5.9 % (0.0-8.0); NEUTROPHILS PERCENT AUTO 66.7 % (41.0-71.0); PLATELET COUNT,PLT 273 K/mm3 (150-400); RED BLOOD CELL COUNT 3.83 M/mm3 (4.52-5.90); WHITE BLOOD CELL COUNT,WBC 10.48 K/mm3 (3.9-11.3)
[2024-06-21 07:14] LABS: A/G RATIO 0.6 (1-2); ALBUMIN 2.6 g/dl (3.4-5.0); ANION GAP 4.8 (5-15); BILIRUBIN TOTAL 0.4 mg/dL (0.2-1.0); BUN/CREATININE RATIO 18.9 (14-18); C-REACTIVE PROTEIN 6.8 mg/dL (<0.30); CALCIUM 9.2 mg/dL (8.5-10.1); CREATININE 0.9 mg/dL (0.7-1.3); EST CRCL DRUG DOSING (CG) 106.88 mL/min; POTASSIUM,K 3.8 mEq/L (3.5-5.1); PROTEIN TOTAL,TP 6.7 g/dl (6.4-8.2)
[2024-06-21] MEDS: PARoxetine 20 MG Tab PO SCH (08:40)
[2024-06-21] MEDS: Enoxaparin 40 MG/0.4 ML Syringe SUBCUT SCH (08:40)
[2024-06-21 08:52] LABS: BASE EXCESS VENOUS 15.9 (-4.0-2.0); PH,VENOUS 7.34 (7.30-7.40)
[2024-06-21 08:55] LABS: O2 SATURATION VENOUS 78.8
[2024-06-21] MEDS: VANCOmycin 1 GM in Sodium Chloride 0.9% 250 ML IV SCH (08:59)
[2024-06-21] MEDS ORDERED: VANCOmycin 1.25 GM/250 ML 1.25 GM in Premix Bag 1 BAG IV SCH (09:00)
[2024-06-21] MEDS: Cefepime 2 GM Vial IVPUSH SCH (11:36)
[2024-06-22] MEDS: Levothyroxine 75 MCG Tab PO SCH (05:20)
[2024-06-22 05:34] LABS: BASOPHILS PERCENT AUTO 0.5 % (0.0-1.0); EOSINOPHILS ABSOLUTE AUTO 0.5 K/mm3 (0.0-0.4); EOSINOPHILS PERCENT AUTO 5.9 % (0.0-6.0); HEMATOCRIT 35.3 % (42.0-52.0); HEMOGLOBIN 10.8 gm/dl (14.0-18.0); IMMATURE GRAN ABSOLUTE AUTO 0.03 K/mm3 (0.00-0.05); IMMATURE GRAN PERCENT AUTO 0.4 % (0.0-0.4); LYMPHOCYTES ABSOLUTE AUTO 2.4 K/mm3 (1.0-4.8); LYMPHOCYTES PERCENT AUTO 28.4 % (24.0-44.0); MEAN CORPUSCULAR HEMOGLOBIN 28.4 pg (28.0-32.0); MEAN CORPUSCULAR HGB CONC 30.6 g/dl (32.0-36.0); MEAN CORPUSCULAR VOLUME 92.9 fl (83.0-99.0); MONOCYTES ABSOLUTE AUTO 0.6 K/mm3 (0.0-0.8); MONOCYTES PERCENT AUTO 7.4 % (0.0-8.0); NEUTROPHILS ABSOLUTE AUTO 4.8 K/mm3 (1.8-7.7); NEUTROPHILS PERCENT AUTO 57.4 % (41.0-71.0); PLATELET COUNT,PLT 254 K/mm3 (150-400); WHITE BLOOD CELL COUNT,WBC 8.27 K/mm3 (3.9-11.3)
[2024-06-22 06:28] LABS: A/G RATIO 0.6 (1-2); ALBUMIN 2.5 g/dl (3.4-5.0); ANION GAP 3.9 (5-15); BILIRUBIN TOTAL 0.4 mg/dL (0.2-1.0); BUN/CREATININE RATIO 25.7 (14-18); C-REACTIVE PROTEIN 3.9 mg/dL (<0.30); CALCIUM 9.1 mg/dL (8.5-10.1); CREATININE 0.7 mg/dL (0.7-1.3); EST CRCL DRUG DOSING (CG) 137.41 mL/min; POTASSIUM,K 3.9 mEq/L (3.5-5.1); PROTEIN TOTAL,TP 6.7 g/dl (6.4-8.2); VANCOMYCIN RANDOM 23.5 ug/mL
== END 2024-06-22 13:50 | DRG 871 ==
LOC: JD.ED 09:58 → JD.MS 14:42
PROVIDERS: ADMIT Family Medicine; ATTEND Student in an Organized Health Care Education/Training Program
PROC: 4A033R1 Measurement of Arterial Saturation, Peripheral, Percutaneous Approach (ICD-10-PCS; principal; 2024-06-20)
PROC: 3E03329 Introduction of Other Anti-infective into Peripheral Vein, Percutaneous Approach (ICD-10-PCS; 2024-06-20)
DX: A41.9 Sepsis, unspecified organism (principal); G92.8 Other toxic encephalopathy; R06.89 Other abnormalities of breathing; J18.9 Pneumonia, unspecified organism; J45.909 Unspecified asthma, uncomplicated; J96.21 Acute and chronic respiratory failure with hypoxia; J96.22 Acute and chronic respiratory failure with hypercapnia; Z91.048 Other nonmedicinal substance allergy status; Z79.4 Long term (current) use of insulin; Z79.890 Hormone replacement therapy; Z66 Do not resuscitate; Z51.5 Encounter for palliative care; H91.90 Unspecified hearing loss, unspecified ear; H54.7 Unspecified visual loss; I50.9 Heart failure, unspecified; G47.30 Sleep apnea, unspecified; K59.09 Other constipation; F41.9 Anxiety disorder, unspecified; E03.9 Hypothyroidism, unspecified; G31.84 Mild cognitive impairment of uncertain or unknown etiology; M41.9 Scoliosis, unspecified; G40.909 Epilepsy, unspecified, not intractable, without status epilepticus; Z88.8 Allergy status to other drugs, medicaments and biological substances; Z79.51 Long term (current) use of inhaled steroids; Z79.2 Long term (current) use of antibiotics; Z79.899 Other long term (current) drug therapy; Z87.19 Personal history of other diseases of the digestive system; Z86.16 Personal history of COVID-19; Z90.49 Acquired absence of other specified parts of digestive tract; Z99.81 Dependence on supplemental oxygen
CPT/HCPCS: 36415; 36600; 71250; 80053; 82803; 83605; 85007; 85027; 85610; 86140; 87040 ×2; 87428; 94640; 96361; 96365; 99285; J0696; J3490 ×2; J7030; 80202; 85025; 94760; 99223; 99233; 99239; A9270-GY; J0456; J0692; J1650; J3372; J7050; J7620-GY; U0002

== ENCOUNTER 2024-08-17 20:24 | Emergency (ER) | payer MEDICARE, MEDICAID ==
[2024-08-17 22:14] LABS: BASOPHILS ABSOLUTE AUTO 0.1 K/mm3 (0.0-0.2); BASOPHILS PERCENT AUTO 0.6 % (0.0-1.0); EOSINOPHILS ABSOLUTE AUTO 0.6 K/mm3 (0.0-0.4); EOSINOPHILS PERCENT AUTO 6.3 % (0.0-6.0); HEMATOCRIT 44.2 % (42.0-52.0); IMMATURE GRAN ABSOLUTE AUTO 0.02 K/mm3 (0.00-0.05); IMMATURE GRAN PERCENT AUTO 0.2 % (0.0-0.4); LYMPHOCYTES ABSOLUTE AUTO 3.2 K/mm3 (1.0-4.8); LYMPHOCYTES PERCENT AUTO 36.1 % (24.0-44.0); MEAN CORPUSCULAR HEMOGLOBIN 27.2 pg (28.0-32.0); MEAN CORPUSCULAR HGB CONC 29.4 g/dl (32.0-36.0); MEAN CORPUSCULAR VOLUME 92.5 fl (83.0-99.0); MONOCYTES ABSOLUTE AUTO 1.1 K/mm3 (0.0-0.8); MONOCYTES PERCENT AUTO 12.3 % (0.0-8.0); NEUTROPHILS PERCENT AUTO 44.5 % (41.0-71.0); PLATELET COUNT,PLT 150 K/mm3 (150-400); RED BLOOD CELL COUNT 4.78 M/mm3 (4.52-5.90); WHITE BLOOD CELL COUNT,WBC 8.95 K/mm3 (3.9-11.3)
[2024-08-17 22:35] LABS: A/G RATIO 0.7 (1-2); ALBUMIN 3.1 g/dl (3.4-5.0); BILIRUBIN TOTAL 0.5 mg/dL (0.2-1.0); C-REACTIVE PROTEIN 0.71 mg/dL (<0.30); CALCIUM 9.7 mg/dL (8.5-10.1); CREATININE 0.8 mg/dL (0.7-1.3); EST CRCL DRUG DOSING (CG) 117.3 mL/min; POTASSIUM,K 5.3 mEq/L (3.5-5.1); PROTEIN TOTAL,TP 7.8 g/dl (6.4-8.2)
[2024-08-17 23:13] LABS: ANION GAP -0.7 (5-15)
== END 2024-08-17 23:58 | disposition home or self-care (01) ==
LOC: JD.ED 20:24
DX: S90.31XA Contusion of right foot, initial encounter (principal); I50.9 Heart failure, unspecified; E03.9 Hypothyroidism, unspecified; Z86.16 Personal history of COVID-19; Z90.49 Acquired absence of other specified parts of digestive tract; Z79.899 Other long term (current) drug therapy; Z79.1 Long term (current) use of non-steroidal anti-inflammatories (NSAID); Z79.4 Long term (current) use of insulin; Z79.51 Long term (current) use of inhaled steroids; Z79.890 Hormone replacement therapy; Z88.8 Allergy status to other drugs, medicaments and biological substances; Z91.048 Other nonmedicinal substance allergy status; X58.XXXA Exposure to other specified factors, initial encounter
CPT/HCPCS: 36415; 73590-26-RT; 73590-RT; 73630-26-RT; 73630-RT; 80053; 85025; 86140; 93971-26-RT; 93971-RT; 99283; 99284

== ENCOUNTER 2024-09-13 13:32 | Inpatient (IN) | payer MEDICARE, MEDICAID ==
[2024-09-13 14:14] LABS: BASOPHILS PERCENT AUTO 0.5 % (0.0-1.0); EOSINOPHILS ABSOLUTE AUTO 0.4 K/mm3 (0.0-0.4); EOSINOPHILS PERCENT AUTO 5.5 % (0.0-6.0); HEMOGLOBIN 12.4 gm/dl (14.0-18.0); IMMATURE GRAN ABSOLUTE AUTO 0.02 K/mm3 (0.00-0.05); IMMATURE GRAN PERCENT AUTO 0.2 % (0.0-0.4); LYMPHOCYTES ABSOLUTE AUTO 2.4 K/mm3 (1.0-4.8); LYMPHOCYTES PERCENT AUTO 29.3 % (24.0-44.0); MEAN CORPUSCULAR HEMOGLOBIN 27.1 pg (28.0-32.0); MEAN CORPUSCULAR HGB CONC 29.5 g/dl (32.0-36.0); MEAN CORPUSCULAR VOLUME 91.9 fl (83.0-99.0); MEAN PLATELET VOLUME 10.9 fl (9.4-12.4); MONOCYTES ABSOLUTE AUTO 0.8 K/mm3 (0.0-0.8); MONOCYTES PERCENT AUTO 10.3 % (0.0-8.0); NEUTROPHILS ABSOLUTE AUTO 4.3 K/mm3 (1.8-7.7); NEUTROPHILS PERCENT AUTO 54.2 % (41.0-71.0); PLATELET COUNT,PLT 172 K/mm3 (150-400); RED BLOOD CELL COUNT 4.57 M/mm3 (4.52-5.90); WHITE BLOOD CELL COUNT,WBC 8.02 K/mm3 (3.9-11.3)
[2024-09-13 14:54] LABS: A/G RATIO 0.5 (1-2); ALBUMIN 2.5 g/dl (3.4-5.0); BILIRUBIN TOTAL 0.5 mg/dL (0.2-1.0); BUN/CREATININE RATIO 25.6 (14-18); C-REACTIVE PROTEIN 10.89 mg/dL (<0.30); CALCIUM 9.8 mg/dL (8.5-10.1); CREATININE 0.9 mg/dL (0.7-1.3); EST CRCL DRUG DOSING (CG) 100.84 mL/min; POTASSIUM,K 3.8 mEq/L (3.5-5.1); PROTEIN TOTAL,TP 7.7 g/dl (6.4-8.2)
[2024-09-13] MEDS: Sodium Chloride 0.9% 1,000 ML IV SCH ×2 (14:56→23:51)
[2024-09-13 15:19] LABS: ANION GAP -10.2 (5-15)
[2024-09-13 15:29] LABS: BASE EXCESS VENOUS 34.7 (-4.0-2.0); BICARBONATE,VENOUS 64.8 meq/L (22-26); O2 SATURATION VENOUS 93.3; PH,VENOUS 7.47 (7.30-7.40)
[2024-09-13] MEDS: cefTRIAXone 2 GM in Sodium Chloride 0.9% 100 ML IV ONE (15:45)
[2024-09-13] MEDS ORDERED: Acetaminophen 325 MG Tab PO PRN (16:35)
[2024-09-13 18:58] LABS: TSH 0.837 uIU/mL (0.358-3.74)
[2024-09-13] MEDS: Azithromycin 500 MG in Sodium Chloride 0.9% 250 ML IV SCH (19:33)
[2024-09-13] MEDS: ARIPiprazole 5 MG Tab PO SCH (20:53)
[2024-09-13] MEDS: cloNIDine 0.1 MG Tab PO SCH (20:53)
[2024-09-13] MEDS: Divalproex Sodium Delayed-Release 500 MG Tab.CR PO SCH (20:53)
[2024-09-13] MEDS: ARIPiprazole 10 MG Tab PO SCH (20:53)
[2024-09-14 05:40] LABS: BASOPHILS PERCENT AUTO 0.3 % (0.0-1.0); EOSINOPHILS ABSOLUTE AUTO 0.4 K/mm3 (0.0-0.4); EOSINOPHILS PERCENT AUTO 5.6 % (0.0-6.0); HEMATOCRIT 34.3 % (42.0-52.0); IMMATURE GRAN ABSOLUTE AUTO 0.02 K/mm3 (0.00-0.05); IMMATURE GRAN PERCENT AUTO 0.3 % (0.0-0.4); LYMPHOCYTES ABSOLUTE AUTO 2.3 K/mm3 (1.0-4.8); LYMPHOCYTES PERCENT AUTO 36.5 % (24.0-44.0); MEAN CORPUSCULAR HEMOGLOBIN 27.1 pg (28.0-32.0); MEAN CORPUSCULAR HGB CONC 29.4 g/dl (32.0-36.0); MONOCYTES ABSOLUTE AUTO 0.6 K/mm3 (0.0-0.8); NEUTROPHILS PERCENT AUTO 48.3 % (41.0-71.0); PLATELET COUNT,PLT 162 K/mm3 (150-400); RED BLOOD CELL COUNT 3.73 M/mm3 (4.52-5.90); WHITE BLOOD CELL COUNT,WBC 6.25 K/mm3 (3.9-11.3)
[2024-09-14 05:46] LABS: HEMOGLOBIN 10.1 gm/dl (14.0-18.0)
[2024-09-14 06:11] LABS: A/G RATIO 0.5 (1-2); ALBUMIN 1.9 g/dl (3.4-5.0); BILIRUBIN TOTAL 0.2 mg/dL (0.2-1.0); BUN/CREATININE RATIO 25.7 (14-18); C-REACTIVE PROTEIN 7.46 mg/dL (<0.30); CALCIUM 9.2 mg/dL (8.5-10.1); CREATININE 0.7 mg/dL (0.7-1.3); EST CRCL DRUG DOSING (CG) 136.8 mL/min; POTASSIUM,K 3.8 mEq/L (3.5-5.1)
[2024-09-14 06:15] LABS: SLIDE REVIEW ABNORMAL SMEAR
[2024-09-14 06:30] LABS: ANION GAP -2.2 (5-15)
[2024-09-14 09:31] LABS: BASE EXCESS ARTERIAL 26.3 (-2-2.0); BICARBONATE,ARTERIAL 56.4 meq/L (22.0-26.0)
[2024-09-14] MEDS: Divalproex Sodium Delayed-Release 250 MG Tab.CR PO SCH (10:04)
[2024-09-14] MEDS: Enoxaparin 40 MG/0.4 ML Syringe SUBCUT SCH (12:01)
[2024-09-14] MEDS: guaiFENesin 600 MG Tab.ER PO SCH (12:01)
[2024-09-14] MEDS: cefTRIAXone 1 GM Vial IVPUSH SCH (15:25)
[2024-09-14] MEDS: Allopurinol 300 MG Tab PO SCH (20:14)
[2024-09-14] MEDS: Famotidine 20 MG Tab PO SCH (20:14)
[2024-09-14] MEDS: Carboxymethylcellulose Sodium 1% Ophth Gel 15 ML Bottle EYEBOTH SCH (20:23)
[2024-09-15 05:06] LABS: A/G RATIO 0.5 (1-2); ALBUMIN 1.9 g/dl (3.4-5.0); ANION GAP 2.3 (5-15); BILIRUBIN TOTAL 0.2 mg/dL (0.2-1.0); BUN/CREATININE RATIO 31.4 (14-18); C-REACTIVE PROTEIN 5.33 mg/dL (<0.30); CALCIUM 9.2 mg/dL (8.5-10.1); CREATININE 0.7 mg/dL (0.7-1.3); EST CRCL DRUG DOSING (CG) 136.8 mL/min; POTASSIUM,K 4.3 mEq/L (3.5-5.1); PROTEIN TOTAL,TP 6.1 g/dl (6.4-8.2)
[2024-09-15 05:59] LABS: BASOPHILS PERCENT AUTO 0.3 % (0.0-1.0); EOSINOPHILS ABSOLUTE AUTO 0.3 K/mm3 (0.0-0.4); EOSINOPHILS PERCENT AUTO 4.5 % (0.0-6.0); HEMATOCRIT 36.6 % (42.0-52.0); HEMOGLOBIN 10.7 gm/dl (14.0-18.0); IMMATURE GRAN ABSOLUTE AUTO 0.02 K/mm3 (0.00-0.05); IMMATURE GRAN PERCENT AUTO 0.3 % (0.0-0.4); LYMPHOCYTES ABSOLUTE AUTO 2.7 K/mm3 (1.0-4.8); LYMPHOCYTES PERCENT AUTO 42.1 % (24.0-44.0); MEAN CORPUSCULAR HEMOGLOBIN 26.8 pg (28.0-32.0); MEAN CORPUSCULAR HGB CONC 29.2 g/dl (32.0-36.0); MEAN CORPUSCULAR VOLUME 91.5 fl (83.0-99.0); MONOCYTES ABSOLUTE AUTO 0.8 K/mm3 (0.0-0.8); MONOCYTES PERCENT AUTO 11.6 % (0.0-8.0); NEUTROPHILS ABSOLUTE AUTO 2.7 K/mm3 (1.8-7.7); NEUTROPHILS PERCENT AUTO 41.2 % (41.0-71.0); NRBC ABSOLUTE 0.02 (0.00-0.02); NRBC PERCENT 0.3 % (0.0-0.2); PLATELET COUNT,PLT 180 K/mm3 (150-400); WHITE BLOOD CELL COUNT,WBC 6.46 K/mm3 (3.9-11.3)
[2024-09-15 06:47] LABS: SLIDE REVIEW ABNORMAL SMEAR
[2024-09-15 08:27] LABS: BASE EXCESS VENOUS 28.2 (-4.0-2.0); BICARBONATE,VENOUS 57.7 meq/L (22-26); O2 SATURATION VENOUS 43; PH,VENOUS 7.44 (7.30-7.40)
[2024-09-15] MEDS: Sennosides/Docusate Sodium 50-8.6 MG Tab PO SCH (08:44)
[2024-09-15] MEDS: PARoxetine 20 MG Tab PO SCH (08:44)
[2024-09-15] MEDS: Folic Acid 1 MG Tab PO SCH (08:44)
[2024-09-15] MEDS: Levothyroxine 75 MCG Tab PO SCH (09:00)
[2024-09-15] MEDS: cefTRIAXone 1 GM Vial IVPUSH SCH (13:00)
[2024-09-19] MEDS ORDERED: Levothyroxine 50 MCG Tab PO SCH (09:00)
== END 2024-09-15 13:33 | disposition home health service (06) | DRG 193 ==
LOC: JD.ED 13:32 → JD.MS 16:35
PROVIDERS: ADMIT Family Medicine; ATTEND Family Medicine
PROC: 5A09357 Assistance with Respiratory Ventilation, Less than 24 Consecutive Hours, Continuous Positive Airway Pressure (ICD-10-PCS; principal; 2024-09-13)
PROC: 4A033R1 Measurement of Arterial Saturation, Peripheral, Percutaneous Approach (ICD-10-PCS; principal; 2024-09-13)
DX: J18.9 Pneumonia, unspecified organism (principal); G92.8 Other toxic encephalopathy; J96.21 Acute and chronic respiratory failure with hypoxia; Z66 Do not resuscitate; Z91.018 Allergy to other foods; Z91.048 Other nonmedicinal substance allergy status; J96.22 Acute and chronic respiratory failure with hypercapnia; Z79.51 Long term (current) use of inhaled steroids; E87.4 Mixed disorder of acid-base balance; H91.90 Unspecified hearing loss, unspecified ear; I50.9 Heart failure, unspecified; J45.909 Unspecified asthma, uncomplicated; G47.30 Sleep apnea, unspecified; K44.9 Diaphragmatic hernia without obstruction or gangrene; M41.9 Scoliosis, unspecified; F41.9 Anxiety disorder, unspecified; F42.9 Obsessive-compulsive disorder, unspecified; E03.9 Hypothyroidism, unspecified; H54.7 Unspecified visual loss; E86.0 Dehydration; G40.909 Epilepsy, unspecified, not intractable, without status epilepticus; Z88.8 Allergy status to other drugs, medicaments and biological substances; Z79.899 Other long term (current) drug therapy; Z79.4 Long term (current) use of insulin; Z86.16 Personal history of COVID-19; Z99.81 Dependence on supplemental oxygen; Z79.890 Hormone replacement therapy; Z87.01 Personal history of pneumonia (recurrent); Z90.49 Acquired absence of other specified parts of digestive tract
CPT/HCPCS: 36415; 71045; 80053; 82803; 83880; 84443; 84484; 85025; 86140; 87428; 94660; 96361; 96365; 99285; J0696; J7030; 36600; 93005; 94667; 94668; 94761; 97116-GP; 97162-GP; 99284; A9270-GY; J0456; J1650